=== PATIENT | male | born 1935 | race Caucasian/White ===

== ENCOUNTER → 2016-12-30 | Outpatient (CLI) | payer BC ==
[~2016-12-30] MED LIST: ASPI81TA28 PO; ATOR-26 PO; BRIN1SUS OPB; CALC600T9 PO; FOLIC AC PO; LORA-741 PO; LSN/10125 PO; MCLIN; METO25TA56 PO; MULT-845 PO; OMEP40CA36 PO; PRED10TA PO; TMPOPS15 OPB
--- NOTE | 2016-12-30 10:40 | DIAGNOSTIC IMAGING REPORT ---
CHEST 2 VIEWS ROUTINE CLINICAL HISTORY: Dyspnea. COMPARISON STUDY: Chest radiograph September 24, 2015. FINDINGS: There are median sternotomy wires. Cardiac size is at the upper limits of normal. There is no pneumothorax or pleural effusion. There is no consolidation. Distended colonic loops within the upper abdomen have been shown on prior exams. There is no consolidation to suggest pneumonia. Loss of the retrosternal clear space is noted. IMPRESSION: 1. No acute findings identified. 2. Retrosternal opacity on lateral projection. This is nonspecific and may be postsurgical or projectional. Electronically signed by: Francisco J Holm M.D. 12/30/2016 10:38 AM Dictated Date/Time: 12/30/2016 10:36 AM
== END | disposition home or self-care (01) ==
LOC: C.RADBC 09:57
PROVIDERS: ATTEND Internal Medicine
DX: R06.00 Dyspnea, unspecified (principal)

== ENCOUNTER → 2017-01-01 | Outpatient (CLI) | payer BC ==
[2017-01-01 17:34] LABS: BASO % 0.1 %; BASO ABS # 0.02 K/uL (0-0.2); COMPLETE YES; EOS % 0.2 %; HEMATOCRIT 41.5 % (42-52); IG% 0.4 %; LYMPH % 9.9 %; LYMPH ABS # 1.34 K/uL (1.2-3.4); MEAN CELL VOLUME 97.2 fL (80-100); MEAN CORPUSCULAR HEMOGLOBIN 32.1 pg (25-34); MEAN PLATELET VOLUME 10.6 fL (7.4-10.4); MONO % 7.4 %; PLATELET COUNT 305 K/uL (130-400); RED BLOOD COUNT 4.27 M/uL (4.7-6.1); WHITE BLOOD COUNT 13.58 K/uL (4.8-10.8)
[2017-01-01 17:48] LABS: ALT/SGPT 30 U/L (12-78); BLOOD UREA NITROGEN 26 mg/dl (7-18); BUN/CREATININE RATIO 21.9 (10-20); CALCIUM 9.2 mg/dl (8.5-10.1); CARBON DIOXIDE 26 mmol/L (21-32); CHLORIDE 110 mmol/L (98-107); GLUCOSE 107 mg/dl (70-99); POTASSIUM 4.4 mmol/L (3.5-5.1); SODIUM 144 mmol/L (136-145)
[2017-01-01 17:58] LABS: ALB/GLOB RATIO 1.2 (0.9-2); ALKALINE PHOSPHATASE 83 U/L (45-117); AST/SGOT 28 U/L (15-37); THYROID STIMULATING HORMONE 0.984 uIu/ml (0.300-4.500)
== END | disposition home or self-care (01) ==
LOC: C.LABPBG 15:18
PROVIDERS: ATTEND Internal Medicine
DX: R73.01 Impaired fasting glucose (principal)

== ENCOUNTER → 2017-01-04 | Outpatient (CLI) | payer BC ==
[~2017-01-04] MED LIST changes: +OPTIRAY 320 IV PRN
--- NOTE | 2017-01-04 10:48 | DIAGNOSTIC IMAGING REPORT ---
CT CHEST ANGIO WITH CONTRAST CT DOSE: 238.02 mGy.cm CLINICAL HISTORY: Shortness of breath. Abnormal chest radiograph. TECHNIQUE: Helical axial images of the chest were obtained during arterial phase following intravenous injection of 92 cc Optiray 320 IV. Sagittal and coronal reconstructions were viewed as well as maximal intensity projections on an independent 3-D workstation. COMPARISON STUDY: Chest radiograph December 30, 2016. FINDINGS: There are median sternotomy wires and postsurgical findings consistent with bypass grafting. The heart is moderately enlarged. There is no pericardial effusion. The finding on chest radiograph with loss of the external clear space of December 30, 2016 is due to vascular structures. There is no mediastinal mass. Central airways are patent. There is no consolidation to suggest pneumonia. There is no pneumothorax or pleural effusion. There is no thoracic lymphadenopathy. Visualized portions the upper abdomen demonstrate moderate dilatation of the pancreatic duct which measures 9 mm in caliber. This is a new finding since exam of December 16, 2014. The pancreas duct is dilated to the level of the pancreatic head. A corresponding mass is not identified by CT. There is no biliary ductal dilatation. A 1.1 cm hypodense lesion adjacent to the pancreatic head is unchanged since prior exam of December 16, 2014. IMPRESSION: 1. No acute intrathoracic findings. 2. Moderate cardiomegaly. 3. No mediastinal mass. Retrosternal opacity on prior chest radiograph is due to normal vascular structures. 4. Interval development of pancreatic ductal dilatation. The pancreatic duct is dilated to the level the pancreatic head. No mass identified by CT. This represents a nonspecific finding which could be due to an occult lesion, main duct IPMN or stricture. GI consultation is recommended. 5. Stable 1.1 cm cystic lesion adjacent to the pancreatic head since CT of December 16, 2014 which likely reflects a side branch IPMN. Electronically signed by: Francisco J Holm M.D. 01/04/2017 10:46 AM Dictated Date/Time: 01/04/2017 10:02 AM
== END | disposition home or self-care (01) ==
LOC: C.CTS 09:30
PROVIDERS: ATTEND Internal Medicine
DX: R06.00 Dyspnea, unspecified (principal); R93.8 Abnormal findings on diagnostic imaging of other specified body structures; I51.7 Cardiomegaly; K86.89 Other specified diseases of pancreas; K86.2 Cyst of pancreas

== ENCOUNTER → 2017-07-20 | Outpatient (CLI) | payer BC ==
[~2017-07-20] MED LIST changes: -OPTIRAY 320 IV PRN
[2017-07-20 10:20] LABS: HEMATOCRIT 40.5 % (42-52); MEAN CELL VOLUME 97.6 fL (80-100); MEAN CORPUSCULAR HEMOGLOBIN 33.3 pg (25-34); MEAN CORPUSCULAR HGB CONC 34.1 g/dl (32-36); MEAN PLATELET VOLUME 10.1 fL (7.4-10.4); PLATELET COUNT 257 K/uL (130-400); RED BLOOD COUNT 4.15 M/uL (4.7-6.1); WHITE BLOOD COUNT 11.61 K/uL (4.8-10.8)
== END | disposition home or self-care (01) ==
LOC: C.LAB 09:32
PROVIDERS: ATTEND Internal Medicine Gastroenterology
DX: K50.012 Crohn's disease of small intestine with intestinal obstruction (principal)

== ENCOUNTER → 2017-09-26 | Outpatient (CLI) | payer BC ==
[2017-09-26 17:27] LABS: BASO % 0.1 %; BASO ABS # 0.02 K/uL (0-0.2); COMPLETE YES; EOS % 0.3 %; HEMATOCRIT 43.5 % (42-52); IG% 0.4 %; LYMPH % 10.1 %; LYMPH ABS # 1.67 K/uL (1.2-3.4); MEAN CELL VOLUME 102.8 fL (80-100); MEAN CORPUSCULAR HEMOGLOBIN 33.3 pg (25-34); MEAN CORPUSCULAR HGB CONC 32.4 g/dl (32-36); MEAN PLATELET VOLUME 10.8 fL (7.4-10.4); MONO % 7.1 %; PLATELET COUNT 279 K/uL (130-400); RED BLOOD COUNT 4.23 M/uL (4.7-6.1); WHITE BLOOD COUNT 16.52 K/uL (4.8-10.8)
[2017-09-26 17:53] LABS: ALT/SGPT 32 U/L (12-78); AST/SGOT 32 U/L (15-37); BLOOD UREA NITROGEN 21 mg/dl (7-18); CALCIUM 8.9 mg/dl (8.5-10.1); CARBON DIOXIDE 27 mmol/L (21-32); CHLORIDE 108 mmol/L (98-107); CREATININE 1.25 mg/dl (0.60-1.40); GLUCOSE 101 mg/dl (70-99); MAGNESIUM 2.1 mg/dl (1.8-2.4); POTASSIUM 3.9 mmol/L (3.5-5.1); SODIUM 140 mmol/L (136-145)
[2017-09-26 18:03] LABS: ALB/GLOB RATIO 1.2 (0.9-2); ALKALINE PHOSPHATASE 77 U/L (45-117)
[2017-09-27 04:40] LABS: ESTIMATED AVERAGE GLUCOSE 131 mg/dl; HA1C FLAG Normal (Normal)
== END | disposition home or self-care (01) ==
LOC: C.LABPBG 11:16
PROVIDERS: ATTEND Internal Medicine
DX: M85.80 Other specified disorders of bone density and structure, unspecified site (principal); K50.90 Crohn's disease, unspecified, without complications; I10 Essential (primary) hypertension; Z51.81 Encounter for therapeutic drug level monitoring; Z79.52 Long term (current) use of systemic steroids; R79.9 Abnormal finding of blood chemistry, unspecified; I25.10 Atherosclerotic heart disease of native coronary artery without angina pectoris; R06.00 Dyspnea, unspecified

== ENCOUNTER → 2017-11-13 | Outpatient (CLI) | payer BC | END | disposition home or self-care (01) | LOC: C.PATHSPEC 16:43 | PROVIDERS: ATTEND Physician Assistant | DX: L57.0 Actinic keratosis (principal); Q82.8 Other specified congenital malformations of skin ==

== ENCOUNTER → 2018-01-14 | Outpatient (CLI) | payer BC ==
[2018-01-14 13:12] LABS: HEMOGLOBIN A1C 6.1 % (4.5-5.6)
== END | disposition home or self-care (01) ==
LOC: C.LABPBG 10:20
PROVIDERS: ATTEND Internal Medicine
DX: M79.1 Myalgia (principal); R73.01 Impaired fasting glucose

== ENCOUNTER 2019-06-24 07:45 | Inpatient (IN) ==
[2019-06-24] MEDS ORDERED: FAMOTIDINE 20MG/5ML IV PUSH IV STA (08:42)
[2019-06-24] MEDS ORDERED: SODIUM CHLORIDE 0.9% 1000ML 500 ML IV ONE (08:42)
[2019-06-24] MEDS ORDERED: fentaNYL citrate 100 MCG/2 ML VIAL IV STA (08:42)
[2019-06-24] MEDS ORDERED: SODIUM CHLORIDE 0.9% 1000ML 1,000 ML IV SCH (08:45)
[2019-06-24 08:53] LABS: Appearance Urine Clear (Clear); Bilirubin Urine Negative (Negative); Blood Urine Negative (Negative); Color Urine Yellow; Glucose Urine UA Negative (Negative); Ketones Urine Negative (Negative); Leukocyte Esterase Urine Negative (Negative); Nitrite Urine Negative (Negative); Protein Urine Negative (Negative); Specific Gravity Urine 1.019 (1.000-1.030); Urobilinogen Urine Negative (Negative)
[2019-06-24] MEDS: ONDANSETRON INJ 2 MG/ML 2 ML VIAL IV STA (08:54)
[2019-06-24 09:02] LABS: Basophils # (auto) 0.02 K/uL (0-0.2); Basophils % (auto) 0.1 %; Eosinophils # (auto) 0.08 K/uL (0-0.5); Eosinophils % (auto) 0.6 %; Hematocrit (blood only) 38.4 % (42-52); Immature Granulocytes # (auto) 0.04 K/uL (0.00-0.02); Immature Granulocytes % (auto) 0.3 %; Lymphocytes # (auto) 2.38 K/uL (1.2-3.4); Mean Corpuscular Hemoglobin 34.3 pg (25-34); Mean Corpuscular Hgb Conc 33.9 g/dL (32-36); Mean Corpuscular Volume 101.3 fL (80-100); Monocytes # (auto) 2.11 K/uL (0.11-0.59); Platelet Count 244 K/uL (130-400); RDW Standard Deviation 51.9 fL (36.4-46.3); Red Blood Count 3.79 M/uL (4.7-6.1); White Blood Count 14.03 K/uL (4.8-10.8)
[2019-06-24 09:19] LABS: Alanine Aminotransferase 19 U/L (12-78); Albumin Level 3.5 gm/dl (3.4-5.0); Aspartate Aminotransferase 23 U/L (15-37); Blood Urea Nitrogen 20 mg/dl (7-18); Calcium 9.5 mg/dl (8.5-10.1); Carbon Dioxide 25 mmol/L (21-32); Chloride 108 mmol/L (98-107); Est GFR (African American) 66.2; Est GFR (Non-African American) 57.1; Glucose 90 mg/dl (70-99); Potassium 3.8 mmol/L (3.5-5.1); Sodium 141 mmol/L (136-145)
[2019-06-24 09:22] LABS: Albumin Globulin Ratio 1.2 (0.9-2); Alkaline Phosphatase 70 U/L (45-117); Bilirubin,Total 0.9 mg/dl (0.2-1); Globulin 2.9 gm/dl (2.5-4.0); Lipase 3711 U/L (73-393); Total Protein 6.4 gm/dl (6.4-8.2)
[2019-06-24] MEDS ORDERED: IOVERSOL 100ml IV PRN (10:45)
--- NOTE | 2019-06-24 10:59 | Emergency Department Note ---
ED Visit Note This patient was seen in concert with Dr. Rios and we discussed and agreed upon the history, physical, assessment and plan. See attending's note for details. . Resident Activity Tracking Resident Involvement: Resident Care Provided Care Provided: Adult ED
--- NOTE | 2019-06-24 11:03 | CT Scan Report ---
CT abd pelvis IV con only CLINICAL HISTORY: 84 years-old Male presenting with abd pain, LUQ, h/o bowel resection. TECHNIQUE: Multidetector CT of the abdomen and pelvis was performed after the administration of intra venous contrast. IV contrast: 95 mL of Optiray 320. One or more dose lowering techniques were used co nsistent with the principles of ALARA (as low as reasonably achievable), including automatic exposure control, mA or kV adjustment to individual patient size, and/or use of iterative reconstruction. COMPARISON: 12/16/2014. CT DOSE (mGy.cm): The estimated cumulative dose is 403.29 mGycm. FINDINGS: Production Corrugator topogram: Median sternotomy wires. Dilated bowel as on prior exam. Lung bases: Top normal heart size. Coronary artery and aortic valve calcification. No pericardial or pleural effusion. No focal infiltrate or nodule at the lung bases. 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 Density suggestive of hepatic steatosis. No fo horacio lesion. Patent hepatic vasculature. Biliary: No intrahepatic or extrahepatic biliary ductal dilatation. Normal gallbladder. Pancreas: Focally dilated main pancreatic duct at the level of the pancreatic head and neck measuring 12 mm in diameter. This is new from prior exam. Redemonstration of the multilobular cystic lesion, w hich is immediately adjacent to dilated main duct. No upstream pancreatic ductal dilatation. Diffuse parenchymal atrophy most severe in the pancreatic neck and head. Spleen: Normal. Adrenal glands: Normal. Kidneys and ureters: Punctate nonobstructing lower pole left renal calculus. Mild cortical thinning b ilaterally. Otherwise normal renal parenchyma. No hydronephrosis. Ureters nondistended. Circumaortic left renal vein noted. Bladder: Circumferential bladder wall thickening. Pelvic organs: Prostate enlargement likely secondary to benign prostatic hyperplasia. Bowel: Diverticulosis of the sigmoid and distal descending colon without wall thickening or pericolon ic inflammatory change. The appendix is not visualized. No bowel obstruction. Several surgical clips are noted adjacent to small bowel in the central abdomen as on prior exam. Mild gaseous distention of an abnormal loop of small bowel in the anterior epigastrium. The appearance and degree of dilatation are unchanged from prior. Downstream enteroenteric anastomosis with postsurgical changes of the smal l bowel evident in the left mid abdomen. Intramural fat deposition in the region of postsurgical soares ge could suggest chronic inflammatory changes. Peritoneal cavity: No free fluid or intraperitoneal gas. Lymph nodes: No enlarged lymph nodes in the abdomen or pelvis. Vasculature: Atherosclerosis of the normal caliber abdominal aorta. IVC patent. Abdominal wall: Median sternotomy noted. Fat-containing inguinal hernias, right greater than left. Musculoskeletal: Degenerative changes of the spine. IMPRESSION: 1. Similar appearance of the mildly distended loop of small bowel in the epigastrium upstream to pos tsurgical change in the left mid abdomen, where there is an enteroenteric anastomosis. No bowel obstr uction. 2. Diverticulosis coli. No diverticulitis. 3. Chronic bladder outlet obstruction secondary to prostatomegaly. 4. Punctate nonobstructing left nephrolithiasis. 5. Interval development of a focally dilated main pancreatic duct at the level of the head and neck. 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 This qualifies as a worrisome feature. Follow-up per Fuk[place] criteria below. Summary of [place] (George) Criteria for IPMN Surveillance "High-risk stigmata": 1) obstructive jaundice in a patient with cystic lesion of the head of the panc reas, 2) enhancing mural nodule > or = 5 mm, 3) main pancreatic duct > or = 10 mm. * Consider surgery "Worrisome features": Clinical: pancreatitis; Imagin) cyst > or = 3 cm, 2) enhancing mural nodule < 5 mm, 3) thickened/enhancing cyst bello, 4) main duct size 5-9 mm, 5) abrupt change in caliber of pancreatic duct with distal pancreatic atrophy, 6) lymphadenopathy, 7) increased serum level of CA 19 -9, 8) cyst growth rate > or = 5 mm in 2 years. * Endoscopic ultrasound (EUS) Surveillance if no "high-risk stigmata" or "worrisome features": * Largest cyst < 1 cm: CT or MRI/MRCP in 6 months, then every 2 years if no change. * Largest cyst 1-2 cm: CT or MRI/MRCP in 6 months x 1 year, yearly x 2 years, then lengthen interval up to 2 years if no change. * Largest cyst 2-3 cm: Endoscopic ultrasound (EUS) in 3-6 months, then lengthen interval up to 1 yea r, alternating MRI with EUS as appropriate. Consider surgery in young, fit patients with need for pro longed surveillance. * Largest cyst > 3 cm: Close surveillance alternating MRI with EUS every 3-6 months. Strongly consid er surgery in young, fit patients. George M, Hanna Mayo C, Vesna T, et al. Revisions of international consensus [place] g uidelines for the management of IPMN of the pancreas. Pancreatology. 2017; 17:738-753. Electronically signed by: Darrin Blair M.D. 06/24/2019 11:01 AM
--- NOTE | 2019-06-24 12:10 | History & Physical Report ---
Date of Service June 24, 2019 Assessment & Plan (1) Pancreatitis: Noted on CT Lipase elevated Hx of same Possibly related to IPMN MRCP pending Leukocytosis in the setting of chronic steroid use (2) IPMN (intraductal papillary mucinous neoplasm): Noted on CTAP as 12mm and in the main pancreatic duct Criteria note that this is worrisome given size and location Was noted on CTAP 11/2014 as 11m and likely in a side duct. This was not worked up further. Criteria given on today's CTAP suggest this is new management since 2017 MRCP pending (3) Impaired fasting glucose: BS 90 in the ED, fasting given no PO intake today Monitor (4) Hypertension: continue home meds (5) Generalized anxiety disorder: continue home meds (6) Gastroesophageal reflux disease: continue home meds (7) Crohn's disease: Prednisone use, 10mg daily Continue (8) Benign neoplasm of colon: Denies hx of colon mass Hx of resxn for Crohn's Possibly entered in error and is related to IPMN?? 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 Pt states he was in his usual state of health until about 3-4 days ago when he developed abd discomfort. He felt very bloated and was belching more than usual. He thought this would help, but his bloating continued. No n/v/d or oracio pain. He has had no appetite for the last 2 days related to this and has taken very little PO. He states that when this continued, he realized that these were the same sx he had several years ago when he was dx with pancreatitis, so he came to the ED. Pt was given IVF, pepcid in the ED and says he feels a bit better. He is still bloated, but not nearly as uncomfortable. Family states that pt was told about this pancreatitic mass several years ago with his pancreatitis, but that they were told if he was not having issues that it could just be watched. Allergies Allergy/AdvReac Type Severity Reaction Status Date / Time Penicillins Allergy Unknown unknown Verified 06/24/19 09:19 Home Medications Home Medications Medication Instructions Recorded Confirmed Type calcitonin (salmon) 200 See Rx Instructions INTRANASAL 04/16/19 06/24/19 History unit/actuation nasal spray (ALT) .COMPLEX ml calcium carbonate 600 mg(1,500 1 tab PO BID 04/16/19 06/24/19 History mg)-vitamin D3 800 unit chewable tablet bzqgvzlc-kzz-ijfwy acid 0.4 1 tab PO DAILY 04/16/19 06/24/19 History mg-lycopene 300 mcg-lutein 250 mcg tablet timolol maleate 0.25 % eye gel 1 drops OP .COMPLEX ml 04/16/19 06/24/19 History forming solution aspirin 81 mg tablet 81 mg PO DAILY #30 tab 05/12/19 06/24/19 History atorvastatin 80 mg tablet 80 mg PO DAILY #90 tab 05/12/19 06/24/19 History brinzolamide 1 % eye 1 drops OP DAILY ml 05/12/19 06/24/19 History drops,suspension folic acid 400 mcg tablet 400 mcg PO DAILY tab 05/12/19 06/24/19 History lisinopril 10 1 tab PO DAILY #90 tab 05/12/19 06/24/19 History mg-hydrochlorothiazide 12.5 mg tablet metoprolol tartrate 25 mg tablet 25 mg PO BID #180 tab 05/12/19 06/24/19 History nitroglycerin 0.4 mg sublingual 0.4 mg SL .COMPLEX tab 05/12/19 06/24/19 History tablet omeprazole 40 mg capsule,delayed 40 mg PO DAILY #90 cap 05/12/19 06/24/19 History release prednisone 10 mg tablet 10 mg PO DAILY #90 tab 05/12/19 06/24/19 History diphenhydramine-acetaminophen 1 tab PO HS 06/24/19 06/24/19 History [Tylenol PM Extra Strength] lorazepam 0.5 mg PO HS 06/24/19 06/24/19 History Past Med/Surg History Medical History Squamous cell carcinoma in situ (Acute) Pre-diabetes (Acute) Osteopenia (Acute) Neutrophilic leukocytosis (Acute) Myalgia (Acute) 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 (Acute) Impaired fasting glucose (Acute) Hypertension (Chronic) Hyperlipidemia (Acute) Glaucoma (Acute) Generalized weakness (Acute) Generalized anxiety disorder (Acute) Gastroesophageal reflux disease (Acute) Gait disorder (Acute) Dyspnea (Acute) Crohn's disease (Acute) Claudication (Acute) CKD (chronic kidney disease), stage III (Acute) Benign neoplasm of colon (Acute) Asthma (Acute) Arteriosclerotic cardiovascular disease (Acute) Abnormal blood chemistry (Acute) Family History Unknown Hypertension Hyperlipidemia Social History Preferred Language: [place] Communication Ability: Effective Beliefs That Will Affect Care: None Current Living Situation: Spouse Other Information That Helps Us Care for You: No Feels Safe at Home: Yes Safety Concerns: Feels Safe At This Time Smoking Status: Never smoker Hx Alcohol Use: No Hx Substance Use: No Review of Systems Review of Systems: Pertinent positives and negatives reviewed in HPI--all others negative Physical Exam Constitutional: WD/WN, vitals as above Eyes: normal visual best by confrontation and + anicteric sclerae Neck: normal visual inspection and trachea midline Respiratory: normal respiratory effort, lungs clear to auscultation Cardiovascular: Rate/Rhythm: regular rate and regular rhythm Gastrointestinal (Abdomen): Inspection/Auscultation: + abdomen distended Percussion/Palpation: abdomen soft; abdomen nontender Musculoskeletal: Head/Neck/Chest: normocephalic and head atraumatic negative for edema, peripheral pulses intact Skin: no rashes, warm and dry Neurologic: awake; not confused Speech / Cognition: normal speech Psychiatric: A+Ox3, euthymic affect Results & Data Vital Signs (Past 12 Hours) Vital Signs Temp Pulse Pulse Resp BP BP Pulse Ox 06/24/19 11:30 74 20 136/83 98 06/24/19 10:54 88 20 156/75 H 99 06/24/19 10:06 78 20 130/78 98 06/24/19 09:04 82 16 164/74 H 99 06/24/19 08:36 88 20 150/96 H 97 06/24/19 07:50 36.7 C 102 H 20 144/82 H 98 Diagnostic Findings CTAP: 1. Similar appearance of the mildly distended loop of small bowel in the epigastrium upstream to postsurgical change in the left mid abdomen, where there is an enteroenteric anastomosis. No bowel obstruction. 2. Diverticulosis coli. No diverticulitis. 3. Chronic bladder outlet obstruction secondary to prostatomegaly. 4. Punctate nonobstructing left nephrolithiasis. 5. Interval development of a focally dilated main pancreatic duct at the level of the head and neck. 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 This qualifies as a worrisome feature. Follow-up per Fuk[place] criteria below. Summary of [place] (George) Criteria for IPMN Surveillance "High-risk stigmata": 1) obstructive jaundice in a patient with cystic lesion of the head of the pancreas, 2) enhancing mural nodule > or = 5 mm, 3) main pancreatic duct > or = 10 mm. * Consider surgery "Worrisome features": Clinical: pancreatitis; Imagin) cyst > or = 3 cm, 2) enhancing mural nodule < 5 mm, 3) thickened/enhancing cyst bello, 4) main duct size 5-9 mm, 5) abrupt change in caliber of pancreatic duct with distal pancreatic atrophy, 6) lymphadenopathy, 7) increased serum level of CA 19-9, 8) cyst growth rate > or = 5 mm in 2 years. * Endoscopic ultrasound (EUS) Surveillance if no "high-risk stigmata" or "worrisome features": * Largest cyst < 1 cm: CT or MRI/MRCP in 6 months, then every 2 years if no c hange. * Largest cyst 1-2 cm: CT or MRI/MRCP in 6 months x 1 year, yearly x 2 years, then lengthen interval up to 2 years if no change. * Largest cyst 2-3 cm: Endoscopic ultrasound (EUS) in 3-6 months, then lengthen interval up to 1 year, alternating MRI with EUS as appropriate. Consider surgery in young, fit patients with need for prolonged surveillance. * Largest cyst > 3 cm: Close surveillance alternating MRI with EUS every 3-6 months. Strongly consider surgery in young, fit patients. George Tovar, Hanna Mayo C, Vesna T, et al. Revisions of international consensus [place] guidelines for the management of IPMN of the pancreas. Pancreatology. 2017; 17:738-753. Code Status & VTE Plan Code Status Full code VTE Prophylaxis Plan VTE Prophylaxis will be ordered: Yes PG Care Time/CCT Total # of Minutes Spent Total Time Spent with Patient: Total time spent is greater than 50% in coordination of care (as documented) at patient's floor/unit and/or counseling patient: (1) Hypertension Hypertension type: essential hypertension Qualified Code(s): I10 - Essential (primary) hypertension
[2019-06-24] MEDS ORDERED: predniSONE 10 MG TABLET PO SCH (12:15)
[2019-06-24] MEDS ORDERED: ONDANSETRON INJ 2 MG/ML 2 ML VIAL IV PRN (13:50)
[2019-06-24] MEDS ORDERED: MAGNESIUM HYDROXIDE SUSP 30 ML UDC PO PRN (13:50)
[2019-06-24] MEDS ORDERED: NITROGLYCERIN SL 0.4 MG/TAB TAB SL PRN (13:50)
[2019-06-24] MEDS ORDERED: ACETAMINOPHEN 325 MG TAB PO PRN (13:50)
[2019-06-24] MEDS ORDERED: predniSONE 10 MG TABLET PO ONE (14:15)
--- NOTE | 2019-06-24 14:32 | Emergency Department Note ---
Entered by Leif Sheppard acting as a scribe for Ester Rios MD History of Present Illness General Chief complaint: Abdominal Pain Stated complaint: STOMACH PROBLEMS Source: patient History of Present Illness Provider complaint: Abdominal pain Onset (ago): day(s) 2 Location: abdomen Pain Consistency: + constant Maximum Pain Intensity: 6 Current Pain Intensity: 6 Relieved By: + none Exacerbated By: + none Associated symptoms: + loss of appetite, + weakness and + other (Diarrhea); no nausea/vomiting The patient is an 84 year old male who presents to the Emergency Room with complaints of constant epigastric and left upper quadrant abdominal pain that started about 2 days ago. The patient rates the pain as an 8/10 and notes that nothing makes it better or worse. The patient reports that due to the pain he has lost his appetite and feels more weak. The patient describes his symptoms as feeling similar to indigestion but notes it is unlike his GERD symptoms. The patient adds that she is passing gas and has had diarrhea over these past two days, having about 2-3 episodes per day. The patient notes that he tried Tums, but his symptoms persisted. He denies any nausea or vomiting. The patient has a history of GERD, Crohn's, bowel resection, and pancreatitis. Home Medications Home Medications Medication Instructions Recorded Confirmed Type calcitonin (salmon) 200 See Rx Instructions INTRANASAL 04/16/19 06/24/19 History unit/actuation nasal spray (ALT) .COMPLEX ml calcium carbonate 600 mg(1,500 1 tab PO BID 04/16/19 06/24/19 History mg)-vitamin D3 800 unit chewable tablet dmsguoqw-alp-xeviw acid 0.4 1 tab PO DAILY 04/16/19 06/24/19 History mg-lycopene 300 mcg-lutein 250 mcg tablet timolol maleate 0.25 % eye gel 1 drops OP .COMPLEX ml 04/16/19 06/24/19 History forming solution aspirin 81 mg tablet 81 mg PO DAILY #30 tab 05/12/19 06/24/19 History atorvastatin 80 mg tablet 80 mg PO DAILY #90 tab 05/12/19 06/24/19 History brinzolamide 1 % eye 1 drops OP DAILY ml 05/12/19 06/24/19 History drops,suspension folic acid 400 mcg tablet 400 mcg PO DAILY tab 05/12/19 06/24/19 History lisinopril 10 1 tab PO DAILY #90 tab 05/12/19 06/24/19 History mg-hydrochlorothiazide 12.5 mg tablet metoprolol tartrate 25 mg tablet 25 mg PO BID #180 tab 05/12/19 06/24/19 History nitroglycerin 0.4 mg sublingual 0.4 mg SL .COMPLEX tab 05/12/19 06/24/19 History tablet omeprazole 40 mg capsule,delayed 40 mg PO DAILY #90 cap 05/12/19 06/24/19 History release prednisone 10 mg tablet 10 mg PO DAILY #90 tab 05/12/19 06/24/19 History diphenhydramine-acetaminophen 1 tab PO HS 06/24/19 06/24/19 History [Tylenol PM Extra Strength] lorazepam 0.5 mg PO HS 06/24/19 06/24/19 History Allergies Allergy/AdvReac Type Severity Reaction Status Date / Time Penicillins Allergy Unknown unknown Verified 06/24/19 09:19 Past Med/Surg History Medical History Squamous cell carcinoma in situ (Acute) Pre-diabetes (Acute) Osteopenia (Acute) Neutrophilic leukocytosis (Acute) Myalgia (Acute) senior living current use of systemic steroids (Acute) Impaired fasting glucose (Acute) Hypertension (Chronic) Hyperlipidemia (Acute) Glaucoma (Acute) Generalized weakness (Acute) Generalized anxiety disorder (Acute) Gastroesophageal reflux disease (Acute) Gait disorder (Acute) Dyspnea (Acute) Crohn's disease (Acute) Claudication (Acute) CKD (chronic kidney disease), stage III (Acute) Benign neoplasm of colon (Acute) Asthma (Acute) Arteriosclerotic cardiovascular disease (Acute) Abnormal blood chemistry (Acute) Family History Unknown Hypertension Hyperlipidemia Social History Preferred Language: Guamanian Communication Ability: Effective Beliefs That Will Affect Care: None Current Living Situation: Spouse Feels Safe at Home: Yes Smoking Status: Never smoker Hx Alcohol Use: No Hx Substance Use: No Review of Systems See HPI for pertinent positives & negatives. and A total of 10 systems reviewed and were otherwise negative Physical Exam Vital Signs Vital Signs - 24 hr 06/24/19 07:50 06/24/19 08:10 06/24/19 08:36 Temperature 36.7 C Temperature Source Oral Sepsis Recent Fever Within 48 Hours No Sepsis Action Taken by Nursing No Action Required Pulse Rate 102 H Pulse Rate [Right Finger] 88 Respiratory Rate 20 20 Respiratory Effort / Characteristics Non-Labored Non-Labored Respiratory Depth Normal Normal Blood Pressure 144/82 H Blood Pressure [Right Arm] 150/96 H Blood Pressure Mean 102 Blood Pressure Mean [Right Arm] 114 Pulse Oximetry 98 97 Oxygen Delivery Method Room Air Room Air Room Air 06/24/19 09:04 06/24/19 10:06 06/24/19 10:54 Temperature Temperature Source Sepsis Recent Fever Within 48 Hours Sepsis Action Taken by Nursing Pulse Rate Pulse Rate [Right Finger] 82 78 88 Respiratory Rate 16 20 20 Respiratory Effort / Characteristics Non-Labored Respiratory Depth Normal Blood Pressure Blood Pressure [Right Arm] 164/74 H 130/78 156/75 H Blood Pressure Mean Blood Pressure Mean [Right Arm] 104 95 102 Pulse Oximetry 99 98 99 Oxygen Delivery Method Room Air Room Air Room Air 06/24/19 11:30 06/24/19 11:35 Temperature Temperature Source Sepsis Recent Fever Within 48 Hours Sepsis Action Taken by Nursing Pulse Rate Pulse Rate [Right Finger] 74 Respiratory Rate 20 Respiratory Effort / Characteristics Respiratory Depth Blood Pressure Blood Pressure [Right Arm] 136/83 Blood Pressure Mean Blood Pressure Mean [Right Arm] 100 Pulse Oximetry 98 Oxygen Delivery Method Room Air Vital signs reviewed. General: Chronically ill-appearing 84 year old male, in no significant distress. HEENT: No scleral icterus, PERRLA, neck supple. Atraumatic. Cardiovascular: Regular rate and rhythm, no extra sounds. Pulmonary: Clear to auscultation bilaterally, normal work of breathing. Abdomen: Soft, mild epigastric abdominal tenderness with no rebounding or guarding,, nondistended, positive bowel sounds. Musculoskeletal: Atraumatic, no peripheral edema. Neurologic: Patient awake alert and oriented x 3. Skin: Warm, dry, no rash Course 0758: Past medical records reviewed. The patient was evaluated in room A10, and a complete history and physical examination were performed. 1117: I spoke to Dr. Gilbert - [facility] Hospitalist about the patient's case. She is going to accept the patient for further evaluation. 1120: I reevaluated the patient and updated him on results. I also discussed the treatment plan and he fully understands and agrees with the plan. Consultations Consultation #1: I spoke to Dr. Gilbert - [facility] Hospitalist about the patient's case. She is going to accept the patient for further evaluation. Time: 11:17 Administered Medications Acetaminophen (Tylenol) 650 mg PO Q4H PRN PRN Reason: pain/fever Stop: 07/24/19 13:49 Last Admin: 06/25/19 07:51 Dose: 650 mg Documented by: [id number] Aspirin (Ecotrin Ectab) 81 mg PO DAILY BREEZY Stop: 07/25/19 08:59 Last Admin: 06/25/19 08:30 Dose: 81 mg Documented by: [id number] Brinzolamide (Azopt) 1 drops OP DAILY BREEZY Stop: 07/25/19 08:59 Last Admin: 06/25/19 08:30 Dose: 1 drops Documented by: [id number] Calcitonin [place] (Fortical) 1 sprays NA DAILY BREEZY Stop: 07/25/19 08:59 Last Admin: 06/25/19 08:31 Dose: 1 sprays Documented by: [id number] Lisinopril/HCTZ (Prinzide 10/12.5mg) 1 tab PO DAILY BREEZY Stop: 07/25/19 08:59 Last Admin: 06/25/19 08:32 Dose: 1 tab Documented by: [id number] Ioversol (Optiray 320 100ml) 95 ml IV ONCE PRN PRN Reason: Interaction Checking Stop: 06/28/19 10:44 Last Admin: 06/24/19 10:46 Dose: 95 ml Documented by: [id number] Lorazepam (Ativan) 0.5 mg PO HS BREEZY Stop: 07/24/19 20:59 Last Admin: 06/25/19 21:04 Dose: 0.5 mg Documented by: [id number] Admin: 06/24/19 20:32 Dose: 0.5 mg Documented by: [id number] Metoprolol Tartrate (Lopressor) 25 mg PO BID BREEZY Stop: 07/24/19 20:59 Last Admin: 06/25/19 21:04 Dose: 25 mg Documented by: [id number] Admin: 06/25/19 08:31 Dose: 25 mg Documented by: [id number] Admin: 06/24/19 20:33 Dose: 25 mg Documented by: [id number] Pantoprazole Sodium (Protonix) 40 mg PO DAILY BREEZY Stop: 07/25/19 08:59 Last Admin: 06/25/19 08:32 Dose: 40 mg Documented by: [id number] Prednisone (Prednisone) 10 mg PO DAILY BREEZY Stop: 07/25/19 08:59 Last Admin: 06/25/19 08:31 Dose: 10 mg Documented by: [id number] Timolol Maleate (Timoptic-Xe 0.25% Oph Soln) 1 drops OPR DAILY BREEZY Stop: 07/25/19 08:59 Last Admin: 06/25/19 08:32 Dose: 1 drops Documented by: [id number] Discontinued Medications Famotidine (Pepcid 20mg Iv Push) 20 mg IV ONE STA Stop: 06/24/19 08:43 Last Admin: 06/24/19 08:55 Dose: 20 mg Documented by: [id number] Fentanyl Citrate (Fentanyl Citrate) 50 mcg IV NOW STA Stop: 06/24/19 08:43 Last Admin: 06/24/19 08:54 Dose: 50 mcg Documented by: [id number] Sodium Chloride (Nss 1000ml) 1,000 mls @ 125 mls/hr IV .Q8H BREEZY Stop: 06/24/19 16:44 Last Infusion: 06/24/19 13:53 Dose: 0 mls/hr Documented by: [id number] Admin: 06/24/19 09:24 Dose: 125 mls/hr Documented by: [id number] Sodium Chloride (Nss 1000ml) 500 mls @ 999 mls/hr IV .Q31M ONE Stop: 06/24/19 09:12 Last Infusion: 06/24/19 09:24 Dose: 0 mls/hr Documented by: [id number] Admin: 06/24/19 08:55 Dose: 999 mls/hr Documented by: [id number] Dextrose/Sodium Chloride (D5w And Nss) 1,000 mls @ 120 mls/hr IV .Q8H20M BREEZY Stop: 07/24/19 13:49 Last Admin: 06/25/19 16:27 Dose: Not Given Documented by: [id number] Infusion: 06/25/19 16:27 Dose: 0 mls/hr Documented by: [id number] Admin: 06/25/19 07:42 Dose: 120 mls/hr Documented by: [id number] Infusion: 06/25/19 07:42 Dose: 120 mls/hr Documented by: [id number] Admin: 06/24/19 23:48 Dose: 120 mls/hr Documented by: [id number] Infusion: 06/24/19 23:34 Dose: 120 mls/hr Documented by: [id number] Admin: 06/24/19 15:14 Dose: 120 mls/hr Documented by: [id number] Ondansetron HCl (Zofran) 4 mg IV NOW STA Stop: 06/24/19 08:43 Last Admin: 06/24/19 08:54 Dose: 4 mg Documented by: [id number] Admin: 06/24/19 08:54 Dose: 4 mg Documented by: [id number] Prednisone (Prednisone) 10 mg PO NOW ONE Stop: 06/24/19 14:16 Last Admin: 06/24/19 15:58 Dose: 10 mg Documented by: [id number] Medical Decision Making Differential Diagnosis Differential Diagnosis includes but is not limited to dehydration, stroke, anemia, hypoglycemia, hyponatremia, hypernatremia, urinary tract infection, pneumonia, bronchitis, sepsis, gastroenteritis, additional abdominal pathology, metabolic abnormalities and infections. Medical Records Attestation: I reviewed the patient's medical records. Home Medications Current Medication List: was personally reviewed by me Laboratory Data Attestation: I reviewed the patient's lab results. Result diagrams: 06/25/19 05:30 06/25/19 05:30 Lab Results 06/24/19 06/24/19 06/24/19 Range/Units 08:04 08:55 08:55 WBC 14.03 H (4.8-10.8) K/uL RBC 3.79 L (4.7-6.1) M/uL Hgb 13.0 L (14.0-18.0) g/dL Hct 38.4 L (42-52) % MCV 101.3 H (80-100) fL MCH 34.3 H (25-34) pg MCHC 33.9 (32-36) g/dL RDW Std Deviation 51.9 H (36.4-46.3) fL RDW Coeff of Mayte 14.0 (11.5-14.5) % Plt Count 244 (130-400) K/uL MPV 10.0 (7.4-10.4) fL Immature Gran % (Auto) 0.3 % Neut % (Auto) 67.0 % Lymph % (Auto) 17.0 % [place] % (Auto) 15.0 % Eos % (Auto) 0.6 % Baso % (Auto) 0.1 % Immature Gran # (Auto) 0.04 H (0.00-0.02) K/uL Neut # (Auto) 9.40 H (1.4-6.5) K/uL Lymph # (Auto) 2.38 (1.2-3.4) K/uL [place] # (Auto) 2.11 H (0.11-0.59) K/uL Eos # (Auto) 0.08 (0-0.5) K/uL Baso # (Auto) 0.02 (0-0.2) K/uL Sodium 141 (136-145) mmol/L Potassium 3.8 (3.5-5.1) mmol/L Chloride 108 H (98-107) mmol/L Carbon Dioxide 25 (21-32) mmol/L Anion Gap 8.0 (3-11) BUN 20 H (7-18) mg/dl Creatinine 1.16 (0.6-1.4) mg/dl Est Cr Clr Drug Dosing Not Reportable Est GFR ( Amer) 66.2 Est GFR (Non-Af Amer) 57.1 BUN/Creatinine Ratio 17.0 (10-20) Glucose 90 (70-99) mg/dl Lactate (0.4-2.0) mmol/L Calcium 9.5 (8.5-10.1) mg/dl Total Bilirubin 0.9 (0.2-1) mg/dl AST 23 (15-37) U/L ALT 19 (12-78) U/L Alkaline Phosphatase 70 (45-117) U/L Total Protein 6.4 (6.4-8.2) gm/dl Albumin 3.5 (3.4-5.0) gm/dl Globulin 2.9 (2.5-4.0) gm/dl Albumin/Globulin Ratio 1.2 (0.9-2) Lipase 3711 H (73-393) U/L Urine Color Yellow Urine Appearance Clear (Clear) Urine pH 5.0 (4.5-7.5) Ur Specific [place] 1.019 (1.000-1.030) Urine Protein Negative (Negative) Urine Glucose (UA) Negative (Negative) Urine Ketones Negative (Negative) Urine Blood Negative (Negative) Urine Nitrite Negative (Negative) Urine Bilirubin Negative (Negative) Urine Urobilinogen Negative (Negative) Ur Leukocyte Esterase Negative (Negative) 06/24/19 Range/Units 08:55 WBC (4.8-10.8) K/uL RBC (4.7-6.1) M/uL Hgb (14.0-18.0) g/dL Hct (42-52) % MCV (80-100) fL MCH (25-34) pg MCHC (32-36) g/dL RDW Std Deviation (36.4-46.3) fL RDW Coeff of Mayte (11.5-14.5) % Plt Count (130-400) K/uL MPV (7.4-10.4) fL Immature Gran % (Auto) % Neut % (Auto) % Lymph % (Auto) % [place] % (Auto) % Eos % (Auto) % Baso % (Auto) % Immature Gran # (Auto) (0.00-0.02) K/uL Neut # (Auto) (1.4-6.5) K/uL Lymph # (Auto) (1.2-3.4) K/uL [place] # (Auto) (0.11-0.59) K/uL Eos # (Auto) (0-0.5) K/uL Baso # (Auto) (0-0.2) K/uL Sodium (136-145) mmol/L Potassium (3.5-5.1) mmol/L Chloride (98-107) mmol/L Carbon Dioxide (21-32) mmol/L Anion Gap (3-11) BUN (7-18) mg/dl Creatinine (0.6-1.4) mg/dl Est Cr Clr Drug Dosing Est GFR ( Amer) Est GFR (Non-Af Amer) BUN/Creatinine Ratio (10-20) Glucose (70-99) mg/dl Lactate 1.8 (0.4-2.0) mmol/L Calcium (8.5-10.1) mg/dl Total Bilirubin (0.2-1) mg/dl AST (15-37) U/L ALT (12-78) U/L Alkaline Phosphatase (45-117) U/L Total Protein (6.4-8.2) gm/dl Albumin (3.4-5.0) gm/dl Globulin (2.5-4.0) gm/dl Albumin/Globulin Ratio (0.9-2) Lipase (73-393) U/L Urine Color Urine Appearance (Clear) Urine pH (4.5-7.5) Ur Specific [place] (1.000-1.030) Urine Protein (Negative) Urine Glucose (UA) (Negative) Urine Ketones (Negative) Urine Blood (Negative) Urine Nitrite (Negative) Urine Bilirubin (Negative) Urine Urobilinogen (Negative) Ur Leukocyte Esterase (Negative) Imaging Data Radiologist's Impression: Radiology results as stated below per my review and the radiologist's interpretation: CT abd pelvis IV con only CLINICAL HISTORY: 84 years-old Male presenting with abd pain, LUQ, h/o bowel resection. TECHNIQUE: Multidetector CT of the abdomen and pelvis was performed after the administration of intravenous contrast. IV contrast: 95 mL of Optiray 320. One or more dose lowering techniques were used consistent with the principles of ALARA (as low as reasonably achievable), including automatic exposure control, mA or kV adjustment to individual patient size, and/or use of iterative reconstruction. COMPARISON: 12/16/2014. CT DOSE (mGy.cm): The estimated cumulative dose is 403.29 mGycm. FINDINGS: Bak[employer] Team [employer] topogram: Median sternotomy wires. Dilated bowel as on prior exam. Lung bases: Top normal heart size. Coronary artery and aortic valve calcification. No pericardial or pleural effusion. No focal infiltrate or nodule at the lung bases. 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 Density suggestive of hepatic steatosis. No focal lesion. Patent hepatic vasculature. Biliary: No intrahepatic or extrahepatic biliary ductal dilatation. Normal gallbladder. Pancreas: Focally dilated main pancreatic duct at the level of the pancreatic head and neck measuring 12 mm in diameter. This is new from prior exam. Redemonstration of the multilobular cystic lesion, which is immediately adjacent to dilated main duct. No upstream pancreatic ductal dilatation. Diffuse parenchymal atrophy most severe in the pancreatic neck and head. Spleen: Normal. Adrenal glands: Normal. Kidneys and ureters: Punctate nonobstructing lower pole left renal calculus. Mild cortical thinning bilaterally. Otherwise normal renal parenchyma. No hydro nephrosis. Ureters nondistended. Circumaortic left renal vein noted. Bladder: Circumferential bladder wall thickening. Pelvic organs: Prostate enlargement likely secondary to benign prostatic hyperp lasia. Bowel: Diverticulosis of the sigmoid and distal descending colon without wall thickening or pericolonic inflammatory change. The appendix is not visualized. No bowel obstruction. Several surgical clips are noted adjacent to small bowel in the central abdomen as on prior exam. Mild gaseous distention of an abnormal loop of small bowel in the anterior epigastrium. The appearance and degree of dilatation are unchanged from prior. Downstream enteroenteric anastomosis with postsurgical changes of the small bowel evident in the left mid abdomen. Intramural fat deposition in the region of postsurgical change could suggest chronic inflammatory changes. Peritoneal cavity: No free fluid or intraperitoneal gas. Lymph nodes: No enlarged lymph nodes in the abdomen or pelvis. Vasculature: Atherosclerosis of the normal caliber abdominal aorta. IVC patent. Abdominal wall: Median sternotomy noted. Fat-containing inguinal hernias, right greater than left. Musculoskeletal: Degenerative changes of the spine. IMPRESSION: 1. Similar appearance of the mildly distended loop of small bowel in the epigastrium upstream to postsurgical change in the left mid abdomen, where there is an enteroenteric anastomosis. No bowel obstruction. 2. Diverticulosis coli. No diverticulitis. 3. Chronic bladder outlet obstruction secondary to prostatomegaly. 4. Punctate nonobstructing left nephrolithiasis. 5. Interval development of a focally dilated main pancreatic duct at the level of the head and neck. 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 This qualifies as a worrisome feature. Follow-up per Fuk[place] criteria below. Summary of [place] (George) Criteria for IPMN Surveillance "High-risk stigmata": 1) obstructive jaundice in a patient with cystic lesion of the head of the pancreas, 2) enhancing mural nodule > or = 5 mm, 3) main pancreatic duct > or = 10 mm. * Consider surgery "Worrisome features": Clinical: pancreatitis; Imagin) cyst > or = 3 cm, 2) enhancing mural nodule < 5 mm, 3) thickened/enhancing cyst bello, 4) main duct size 5-9 mm, 5) abrupt change in caliber of pancreatic duct with distal pancreatic atrophy, 6) lymphadenopathy, 7) increased serum level of CA 19-9, 8) cyst growth rate > or = 5 mm in 2 years. * Endoscopic ultrasound (EUS) Surveillance if no "high-risk stigmata" or "worrisome features": * Largest cyst < 1 cm: CT or MRI/MRCP in 6 months, then every 2 years if no change. * Largest cyst 1-2 cm: CT or MRI/MRCP in 6 months x 1 year, yearly x 2 years, then lengthen interval up to 2 years if no change. * Largest cyst 2-3 cm: Endoscopic ultrasound (EUS) in 3-6 months, then lengthen interval up to 1 year, alternating MRI with EUS as appropriate. Consider surgery in young, fit patients with need for prolonged surveillance. * Largest cyst > 3 cm: Close surveillance alternating MRI with EUS every 3-6 months. Strongly consider surgery in young, fit patients. George M, Simon-fran Mayo C, Vesna T, et al. Revisions of international consensus Fuk[place] guidelines for the management of IPMN of the pancreas. Pancreatology. 2017; 17:738-753. Electronically signed by: Darrin Blair M.D. 06/24/2019 11:01 AM ECG Data Attestation: I personally reviewed and interpreted this ECG as follows: Indication: abdominal pain Rate (beats per minute): 97 Rhythm: normal sinus Findings: + other (Left atrial enlargement, P wave abnormality anteriorly, T wave flattening laterally) and + nonspecific-ST abn (Lateral) Comparison ECG Date: from (09/24/16) Change: the following changes noted (PVCs are now resolved. T wave changes have changed. ) Blood Pressure Blood Pressure Findings: Elevated blood pressure Blood Pressure Disposition: further management by hospitalist MDM Narrative This patient was evaluated and appeared to be in no significant distress. IV access was obtained and laboratory work was drawn. The patient was placed on the quality assurance monitor body and appeared to be in no distress. Physical examination reveals a mild epigastric abdominal tenderness. The patient was hydrated with normal saline solution. Patient was given IV fentanyl and Zofran for his discomfort. CT scan of the abdomen pelvis was performed is concerning for dilated pancreatic duct. Patient was informed of the findings. Lipase is noted to be 3711. Patient's case was discussed with the hospitalist service who will evaluate the patient for admission and further management. Impression & Plan Acute pancreatitis, Pancreatic mass Discharge Plan Visit Data *Final* Discharge Date/Time: 06/24/19 13:16 Chief Complaint: Abdominal Pain Stated Complaint: STOMACH PROBLEMS ED Provider: Ester Rios Discharge Problem: Acute pancreatitis, Pancreatic mass Patient Disposition: Admitted As Inpatient Discharge Instructions Interventions: ED Discharge Assessment Last Done: 06/24/19 13:16 Discharge Problem: Acute pancreatitis Qualifiers: Pancreatitis type: unspecified pancreatitis type Acute pancreatitis complication: unspecified Qualified Code(s): K85.90 - Acute pancreatitis without necrosis or infection, unspecified The scribe's documentation has been prepared under my direction and personally reviewed by me in its entirety. I confirm that the note above accurately reflects all work, treatment, procedures, and medical decision making performed by me.
--- NOTE | 2019-06-24 15:04 | Magnetic Resonance Report ---
MR MRCP CLINICAL HISTORY: 84 years-old Male presenting with IPMN. TECHNIQUE: Multisequence, multiplanar MR imaging of the abdomen was performed without the use of intr avenous contrast. Dedicated MRCP protocol was utilized. 3-D volumetric and/or maximum intensity proje ction (MIP) images were subsequently reconstructed for review. IV contrast: None. COMPARISON: CT performed earlier the same day. FINDINGS: Localizer images: Unremarkable. Lung bases: Normal heart size. No pericardial or pleural effusion. Lung base clear. Liver: Normal morphology. Biliary: Conventional intrahepatic biliary ductal bifurcation. Cystic duct is nondilated. No choledoc holithiasis. Normal gallbladder. No cholelithiasis. Pancreas: Moderate parenchymal atrophy. Redemonstration of the focally dilated main pancreatic duct a t the level of the pancreatic head and neck measuring up to 13 mm in diameter and extending along a l ength of approximately 36 mm. There is abrupt transition both upstream and downstream to nondilated m ain pancreatic duct. There is adjacent multiple small cystic foci, which appear to communicate with t he side ducts. Spleen: Normal noncontrast appearance. Adrenal glands: Normal noncontrast appearance. Kidneys and ureters: Normal noncontrast appearance. No hydronephrosis. Normal ureters. Bowel: Normal noncontrast appearance. No bowel obstruction. Peritoneal cavity: No free fluid. Lymph nodes: No gross lymphadenopathy allowing for noncontrast technique. Vasculature: Normal noncontrast appearance. Abdominal wall: Normal. Musculoskeletal: Normal. IMPRESSION: 1. 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 This qualifies as a worrisome feature. Follow-up per [place] criteria below. 2. Additional adjacent small side branch IPMN's. Summary of [place] (George) Criteria for IPMN Surveillance "High-risk stigmata": 1) obstructive jaundice in a patient with cystic lesion of the head of the panc reas, 2) enhancing mural nodule > or = 5 mm, 3) main pancreatic duct > or = 10 mm. * Consider surgery "Worrisome features": Clinical: pancreatitis; Imagin) cyst > or = 3 cm, 2) enhancing mural nodule < 5 mm, 3) thickened/enhancing cyst bello, 4) main duct size 5-9 mm, 5) abrupt change in caliber of pancreatic duct with distal pancreatic atrophy, 6) lymphadenopathy, 7) increased serum level of CA 19 -9, 8) cyst growth rate > or = 5 mm in 2 years. * Endoscopic ultrasound (EUS) Surveillance if no "high-risk stigmata" or "worrisome features": * Largest cyst < 1 cm: CT or MRI/MRCP in 6 months, then every 2 years if no change. * Largest cyst 1-2 cm: CT or MRI/MRCP in 6 months x 1 year, yearly x 2 years, then lengthen interval up to 2 years if no change. * Largest cyst 2-3 cm: Endoscopic ultrasound (EUS) in 3-6 months, then lengthen interval up to 1 yea r, alternating MRI with EUS as appropriate. Consider surgery in young, fit patients with need for pro longed surveillance. * Largest cyst > 3 cm: Close surveillance alternating MRI with EUS every 3-6 months. Strongly consid er surgery in young, fit patients. George M, Simon-fran Mayo C, Vesna T, et al. Revisions of international consensus [place] g uidelines for the management of IPMN of the pancreas. Pancreatology. 2017; 17:738-753. Electronically signed by: Darrin Blair M.D. 06/24/2019 3:02 PM
[2019-06-24] MEDS: D5W AND NSS 1,000 ML IV SCH ×2 (15:14→23:48)
[2019-06-24] MEDS: LORazepam 0.5 MG TAB PO SCH (20:32)
[2019-06-24] MEDS: METOPROLOL TARTRATE 25 MG TAB PO SCH (20:33)
[2019-06-25 05:51] LABS: Basophils # (auto) 0.01 K/uL (0-0.2); Basophils % (auto) 0.1 %; Eosinophils # (auto) 0.08 K/uL (0-0.5); Eosinophils % (auto) 0.7 %; Hematocrit (blood only) 35.6 % (42-52); Hemoglobin 11.9 g/dL (14.0-18.0); Immature Granulocytes # (auto) 0.03 K/uL (0.00-0.02); Immature Granulocytes % (auto) 0.2 %; Lymphocytes # (auto) 1.46 K/uL (1.2-3.4); Lymphocytes % (auto) 12.1 %; Mean Corpuscular Hemoglobin 34.2 pg (25-34); Mean Corpuscular Hgb Conc 33.4 g/dL (32-36); Mean Corpuscular Volume 102.3 fL (80-100); Monocytes # (auto) 1.41 K/uL (0.11-0.59); Monocytes % (auto) 11.7 %; Neutrophils # (auto) 9.03 K/uL (1.4-6.5); Neutrophils % (auto) 75.2 %; Platelet Count 224 K/uL (130-400); RDW Coefficient of Variation 14.1 % (11.5-14.5); RDW Standard Deviation 52.7 fL (36.4-46.3); Red Blood Count 3.48 M/uL (4.7-6.1); White Blood Count 12.02 K/uL (4.8-10.8)
[2019-06-25 06:19] LABS: BUN Creatinine Ratio 13.6 (10-20); Blood Urea Nitrogen 14 mg/dl (7-18); Calcium 8.4 mg/dl (8.5-10.1); Carbon Dioxide 25 mmol/L (21-32); Chloride 113 mmol/L (98-107); Est GFR (African American) 75.5; Est GFR (Non-African American) 65.2; Glucose 137 mg/dl (70-99); Magnesium 1.8 mg/dl (1.8-2.4); Phosphorus 2.7 mg/dl (2.5-4.9); Potassium 4.2 mmol/L (3.5-5.1); Sodium 144 mmol/L (136-145)
[2019-06-25] MEDS: D5W AND NSS 1,000 ML IV SCH ×2 (07:42→16:27)
[2019-06-25] MEDS: ASPIRIN 81 MG ECTAB PO SCH (08:30)
[2019-06-25] MEDS: BRINZOLAMIDE (AZOPT) OPS 10 ML BTL OP SCH (08:30)
[2019-06-25] MEDS: METOPROLOL TARTRATE 25 MG TAB PO SCH ×2 (08:31→21:04)
[2019-06-25] MEDS: CALCITONIN SALMON NA 200 IU/AC 3.7 ML BTL SCH (08:31)
[2019-06-25] MEDS: predniSONE 10 MG TABLET PO SCH (08:31)
[2019-06-25] MEDS: LISINOPRIL/HCTZ 10/12.5MG TAB PO SCH (08:32)
[2019-06-25] MEDS: TIMOLOL GFS 0.25% OPH SOLN 74 DROPS/5 ML BTL OPR SCH (08:32)
[2019-06-25] MEDS: PANTOprazole 40 MG TAB PO SCH (08:32)
[2019-06-25] MEDS ORDERED: NON-FORMULARY MEDICATION (Aspirin 81 MG) PO SCH (09:00)
--- NOTE | 2019-06-25 15:24 | Hospitalist Progress Note ---
Date of Service June 25, 2019 Assessment & Plan (1) Pancreatitis: Possibly related to IPMN. Fortunately improving quite nicely. Continue fluids, but add clear liquid diet advance as tolerated to low-fat. (2) IPMN (intraductal papillary mucinous neoplasm): Appears to be 13 mm now, noted as [address] scan from 2015. Is probably the culprit for the pancreatitis disrupting the architecture of his pancreas. Will defer further follow-up or management to his PCP, but given that it is only grown 2 mm over 4 years, as well as the patient's advanced age, ongoing watchful waiting is likely appropriate (3) Impaired fasting glucose: Outpatient follow-up (4) Hypertension: Blood pressure reasonable given the circumstances, continue current treatment and follow. (5) Generalized anxiety disorder: continue home meds (6) Gastroesophageal reflux disease: Offered reassurance, calm careful explanations of his situation, and supportive care. 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 He seems quite mobile, certainly if he is not moving as much we will initiate pharmacologic DVT prophylaxis Subjective Feeling better. No abdominal pain. No nausea. Feels hungry. No other complaints. Review of Systems Review of Systems: All systems reviewed & are unremarkable except as noted in HPI & below Physical Exam Physical Exam: General he is awake and alert very pleasant, may be mildly anxious with mild pressured speech no distress. HEENT normocephalic atraumatic mucous membranes moist. Breathing unlabored no accessory muscle use good effort. Abdomen soft mildly distended no guarding no rebound no tenderness. Extremities show no cyanosis clubbing. Neuro shows no focal deficits. Results & Data Vital Signs (Past 12 Hours) Vital Signs Temp Pulse Resp BP Pulse Ox 06/25/19 12:11 97.9 F 72 20 158/72 H 97 06/25/19 07:33 97.9 F 76 18 124/70 95 PG Care Time/CCT Total # of Minutes Spent Total Time Spent with Patient: Total time spent is greater than 50% in coordination of care (as documented) at patient's floor/unit and/or counseling patient: (1) Hypertension Hypertension type: essential hypertension Qualified Code(s): I10 - Essential (primary) hypertension
[2019-06-25] MEDS: LORazepam 0.5 MG TAB PO SCH (21:04)
[2019-06-26 06:24] LABS: Basophils # (auto) 0.01 K/uL (0-0.2); Basophils % (auto) 0.1 %; Eosinophils # (auto) 0.17 K/uL (0-0.5); Eosinophils % (auto) 1.4 %; Hematocrit (blood only) 35.6 % (42-52); Hemoglobin 11.8 g/dL (14.0-18.0); Immature Granulocytes # (auto) 0.03 K/uL (0.00-0.02); Immature Granulocytes % (auto) 0.3 %; Lymphocytes # (auto) 2.13 K/uL (1.2-3.4); Lymphocytes % (auto) 17.8 %; Mean Corpuscular Hemoglobin 33.6 pg (25-34); Mean Corpuscular Hgb Conc 33.1 g/dL (32-36); Mean Corpuscular Volume 101.4 fL (80-100); Mean Platelet Volume 10.3 fL (7.4-10.4); Monocytes # (auto) 1.41 K/uL (0.11-0.59); Monocytes % (auto) 11.8 %; Neutrophils # (auto) 8.21 K/uL (1.4-6.5); Neutrophils % (auto) 68.6 %; Platelet Count 243 K/uL (130-400); RDW Coefficient of Variation 14.1 % (11.5-14.5); RDW Standard Deviation 51.8 fL (36.4-46.3); Red Blood Count 3.51 M/uL (4.7-6.1); White Blood Count 11.96 K/uL (4.8-10.8)
[2019-06-26 06:57] LABS: BUN Creatinine Ratio 11.4 (10-20); Blood Urea Nitrogen 12 mg/dl (7-18); Calcium 8.3 mg/dl (8.5-10.1); Carbon Dioxide 24 mmol/L (21-32); Chloride 112 mmol/L (98-107); Est GFR (African American) 76.4; Est GFR (Non-African American) 65.9; Glucose 71 mg/dl (70-99); Potassium 3.2 mmol/L (3.5-5.1); Sodium 143 mmol/L (136-145)
[2019-06-26] MEDS: LISINOPRIL/HCTZ 10/12.5MG TAB PO SCH (08:08)
[2019-06-26] MEDS: predniSONE 10 MG TABLET PO SCH (08:08)
[2019-06-26] MEDS: ASPIRIN 81 MG ECTAB PO SCH (08:08)
[2019-06-26] MEDS: PANTOprazole 40 MG TAB PO SCH (08:08)
[2019-06-26] MEDS: METOPROLOL TARTRATE 25 MG TAB PO SCH (08:08)
[2019-06-26] MEDS: TIMOLOL GFS 0.25% OPH SOLN 74 DROPS/5 ML BTL OPR SCH (08:09)
[2019-06-26] MEDS: BRINZOLAMIDE (AZOPT) OPS 10 ML BTL OP SCH (08:09)
[2019-06-26] MEDS: CALCITONIN SALMON NA 200 IU/AC 3.7 ML BTL SCH (08:09)
[2019-06-26] MEDS ORDERED: POTASSIUM CHLORIDE 20 MEQ TABCR PO STA (08:28)
--- NOTE | 2019-06-26 18:23 | Discharge Summary ---
Date of Service June 26, 2019 Admission HPI Per Admitting Provider 84 y/o M c/o abd pain. Pt states he was in his usual state of health until about 3-4 days ago when he developed abd discomfort. He felt very bloated and was belching more than usual. He thought this would help, but his bloating continued. No n/v/d or oracio pain. He has had no appetite for the last 2 days related to this and has taken very little PO. He states that when this continued, he realized that these were the same sx he had several years ago when he was dx with pancreatitis, so he came to the ED. Pt was given IVF, pepcid in the ED and says he feels a bit better. He is still bloated, but not nearly as uncomfortable. Family states that pt was told about this pancreatitic mass several years ago with his pancreatitis, but that they were told if he was not having issues that it could just be watched. Principal Diagnosis Pancreatitis, likely related to IPMN Discharge Exam In general he is awake alert pleasant no distress. HEENT normocephalic atraumatic mucous members moist. Breathing unlabored no accessory muscle use good effort. Skin shows no rashes no pallor or icterus. Discharge Data Allergies Allergy/AdvReac Type Severity Reaction Status Date / Time Penicillins Allergy Unknown unknown Verified 06/24/19 09:19 Consultations 06/24/19 11:46 ED Decision to Admit Stat Ordered Studies 06/24/19 08:42 CT abd pelvis IV con only Stat 06/24/19 13:50 MR MRCP Stat Hospital Course (1) Pancreatitis: Possibly related to IPMN. Fortunately improving quite nicely. Tolerating low-fat diet and stable for home. (2) IPMN (intraductal papillary mucinous neoplasm): Appears to be 13 mm now, noted as [address] scan from 2015. Is probably the culprit for the pancreatitis disrupting the architecture of his pancreas. Will defer further follow-up or management to his PCP, but given that it is only grown 2 mm over 4 years, as well as the patient's advanced age, ongoing watchful waiting is likely appropriatein discussions with patient he notes this is what he would prefer as well (3) Impaired fasting glucose: Outpatient follow-up (4) Hypertension: Blood pressure reasonable given the circumstances, discharge home on home regimen (5) Generalized anxiety disorder: continue home meds, offered active reassurance. 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 Total Time Total Time Spent Total Time Spent (In Minutes): Less than 30 Discharge Plan Discharge Items Patient Disposition: Home - Self-Care Reason For Visit: PANCREATITIS Discharge Diagnosis: pancreatitis Activity: Resume your previous activity Non-emergency contact: Primary Care Provider Call non-emergency contact if: you have any medication questions and your symptoms worsen Follow-up/Referrals: Darrin Bee MD [Primary Care Provider] - 07/01/19 3:45 pm (A follow up appt. has been made for you on 07/01 at 3:45pm with Dr. Bee.) Diet: Low Fat Addtl Attending Provider Instructions: pancreatitis -this is when the pancreas gets inflamed - in your case because that mass disrupts the normal architecture of your pancreas some, there's always the potential for some digestive enzymes to not make it out of the pancreas; when this happens the pancreas can get inflamed causing exactly what you were feeling and showing us -fortunately your symptoms got better really fast - truthfully days faster than an average case of pancreatitis, showing that this one was pretty mild -also fortunately, while the mass is still there and is a little bigger, the best i can tell comparing your scans from this admission to the ones from 4 years ago, it has only grown about 2mm in 4 [address]. we'll have [address] Rohit zavala ontinue to "quarterback" the situation, but it really appears that ongoing "watchful waiting" is overall in your best interest -as best you can follow a low fat diet for the next few weeks, although as we discussed it's more "common sense" than "hard science" as far as how much a low fat diet benefits the recovery and how long to follow it. i would say do the best you can for the next few weeks, and then by mid july return to your usual eating habits (although it also sounds like your usual eating habits are pretty good for being low fat) Pending Studies at Discharge: No Stand-Alone Forms: My [facility] Medications and DC Order Prescriptions: Continued nitroglycerin 0.4 mg tablet, sublingual 0.4 mg SL .COMPLEX RF: 0 Centrum Silver 0.4-300-250 mg-mcg-mcg tablet 1 tab PO DAILY RF: 0 Caltrate 600 plus D 600 mg (1,500 mg)-800 unit tablet,chewable 1 tab PO BID RF: 0 calcitonin (salmon) 200 unit/actuation spray,non-aerosol See Patient Comments intranasal (ALT) .COMPLEX RF: 0 timolol maleate 0.25 % gel forming solution 1 drops OP .COMPLEX RF: 0 aspirin 81 mg tablet 81 mg PO DAILY Qty: 30 RF: 0 brinzolamide 1 % drops,suspension 1 drops OP DAILY RF: 0 folic acid 400 mcg tablet 400 mcg PO DAILY RF: 0 lisinopril-hydrochlorothiazide 10-12.5 mg tablet 1 tab PO DAILY Qty: 90 RF: 0 omeprazole 40 mg capsule,delayed release(DR/EC) 40 mg PO DAILY Qty: 90 RF: 0 prednisone 10 mg tablet 10 mg PO DAILY Qty: 90 RF: 0 metoprolol tartrate 25 mg tablet 25 mg PO BID Qty: 180 RF: 0 atorvastatin 80 mg tablet 80 mg PO DAILY Qty: 90 RF: 0 diphenhydramine-acetaminophen [Tylenol PM Extra Strength] 25-500 mg Tablet 1 tab PO HS RF: 0 lorazepam 0.5 mg tablet 0.5 mg PO HS RF: 0 Discharge Orders: Discharge Order (Routine); Ordered 06/26/19 Ordered By: Dakota Catherine Admission Data Admit Date/Time: 06/24/19 12:05 Attending Provider: Dakota Catherine Admit Provider: Emilia Gilbert Primary Care Provider: Darrin Bee Other Providers: Emilia Gilbert Other Interventions: Discharge Summary Assessment (RN) Last Done: 06/26/19 10:14 DC Date/Time DO NOT enter until pt leaves facility: 06/26/19 10:59
== END 2019-06-26 10:59 | disposition home or self-care (01) | DRG 438 ==
LOC: ED 07:45 → SUATTDRO 12:05 → 2N 12:05

== ENCOUNTER 2021-03-27 13:34 | Inpatient (IN) ==
[2021-03-27] MEDS ORDERED: ONDANSETRON INJ 2 MG/ML 2 ML VIAL IV STA (13:47)
[2021-03-27] MEDS ORDERED: SODIUM CHLORIDE 0.9% 1000ML 1,000 ML IV STA (13:47)
[2021-03-27] MEDS ORDERED: fentaNYL citrate 100 MCG/2 ML VIAL IV PRN (13:47)
--- NOTE | 2021-03-27 14:02 | Emergency Department Note ---
Impression & Plan Acute pancreatitis, Abdominal pain, Nausea & vomiting ED Provider Note NAME: AARTI PRAKASH AGE: 86 SEX: M : 1935 ARRIVES VIA: Walk-In INFORMANT: Patient, ED PROVIDER(S): DO Mary TrinhCHIEF COMPLAINT: Abdominal pain HPI: The patient is an 86-year-old male who presented to the emergency department for an evaluation of abdominal pain. The patient notices upper abdominal pain. He is also experienced nausea vomiting. The patient had similar symptoms in the past with pancreatitis. He notices diffuse abdominal p ain. Usually he has episodes of nausea and vomiting which then help his pain and then resolve but he has been having multiple episodes of emesis as well as multiple loose bowel movements today and his pain is continued. He notices no fever. He notices no rectal bleeding or hematemesis. He notices no chest pain or difficulty breathing. The patient has been compliant with all of his medications. He does not see a provider prior to coming to the emergency department. The patient states that the pain is worsened with palpation of the abdomen. ROS: See above HPI for pertinent positives & negatives. A total of 10 systems reviewed and were otherwise negative. PAST MEDICAL HISTORY: See Below PAST SURGICAL HISTORY: See Below FAMILY HISTORY: See Below SOCIAL HISTORY: See Below HOME MEDICATIONS: See Below ALLERGIES: See Below VITALS: See Below PHYSICAL EXAMINATION: GENERAL: Patient is awake alert in no acute distress patient is resting comfortably and showing no signs of anxiety EYES: The conjunctivae are clear. The pupils are round and reactive. EARS, NOSE, MOUTH AND THROAT: The nose is without any evidence of any deformity. NECK: The neck is nontender and supple. RESPIRATORY: Normal respiratory effort is noted there is no evidence of wheezing rhonchi or rales CARDIOVASCULAR: Regular rate and rhythm noted there no murmurs rubs or gallops normal S1 normal S2. GASTROINTESTINAL: The abdomen is mildly distended. There is diffuse tenderness to palpation but no guarding rigidity. There is tenderness specifically in the supraumbilical region in the epigastric region. MUSCULOSKELETAL/EXTREMITIES: There is no evidence of gross deformity full range of motion is noted in the hips and shoulders. SKIN: Skin is warm and dry. No significant pedal edema was noted. NEUROLOGIC: Patient is awake alert and oriented x3. MEDICAL DECISION MAKING: The patient is an 86-year-old male who presented to the emergency department for an evaluation of upper abdominal pain. The patient was found to have a history and physical exam consistent with pancreatitis. He has a history of pancreatitis. This was confirmed on radiographic as well as laboratory studies. He was treated with IV fluids and IV antiemetics. He was also treated with Protonix and Pepcid. On reevaluation he was feeling somewhat improved. I dis cussed the patient's laboratory and radiographic studies with him. [facility] also [facility] have agreed to evaluate the patient in the emergency department for further management and disposition. Triage Nursing notes reviewed. Prior medical records reviewed Vital Signs: reviewed and remarkable for elevated blood pressure. Differential diagnosis: Gastroenteritis, food borne illness, infections, appendicitis, diverticulitis, inflammatory bowel disease, obstruction, GI bleed, biliary pathology, volvulus, as well as other pathologies. ER treatment provided: See below Diagnostics interpreted by me: ECG: EKG was obtained in the emergency department. My interpretation is sinus rhythm at 76 bpm. PACs were noted. Anterior Q waves were noted. LVH was noted by voltage criteria. This was compared to a tracing from June 242018. No significant changes were noted. Cardiac Monitoring: An order was placed for continuous cardiac monitoring. The monitor shows a rate of 70 bpm with sinus with PACs rhythm. Laboratory studies: As stated above and show below. Imaging studies: See below Consultation(s): 1549: I discussed this case with Dr. Healy who [facility] He will evaluate the patient in the emergency department for further management and disposition. Past Med/Surg History Medical History Abnormal blood chemistry Antiplatelet or antithrombotic long-term use Arteriosclerotic cardiovascular disease Asthma Benign neoplasm of colon CKD (chronic kidney disease), stage III Claudication Crohn's disease Dyspnea Gait disorder Gastroesophageal reflux disease Generalized weakness Glaucoma Hyperlipidemia Hypertension Impaired fasting glucose [facility] current use of systemic steroids Myalgia Neutrophilic leukocytosis Osteopenia Pre-diabetes Surgical History H/O resection of small bowel History of colonoscopy 2007, 2008, 2009, 2010, 2012, 2014, 2015, 2016 - for surveillance of multiple adenomatous polyps. 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 Family History Father Diabetes Hyperlipidemia Hypertension Mother Cancer Denies family history of Ovarian cancer Prostate cancer Myocardial infarction Breast cancer Colorectal cancer Social History Smoking Status: Never smoker Second Hand Exposure: No; Hx Alcohol Use: No Hx Substance Use: No Preferred Language: Uzbek Communication Ability: Effective Visual Impairment: Limited Hearing Ability: Hard of Hearing Staple Side Laster Required: No Beliefs That Will Affect Care: None marital status: Current Living Situation: Spouse current occupational status: retired Feels Safe at Home: Yes Childhood Exposure to Second-Hand Smoke: No caffeine: No during the past year weight has: remained stable Dental Care, Regularly: Yes Physical Activity Frequency: Does not Exercise Physical Activity Frequency Comment: limited due to condition Seatbelt Use: always Sunscreen Use: No Assistive Devices: Walker Allergies Allergies Allergy/AdvReac Type Severity Reaction Status Date / Time Penicillins Allergy Unknown unknown Verified 03/27/21 15:46 Home Meds Home Medications Medication Instructions Recorded Confirmed calcium carbonate 600 mg(1,500 1 tab PO QAM 04/16/19 03/27/21 mg)-vitamin D3 800 unit chewable tablet oqyojzyx-ihj-cghej acid 0.4 1 tab PO QAM 04/16/19 03/27/21 mg-lycopene 300 mcg-lutein 250 mcg tablet timolol maleate 0.25 % eye gel 1 drops OPB QAM ml 04/16/19 03/27/21 forming solution folic acid 400 mcg tablet 400 mcg PO QAM tab 05/12/19 03/27/21 nitroglycerin 0.4 mg sublingual 0.4 mg SL .COMPLEX tab 05/12/19 03/27/21 tablet diphenhydramine-acetaminophen 1 tab PO HS 06/24/19 03/27/21 [Tylenol PM Extra Strength] brinzolamide 1 % eye 1 drp OPB BID ml 06/23/20 03/27/21 drops,suspension aspirin [Aspirin Low Dose] 81 mg PO QAM 03/27/21 03/27/21 atorvastatin [Lipitor] 80 mg PO HS 03/27/21 03/27/21 lisinopril-hydrochlorothiazide 1 tab PO QAM 03/27/21 03/27/21 [Zestoretic] lorazepam [Ativan] 0.5 mg PO HS 03/27/21 03/27/21 omeprazole 40 mg PO QAM 03/27/21 03/27/21 prednisone 10 mg PO QAM 03/27/21 03/27/21 Previous Rx's Medication Instructions Recorded metoprolol tartrate 25 mg tablet 25 mg PO BID #180 tab 10/15/20 Results & Data (ED) Vital Signs Vital Signs - 24 hr 03/27/21 13:37 03/27/21 14:13 03/27/21 14:15 Temperature 37.1 C Temperature Source Temporal Artery Scan Pulse Rate 77 74 Respiratory Rate 20 24 Respiratory Effort / Characteristics Non-Labored Spontaneous Respiratory Depth Normal Blood Pressure 147/76 H 207/80 H Blood Pressure Mean 99 122 Blood Pressure Position Sitting Pulse Oximetry 98 Oxygen Delivery Method Room Air Room Air Sepsis Recent Fever Within 48 Hours No Sepsis New/Unexplained Change in Mental Status N/A Sepsis Action Taken by Nursing No Action Required 03/27/21 14:31 Temperature Temperature Source Pulse Rate 69 Respiratory Rate 23 Respiratory Effort / Characteristics Respiratory Depth Blood Pressure 175/105 H Blood Pressure Mean 128 Blood Pressure Position Pulse Oximetry Oxygen Delivery Method Sepsis Recent Fever Within 48 Hours Sepsis New/Unexplained Change in Mental Status Sepsis Action Taken by Prison Medications Current Medication List: was personally reviewed by me Laboratory Data Attestation: I reviewed the patient's lab results. Result diagrams: 03/27/21 14:01 03/27/21 14:01 Lab Results 03/27/21 03/27/21 03/27/21 Range/Units 14:01 14:01 14:25 WBC 15.77 H (4.8-10.8) K/uL RBC 3.97 L (4.7-6.1) M/uL Hgb 13.8 L (14.0-18.0) g/dL POC Hgb 12.6 L (14.0-18.0) g/dl Hct 41.1 L (42-52) % POC Hct 37 L (42-52) % MCV 103.5 H (80-100) fL MCH 34.8 H (25-34) pg MCHC 33.6 (32-36) g/dL RDW Std Deviation 54.2 H (36.4-46.3) fL RDW Coeff of Mayte 14.2 (11.5-14.5) % Plt Count 295 (130-400) K/uL MPV 10.2 (7.4-10.4) fL Immature Gran % (Auto) 0.4 % Neut % (Auto) 82.2 % Lymph % (Auto) 10.1 % Sherman % (Auto) 7.1 % Eos % (Auto) 0.1 % Baso % (Auto) 0.1 % Neut # (Auto) 12.97 H (1.4-6.5) K/uL Lymph # (Auto) 1.60 (1.2-3.4) K/uL Sherman # (Auto) 1.12 H (0.11-0.59) K/uL Eos # (Auto) 0.01 (0-0.5) K/uL Baso # (Auto) 0.01 (0-0.2) K/uL Immature Gran # (Auto) 0.06 H (0.00-0.02) K/uL POC Sodium 144 (135-144) mmol/L Sodium 143 (136-145) mmol/L POC Potassium 4.0 (3.3-5.0) mmol/L Potassium 4.4 (3.5-5.1) mmol/L POC Chloride 109 (101-112) mmol/L Chloride 110 H (98-107) mmol/L Carbon Dioxide 24 (21-32) mmol/L POC Total CO2 20 L (24-31) mmol/L Anion Gap 9.0 (3-11) POC Anion Gap 21.0 (16-25) mmol/L POC BUN 30 H (7-18) mg/dl BUN 32 H (7-18) mg/dl Creatinine 1.38 (0.6-1.4) mg/dl POC Creatinine 1.3 (0.6-1.3) mg/dl Est Cr Clr Drug Dosing 31.5 ml/min Est GFR ( Amer) 52.9 ml/min Est GFR (Non-Af Amer) 45.6 ml/min BUN/Creatinine Ratio 22.9 H (10-20) Glucose 136 H (70-99) mg/dl POC Glucose (other) 134 H (70-99) mg/dl Calcium 9.3 (8.5-10.1) mg/dl POC Ioniz Calcium Leonel 1.26 (1.12-1.32) mmol/l Total Bilirubin 0.7 (0.2-1) mg/dl AST 35 (15-37) U/L ALT 28 (12-78) U/L Alkaline Phosphatase 72 (45-117) U/L Troponin I < 0.015 (0-0.045) ng/ml Total Protein 7.0 (6.4-8.2) gm/dl Albumin 3.7 (3.4-5.0) gm/dl Globulin 3.3 (2.5-4.0) gm/dl Albumin/Globulin Ratio 1.1 (0.9-2) Lipase 50527 H (73-393) U/L COVID-19 Eval Order 03/27/21 Range/Units 15:47 WBC (4.8-10.8) K/uL RBC (4.7-6.1) M/uL Hgb (14.0-18.0) g/dL POC Hgb (14.0-18.0) g/dl Hct (42-52) % POC Hct (42-52) % MCV (80-100) fL MCH (25-34) pg MCHC (32-36) g/dL RDW Std Deviation (36.4-46.3) fL RDW Coeff of Mayte (11.5-14.5) % Plt Count (130-400) K/uL MPV (7.4-10.4) fL Immature Gran % (Auto) % Neut % (Auto) % Lymph % (Auto) % Sherman % (Auto) % Eos % (Auto) % Baso % (Auto) % Neut # (Auto) (1.4-6.5) K/uL Lymph # (Auto) (1.2-3.4) K/uL Sherman # (Auto) (0.11-0.59) K/uL Eos # (Auto) (0-0.5) K/uL Baso # (Auto) (0-0.2) K/uL Immature Gran # (Auto) (0.00-0.02) K/uL POC Sodium (135-144) mmol/L Sodium (136-145) mmol/L POC Potassium (3.3-5.0) mmol/L Potassium (3.5-5.1) mmol/L POC Chloride (101-112) mmol/L Chloride (98-107) mmol/L Carbon Dioxide (21-32) mmol/L POC Total CO2 (24-31) mmol/L Anion Gap (3-11) POC Anion Gap (16-25) mmol/L POC BUN (7-18) mg/dl BUN (7-18) mg/dl Creatinine (0.6-1.4) mg/dl POC Creatinine (0.6-1.3) mg/dl Est Cr Clr Drug Dosing ml/min Est GFR ( Amer) ml/min Est GFR (Non-Af Amer) ml/min BUN/Creatinine Ratio (10-20) Glucose (70-99) mg/dl POC Glucose (other) (70-99) mg/dl Calcium (8.5-10.1) mg/dl POC Ioniz Calcium Leonel (1.12-1.32) mmol/l Total Bilirubin (0.2-1) mg/dl AST (15-37) U/L ALT (12-78) U/L Alkaline Phosphatase (45-117) U/L Troponin I (0-0.045) ng/ml Total Protein (6.4-8.2) gm/dl Albumin (3.4-5.0) gm/dl Globulin (2.5-4.0) gm/dl Albumin/Globulin Ratio (0.9-2) Lipase (73-393) U/L COVID-19 Eval Order Covid19 at [facility] Administered Medications Discontinued Medications Sodium Chloride (Nss 1000ml) 1,000 mls @ 999 mls/hr IV .Q1H1M STA Stop: 03/27/21 14:47 Last Admin: 03/27/21 14:14 Dose: 999 mls/hr Documented by: [id number] Famotidine (Pepcid 20mg Iv Push) 20 mg in 5 mls @ 2.5 mls/min IV NOW STA Stop: 03/27/21 15:18 Last Admin: 03/27/21 15:32 Dose: 2.5 mls/min Documented by: [id number] Ioversol (Optiray 320 100ml) 94 ml IV ONCE ONE Stop: 03/27/21 14:52 Last Admin: 03/27/21 14:52 Dose: 94 ml Documented by: [id number] Ondansetron HCl (Ondansetron Inj 2 Mg/Ml 2 Ml Vial) 4 mg IV NOW STA Stop: 03/27/21 13:48 Last Admin: 03/27/21 14:19 Dose: 4 mg Documented by: [id number] Imaging Data Radiologist's Impression: Abdomen/Pelvis CT 03/27/21 13:47 CT SCAN OF THE ABDOMEN AND PELVIS WITH IV CONTRAST CLINICAL HISTORY: Generalized abdominal pain. COMPARISON STUDY: Abdominal CT dated 06/24/2019. MRCP dated 06/24/2019. TECHNIQUE: Following the IV administration of 94 cc of Optiray 320, CT scan of the abdomen and pelvis is performed from the lung bases to the proximal femora. Images are reviewed in the axial, sagittal, and coronal planes. IV contrast was administered without complication. A dose lowering technique was utilized adhering to the principles of ALARA. CT DOSE: 276.35 mGy.cm FINDINGS: Lung bases: The patient is status post midline sternotomy. The heart is mildly enlarged and without pericardial effusion. The coronary arteries are densely calcified. The lung bases are clear. Liver: The contrast-enhanced liver is normal in size, contour, and attenuation. There is no intrahepatic biliary ductal dilatation. The hepatic veins and portal veins are patent. Gallbladder: Unremarkable. Spleen: Normal in size and attenuation. Pancreas: Pancreas is moderately atrophic. There is significant focal dilatation of the proximal main pancreatic duct which measures up to 1.7 cm in diameter and extends at least 4 cm in length. The distal pancreatic duct is normal in caliber. There are least 3 sidebranch IPMN's. The largest is in the pancreatic neck seen on image #11 measures up to 11 mm. 2 additional IPMN's are noted in the pancreatic tail. There is mild peripancreatic inflammation suggesting acute pancreatitis. No organized peripancreatic fluid collection is identified. The gland enhances homogeneously. Adrenal glands: Unremarkable. Kidneys: The contrast enhanced kidneys are atrophic and without hydronephrosis. The kidneys enhance symmetrically. There is a 2 mm nonobstructing calculus in the right lower pole. Scattered subcentimeter cortical hypodensities likely represent cysts but are too small for definitive characterization. Abdominal vasculature: The abdominal aorta is normal in course and caliber noting moderate to advanced atherosclerotic calcification. Bowel: There is mild colonic diverticulosis without CT evidence of acute diverticulitis. Postoperative change is seen involving a loop of small bowel in the left lower abdomen. There is mild wall thickening and mucosal hyperemia seen involving small bowel above the anastomosis on image #236. There is focal gaseous distention of the medial upstream small bowel which measures up to 4.4 cm in diameter. The remainder of the small bowel is normal in caliber and there is no evidence of high-grade obstruction. The appendix is not visualized. Peritoneum: There is no intraperitoneal free air or abdominal ascites. Lymphadenopathy: None. Pelvic viscera: The prostate gland is mildly enlarged and heterogeneous. The bladder wall appears thickened and trabeculated indicating chronic outlet obstruction. There are bilateral fat-containing inguinal hernias. Skeletal structures: The skeletal structures are osteopenic. Mild lumbosacral spondylosis is observed. No lytic or blastic lesions are seen. IMPRESSION: 1. Findings are consistent with acute pancreatitis. 2. There is no organized peripancreatic fluid collection and the gland enhances homogeneously. 3. There is unchanged appearance of a focally dilated proximal pancreatic duct as detailed above when compared to CT and MRCP from 2019. 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 Nonemergent GI follow-up is recommended. If further assessment is desired endoscopic ultrasound would be appropriate. 4. Postoperative change is again seen involving the small bowel. There is wall thickening and mucosal hyperemia of the immediately upstream bowel, with mild gaseous distention of the small bowel immediately above the inflamed-looking loop. This is also unchanged from 2019, and may represent chronic stricture or a chronic inflammatory process. Correlation the patient's medical history will be required. 5. The remaining small bowel loops are normal in caliber with no evidence of high-grade bowel obstruction. 6. Cardiomegaly. 7. Left-sided nephrolithiasis. 8. Colonic diverticulosis without CT evidence of acute diverticulitis. 9. Additional findings as above. ACT 112: Negative or not required by law. Electronically signed by: Varinder Samayoa M.D. 03/27/2021 3:13 PM Chest X-Ray 03/27/21 13:48 SINGLE VIEW CHEST CLINICAL HISTORY: Vomiting. FINDINGS: An AP, portable, upright chest radiograph is compared to study dated 12/30/2016 and correlated with chest CT dated 01/04/2017. The examination is degraded by portable technique and apical lordotic positioning. The patient is status post midline sternotomy. The heart is enlarged noting atherosclerotic calcification of the thoracic aorta. The pulmonary vasculature is noncongested. There is left basilar atelectasis. No airspace consolidation or large pleural effusion is identified. No pneumothorax is seen. The skeletal structures are osteopenic. The bony thorax is grossly intact. IMPRESSION: Cardiomegaly with no acute cardiopulmonary abnormality. ACT 112: Negative or not required by law. Electronically signed by: Varinder Samayoa M.D. 03/27/2021 2:49 PM Discharge Plan Visit Data Chief Complaint: Abdominal Pain Stated Complaint: ABDOMINAL CABRERA ED Provider: Gualberto Lancaster Discharge Problem: Acute pancreatitis, Abdominal pain, Nausea & vomiting Patient Disposition: Being Evaluated by Hospitalist Condition: Good Forms Stand Alone Forms: My [facility] [place] Prescriptions Prescriptions: No Action metoprolol tartrate 25 mg tablet 25 mg PO BID Qty: 180 RF: 3 nitroglycerin [Nitrostat] 0.4 mg tablet, sublingual 0.4 mg SL .COMPLEX RF: 0 Azopt 1 % drops,suspension 1 drp OPB BID RF: 0 Centrum Silver 0.4-300-250 mg-mcg-mcg tablet 1 tab PO QAM RF: 0 Caltrate 600 plus D 600 mg (1,500 mg)-800 unit tablet,chewable 1 tab PO QAM RF: 0 timolol maleate [Timoptic-XE] 0.25 % gel forming solution 1 drops OPB QAM RF: 0 folic acid 400 mcg tablet 400 mcg PO QAM RF: 0 diphenhydramine-acetaminophen [Tylenol PM Extra Strength] 25-500 mg Tablet 1 tab PO HS RF: 0 aspirin [Aspirin Low Dose] 81 mg Tablet,Delayed Release (Dr/Ec) 81 mg PO QAM RF: 0 atorvastatin [Lipitor] 80 mg tablet 80 mg PO HS RF: 0 prednisone 10 mg tablet 10 mg PO QAM RF: 0 omeprazole 40 mg capsule,delayed release(DR/EC) 40 mg PO QAM RF: 0 lorazepam [Ativan] 0.5 mg tablet 0.5 mg PO HS RF: 0 lisinopril-hydrochlorothiazide [Zestoretic] 10-12.5 mg tablet 1 tab PO QAM RF: 0 Referrals Referrals: Darrin Bee MD [Primary Care Provider] - Discharge Problem: Acute pancreatitis Qualifiers: Pancreatitis type: unspecified pancreatitis type Acute pancreatitis complication: unspecified Qualified Code(s): K85.90 - Acute pancreatitis without necrosis or infection, unspecified Abdominal pain Qualifiers: Abdominal location: upper abdomen, unspecified Qualified Code(s): R10.10 - Upper abdominal pain, unspecified Nausea & vomiting Qualifiers: Vomiting type: unspecified Vomiting Intractability: non-intractable Qualified Code(s): R11.2 - Nausea with vomiting, unspecified
[2021-03-27 14:15] LABS: Basophils # (auto) 0.01 K/uL (0-0.2); Basophils % (auto) 0.1 %; Eosinophils # (auto) 0.01 K/uL (0-0.5); Eosinophils % (auto) 0.1 %; Hematocrit (blood only) 41.1 % (42-52); Hemoglobin 13.8 g/dL (14.0-18.0); Immature Granulocytes # (auto) 0.06 K/uL (0.00-0.02); Immature Granulocytes % (auto) 0.4 %; Lymphocytes % (auto) 10.1 %; Mean Corpuscular Hemoglobin 34.8 pg (25-34); Mean Corpuscular Hgb Conc 33.6 g/dL (32-36); Mean Corpuscular Volume 103.5 fL (80-100); Mean Platelet Volume 10.2 fL (7.4-10.4); Monocytes # (auto) 1.12 K/uL (0.11-0.59); Monocytes % (auto) 7.1 %; Neutrophils # (auto) 12.97 K/uL (1.4-6.5); Neutrophils % (auto) 82.2 %; Platelet Count 295 K/uL (130-400); RDW Coefficient of Variation 14.2 % (11.5-14.5); RDW Standard Deviation 54.2 fL (36.4-46.3); Red Blood Count 3.97 M/uL (4.7-6.1); White Blood Count 15.77 K/uL (4.8-10.8)
[2021-03-27 14:32] LABS: Alanine Aminotransferase 28 U/L (12-78); Albumin Level 3.7 gm/dl (3.4-5.0); Aspartate Aminotransferase 35 U/L (15-37); BUN Creatinine Ratio 22.9 (10-20); Blood Urea Nitrogen 32 mg/dl (7-18); Calcium 9.3 mg/dl (8.5-10.1); Carbon Dioxide 24 mmol/L (21-32); Chloride 110 mmol/L (98-107); Creatinine Clr Calc Pharmacy 31.5 ml/min; Est GFR (African American) 52.9 ml/min; Est GFR (Non-African American) 45.6 ml/min; Glucose 136 mg/dl (70-99); Potassium 4.4 mmol/L (3.5-5.1); Sodium 143 mmol/L (136-145)
[2021-03-27 14:37] LABS: iSTAT Creatinine 1.3 mg/dl (0.6-1.3); iSTAT Hemoglobin 12.6 g/dl (14.0-18.0); iSTAT Ionized Calcium 1.26 mmol/l (1.12-1.32)
[2021-03-27 14:50] LABS: Albumin Globulin Ratio 1.1 (0.9-2); Alkaline Phosphatase 72 U/L (45-117); Bilirubin,Total 0.7 mg/dl (0.2-1); Troponin I < 0.015 ng/ml (0-0.045)
--- NOTE | 2021-03-27 14:50 | XRay Report ---
SINGLE VIEW CHEST CLINICAL HISTORY: Vomiting. FINDINGS: An AP, portable, upright chest radiograph is compared to study dated 12/30/2016 and correlate d with chest CT dated 01/04/2017. The examination is degraded by portable technique and apical lordotic positioning. The patient is status post midline sternotomy. The heart is enlarged noting atheroscler otic calcification of the thoracic aorta. The pulmonary vasculature is noncongested. There is left ba silar atelectasis. No airspace consolidation or large pleural effusion is identified. No pneumothorax is seen. The skeletal structures are osteopenic. The bony thorax is grossly intact. IMPRESSION: Cardiomegaly with no acute cardiopulmonary abnormality. ACT 112: Negative or not required by law. Electronically signed by: Varinder Samayoa M.D. 03/27/2021 2:49 PM
[2021-03-27] MEDS ORDERED: OPTIRAY 320 100ml IV ONE (14:51)
--- NOTE | 2021-03-27 15:14 | CT Scan Report ---
CT SCAN OF THE ABDOMEN AND PELVIS WITH IV CONTRAST CLINICAL HISTORY: Generalized abdominal pain. COMPARISON STUDY: Abdominal CT dated 06/24/2019. MRCP dated 06/24/2019. TECHNIQUE: Following the IV administration of 94 cc of Optiray 320, CT scan of the abdomen and pelvi s is performed from the lung bases to the proximal femora. Images are reviewed in the axial, sagittal , and coronal planes. IV contrast was administered without complication. A dose lowering technique wa s utilized adhering to the principles of ALARA. CT DOSE: 276.35 mGy.cm FINDINGS: Lung bases: The patient is status post midline sternotomy. The heart is mildly enlarged and without p ericardial effusion. The coronary arteries are densely calcified. The lung bases are clear. Liver: The contrast-enhanced liver is normal in size, contour, and attenuation. There is no intrahepa tic biliary ductal dilatation. The hepatic veins and portal veins are patent. Gallbladder: Unremarkable. Spleen: Normal in size and attenuation. Pancreas: Pancreas is moderately atrophic. There is significant focal dilatation of the proximal main pancreatic duct which measures up to 1.7 cm in diameter and extends at least 4 cm in length. The dis ina pancreatic duct is normal in caliber. There are least 3 sidebranch IPMN's. The largest is in the pancreatic neck seen on image #11 measures up to 11 mm. 2 additional IPMN's are noted in the pancreat ic tail. There is mild peripancreatic inflammation suggesting acute pancreatitis. No organized peripa ncreatic fluid collection is identified. The gland enhances homogeneously. Adrenal glands: Unremarkable. Kidneys: The contrast enhanced kidneys are atrophic and without hydronephrosis. The kidneys enhance s ymmetrically. There is a 2 mm nonobstructing calculus in the right lower pole. Scattered subcentimete r cortical hypodensities likely represent cysts but are too small for definitive characterization. Abdominal vasculature: The abdominal aorta is normal in course and caliber noting moderate to advance d atherosclerotic calcification. Bowel: There is mild colonic diverticulosis without CT evidence of acute diverticulitis. Postoperativ e change is seen involving a loop of small bowel in the left lower abdomen. There is mild wall thicke becca and mucosal hyperemia seen involving small bowel above the anastomosis on image #236. There is f ocal gaseous distention of the medial upstream small bowel which measures up to 4.4 cm in diameter. T he remainder of the small bowel is normal in caliber and there is no evidence of high-grade obstructi on. The appendix is not visualized. Peritoneum: There is no intraperitoneal free air or abdominal ascites. Lymphadenopathy: None. Pelvic viscera: The prostate gland is mildly enlarged and heterogeneous. The bladder wall appears thi ckened and trabeculated indicating chronic outlet obstruction. There are bilateral fat-containing ing uinal hernias. Skeletal structures: The skeletal structures are osteopenic. Mild lumbosacral spondylosis is observed . No lytic or blastic lesions are seen. IMPRESSION: 1. Findings are consistent with acute pancreatitis. 2. There is no organized peripancreatic fluid collection and the gland enhances homogeneously. 3. There is unchanged appearance of a focally dilated proximal pancreatic duct as detailed above when compared to CT and MRCP from 2019. This likely represents a main duct IPMN, and there are least 3 ad ditional sidebranch IPMN's. Nonemergent GI follow-up is recommended. If further assessment is desired endoscopic ultrasound would be appropriate. 4. Postoperative change is again seen involving the small bowel. There is wall thickening and mucosal hyperemia of the immediately upstream bowel, with mild gaseous distention of the small bowel immedia tely above the inflamed-looking loop. This is also unchanged from 2019, and may represent chronic str icture or a chronic inflammatory process. Correlation the patient's medical history will be required. 5. The remaining small bowel loops are normal in caliber with no evidence of high-grade bowel obstruc tion. 6. Cardiomegaly. 7. Left-sided nephrolithiasis. 8. Colonic diverticulosis without CT evidence of acute diverticulitis. 9. Additional findings as above. ACT 112: Negative or not required by law. Electronically signed by: Varinder Samayoa M.D. 03/27/2021 3:13 PM
[2021-03-27] MEDS ORDERED: PANTOprazole 40 MG in SYRINGE 0 ML IV ONE (15:17)
[2021-03-27] MEDS ORDERED: FAMOTIDINE 20MG IV PUSH 20 MG/5 ML SYR IV STA (15:17)
[2021-03-27 15:44] LABS: Globulin 3.3 gm/dl (2.5-4.0); Lipase 51404 U/L (73-393)
--- NOTE | 2021-03-27 17:03 | History & Physical Report ---
Date of Service March 27, 2021 Assessment & Plan (1) Acute pancreatitis: Patient presents with acute pancreatitis with a lipase of 51,000 and some peripancreatic inflammation seen without organized fluid collection or concern for gallstone pancreatitis. The patient is known to [facility] gastroenterology and is followed for I PMNs. Patient will be kept n.p.o. have pain medication hydrated with lactated Ringer's and have a gastroenterology consult following daily lipase. He has significant chemistry derangements to be concerning for progressive pancreatitis at this time. (2) IPMN (intraductal papillary mucinous neoplasm): (3) Coronary artery disease: Patient with a known history of coronary artery disease previously being seen at [facility]. The patient will have his aspirin lisinopril hydrochlorothiazide and atorvastatin held. he will have metoprolol given with a small sip of water (4) Hypertension: Patient's lisinopril hydrochlorothiazide will be held orally his metoprolol be continued hydralazine will be offered for blood pressure control although some of his hypertension is likely from pain (5) Hyperlipidemia: His atorvastatin will be held in the n.p.o. status (6) Crohn's disease: Patient is on chronic daily steroid treatment for his Crohn's disease. He says in the past with attempts of tapering his Crohn's disease flared. Given the fact that he will be n.p.o. for a few days and the fact that there is some changes in his small bowel seen on imaging the patient be given hydrocortisone intravenously and reassess for duration versus de-escalation to a once a day steroid treatment (7) CKD (chronic kidney disease), stage III: Currently the patient's kidney disease is about his typical baseline with a BUN of 32 and creatinine 1.38. Patient will be on lactated Ringer's and will follow after holding his MAXX inhibitor and diuretics (8) DVT prophylaxis: Patient given 1 dose of heparin 5000 subcu this evening in case he is interventional procedure tomorrow with regard to gastroenterology however if he does not he will need chemoprophylaxis given the inflammatory state of his pancreatitis. History of Present Illness Primary Care Provider: Darrin Bee MD 86-year-old male history of pancreatitis x2 and also being followed for IPMN's by patient or gastroenterology. Patient presented with nausea vomiting a bdominal pain. The vomitus was mucus. He did have increased bowel movements although he said it was soft brown stool. He says he had pain in his left upper quadrant that reminds him of his previous pancreatitis. Upon presentation emergency department he is a CT scan consistent with pancreatitis but no pseudocyst formation and a lipase of 51,000. There is no evidence of biliary ductal dilatation both inside or outside the liver and there is no suggestion of hepatic or portal vein thromboses. The gallbladder was also commented to be unremarkable. There is some peripancreatic inflammation noted. Patient also has comments that he has some gaseous distention of small bowel and thickening and mucosal hyperemia seen. He has known history of Crohn's disease. He has had previous surgery. He takes chronic daily steroids. He has had no changes in his bowel productivity that he notes. And he does not feel this feels like a normal Crohn's flare to him he has not missed any of his typical medications. Allergies Allergy/AdvReac Type Severity Reaction Status Date / Time Penicillins Allergy Unknown unknown Verified 03/27/21 15:46 Home Medications Medication Instructions Recorded Confirmed Type calcium carbonate 600 mg(1,500 1 tab PO QAM 04/16/19 03/27/21 History mg)-vitamin D3 800 unit chewable tablet xaxnwgzy-xhq-hlgsm acid 0.4 1 tab PO QAM 04/16/19 03/27/21 History mg-lycopene 300 mcg-lutein 250 mcg tablet timolol maleate 0.25 % eye gel 1 drops OPB QAM ml 04/16/19 03/27/21 History forming solution folic acid 400 mcg tablet 400 mcg PO QAM tab 05/12/19 03/27/21 History nitroglycerin 0.4 mg sublingual 0.4 mg SL .COMPLEX tab 05/12/19 03/27/21 History tablet diphenhydramine-acetaminophen 1 tab PO HS 06/24/19 03/27/21 History [Tylenol PM Extra Strength] brinzolamide 1 % eye 1 drp OPB BID ml 06/23/20 03/27/21 History drops,suspension metoprolol tartrate 25 mg tablet 25 mg PO BID #180 tab 10/15/20 03/27/21 Rx aspirin [Aspirin Low Dose] 81 mg PO QAM 03/27/21 03/27/21 History atorvastatin [Lipitor] 80 mg PO HS 03/27/21 03/27/21 History lisinopril-hydrochlorothiazide 1 tab PO QAM 03/27/21 03/27/21 History [Zestoretic] lorazepam [Ativan] 0.5 mg PO HS 03/27/21 03/27/21 History omeprazole 40 mg PO QAM 03/27/21 03/27/21 History prednisone 10 mg PO QAM 03/27/21 03/27/21 History Past Med/Surg History Medical History Abnormal blood chemistry Antiplatelet or antithrombotic long-term use Arteriosclerotic cardiovascular disease Asthma Benign neoplasm of colon CKD (chronic kidney disease), stage III Claudication Crohn's disease Dyspnea Gait disorder Gastroesophageal reflux disease Generalized weakness Glaucoma Hyperlipidemia Hypertension 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 Family History Father Diabetes Hyperlipidemia Hypertension Mother Cancer Denies family history of Ovarian cancer Prostate cancer Myocardial infarction Breast cancer Colorectal cancer Social History Smoking Status: Never smoker Second Hand Exposure: No; Hx Alcohol Use: No Hx Substance Use: No Preferred Language: Chadian Communication Ability: Effective Visual Impairment: Limited Hearing Ability: Hard of Hearing Old Coin Dealer Required: No Beliefs That Will Affect Care: None marital status: Current Living Situation: Spouse Current Living Situation Comment: 2 story house current occupational status: retired Feels Safe at Home: Yes Childhood Exposure to Second-Hand Smoke: No caffeine: No during the past year weight has: remained stable Dental Care, Regularly: Yes Physical Activity Frequency: Does not Exercise Physical Activity Frequency Comment: limited due to condition Seatbelt Use: always Sunscreen Use: No Assistive Devices: Walker Review of Systems Review of Systems: Mild distress and fatigue intermittent left upper quadrant abdominal pain is noted no headache, no visual changes no speech or swallowing issues no chest pain, pressure or palpitations no shortness of breath, cough or wheezes Left upper quadrant abdominal pain previous nausea with vomiting none since being admitted no dysuria, hematuria or frequency no focal joint pain or swelling no back pain, CVA tenderness or radicular pain no bruising, bleeding or rashes Marked actinic and seborrheic keratosis across his body no focal signs of weakness or numbness or altered sensation no complaints of anxiety or depression although has a history of anxiety... Physical Exam Physical Exam: The patient appeared well nourished and normally developed. Easily visible skin changes of sun damaged are across his head scalp arms legs etc. Vital signs as documented. Head exam is normocephalic atraumatic Neck is without JVD, thyromegaly, or carotid bruits. Lungs are clear to auscultation, no focal loss of breath sounds Cardiac exam, Rhythm is regular.. No murmurs, rubs or gallops. Abdominal exam reveals hypoactive bowel sounds, soft left upper quadrant tenderness without organomegaly no guarding no rebound Extremities are nonedematous and both pedal pulses are present Neurologic exam is alert and oriented, no focal loss of strength or sensation Skin is with actinic and seborrheic keratosis Psychologically is without concerns for anxiety or depression Results & Data Results & Data ([facility]) Vital Signs (Past 12 Hours) Vital Signs Temp Pulse Resp BP Pulse Ox 03/27/21 14:31 69 23 175/105 H 03/27/21 14:13 74 24 207/80 H 03/27/21 13:37 98.8 F 77 20 147/76 H 98 Code Status & VTE Plan VTE Prophylaxis Plan VTE Prophylaxis will be ordered: Yes PG Care Time/CCT Total # of Minutes Spent Total Time Spent with Patient: Total time spent is greater than 50% in coordination of care (as documented) at patient's floor/unit and/or counseling patient: Coding Level of Care Code 23838 Initial Inpt Care Lvl 3 Diagnoses Acute pancreatitis K85.90 Acute pancreatitis complication: unspecified Pancreatitis type: unspecified pancreatitis type IPMN (intraductal papillary mucinous neoplasm) D49.0 Coronary artery disease I25.10 Associated angina: without angina Coronary Disease-Associated Artery/Lesion type: three affiliated artery [place] vs. transplanted heart: three affiliated heart Hypertension I10 Hypertension type: essential hypertension Hyperlipidemia E78.5 Crohn's disease K50.90 CKD (chronic kidney disease), stage III N18.3 DVT prophylaxis Z29.9 (1) Coronary artery disease Associated angina: without angina Coronary Disease-Associated Artery/Lesion type: three affiliated artery [place] vs. transplanted heart: three affiliated heart Qualified Code(s): I25.10 - Atherosclerotic heart disease of three affiliated coronary artery without angina pectoris (2) Hypertension Hypertension type: essential hypertension Qualified Code(s): I10 - Essential (primary) hypertension (3) Acute pancreatitis Acute pancreatitis complication: unspecified Pancreatitis type: unspecified pancreatitis type Qualified Code(s): K85.90 - Acute pancreatitis without nec rosis or infection, unspecified
[2021-03-27] MEDS ORDERED: HYDROmorphone INJ 1 MG/ML SYRINGE IV PRN (18:06)
[2021-03-27] MEDS ORDERED: NITROGLYCERIN SL 0.4 MG/TAB TAB SL PRN (18:06)
[2021-03-27] MEDS ORDERED: HYDROCORTISONE SOD SUCCINATE 100 MG/2 ML VIAL IV SCH (18:06)
[2021-03-27] MEDS ORDERED: ONDANSETRON INJ 2 MG/ML 2 ML VIAL IV PRN (18:06)
[2021-03-27] MEDS ORDERED: hydrALAZINE HCL 20 MG/ML VIAL IV PRN (18:06)
[2021-03-27] MEDS: LACTATED RINGER'S 1,000 ML IV SCH (18:35)
[2021-03-27] MEDS ORDERED: HEPARIN SOD 5,000 UNIT/0.5 ML VIAL SQ ONE (19:00)
[2021-03-27] MEDS: HYDROCORTISONE SOD 50 MG in SYRINGE 0 ML IV SCH (20:04)
[2021-03-27] MEDS: FAMOTIDINE 20 MG in SYRINGE 3 ML IV SCH (20:04)
[2021-03-27] MEDS: HYDROmorphone INJ 0.5 MG/0.5 ML SYR IV PRN (20:04)
[2021-03-27] MEDS: BRINZOLAMIDE (AZOPT) OPS 10 ML BTL OPB SCH (20:05)
[2021-03-27] MEDS: METOPROLOL TARTRATE 25 MG TAB PO SCH (20:05)
[2021-03-27 21:24] LABS: Appearance Urine Clear (Clear); Bilirubin Urine Negative (Negative); Blood Urine Negative (Negative); Color Urine Yellow; Glucose Urine UA Negative (Negative); Ketones Urine Negative (Negative); Leukocyte Esterase Urine Negative (Negative); Nitrite Urine Negative (Negative); Protein Urine Negative (Negative); Specific Gravity Urine 1.045 (1.000-1.030); Urobilinogen Urine Negative (Negative)
[2021-03-27] MEDS ORDERED: ACETAMINOPHEN 1,000 MG/100 ML VIAL IV PRN (21:56)
[2021-03-28] MEDS: HYDROCORTISONE SOD 50 MG in SYRINGE 0 ML IV SCH ×3 (04:07→20:33)
[2021-03-28] MEDS: LACTATED RINGER'S 1,000 ML IV SCH ×2 (04:21→15:30)
[2021-03-28 07:45] LABS: Prothrombin Time 10.6 Seconds (9.0-12.0)
[2021-03-28] MEDS: METOPROLOL TARTRATE 25 MG TAB PO SCH ×2 (08:03→20:33)
[2021-03-28] MEDS: BRINZOLAMIDE (AZOPT) OPS 10 ML BTL OPB SCH ×2 (08:04→20:33)
[2021-03-28 08:07] LABS: Albumin Globulin Ratio 1.1 (0.9-2); BUN Creatinine Ratio 23.1 (10-20); Bilirubin,Total 0.7 mg/dl (0.2-1); Calcium 8.6 mg/dl (8.5-10.1); Creatinine Clr Calc Pharmacy 39.9 ml/min; Est GFR (African American) 69.6 ml/min; Globulin 2.8 gm/dl (2.5-4.0); Potassium 3.9 mmol/L (3.5-5.1); Total Protein 5.9 gm/dl (6.4-8.2)
[2021-03-28] MEDS: TIMOLOL GFS 0.25% OPH SOLN 74 DROPS/5 ML BTL OPB SCH (08:21)
[2021-03-28] MEDS: FAMOTIDINE 20 MG in SYRINGE 3 ML IV SCH (08:21)
--- NOTE | 2021-03-28 08:49 | Gastrointestinal Consultation ---
Date of Consultation March 28, 2021 Assessment & Plan (1) Acute pancreatitis: 86 year old male with history of Crohn's and IPMN no longer undergoing surveillance per patient wishes admitted w/ abdominal pain, nausea/vomiting, imaging concerning for acute pancreatitis w/o organized peripancreatic fluid collection w/ note of unchanged appearance of a focally dilated proximal pancreatic duct as detailed above when compared to CT and MRCP from 2019 Can keep NPO until rounds with attending, likely will advance to clear liquids today IV analgesia IV antiemetics Pt to consider OP EGD/EUS although he had elected to defer follow up in 2019 of IPMN Check stool studies if diarrhea returns Will need OP follow up with Dr. Rosas for IBD Appears he was started on chronic low dose prednisone, can continue during this admission Thank you for allowing us to participate in the care of this patient. Please call with any acute changes, questions or concerns. Please see addendum below with additional recommendation from my supervising physician. Supervising Physician Co-Signing Physician Notes I have seen and examined the patient and discussed the management with LARRY Jacome. Admitted through the er for nausea, vomiting, emesis, loose bm's. Labs notable for elevated wbc count, mild cr bump, stable lft's otherwise. CT A/p showing pancreatitis, no organized fluid collection, main duct ipmn, no bowel wall thickening. Reports no further diarrhea, minimal pain. PE - elderly male in nad, heent- perrla, resp- normal respirations, abd - soft nt nd Labs as above. Agree with IV hydration, pepcid, advance diet as tolerated, outpatient eus in 4- 6 weeks for further evaluation of ipmn. He was agreeable to this today. History of Present Illness Reason for Consultation: pancreatitis Requesting Physician: Niraj Attending Physician: Cade Healy MD History of Present Illness 86 year old male with history of Crohn's disease in remission, IPMN w/ ductal dilation who had deferred follow up of this as he did not wish for any surgical intervention admitted w/ abd pain, nausea/vomiting. GI asked to evaluate. Pt was seen and evaluated, chart reviewed. He notes symptoms started on Sunday. LUQ pain, nausea w/ vomiting. Also had some increased stool frequency but notes this was self limiting and did not feel like related to IBD. Now, feeling improved, requestiong diet. CTAP: Findings are consistent with acute pancreatitis. There is no organized peripancreatic fluid collection and the gland enhances homogeneously. There is unchanged appearance of a focally dilated proximal pancreatic duct as detailed above when compared to CT and MRCP from 2019. 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 Nonemergent GI follow- up is recommended. If further assessment is desired endoscopic ultrasound would be appropriate. Postoperative change is again seen involving the small bowel. There is wall thickening and mucosal hyperemia of the immediately upstream bowel, with mild gaseous distention of the small bowel immediately above the inflamed-looking loop. This is also unchanged from 2019, and may represent chronic stricture or a chronic inflammatory process. Correlation the patient's medical history will be required. The remaining small bowel loops are normal in caliber with no evidence of high-grade bowel obstruction. Cardiomegaly. Left- sided nephrolithiasis. EGD 2019: Normal esophagus. - Normal stomach. - Normal examined duodenum. - No specimens collected. EUS 2019: A cystic lesion was seen in the pancreatic neck. Tissue has not been obtained. However, the endosonographic appearance is consistent with a mixed intraductal papillary mucinous neoplasm. - There was no evidence of significant pathology in the left lobe of the liver. - There was no sign of significant pathology in the common bile duct. - The celiac trunk was endosonographically normal. - No specimens collected. 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 Will again re-address with patient, but given age, multiple comorbids, and desire, surgery and continued surveillance likely not indicated. Colonoscopy 2016: no evidence of active crohns disease Allergies Allergy/AdvReac Type Severity Reaction Status Date / Time Penicillins Allergy Unknown unknown Verified 03/27/21 15:46 Home Medications Medication Instructions Recorded Confirmed Type calcium carbonate 600 mg(1,500 1 tab PO QAM 04/16/19 03/27/21 History mg)-vitamin D3 800 unit chewable tablet [id number] acid 0.4 1 tab PO QAM 04/16/19 03/27/21 History mg-lycopene 300 mcg-lutein 250 mcg tablet timolol maleate 0.25 % eye gel 1 drops OPB QAM ml 04/16/19 03/27/21 History forming solution folic acid 400 mcg tablet 400 mcg PO QAM tab 05/12/19 03/27/21 History nitroglycerin 0.4 mg sublingual 0.4 mg SL .COMPLEX tab 05/12/19 03/27/21 History tablet diphenhydramine-acetaminophen 1 tab PO HS 06/24/19 03/27/21 History [Tylenol PM Extra Strength] brinzolamide 1 % eye 1 drp OPB BID ml 06/23/20 03/27/21 History drops,suspension metoprolol tartrate 25 mg tablet 25 mg PO BID #180 tab 10/15/20 03/27/21 Rx aspirin [Aspirin Low Dose] 81 mg PO QAM 03/27/21 03/27/21 History atorvastatin [Lipitor] 80 mg PO HS 03/27/21 03/27/21 History lisinopril-hydrochlorothiazide 1 tab PO QAM 03/27/21 03/27/21 History [Zestoretic] lorazepam [Ativan] 0.5 mg PO HS 03/27/21 03/27/21 History omeprazole 40 mg PO QAM 03/27/21 03/27/21 History prednisone 10 mg PO QAM 03/27/21 03/27/21 History Patient History Medical History Abnormal blood chemistry Antiplatelet or antithrombotic long-term use Arteriosclerotic cardiovascular disease Asthma Benign neoplasm of colon CKD (chronic kidney disease), stage III Claudication Crohn's disease Dyspnea Gait disorder Gastroesophageal reflux disease Generalized weakness Glaucoma Hyperlipidemia Hypertension Impaired fasting glucose FDC current use of systemic steroids Myalgia Neutrophilic leukocytosis Osteopenia Pre-diabetes Surgical History H/O resection of small bowel History of colonoscopy 2007, 2008, 2009, 2010, 2012, 2013, 2014, 2016 - for surveillance of multiple adenomatous polyps. 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 Family History Father Diabetes Hyperlipidemia Hypertension Mother Cancer Denies family history of Ovarian cancer Prostate cancer Myocardial infarction Breast cancer Colorectal cancer Social History Smoking Status: Never smoker Second Hand Exposure: No; Hx Alcohol Use: No Hx Substance Use: No Preferred Language: Romansh Communication Ability: Effective Visual Impairment: Limited Hearing Ability: Hard of Hearing Contact Lens Molder Required: No Beliefs That Will Affect Care: None marital status: Current Living Situation: Spouse Current Living Situation Comment: 2 story house current occupational status: retired Other Information That Helps Us Care for You: No Feels Safe at Home: Yes Safety Concerns: Feels Safe At This Time Childhood Exposure to Second-Hand Smoke: No caffeine: No during the past year weight has: remained stable Dental Care, Regularly: Yes Physical Activity Frequency: Does not Exercise Physical Activity Frequency Comment: limited due to condition Seatbelt Use: always Sunscreen Use: No Assistive Devices: Walker Review of Systems Review of Systems: All systems reviewed & are unremarkable except as noted in HPI & below Physical Exam Constitutional: WD/WN, vitals as above Neck: trachea midline, no thyromegaly Respiratory: normal respiratory effort, lungs clear to auscultation Cardiovascular: RRR, no murmur, no edema Gastrointestinal (Abdomen): Inspection/Auscultation: + abnormal bowel sounds Percussion/Palpation: + abdomen tender (mild discomfort with palpation of LUQ) and abdomen soft; no guarding, abdomen not rigid, no abdominal mass and no ascites Skin: no rashes, warm and dry Results & Data ([facility]) Vital Signs (Past 12 Hours) Vital Signs Temp Pulse Pulse Resp BP BP Pulse Ox 03/28/21 07:40 36.4 C L 82 18 183/81 H 97 03/28/21 04:00 36.6 C 73 20 157/71 H 95 03/28/21 02:39 70 03/27/21 23:00 36.8 C 66 20 172/89 H 98 Laboratory Results 03/28/21 03/28/21 03/27/21 Range/Units 06:58 06:58 20:50 WBC (4.8-10.8) K/uL RBC (4.7-6.1) M/uL Hgb (14.0-18.0) g/dL POC Hgb (14.0-18.0) g/dl Hct (42-52) % POC Hct (42-52) % MCV (80-100) fL MCH (25-34) pg MCHC (32-36) g/dL RDW Std Deviation (36.4-46.3) fL RDW Coeff of [place] (11.5-14.5) % Plt Count (130-400) K/uL MPV (7.4-10.4) fL Immature Gran % (Auto) % Neut % (Auto) % Lymph % (Auto) % [place] % (Auto) % Eos % (Auto) % Baso % (Auto) % Neut # (Auto) (1.4-6.5) K/uL Lymph # (Auto) (1.2-3.4) K/uL [place] # (Auto) (0.11-0.59) K/uL Eos # (Auto) (0-0.5) K/uL Baso # (Auto) (0-0.2) K/uL Immature Gran # (Auto) (0.00-0.02) K/uL PT 10.6 (9.0-12.0) Seconds INR 1.0 (0.9-1.1) POC Sodium (135-144) mmol/L Sodium 143 (136-145) mmol/L POC Potassium (3.3-5.0) mmol/L Potassium 3.9 (3.5-5.1) mmol/L POC Chloride (101-112) mmol/L Chloride 112 H (98-107) mmol/L Carbon Dioxide 23 (21-32) mmol/L POC Total CO2 (24-31) mmol/L Anion Gap 8.0 (3-11) POC Anion Gap (16-25) mmol/L POC BUN (7-18) mg/dl BUN 25 H (7-18) mg/dl Creatinine 1.10 (0.6-1.4) mg/dl POC Creatinine (0.6-1.3) mg/dl Est Cr Clr Drug Dosing 39.9 ml/min Est GFR ( Amer) 69.6 ml/min Est GFR (Non-Af Amer) 60.0 ml/min BUN/Creatinine Ratio 23.1 H (10-20) Glucose 91 (70-99) mg/dl POC Glucose (other) (70-99) mg/dl Calcium 8.6 (8.5-10.1) mg/dl POC Ioniz Calcium Leonel (1.12-1.32) mmol/l Total Bilirubin 0.7 (0.2-1) mg/dl AST 33 (15-37) U/L ALT 23 (12-78) U/L Alkaline Phosphatase 63 (45-117) U/L Troponin I (0-0.045) ng/ml Total Protein 5.9 L (6.4-8.2) gm/dl Albumin 3.0 L (3.4-5.0) gm/dl Globulin 2.8 (2.5-4.0) gm/dl Albumin/Globulin Ratio 1.1 (0.9-2) Lipase 2170 H (73-393) U/L Urine Color Yellow Urine Appearance Clear (Clear) Urine pH 5.0 (4.5-7.5) Ur Specific [place] 1.045 H (1.000-1.030) Urine Protein Negative (Negative) Urine Glucose (UA) Negative (Negative) Urine Ketones Negative (Negative) Urine Blood Negative (Negative) Urine Nitrite Negative (Negative) Urine Bilirubin Negative (Negative) Urine Urobilinogen Negative (Negative) Ur Leukocyte Esterase Negative (Negative) COVID-19 Eval Order SARS-CoV-2 (PCR) (Negative) 03/27/21 03/27/21 03/27/21 Range/Units 15:47 15:47 14:25 WBC (4.8-10.8) K/uL RBC (4.7-6.1) M/uL Hgb (14.0-18.0) g/dL POC Hgb 12.6 L (14.0-18.0) g/dl Hct (42-52) % POC Hct 37 L (42-52) % MCV (80-100) fL MCH (25-34) pg MCHC (32-36) g/dL RDW Std Deviation (36.4-46.3) fL RDW Coeff of [place] (11.5-14.5) % Plt Count (130-400) K/uL MPV (7.4-10.4) fL Immature Gran % (Auto) % Neut % (Auto) % Lymph % (Auto) % [place] % (Auto) % Eos % (Auto) % Baso % (Auto) % Neut # (Auto) (1.4-6.5) K/uL Lymph # (Auto) (1.2-3.4) K/uL [place] # (Auto) (0.11-0.59) K/uL Eos # (Auto) (0-0.5) K/uL Baso # (Auto) (0-0.2) K/uL Immature Gran # (Auto) (0.00-0.02) K/uL PT (9.0-12.0) Seconds INR (0.9-1.1) POC Sodium 144 (135-144) mmol/L Sodium (136-145) mmol/L POC Potassium 4.0 (3.3-5.0) mmol/L Potassium (3.5-5.1) mmol/L POC Chloride 109 (101-112) mmol/L Chloride (98-107) mmol/L Carbon Dioxide (21-32) mmol/L POC Total CO2 20 L (24-31) mmol/L Anion Gap (3-11) POC Anion Gap 21.0 (16-25) mmol/L POC BUN 30 H (7-18) mg/dl BUN (7-18) mg/dl Creatinine (0.6-1.4) mg/dl POC Creatinine 1.3 (0.6-1.3) mg/dl Est Cr Clr Drug Dosing ml/min Est GFR ( Amer) ml/min Est GFR (Non-Af Amer) ml/min BUN/Creatinine Ratio (10-20) Glucose (70-99) mg/dl POC Glucose (other) 134 H (70-99) mg/dl Calcium (8.5-10.1) mg/dl POC Ioniz Calcium [place]onel 1.26 (1.12-1.32) mmol/l Total Bilirubin (0.2-1) mg/dl AST (15-37) U/L ALT (12-78) U/L Alkaline Phosphatase (45-117) U/L Troponin I (0-0.045) ng/ml Total Protein (6.4-8.2) gm/dl Albumin (3.4-5.0) gm/dl Globulin (2.5-4.0) gm/dl Albumin/Globulin Ratio (0.9-2) Lipase (73-393) U/L Urine Color Urine Appearance (Clear) Urine pH (4.5-7.5) Ur Specific [place] (1.000-1.030) Urine Protein (Negative) Urine Glucose (UA) (Negative) Urine Ketones (Negative) Urine Blood (Negative) Urine Nitrite (Negative) Urine Bilirubin (Negative) Urine Urobilinogen (Negative) Ur Leukocyte Esterase (Negative) COVID-19 Eval Order Covid19 at [facility] SARS-CoV-2 (PCR) NEGATIVE (Negative) 03/27/21 03/27/21 Range/Units 14:01 14:01 WBC 15.77 H (4.8-10.8) K/uL RBC 3.97 L (4.7-6.1) M/uL Hgb 13.8 L (14.0-18.0) g/dL POC Hgb (14.0-18.0) g/dl Hct 41.1 L (42-52) % POC Hct (42-52) % MCV 103.5 H (80-100) fL MCH 34.8 H (25-34) pg MCHC 33.6 (32-36) g/dL RDW Std Deviation 54.2 H (36.4-46.3) fL RDW Coeff of [place] 14.2 (11.5-14.5) % Plt Count 295 (130-400) K/uL MPV 10.2 (7.4-10.4) fL Immature Gran % (Auto) 0.4 % Neut % (Auto) 82.2 % Lymph % (Auto) 10.1 % [place] % (Auto) 7.1 % Eos % (Auto) 0.1 % Baso % (Auto) 0.1 % Neut # (Auto) 12.97 H (1.4-6.5) K/uL Lymph # (Auto) 1.60 (1.2-3.4) K/uL [place] # (Auto) 1.12 H (0.11-0.59) K/uL Eos # (Auto) 0.01 (0-0.5) K/uL Baso # (Auto) 0.01 (0-0.2) K/uL Immature Gran # (Auto) 0.06 H (0.00-0.02) K/uL PT (9.0-12.0) Seconds INR (0.9-1.1) POC Sodium (135-144) mmol/L Sodium 143 (136-145) mmol/L POC Potassium (3.3-5.0) mmol/L Potassium 4.4 (3.5-5.1) mmol/L POC Chloride (101-112) mmol/L Chloride 110 H (98-107) mmol/L Carbon Dioxide 24 (21-32) mmol/L POC Total CO2 (24-31) mmol/L Anion Gap 9.0 (3-11) POC Anion Gap (16-25) mmol/L POC BUN (7-18) mg/dl BUN 32 H (7-18) mg/dl Creatinine 1.38 (0.6-1.4) mg/dl POC Creatinine (0.6-1.3) mg/dl Est Cr Clr Drug Dosing 31.5 ml/min Est GFR ( Amer) 52.9 ml/min Est GFR (Non-Af Amer) 45.6 ml/min BUN/Creatinine Ratio 22.9 H (10-20) Glucose 136 H (70-99) mg/dl POC Glucose (other) (70-99) mg/dl Calcium 9.3 (8.5-10.1) mg/dl POC Ioniz Calcium Leonel (1.12-1.32) mmol/l Total Bilirubin 0.7 (0.2-1) mg/dl AST 35 (15-37) U/L ALT 28 (12-78) U/L Alkaline Phosphatase 72 (45-117) U/L Troponin I < 0.015 (0-0.045) ng/ml Total Protein 7.0 (6.4-8.2) gm/dl Albumin 3.7 (3.4-5.0) gm/dl Globulin 3.3 (2.5-4.0) gm/dl Albumin/Globulin Ratio 1.1 (0.9-2) Lipase 38798 H (73-393) U/L Urine Color Urine Appearance (Clear) Urine pH (4.5-7.5) Ur Specific [place] (1.000-1.030) Urine Protein (Negative) Urine Glucose (UA) (Negative) Urine Ketones (Negative) Urine Blood (Negative) Urine Nitrite (Negative) Urine Bilirubin (Negative) Urine Urobilinogen (Negative) Ur Leukocyte Esterase (Negative) COVID-19 Eval Order SARS-CoV-2 (PCR) (Negative) (1) Acute pancreatitis Acute pancreatitis complication: unspecified Pancreatitis type: unspecified pancreatitis type Qualified Code(s): K85.90 - Acute pancreatitis without necrosis or infection, unspecified
--- NOTE | 2021-03-28 19:34 | Hospitalist Progress Note ---
Date of Service March 28, 2021 Assessment & Plan (1) Acute pancreatitis: Patient presents with acute pancreatitis with a lipase of 51,000 and some peripancreatic inflammation seen without organized fluid collection or concern for gallstone pancreatitis. The patient is known to [facility] gastro[facility]ology and is followed for IPMNs. kemp reduction in lipase, gi medicine has advanced diet and no plans of intervention , if remain s improved likely dc 03/29 (2) IPMN (intraductal papillary mucinous neoplasm): (3) Coronary artery disease: Patient with a known history of coronary artery disease previously being seen at [facility]. restart his aspirin lisinopril and atorvastatin held. he will have metoprolol given with a small sip of water (4) Hypertension: lisinopril plus his metoprolol be continued hydralazine will be offered for blood pressure control although some of his hypertension is likely from pain (5) Hyperlipidemia: His atorvastatin will be held (6) Crohn's disease: Patient is on chronic daily steroid treatment for his Crohn's disease. He says in the past with attempts of tapering his Crohn's disease flared. hydrocortisone now transitioned back to prednisone (7) CKD (chronic kidney disease), stage III: Currently the patient's kidney disease is about his typical baseline with a BUN of 32 and creatinine 1.38. (8) DVT prophylaxis: early ambulation as pancreatitis is resolving Admission and Anticipated Discharge Date Admission Date: March 27, 2021 Subjective pt doing well seen twice, in afternoon did tolerate a full liquid diet and will have advanced diet this evening, no intervention planned by GI medicine family at bedside and updated Review of Systems Review of Systems: Mild distress and fatigue no headache, no visual changes no speech or swallowing issues no chest pain, pressure or palpitations no shortness of breath, cough or wheezes Left upper quadrant abdominal pain previous nausea remain resolved no dysuria, hematuria or frequency no focal joint pain or swelling no back pain, CVA tenderness or radicular pain no bruising, bleeding or rashes Marked actinic and seborrheic keratosis across his body no focal signs of weakness or numbness or altered sensation no complaints of anxiety or depression although has a history of anxiety... Physical Exam Physical Exam: The patient appeared well nourished and normally developed. Easily visible skin changes of sun damaged are across his head scalp arms legs etc. Vital signs as documented. Head exam is normocephalic atraumatic Neck is without JVD, thyromegaly, or carotid bruits. Lungs are clear to auscultation, no focal loss of breath sounds Cardiac exam, Rhythm is regular.. No murmurs, rubs or gallops. Abdominal exam reveals normoactive bowel sounds, soft left upper quadrant, no tenderness without organomegaly no guarding no rebound Extremities are nonedematous and both pedal pulses are present Neurologic exam is alert and oriented, no focal loss of strength or sensation Skin is with actinic and seborrheic keratosis Psychologically is without concerns for anxiety or depression Results & Data Results & Data ([facility]) Vital Signs (Past 12 Hours) Vital Signs Temp Pulse Resp BP BP Pulse Ox 03/28/21 15:05 98.2 F 62 18 131/65 97 03/28/21 11:09 97.5 F L 65 18 178/73 H 96 03/28/21 07:40 97.5 F L 82 18 183/81 H 97 PG Care Time/CCT Total # of Minutes Spent Total Time Spent with Patient: Total time spent is greater than 50% in coordination of care (as documented) at patient's floor/unit and/or counseling patient: Coding Level of Care Code 66993 Subseq Hosp Care Lvl 3 Diagnoses Acute pancreatitis K85.90 Acute pancreatitis complication: unspecified Pancreatitis type: unspecified pancreatitis type IPMN (intraductal papillary mucinous neoplasm) D49.0 Coronary artery disease I25.10 Coronary Disease-Associated Artery/Lesion type: [place] artery [place] vs. transplanted heart: [place] heart Associated angina: without angina Hypertension I10 Hypertension type: essential hypertension Hyperlipidemia E78.5 Crohn's disease K50.90 CKD (chronic kidney disease), stage III N18.3 DVT prophylaxis Z29.9 (1) Acute pancreatitis Acute pancreatitis complication: unspecified Pancreatitis type: unspecified pancreatitis type Qualified Code(s): K85.90 - Acute pancreatitis without necrosis or infection, unspecified (2) Coronary artery disease Coronary Disease-Associated Artery/Lesion type: [place] artery [place] vs. transplanted heart: [place] heart Associated angina: without angina Qualified Code(s): I25.10 - Atherosclerotic heart disease of [place] coronary artery without angina pectoris (3) Hypertension Hypertension type: essential hypertension Qualified Code(s): I10 - Essential (primary) hypertension
[2021-03-28] MEDS: ACETAMINOPHEN 500 MG TAB PO PRN (20:32)
[2021-03-28] MEDS ORDERED: LORazepam 0.5 MG TAB PO SCH (21:00)
[2021-03-28] MEDS ORDERED: HALOPERIDOL LACTATE 5 MG/ML 1 ML VIAL IM STA (22:37)
[2021-03-28] MEDS ORDERED: LORazepam 2 MG/ML VIAL (IM USE) IM STA (22:37)
[2021-03-28] MEDS ORDERED: HALOPERIDOL LACTATE 5 MG/ML 1 ML VIAL ONE (22:41)
[2021-03-28] MEDS ORDERED: LORazepam 2 MG/4 ML VIAL ONE (22:46)
[2021-03-28] MEDS ORDERED: OLANZapine 10 MG/2.1 ML SDV IM STA (23:46)
[2021-03-29] MEDS ORDERED: LORazepam 1 MG/2 ML VIAL IV STA ×2 (00:45→08:07)
[2021-03-29] MEDS ORDERED: LORazepam 2 MG/ML VIAL (IM USE) IM STA (01:06)
[2021-03-29] MEDS ORDERED: HALOPERIDOL LACTATE 5 MG/ML 1 ML VIAL IM PRN (01:07)
[2021-03-29] MEDS ORDERED: LORazepam 2 MG/ML VIAL (IM USE) IM PRN (01:07)
--- NOTE | 2021-03-29 03:48 | Communication Note ---
Date of Service: March 29, 2021 Night team was made aware that patient was highly agitated (shouting, attempting to remove medical equipment, kicking staff, etc). I placed STAT order for Haldol 5mg IM and 1mg Ativan IM. Nursing administered both of the above, which achieved only temporarily, mild improvement. I then placed order for Zyprexa 5mg IM STAT. Immediately after this was administered, patient scraped left forearm against bedrail, which resulted in a laceration. I took an image of the laceration and forwarded to day team (Dr. Healy) on [employer]. Nursing wrapped wound. I placed orders for wound care consult as well as plastic surgery consult for this morning for consideration of suture repair. I placed one time dose orders of Haldol 5mg IM and Ativan 1mg IM (nursing preferred to use IM rather than patient's IV due to fear of him pulling IV out of arm).
--- NOTE | 2021-03-29 08:34 | Gastroenterology Progress Note ---
Date of Service March 29, 2021 Assessment & Plan (1) Acute pancreatitis: 86 year old male with history of Crohn's and IPMN no longer undergoing surveillance per patient wishes admitted w/ abdominal pain, nausea/vomiting, imaging concerning for acute pancreatitis w/o organized peripancreatic fluid collection w/ note of unchanged appearance of a focally dilated proximal pancreatic duct as detailed above when compared to CT and MRCP from 2019. Overnight he became combative, agitated and this AM I am unable to safely complete history/physical examination He does not appear to have any abdominal pain, can continue diet as tolerated Work up mental status changes, confusion per primary team IV analgesia IV antiemetics Pt to consider OP EGD/EUS although he had elected to defer follow up in 2019 of IPMN Check stool studies if diarrhea returns Will need OP follow up with Dr. Rosas for IBD Appears he was started on chronic low dose prednisone, can continue during this admission Please recall GI as needed. Thank you for allowing us to participate in the care of this patient. Please call with any acute changes, questions or concerns. Please see addendum below with additional recommendation from my supervising physician. Admission and Anticipated Discharge Date Admission Date: March 27, 2021 Supervising Physician Co-Signing Physician Notes Attending attestation I have seen, examined this patient, and agree with the findings and above by our mid-level provider LARRY Hannah, with the following additions: - Overnight developed acute delirium with aggitation and aggressive behavior - Restless in bed - Primary service to evaluate for cause of delirium - Pancreatitis concerning for degengeration of known and chronic mixed variant IPMN - Supporitive care Subjective Pt was seen and evaluated, chart reviewed. Staff at bedside as pt was combative, aggressive overnight. This has persisted this AM. Upon entering room pt appeared restful but then became quite agitated, trying to get out of bed, grabbing at headboard. I was unable to safely assess him as when i tried to listen to his heart/lungs he started to kick his legs. Review of Systems Review of Systems: Unobtainable due to cognitive status Physical Exam Physical Exam: Unable to safely complete physical examination due to agitation this AM Results & Data ([facility]) Vital Signs (Past 12 Hours) Vital Signs Pulse BP Pulse Ox 03/28/21 23:27 78 136/69 96 Laboratory Results No recent labs checked (1) Acute pancreatitis Acute pancreatitis complication: unspecified Pancreatitis type: unspecified pancreatitis type Qualified Code(s): K85.90 - Acute pancreatitis without necrosis or infection, unspecified
[2021-03-29] MEDS: BRINZOLAMIDE (AZOPT) OPS 10 ML BTL OPB SCH ×2 (09:19→20:07)
[2021-03-29] MEDS: lisinopril 5 MG TAB PO SCH (09:19)
[2021-03-29] MEDS: ASPIRIN 81 MG ECTAB PO SCH (09:19)
[2021-03-29] MEDS: TIMOLOL GFS 0.25% OPH SOLN 74 DROPS/5 ML BTL OPB SCH (09:20)
[2021-03-29] MEDS: METOPROLOL TARTRATE 25 MG TAB PO SCH (09:20)
[2021-03-29] MEDS: predniSONE 10 MG TABLET PO SCH (09:20)
[2021-03-29] MEDS ORDERED: HALOPERIDOL LACTATE 5 MG/ML 1 ML VIAL ONE (11:05)
--- NOTE | 2021-03-29 11:09 | Electrocardiogram Report ---
Test Reason : Blood Pressure : / mmHG Vent. Rate : 076 BPM Atrial Rate : 076 BPM P-R Int : 142 ms QRS Dur : 110 ms QT Int : 394 ms P-R-T Axes : 016 -11 159 degrees QTc Int : 443 ms Sinus rhythm with Premature supraventricular complexes Left ventricular hypertrophy with repolarization abnormality Cannot rule out Septal infarct , age undetermined Abnormal ECG When compared with ECG of 24-JUN-2019 08:04, Premature supraventricular complexes are now Present Minimal criteria for Septal infarct are now Present Confirmed by Jose Carlos Orantes ([id number]) on 03/29/2021 11:09:12 AM Referred By: REFERRED SELF Confirmed By:Jose Carlos Orantes
[2021-03-29] MEDS: HALOPERIDOL LACTATE 5 MG/ML 1 ML VIAL IV STA ×2 (11:25→11:27)
--- NOTE | 2021-03-29 11:34 | Surgery Consultation ---
Date of Consultation March 29, 2021 Supervising Physician Co-Signing Physician Notes Patient examined at bedside. Confused, agitated, in 4 point restraints with sitter. Avulsion noted to left forearm, flap ecchymotic, exposed fascia but no exposed muscle or tendon. Right anterior lower leg with fresh laceration/avulsion, flap appearing viable but with tibial bone exposed medially (covered in periosteum). Patient is on chronic steroids for Crohn's. Skin very thin/fragile appearing. Sutured repair will likely lead to flap necrosis resulting in a larger wound due to flaps being skin only, location, and chronic steroids. Would recommend tacking down flaps with a few steri strips, applying Provena wound vacs to the wounds, cover with Champ wraps. Provena can stay in place for up to 7 days. Case discussed with Jennifer RUSSELL, who applied Provena vacs. Would recommend 10 day course of Vitamin A 82720 IU per day due to chronic steroid use. Follow up at the wound center post discharge. History of Present Illness Attending Physician: Charles is being seen in consultation for laceration injury to his left arm and right lower leg. The patient presented to the ED on 03/27/21 and was admitted for acute pancreatitis. The patient has been combative during his stay, and he injured his arm last night against the bedrail and leg earlier this morning. We were consulted for repair on injuries. The patient has PMH of IPMN, CAD, HTN, dyslipidemia, crohns, CKD. Pancreatitis appears to be resolving. Combativeness is being treated with Haldol, Ativan and restraints. Allergies Allergy/AdvReac Type Severity Reaction Status Date / Time Penicillins Allergy Unknown unknown Verified 03/27/21 15:46 Home Medications Medication Instructions Recorded Confirmed Type calcium carbonate 600 mg(1,500 1 tab PO QAM 04/16/19 03/27/21 History mg)-vitamin D3 800 unit chewable tablet uktiayok-ryt-zccas acid 0.4 1 tab PO QAM 04/16/19 03/27/21 History mg-lycopene 300 mcg-lutein 250 mcg tablet timolol maleate 0.25 % eye gel 1 drops OPB QAM ml 04/16/19 03/27/21 History forming solution folic acid 400 mcg tablet 400 mcg PO QAM tab 05/12/19 03/27/21 History nitroglycerin 0.4 mg sublingual 0.4 mg SL .COMPLEX tab 05/12/19 03/27/21 History tablet diphenhydramine-acetaminophen 1 tab PO HS 06/24/19 03/27/21 History [Tylenol PM Extra Strength] brinzolamide 1 % eye 1 drp OPB BID ml 06/23/20 03/27/21 History drops,suspension metoprolol tartrate 25 mg tablet 25 mg PO BID #180 tab 10/15/20 03/27/21 Rx aspirin [Aspirin Low Dose] 81 mg PO QAM 03/27/21 03/27/21 History atorvastatin [Lipitor] 80 mg PO HS 03/27/21 03/27/21 History lisinopril-hydrochlorothiazide 1 tab PO QAM 03/27/21 03/27/21 History [Zestoretic] lorazepam [Ativan] 0.5 mg PO HS 03/27/21 03/27/21 History omeprazole 40 mg PO QAM 03/27/21 03/27/21 History prednisone 10 mg PO QAM 03/27/21 03/27/21 History Patient History Medical History Abnormal blood chemistry Antiplatelet or antithrombotic long-term use Arteriosclerotic cardiovascular disease Asthma Benign neoplasm of colon CKD (chronic kidney disease), stage III Claudication Crohn's disease Dyspnea Gait disorder Gastroesophageal reflux disease Generalized weakness Glaucoma Hyperlipidemia Hypertension 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 Family History Father Diabetes Hyperlipidemia Hypertension Mother Cancer Denies family history of Ovarian cancer Prostate cancer Myocardial infarction Breast cancer Colorectal cancer Social History Smoking Status: Never smoker Second Hand Exposure: No; Hx Alcohol Use: No Hx Substance Use: No Preferred Language: Comoran Communication Ability: Effective Visual Impairment: Limited Hearing Ability: Hard of Hearing Cargo Worker Required: No Beliefs That Will Affect Care: None marital status: Current Living Situation: Spouse Current Living Situation Comment: 2 story house current occupational status: retired Feels Safe at Home: Yes Childhood Exposure to Second-Hand Smoke: No caffeine: No during the past year weight has: remained stable Dental Care, Regularly: Yes Physical Activity Frequency: Does not Exercise Physical Activity Frequency Comment: limited due to condition Seatbelt Use: always Sunscreen Use: No Assistive Devices: Walker Review of Systems Review of Systems: unable to obtain due to patient agitation Physical Exam Constitutional: WD/WN, vitals as above + acute distress patient agitated, yelling and fighting in restraints Skin: laceration injury to left forearm with significant skin flap avulsion, exposed fatty tissue and fascia, flap ecchymotic laceration injury to right anterior lower leg with significant skin flap avulsion, exposed fatty subcutaneous tissue and fascia, tibial bone, flap appears viable Results & Data ([facility]) Vital Signs (Past 12 Hours) Vital Signs Pulse Resp BP Pulse Ox 03/29/21 10:44 105 H 16 155/63 H 92 03/28/21 23:27 78 136/69 96 PG Care Time/CCT Total # of Minutes Spent Total Time Spent with Patient: Total time spent is greater than 50% in c oordination of care (as documented) at patient's floor/unit and/or counseling patient: Coding Level of Care Code 67161 Office/OBS Consult Lvl 3
[2021-03-29] MEDS ORDERED: HALOPERIDOL LACTATE 5 MG/ML 1 ML VIAL IV PRN (13:13)
[2021-03-29 14:21] LABS: Hematocrit (blood only) 37.6 % (42-52); Hemoglobin 12.7 g/dL (14.0-18.0); Mean Corpuscular Hgb Conc 33.8 g/dL (32-36); Mean Corpuscular Volume 100.8 fL (80-100); Mean Platelet Volume 10.2 fL (7.4-10.4); Platelet Count 279 K/uL (130-400); RDW Coefficient of Variation 14.1 % (11.5-14.5); RDW Standard Deviation 51.6 fL (36.4-46.3); Red Blood Count 3.73 M/uL (4.7-6.1); White Blood Count 18.72 K/uL (4.8-10.8)
[2021-03-29 14:29] LABS: Prothrombin Time 10.6 Seconds (9.0-12.0)
[2021-03-29 14:47] LABS: Albumin Globulin Ratio 1.2 (0.9-2); Albumin Level 3.2 gm/dl (3.4-5.0); BUN Creatinine Ratio 17.1 (10-20); Bilirubin,Total 0.9 mg/dl (0.2-1); Calcium 8.8 mg/dl (8.5-10.1); Creatinine Clr Calc Pharmacy 39.9 ml/min; Est GFR (African American) 69.6 ml/min; Globulin 2.7 gm/dl (2.5-4.0); Potassium 3.3 mmol/L (3.5-5.1); Total Protein 5.9 gm/dl (6.4-8.2)
[2021-03-29] MEDS ORDERED: diphenhydrAMINE 50 MG/ML VIAL IV STA (15:27)
[2021-03-29] MEDS: HYDROCORTISONE SOD 50 MG in SYRINGE 0 ML IV SCH ×2 (16:43→23:27)
[2021-03-29] MEDS: METOPROLOL TARTRATE 1 MG/ML VIAL IV SCH (16:46)
[2021-03-29] MEDS: LORazepam 1 MG/2 ML VIAL IV PRN (16:50)
--- NOTE | 2021-03-29 17:47 | Hospitalist Progress Note ---
Date of Service March 29, 2021 Assessment & Plan (1) Metabolic encephalopathy: Patient has a fever today this likely explains his encephalopathy. Speaking to psychiatry doubt this is neuroleptic malignant syndrome and more likely look for infection. At this point in time certain infections have been ruled out the patient had a chest x-ray on presentation without pneumonia, Covid was negative, abdomen pelvis CT scan was without changes except for pancreatitis. His liver function tests with exception of AST are normal. Initial urinalysis was unremarkable. Additionally the imaging of his renal system only shows a senescent renal stone but no evidence of obstruction or perinephric fluid etc. His multiple skin areas do not look to be cellulitic or with abscesses and his physical examination although agitated shows no signs of nuchal rigidity To this issue will continue to have chemical restraints as best we can treating pain if need be initiating antibiotics to cover for meningitis encephalitis these will include Rocephin vancomycin and acyclovir as the patient is not taking oral medications to give him valacyclovir. Blood cultures were obtained urine culture will be obtained VBG will be obtained. lyme titre is also sent (2) Acute pancreatitis: Patient presents with acute pancreatitis with a lipase of 51,000 and some peripancreatic inflammation seen without organized fluid collection or concern for gallstone pancreatitis. The patient is known to [facility] gastro[facility]ology and is followed for IPMNs. kemp reduction in lipase, gi medicine has advanced diet and no plans of intervention (3) IPMN (intraductal papillary mucinous neoplasm): Gi medicine is not planning on intervention and lipase has resolved (4) Coronary artery disease: Patient with a known history of coronary artery disease previously being seen at [facility]. restart his aspirin lisinopril and atorvastatin held. metoprolol iv (5) Hypertension: meds are held, metoprolol tartrate scheduled iv and prn hydralazine (6) Hyperlipidemia: His atorvastatin will be held (7) Crohn's disease: Patient is on chronic daily steroid treatment for his Crohn's disease. He says in the past with attempts of tapering his Crohn's disease flared. hydrocortisone will be restarted (8) CKD (chronic kidney disease), stage III: Currently the patient's kidney disease is about his typical baseline with a BUN of 32 and creatinine 1.38. he is not on ivf and will be started on some when he is reliable to not remove ivf is used (9) Skin tear: two large skin tears, seem by plastic surgery not amenable to suture repair, using steri strips and wound vac (10) DVT prophylaxis: early ambulation as pancreatitis is resolving Admission and Anticipated Discharge Date Admission Date: March 27, 2021 Subjective Pt was seen and evaluated, chart reviewed. 1:1 Staff at bedside as pt was combative, aggressive overnight. attempts at controlling behavior are unsuccessful, did receive skin tears to left forearm distally and right mueller, despite attempts to use medications to control aggressive and self endangering behavior the pt was sedated and restrained, the pt did have ativan and haldol, additionally did have iv benadryl. I spoke to psychiatry and they do not think his recent fever is neuroleptic malignant syndrome and he is currently being worked up for a fever/infection. Review of Systems Review of Systems: Unobtainable due to cognitive status (severe agitation and delerium) Physical Exam Physical Exam: The patient appeared delirious Easily visible skin changes of sun damaged are across his head scalp arms legs etc. Vital signs as documented. Head exam is normocephalic atraumatic Neck is without JVD, thyromegaly, or carotid bruits. Lungs are clear to auscultation, no focal loss of breath sounds Cardiac exam, Rhythm is regular.. No murmurs, rubs or gallops. Abdominal exam reveals normoactive bowel sounds, soft left upper quadrant, +/- tenderness without organomegaly no guarding no rebound Extremities are nonedematous and both pedal pulses are present Neurologic exam agitated, speaks clearly but aggressively pinches and punches, no focal loss or nuchal rigidity Skin is with actinic and seborrheic keratosis large full thickness skin tears on left arm and right mueller Psychologically is with concerns for acute delerium Results & Data Results & Data ([facility]) Vital Signs (Past 12 Hours) Vital Signs Temp Pulse Pulse Resp BP BP BP 03/29/21 16:46 129 H 115/94 03/29/21 15:53 102.4 F H 129 H 20 115/94 03/29/21 10:44 105 H 16 155/63 H 03/29/21 08:40 105 H Pulse Ox 03/29/21 16:46 03/29/21 15:53 94 03/29/21 10:44 92 06/29/21 08:40 PG Care Time/CCT Total # of Minutes Spent Total Time Spent with Patient: Total time spent is greater than 50% in coordination of care (as documented) at patient's floor/unit and/or counseling patient: Coding Level of Care Code 04914 Subseq Hosp Care Lvl 3 Diagnoses Metabolic encephalopathy G93.41 Acute pancreatitis K85.90 Acute pancreatitis complication: unspecified Pancreatitis type: unspecified pancreatitis type IPMN (intraductal papillary mucinous neoplasm) D49.0 Coronary artery disease I25.10 Associated angina: without angina Coronary Disease-Associated Artery/Lesion type: squaxin artery [place] vs. transplanted heart: squaxin heart Hypertension I10 Hypertension type: essential hypertension Hyperlipidemia E78.5 Crohn's disease K50.90 CKD (chronic kidney disease), stage III N18.3 Skin tear DVT prophylaxis Z29.9 (1) Coronary artery disease Associated angina: without angina Coronary Disease-Associated Artery/Lesion type: squaxin artery [place] vs. transplanted heart: squaxin heart Qualified Code(s): I25.10 - Atherosclerotic heart disease of squaxin coronary artery without angina pectoris (2) Hypertension Hypertension type: essential hypertension Qualified Code(s): I10 - Essential (primary) hypertension (3) Acute pancreatitis Acute pancreatitis complication: unspecified Pancreatitis type: unspecified pancreatitis type Qualified Code(s): K85.90 - Acute pancreatitis without necrosis or infection, unspecified
[2021-03-29] MEDS ORDERED: VANCOMYCIN CONSULT ACTIVE PRN (17:52)
[2021-03-29] MEDS ORDERED: ACETAMINOPHEN 1,000 MG/100 ML VIAL IV PRN (17:52)
[2021-03-29 18:26] LABS: Base Excess VBG -3.1 mEq/L; HCO3 VBG 19 mmol/L; PCO2 VBG 27 mmHg (38-50); PO2 VBG 31 mmHg; pH VBG 7.47 (7.36-7.41)
[2021-03-29 18:27] LABS: Oxygen Saturation VBG < 60.0 %
[2021-03-29] MEDS: NSS + 20MEQ KCL 20 MEQ/1,000 ML BAG IV SCH (18:31)
[2021-03-29] MEDS: HYDROmorphone INJ 0.5 MG/0.5 ML SYR IV PRN (18:32)
[2021-03-29] MEDS: cefTRIAXone SODIUM 2,000 MG in DEXTROSE 5% 50 ML IV SCH (18:47)
[2021-03-29 19:15] LABS: Lyme Ab IgG w/WB Rflx Negative (Negative); Lyme Ab IgM w/WB Rflx Negative (Negative)
[2021-03-29] MEDS ORDERED: VANCOMYCIN HCL 1,500 MG in SODIUM CHLORIDE 0.9% 500 ML IV ONE (20:00)
[2021-03-29] MEDS: ACYCLOVIR SOD 600 MG in DEXTROSE 5% 100 ML IV SCH (20:04)
[2021-03-29] MEDS ORDERED: LORazepam 1 MG TAB PO SCH (21:00)
[2021-03-29 22:23] LABS: Appearance Urine Clear (Clear); Bacteria Urine Automated Negative (Negative); Bilirubin Urine Negative (Negative); Blood Urine 1+ (Negative); Color Urine Yellow; Epithelial Cell Urine Auto 0-5 /lpf (0-5); Glucose Urine UA Negative (Negative); Ketones Urine 1+ (Negative); Leukocyte Esterase Urine Negative (Negative); Nitrite Urine Negative (Negative); Protein Urine Negative (Negative); RBC Urine Automated 0-4 /hpf (0-4); Specific Gravity Urine 1.017 (1.000-1.030); Urobilinogen Urine Negative (Negative)
[2021-03-29] MEDS: HALOPERIDOL LACTATE 5 MG/ML 1 ML VIAL IV PRN (23:21)
[2021-03-30] MEDS: METOPROLOL TARTRATE 1 MG/ML VIAL IV SCH ×5 (00:26→23:52)
[2021-03-30] MEDS: HYDROmorphone INJ 0.5 MG/0.5 ML SYR IV PRN ×4 (01:04→14:17)
[2021-03-30] MEDS: ACYCLOVIR SOD 600 MG in DEXTROSE 5% 100 ML IV SCH ×2 (02:56→11:46)
[2021-03-30] MEDS: diphenhydrAMINE 50 MG/ML VIAL IV PRN (03:33)
[2021-03-30] MEDS: HALOPERIDOL LACTATE 5 MG/ML 1 ML VIAL IV PRN ×2 (03:42→22:00)
[2021-03-30 07:07] LABS: INR 1.1 (0.9-1.1); Prothrombin Time 11.3 Seconds (9.0-12.0)
[2021-03-30 07:28] LABS: Albumin Level 2.5 gm/dl (3.4-5.0); BUN Creatinine Ratio 19.3 (10-20); Calcium 7.8 mg/dl (8.5-10.1); Creatinine Clr Calc Pharmacy 44.6 ml/min; Est GFR (African American) 76.2 ml/min; Est GFR (Non-African American) 65.8 ml/min; Potassium 3.8 mmol/L (3.5-5.1)
[2021-03-30 07:43] LABS: Albumin Globulin Ratio 0.9 (0.9-2); Bilirubin,Total 0.7 mg/dl (0.2-1); Globulin 2.7 gm/dl (2.5-4.0); Total Protein 5.2 gm/dl (6.4-8.2)
[2021-03-30] MEDS: cefTRIAXone SODIUM 2,000 MG in DEXTROSE 5% 50 ML IV SCH ×2 (07:56→19:19)
[2021-03-30] MEDS: NSS + 20MEQ KCL 20 MEQ/1,000 ML BAG IV SCH (07:58)
[2021-03-30] MEDS: lisinopril 5 MG TAB PO SCH (08:01)
[2021-03-30] MEDS: TIMOLOL GFS 0.25% OPH SOLN 74 DROPS/5 ML BTL OPB SCH (08:01)
[2021-03-30] MEDS: predniSONE 10 MG TABLET PO SCH (08:01)
[2021-03-30] MEDS: BRINZOLAMIDE (AZOPT) OPS 10 ML BTL OPB SCH ×2 (08:01→19:32)
[2021-03-30] MEDS: ASPIRIN 81 MG ECTAB PO SCH (08:01)
[2021-03-30] MEDS: HYDROCORTISONE SOD 50 MG in SYRINGE 0 ML IV SCH ×3 (08:42→23:52)
--- NOTE | 2021-03-30 09:11 | Gastroenterology Progress Note ---
Date of Service March 30, 2021 Assessment & Plan (1) Acute pancreatitis: 86 year old male with history of Crohn's and IPMN no longer undergoing surveillance per patient wishes admitted w/ abdominal pain, nausea/vomiting, imaging concerning for acute pancreatitis w/o organized peripancreatic fluid collection w/ note of unchanged appearance of a focally dilated proximal pancreatic duct as detailed above when compared to CT and MRCP from 2019. Yesterday he became combative, agitated and this AM I am unable to safely complete history/physical examination. This AM he remains on 10-01 although more calm - notes he just wants to go home and be with his family He does not appear to have any abdominal pain, can continue diet as tolerated Work up mental status changes, confusion per primary team IV analgesia IV antiemetics Pt to consider OP EGD/EUS although he had elected to defer follow up in 2019 of IPMN Check stool studies if diarrhea returns Will need OP follow up with Dr. Rosas for IBD Appears he was started on chronic low dose prednisone by PCP, can continue during this admission Please recall GI as needed. Thank you for allowing us to participate in the care of this patient. Please call with any acute changes, questions or concerns. Please see addendum below with additional recommendation from my supervising physician. Admission and Anticipated Discharge Date Admission Date: March 27, 2021 Supervising Physician Co-Signing Physician Notes Attending attestation I have seen, examined this patient, and agree with the findings and above by our mid-level provider LARRY Ardon, with the following additions: Patient with improved mental status, but not entirely oriented. Abdomen is soft and nontender. Would advance diet as mental status will allow. Patient had fever with elevated white count, LFTs reveal a mildly elevated AST, however bilirubin and alkaline phosphatase are normal. CT scan without evidence of intrahepatic biliary ductal dilatation. Therefore unlikely to be of a GI source of infection. Previously patient stated that he did not want undergo surveillance or evaluation of a likely main duct IPMN. If that is to change, then can be evaluated as an outpatient. Call with questions Subjective Pt was seen and evaluated, chart reviewed 10-01 at bedside Pt is awake, oriented to self Notes he wants to go home right now, feeling better, been through a lot, just wants to see his family. Denies abd pain Review of Systems Review of Systems: All systems reviewed & are unremarkable except as noted in HPI & below Physical Exam Physical Exam: Physical examination limited. Abd is soft, nontender to palpation without rebound, guarding. No appreciate mass, ascites. Positive bowel sounds. Results & Data ([facility]) Vital Signs (Past 12 Hours) Vital Signs Temp Pulse Pulse Resp BP BP BP 03/30/21 07:26 36.6 C 83 20 153/83 H 03/30/21 06:02 96 H 150/76 H 03/30/21 04:35 03/30/21 03:21 36.7 C 96 H 20 150/76 H 03/30/21 00:34 37.2 C 03/30/21 00:26 116 H 146/84 H 03/30/21 00:25 116 H 20 146/84 H 03/29/21 23:38 96 H Pulse Ox 03/30/21 07:26 96 03/30/21 06:02 03/30/21 04:35 90 03/30/21 03:21 85 L 03/30/21 00:34 03/30/21 00:26 03/30/21 00:25 91 03/29/21 23:38 Laboratory Results 03/30/21 03/30/21 03/29/21 Range/Units 06:23 06:23 21:15 WBC (4.8-10.8) K/uL RBC (4.7-6.1) M/uL Hgb (14.0-18.0) g/dL Hct (42-52) % MCV (80-100) fL MCH (25-34) pg MCHC (32-36) g/dL RDW Std Deviation (36.4-46.3) fL RDW Coeff of Mayte (11.5-14.5) % Plt Count (130-400) K/uL MPV (7.4-10.4) fL PT 11.3 (9.0-12.0) Seconds INR 1.1 (0.9-1.1) VBG pH (7.36-7.41) VBG pCO2 (38-50) mmHg VBG pO2 mmHg VBG HCO3 mmol/L VBG O2 Saturation % VBG Base Excess mEq/L Barometric Pressure mm/Hg Sodium 146 H (136-145) mmol/L Potassium 3.8 D (3.5-5.1) mmol/L Chloride 116 H (98-107) mmol/L Carbon Dioxide 24 (21-32) mmol/L Anion Gap 6.0 (3-11) BUN 20 H (7-18) mg/dl Creatinine 1.02 (0.6-1.4) mg/dl Est Cr Clr Drug Dosing 44.6 ml/min Est GFR ( Amer) 76.2 ml/min Est GFR (Non-Af Amer) 65.8 ml/min BUN/Creatinine Ratio 19.3 (10-20) Glucose 102 H (70-99) mg/dl Calcium 7.8 L (8.5-10.1) mg/dl Total Bilirubin 0.7 (0.2-1) mg/dl AST 197 H (15-37) U/L ALT 47 (12-78) U/L Alkaline Phosphatase 52 (45-117) U/L Total Protein 5.2 L (6.4-8.2) gm/dl Albumin 2.5 L (3.4-5.0) gm/dl Globulin 2.7 (2.5-4.0) gm/dl Albumin/Globulin Ratio 0.9 (0.9-2) Lipase 73 (73-393) U/L Urine Color Yellow Urine Appearance Clear (Clear) Urine pH 5.0 (4.5-7.5) Ur Specific [place] 1.017 (1.000-1.030) Urine Protein Negative (Negative) Urine Glucose (UA) Negative (Negative) Urine Ketones 1+ H (Negative) Urine Blood 1+ H (Negative) Urine Nitrite Negative (Negative) Urine Bilirubin Negative (Negative) Urine Urobilinogen Negative (Negative) Ur Leukocyte Esterase Negative (Negative) Urine WBC (Auto) 1-5 (0-5) /hpf Urine RBC (Auto) 0-4 (0-4) /hpf U Hyaline Cast (Auto) 1-5 (0-5) /lpf U Epithel Cells (Auto) 0-5 (0-5) /lpf Urine Bacteria (Auto) Negative (Negative) Lyme Disease IgG Ab (Negative) Lyme Disease IgM Ab (Negative) 03/29/21 03/29/21 03/29/21 Range/Units 18:13 18:13 14:05 WBC (4.8-10.8) K/uL RBC (4.7-6.1) M/uL Hgb (14.0-18.0) g/dL Hct (42-52) % MCV (80-100) fL MCH (25-34) pg MCHC (32-36) g/dL RDW Std Deviation (36.4-46.3) fL RDW Coeff of Mayte (11.5-14.5) % Plt Count (130-400) K/uL MPV (7.4-10.4) fL PT (9.0-12.0) Seconds INR (0.9-1.1) VBG pH 7.47 H (7.36-7.41) VBG pCO2 27 L (38-50) mmHg VBG pO2 31 mmHg VBG HCO3 19 mmol/L VBG O2 Saturation < 60.0 % VBG Base Excess -3.1 mEq/L Barometric Pressure 735.0 mm/Hg Sodium 146 H (136-145) mmol/L Potassium 3.3 L D (3.5-5.1) mmol/L Chloride 114 H (98-107) mmol/L Carbon Dioxide 25 (21-32) mmol/L Anion Gap 7.0 (3-11) BUN 19 H (7-18) mg/dl Creatinine 1.10 (0.6-1.4) mg/dl Est Cr Clr Drug Dosing 39.9 ml/min Est GFR ( Amer) 69.6 ml/min Est GFR (Non-Af Amer) 60.0 ml/min BUN/Creatinine Ratio 17.1 (10-20) Glucose 70 (70-99) mg/dl Calcium 8.8 (8.5-10.1) mg/dl Total Bilirubin 0.9 (0.2-1) mg/dl AST 227 H (15-37) U/L ALT 47 (12-78) U/L Alkaline Phosphatase 61 (45-117) U/L Total Protein 5.9 L (6.4-8.2) gm/dl Albumin 3.2 L (3.4-5.0) gm/dl Globulin 2.7 (2.5-4.0) gm/dl Albumin/Globulin Ratio 1.2 (0.9-2) Lipase 154 (73-393) U/L Urine Color Urine Appearance (Clear) Urine pH (4.5-7.5) Ur Specific [place] (1.000-1.030) Urine Protein (Negative) Urine Glucose (UA) (Negative) Urine Ketones (Negative) Urine Blood (Negative) Urine Nitrite (Negative) Urine Bilirubin (Negative) Urine Urobilinogen (Negative) Ur Leukocyte Esterase (Negative) Urine WBC (Auto) (0-5) /hpf Urine RBC (Auto) (0-4) /hpf U Hyaline Cast (Auto) (0-5) /lpf U Epithel Cells (Auto) (0-5) /lpf Urine Bacteria (Auto) (Negative) Lyme Disease IgG Ab Negative (Negative) Lyme Disease IgM Ab Negative (Negative) 03/29/21 03/29/21 Range/Units 14:05 14:05 WBC 18.72 H (4.8-10.8) K/uL RBC 3.73 L (4.7-6.1) M/uL Hgb 12.7 L (14.0-18.0) g/dL Hct 37.6 L (42-52) % MCV 100.8 H (80-100) fL MCH 34.0 (25-34) pg MCHC 33.8 (32-36) g/dL RDW Std Deviation 51.6 H (36.4-46.3) fL RDW Coeff of Mayte 14.1 (11.5-14.5) % Plt Count 279 (130-400) K/uL MPV 10.2 (7.4-10.4) fL PT 10.6 (9.0-12.0) Seconds INR 1.0 (0.9-1.1) VBG pH (7.36-7.41) VBG pCO2 (38-50) mmHg VBG pO2 mmHg VBG HCO3 mmol/L VBG O2 Saturation % VBG Base Excess mEq/L Barometric Pressure mm/Hg Sodium (136-145) mmol/L Potassium (3.5-5.1) mmol/L Chloride (98-107) mmol/L Carbon Dioxide (21-32) mmol/L Anion Gap (3-11) BUN (7-18) mg/dl Creatinine (0.6-1.4) mg/dl Est Cr Clr Drug Dosing ml/min Est GFR ( Amer) ml/min Est GFR (Non-Af Amer) ml/min BUN/Creatinine Ratio (10-20) Glucose (70-99) mg/dl Calcium (8.5-10.1) mg/dl Total Bilirubin (0.2-1) mg/dl AST (15-37) U/L ALT (12-78) U/L Alkaline Phosphatase (45-117) U/L Total Protein (6.4-8.2) gm/dl Albumin (3.4-5.0) gm/dl Globulin (2.5-4.0) gm/dl Albumin/Globulin Ratio (0.9-2) Lipase (73-393) U/L Urine Color Urine Appearance (Clear) Urine pH (4.5-7.5) Ur Specific [place] (1.000-1.030) Urine Protein (Negative) Urine Glucose (UA) (Negative) Urine Ketones (Negative) Urine Blood (Negative) Urine Nitrite (Negative) Urine Bilirubin (Negative) Urine Urobilinogen (Negative) Ur Leukocyte Esterase (Negative) Urine WBC (Auto) (0-5) /hpf Urine RBC (Auto) (0-4) /hpf U Hyaline Cast (Auto) (0-5) /lpf U Epithel Cells (Auto) (0-5) /lpf Urine Bacteria (Auto) (Negative) Lyme Disease IgG Ab (Negative) Lyme Disease IgM Ab (Negative) (1) Acute pancreatitis Acute pancreatitis complication: unspecified Pancreatitis type: unspecified pancreatitis type Qualified Code(s): K85.90 - Acute pancreatitis without necrosis or infection, unspecified
--- NOTE | 2021-03-30 09:31 | Pharmacy Report ---
Pharmacy Abx Initial Consult - Date of Service March 30, 2021 - Pharmacy Dosing Scope Date of Consult: 03/29/21 Consultation requested by: Dr. Healy Pharmacy is consulted to initiate Vancomycin IV dosing therapy, order appropriate labs and adjust drug dose/frequency. Pt also ordered Ceftriaxone 2gm IV Q24hrs + Acyclovir 600mg IV Q8hrs - Subjective The patient is a 86 year old M admitted on 03/27/21 16:33. - Objective Height: 5 ft 6 in Weight: 61.8 kg Vital Signs (Past 12hrs): Vital Signs Temp Pulse Pulse Resp BP BP BP 03/30/21 07:26 36.6 C 83 20 153/83 H 03/30/21 06:02 96 H 150/76 H 03/30/21 04:35 03/30/21 03:21 36.7 C 96 H 20 150/76 H 03/30/21 00:34 37.2 C 03/30/21 00:26 116 H 146/84 H 03/30/21 00:25 116 H 20 146/84 H 03/29/21 23:38 96 H Pulse Ox 03/30/21 07:26 96 03/30/21 06:02 03/30/21 04:35 90 03/30/21 03:21 85 L 03/30/21 00:34 03/30/21 00:26 03/30/21 00:25 91 03/29/21 23:38 Lab Results (24hrs): Laboratory Tests (24 Hours) 03/30/21 03/29/21 03/29/21 06:23 14:05 14:05 WBC 18.72 H Creatinine 1.02 1.10 Est Cr Clr Drug Dosing 44.6 39.9 Micro Results: 03/29/21 21:15 Urine Culture - Pending Urine,Straight Cath 03/29/21 18:08 Aerobic Blood Culture - Pending Blood Anaerobic Blood Culture - Pending 03/29/21 18:13 Aerobic Blood Culture - Pending Blood Anaerobic Blood Culture - Pending - Risk Factors for Resistance * Immunocompromised (chronic steroid therapy) - Assessment & Plan Assessment 86 year old M initiated on Vancomycin + Ceftriaxone + Acyclovir for possible me ningitis. Patient meets criteria for vancomycin AUC dosing nomogram AUC/MENA is the preferred PK/PD target for vancomycin Target AUC/MENA = 400-600 AUC guided dosing is effective and associated with decreased risk of nephrotoxicity Plan Vancomycin IV * Loading dose: 1500 mg (25 mg/kg) * Maintenance dose: 750 mg IV (12 mg/kg) every 12 hours * Goal trough level for meningitis : 15 to 20 mcg/mL * Trough level ordered for 03/31/21 @ 2130 (prior to 4th maintenance dose) Pharmacy will continue to follow and will adjust dose/frequency as necessary. Thank you.
[2021-03-30] MEDS: VANCOMYCIN HCL 750 MG in SODIUM CHLORIDE 0.9% 250 ML IV SCH ×2 (10:18→21:48)
[2021-03-30] MEDS ORDERED: VANCOMYCIN HCL 1,000 MG in SODIUM CHLORIDE 0.9% 250 ML IV SCH (14:00)
[2021-03-30] MEDS: ACETAMINOPHEN 500 MG TAB PO PRN ×2 (17:42→20:49)
[2021-03-30] MEDS ORDERED: LORazepam 0.5 MG/1 ML VIAL IV ONE (17:48)
[2021-03-30] MEDS ORDERED: LORazepam 1 MG/2 ML VIAL IV ONE (17:48)
--- NOTE | 2021-03-30 17:57 | Hospitalist Progress Note ---
Date of Service March 30, 2021 Assessment & Plan (1) Metabolic encephalopathy: Patient has a fever today this likely explains his encephalopathy. Speaking to psychiatry doubt this is neuroleptic malignant syndrome and more likely look for infection. will continue the antibiotics to cover for meningitis encephalitis these will include Rocephin vancomycin and acyclovir as the patient is not taking oral medications to give him valacyclovir. Blood cultures, urine culture pending . lyme titre negative will have mri of brain to eval for meningeal enhancement (2) Acute pancreatitis: Patient presents with acute pancreatitis with a lipase of 51,000 and some peripancreatic inflammation seen without organized fluid collection or concern for gallstone pancreatitis. The patient is known to [facility] gastroenterology and is followed for IPMNs. kemp reduction in lipase, gi medicine has advanced diet and no plans of intervention (3) IPMN (intraductal papillary mucinous neoplasm): Gi medicine is not planning on intervention and lipase has resolved (4) Coronary artery disease: Patient with a known history of coronary artery disease previously being seen at [facility]. restart his aspirin lisinopril and atorvastatin held. metoprolol iv if stable will have transition to po in am (5) Hypertension: meds are held, metoprolol tartrate scheduled iv and prn hydralazine (6) Hyperlipidemia: His atorvastatin will be held (7) Crohn's disease: Patient is on chronic daily steroid treatment for his Crohn's disease. He says in the past with attempts of tapering his Crohn's disease flared. hydrocortisone continues (8) CKD (chronic kidney disease), stage III: Currently the patient's kidney disease is about his typical baseline with a BUN of 32 and creatinine 1.38. ivf continues and will advance diet (9) Skin tear: two large skin tears, seem by plastic surgery not amenable to suture repair, using steri strips and wound vac (10) DVT prophylaxis: start lovenox Admission and Anticipated Discharge Date Admission Date: March 27, 2021 Subjective Patient's approximately 50% or greater back to his baseline he is calm and collected he is still in restraints last they be removed he does not recall the days events of 1 day prior he does know he injured himself. He is now afebrile vital signs are stable Lyme screen is negative and initial evaluation for i nfection seems to be pointing against that, pending MRI scan of his brain with contrast to look for meningeal enhancement Review of Systems Review of Systems: Mild distress and fatigue no headache, no visual changes no nuchal rigidity or neck pain no speech or swallowing issues no chest pain, pressure or palpitations no shortness of breath, cough or wheezes Left upper quadrant abdominal pain previous nausea remain resolved no dysuria, hematuria or frequency no focal joint pain or swelling no back pain, CVA tenderness or radicular pain no bruising, bleeding or rashes Marked actinic and seborrheic keratosis across his body no focal signs of weakness or numbness or altered sensation no complaints of anxiety or depression although has a history of anxiety... Physical Exam Physical Exam: The patient appeared delirious Easily visible skin changes of sun damaged are across his head scalp arms legs etc. Vital signs as documented. Head exam is normocephalic atraumatic Neck is without JVD, thyromegaly, or carotid bruits. Lungs are clear to auscultation, no focal loss of breath sounds Cardiac exam, Rhythm is regular.. No murmurs, rubs or gallops. Abdominal exam reveals normoactive bowel sounds, soft left upper quadrant, +/- tenderness without organomegaly no guarding no rebound Extremities are nonedematous and both pedal pulses are present Neurologic exam agitated, speaks clearly but aggressively pinches and punches, no focal loss or nuchal rigidity Skin is with actinic and seborrheic keratosis large full thickness skin tears on left arm and right mueller Psychologically is with concerns for acute delerium Results & Data Results & Data ([facility]) Vital Signs (Past 12 Hours) Vital Signs Temp Pulse Pulse Resp BP BP Pulse Ox 03/30/21 17:03 87 157/82 H 03/30/21 15:05 97.7 F 90 18 157/82 H 95 03/30/21 11:15 98.1 F 92 H 19 172/78 H 93 03/30/21 07:26 97.9 F 83 20 153/83 H 96 03/30/21 06:02 96 H 150/76 H PG Care Time/CCT Total # of Minutes Spent Total Time Spent with Patient: Total time spent is greater than 50% in coordination of care (as documented) at patient's floor/unit and/or counseling patient: Coding Level of Care Code 58947 Subseq Hosp Care Lvl 3 Diagnoses Metabolic encephalopathy G93.41 Acute pancreatitis K85.90 Acute pancreatitis complication: unspecified Pancreatitis type: unspecified pancreatitis type IPMN (intraductal papillary mucinous neoplasm) D49.0 Coronary artery disease I25.10 Coronary Disease-Associated Artery/Lesion type: [place] artery [place] vs. transplanted heart: [place] heart Associated angina: without angina Hypertension I10 Hypertension type: essential hypertension Hyperlipidemia E78.5 Crohn's disease K50.90 CKD (chronic kidney disease), stage III N18.3 Skin tear DVT prophylaxis Z29.9 (1) Acute pancreatitis Acute pancreatitis complication: unspecified Pancreatitis type: unspecified pancreatitis type Qualified Code(s): K85.90 - Acute pancreatitis without necrosis or infection, unspecified (2) Coronary artery disease Coronary Disease-Associated Artery/Lesion type: [place] artery [place] vs. transplanted heart: [place] heart Associated angina: without angina Qualified Code(s): I25.10 - Atherosclerotic heart disease of [place] coronary artery without angina pectoris (3) Hypertension Hypertension type: essential hypertension Qualified Code(s): I10 - Essential (primary) hypertension
[2021-03-30] MEDS: LORazepam 1 MG/2 ML VIAL IV PRN (20:50)
[2021-03-30] MEDS ORDERED: DEXTROSE 5% IV SCH (23:00)
[2021-03-30] MEDS ORDERED: ACYCLOVIR SOD 600 MG in DEXTROSE 5% 100 ML IV SCH (23:00)
[2021-03-30] MEDS ORDERED: ACYCLOVIR SOD IV SCH (23:00)
[2021-03-31] MEDS: NSS + 20MEQ KCL 20 MEQ/1,000 ML BAG IV SCH ×2 (04:48→08:16)
[2021-03-31] MEDS: METOPROLOL TARTRATE 1 MG/ML VIAL IV SCH ×4 (05:39→23:21)
[2021-03-31] MEDS: cefTRIAXone SODIUM 2,000 MG in DEXTROSE 5% 50 ML IV SCH ×2 (06:39→19:06)
[2021-03-31 07:15] LABS: Hematocrit (blood only) 31.4 % (42-52); Hemoglobin 10.8 g/dL (14.0-18.0); Mean Corpuscular Hemoglobin 34.1 pg (25-34); Mean Corpuscular Hgb Conc 34.4 g/dL (32-36); Mean Corpuscular Volume 99.1 fL (80-100); Platelet Count 229 K/uL (130-400); RDW Coefficient of Variation 13.9 % (11.5-14.5); RDW Standard Deviation 50.6 fL (36.4-46.3); Red Blood Count 3.17 M/uL (4.7-6.1); White Blood Count 17.44 K/uL (4.8-10.8)
[2021-03-31 07:58] LABS: Albumin Globulin Ratio 0.9 (0.9-2); Albumin Level 2.3 gm/dl (3.4-5.0); BUN Creatinine Ratio 21.9 (10-20); Bilirubin,Total 0.5 mg/dl (0.2-1); Calcium 7.5 mg/dl (8.5-10.1); Creatinine Clr Calc Pharmacy 48.6 ml/min; Est GFR (Non-African American) 70.8 ml/min; Globulin 2.6 gm/dl (2.5-4.0); Potassium 3.2 mmol/L (3.5-5.1); Total Protein 4.9 gm/dl (6.4-8.2)
[2021-03-31] MEDS: LORazepam 1 MG/2 ML VIAL IV PRN ×2 (08:12→12:26)
[2021-03-31] MEDS: HYDROCORTISONE SOD 50 MG in SYRINGE 0 ML IV SCH ×3 (08:13→23:20)
[2021-03-31] MEDS: ASPIRIN 81 MG ECTAB PO SCH (08:16)
[2021-03-31] MEDS: lisinopril 5 MG TAB PO SCH (08:17)
[2021-03-31] MEDS: BRINZOLAMIDE (AZOPT) OPS 10 ML BTL OPB SCH ×2 (08:17→21:08)
[2021-03-31] MEDS: predniSONE 10 MG TABLET PO SCH (08:17)
[2021-03-31] MEDS: TIMOLOL GFS 0.25% OPH SOLN 74 DROPS/5 ML BTL OPB SCH (08:18)
[2021-03-31] MEDS ORDERED: POTASSIUM CHLORIDE CRTAB 20 MEQ TABCR PO SCH (09:00)
[2021-03-31] MEDS ORDERED: POTASSIUM CHLORIDE 10 MEQ / 100ML WTR IV STA ×2 (10:09→13:14)
[2021-03-31] MEDS ORDERED: MAGNESIUM SULFATE / D5W 1 GM/100 ML BAG IV ONE (10:30)
[2021-03-31] MEDS: POTASSIUM CHLORIDE / WTR 10 MEQ/100 ML PLCT IV SCH ×5 (11:22→15:14)
[2021-03-31] MEDS: HALOPERIDOL LACTATE 5 MG/ML 1 ML VIAL IV PRN ×2 (11:23→12:26)
[2021-03-31 12:13] LABS: Creatine Kinase 1487 U/L (39-308)
[2021-03-31] MEDS ORDERED: HALOPERIDOL LACTATE 5 MG/ML 1 ML VIAL IV STA (12:18)
--- NOTE | 2021-03-31 12:58 | Surgery Progress Note ---
Date of Service March 31, 2021 Assessment & Plan (1) Skin tear: Admission and Anticipated Discharge Date Admission Date: Prevena wound vacs are functioning appropriately. They should remain in place until Sunday. If patient is still inpatient, we will remove the wound vacs and asses wound. if the patient is discharged, he may follow-u in our office or wound care office for vac removal and dressing recommendations. Subjective Patient is resting calmly in bed. He does not recall who I am, but he is very pleasant and cooperative. H does admit to some discomfort at site of left arm laceration. Physical Exam Physical Exam: tj-wraps removed from left arm and right leg to reveal functioning Prevena wound vacs. there is no erythema of the surrounding soft tissue. Results & Data ([facility]) Vital Signs (Past 12 Hours) Vital Signs Temp Pulse Pulse Resp BP BP BP 03/31/21 11:00 36.4 C L 81 19 161/76 H 03/31/21 08:00 68 03/31/21 07:00 36.7 C 74 18 161/67 H 03/31/21 05:39 77 119/60 03/31/21 02:45 36.4 C L 77 18 119/60 Pulse Ox 03/31/21 11:00 97 03/31/21 08:00 03/31/21 07:00 96 03/31/21 05:39 03/31/21 02:45 95 PG Care Time/CCT Total # of Minutes Spent Total Time Spent with Patient: Total time spent is greater than 50% in coordination of care (as documented) at patient's floor/unit and/or counseling patient: Coding Level of Care Code 63041 Subseq Hosp Care Lvl 1 Diagnoses Skin tear
[2021-03-31] MEDS ORDERED: diphenhydrAMINE 50 MG/ML VIAL IV STA ×2 (13:12→15:31)
[2021-03-31] MEDS ORDERED: THIAMINE HCL 200 MG in SODIUM CHLORIDE 0.9% 50 ML IV ONE (14:00)
[2021-03-31] MEDS ORDERED: OPTIRAY 320 100ml IV ONE (15:13)
--- NOTE | 2021-03-31 15:25 | Hospitalist Progress Note ---
Date of Service March 31, 2021 Assessment & Plan (1) Metabolic encephalopathy: Patient has a fever 04/28 but none further continues with encephalopathy. Speaking to psychiatry doubt this is neuroleptic malignant syndrome and more likely look for infection. Initially used antibiotics to cover for meningitis encephalitis these will include Rocephin vancomycin and acyclovir. Blood cultures, urine culture pending . lyme titre negative CT head is negative. 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 maybe viral stopping ativan, continues haldol, may try po seroquel, benadryl seems to be most helpful to control behavior frequent vital signs, was given thiamine 03/31/21, continues on hydrocortisone Today multiple phone calls to family and specialist including radiology neuro neurology to coordinate this patient's care including bedside reevaluation spent approximately 75 minutes (2) Acute pancreatitis: resolved (3) IPMN (intraductal papillary mucinous neoplasm): Gi medicine is not planning on intervention and lipase has resolved (4) Coronary artery disease: Patient with a known history of coronary artery disease previously being seen at [facility]. aspirin lisinopril and atorvastatin held. metoprolol iv (5) Hypertension: meds are held, metoprolol tartrate scheduled iv and prn hydralazine (6) Hyperlipidemia: His atorvastatin will be held (7) Crohn's disease: Patient is on chronic daily steroid treatment for his Crohn's disease. He says in the past with attempts of tapering his Crohn's disease flared. hydrocortisone continues (8) CKD (chronic kidney disease), stage III: Currently the patient's kidney disease is about his typical baseline with a BUN of 32 and creatinine 1.38. ivf continues and will advance diet hypokalemia and hypomagnesemia, will replete (9) Skin tear: two large skin tears, seem by plastic surgery not amenable to suture repair, using steri strips and wound vac (10) DVT prophylaxis: start lovenox 04/01 Admission and Anticipated Discharge Date Admission Date: March 27, 2021 Subjective pt with agitated delirium that has caused self harm one isolated temp of 102 F the evening after the first overnight of delirium. at that time with a leukocytosis he was given Ceftriaxone, vancomycin and acyclovir with concern for encephalitis/meningitis, although he did not have meningeal signs, his delirium and agitation were such that he did not seem like just a typical encephalopathy and his level of agitation I feel would not allow him to be safely in the Ct or MRI scanner nor permit a LP. The following day he was somewhat better, able to remove restraints, thoughts of delirium from sleep deprivation, antibiotics continued as cultures to check for 48 hours. 03/31, cultures are negative, stopped vancomycin and acyclovir, initial issues with pancreatitis now with negative lipase, did have isolated ast, imaging of abd/pelvis initialy without concern for intra abdominal issues, was placed on hydrocortisone as npo and typically takes 10 mg prednisone for Crohns disease. CXR ua and cultures continue to be negative and has not have recurrent fever but was on abtx, lyme screen is negative. Remains confused and with leukocytosis no further fever. CT head is negative trying to do spinal tap but agitation prohibits Review of Systems Review of Systems: moderate distress and fatigue no headache, no visual changes no nuchal rigidity or neck pain no speech or swallowing issues no chest pain, pressure or palpitations no shortness of breath, cough or wheezes Left upper quadrant abdominal pain previous nausea remain resolved no dysuria, hematuria or frequency no focal joint pain or swelling no back pain, CVA tenderness or radicular pain no bruising, bleeding or rashes Marked actinic and seborrheic keratosis across his body no focal signs of weakness or numbness or altered sensation no complaints of anxiety or depression although has a history of anxiety... Physical Exam Physical Exam: The patient appeared delirious Easily visible skin changes of sun damaged are across his head scalp arms legs etc. Vital signs as documented. Head exam is normocephalic atraumatic Neck is without JVD, thyromegaly, or carotid bruits. Lungs are clear to auscultation, no focal loss of breath sounds Cardiac exam, Rhythm is regular.. No murmurs, rubs or gallops. Abdominal exam reveals normoactive bowel sounds, soft left upper quadrant, +/- tenderness without organomegaly no guarding no rebound Extremities are nonedematous and both pedal pulses are present Neurologic exam agitated, speaks clearly but aggressively pinches and punches, no focal loss or nuchal rigidity Skin is with actinic and seborrheic keratosis large full thickness skin tears on left arm and right mueller Psychologically is with concerns for acute delerium Results & Data Results & Data ([facility]) Vital Signs (Past 12 Hours) Vital Signs Temp Pulse Pulse Resp BP BP Pulse Ox 03/31/21 13:27 86 03/31/21 11:00 97.5 F L 81 19 161/76 H 97 03/31/21 08:00 68 03/31/21 07:00 98.1 F 74 18 161/67 H 96 03/31/21 05:39 77 119/60 PG Care Time/CCT Total # of Minutes Spent Total Time Spent with Patient: Total time spent is greater than 50% in coordination of care (as documented) at patient's floor/unit and/or counseling patient: Coding Level of Care Code 86691 Subseq Hosp Care Lvl 3 (25 - SIGNIFICANT, SEPARATELY IDENTIFIABLE ) Diagnoses Metabolic encephalopathy G93.41 Acute pancreatitis K85.90 Acute pancreatitis complication: unspecified Pancreatitis type: unspecified pancreatitis type IPMN (intraductal papillary mucinous neoplasm) D49.0 Coronary artery disease I25.10 Associated angina: without angina Coronary Disease-Associated Artery/Lesion type: [place] artery [place] vs. transplanted heart: [place] heart Hypertension I10 Hypertension type: essential hypertension Hyperlipidemia E78.5 Crohn's disease K50.90 CKD (chronic kidney disease), stage III N18.3 Skin tear DVT prophylaxis Z29.9 Time Spent (min) 75 (1) Coronary artery disease Associated angina: without angina Coronary Disease-Associated Artery/Lesion type: [place] artery [place] vs. transplanted heart: [place] heart Qualified Code(s): I25.10 - Atherosclerotic heart disease of [place] coronary artery without angina pectoris (2) Hypertension Hypertension type: essential hypertension Qualified Code(s): I10 - Essential (primary) hypertension (3) Acute pancreatitis Acute pancreatitis complication: unspecified Pancreatitis type: unspecified pancreatitis type Qualified Code(s): K85.90 - Acute pancreatitis without necrosis or infection, unspecified
--- NOTE | 2021-03-31 15:29 | CT Scan Report ---
CT head/brain wo/w con CLINICAL HISTORY: acute delirium and fever COMPARISON STUDY: Head CT January 30, 2012. MRI of the brain June 27, 2013. TECHNIQUE: Axial images of the head were obtained before and after intravenous administration of 93 c c of Optiray 320 IV. Automated exposure control was utilized for the study. A dose lowering techniqu e was utilized adhering to the principles of ALARA. Oral contrast was administered. FINDINGS: No acute intracranial hemorrhage, midline shift or mass effect is present. Ventricular syst em is stable. Basal cisterns are patent. There are no extra axial collections. There are no findings to suggest acute dural sinus thrombosis or acute territorial infarct. A few white matter hypodensitie s are unchanged. There is no intracranial mass or pathologic enhancement. Visualized portions of the left maxillary sinus are nearly entirely opacified. There is a 2 cm hyperdense nodule of the left fro ntal scalp. IMPRESSION: 1. No acute intracranial findings. 2. No intracranial mass or pathologic enhancement. 3. Left maxillary sinus opacification, partially imaged on this exam. 4. 2 cm hyperdense nodule of the left frontal scalp. This could be correlated with physical exam. ACT 112: Negative or not required by law. Electronically signed by: Francisco J Holm M.D. 03/31/2021 3:28 PM
--- NOTE | 2021-03-31 16:22 | Fluoroscopy Report ---
FLUOROSCOPICALLY GUIDED LUMBAR PUNCTURE CLINICAL HISTORY: confusion, fever FLUOROSCOPY TIME: 0.2 minutes NUMBER OF FLUOROSCOPIC IMAGES: 1 PROCEDURE: The procedure, risks and benefits were discussed with the patient' daughter given patient 's altered mental status. Discussed risks included the risk of spinal headache, bleeding and infectio n. The patient's daughter agreed to the procedure and informed written consent was obtained. The proc edure was performed by Dr. Holm following a timeout. The right L4-L5 interlaminar space was targ eted. Skin overlying the space was prepped and draped in sterile fashion and local anesthesia was ach ieved with 1% lidocaine. Under intermittent fluoroscopic guidance, a 3 1/2 inch 20-gauge spinal needl e was directed thecal sac with immediate return of clear cerebrospinal fluid. 8 cc of CSF was collect ed in 4 vials and sent to the laboratory as ordered. IMPRESSION: Successful fluoroscopically lumbar puncture with collection of 8 cc of clear cerebrospina l fluid which was sent to the laboratory for analysis as ordered. ACT 112: Negative or not required by law. Electronically signed by: Francisco J Holm M.D. 03/31/2021 4:21 PM
[2021-03-31 16:23] LABS: CSF Chemistry Tube # 1
[2021-03-31 16:30] LABS: CSF Glucose 71 mg/dl (40-70)
[2021-03-31 17:53] LABS: Appearance CSF CLEAR; Color CSF STRAW; Red Blood Cell CSF (A) < 3000 /uL (0-); White Blood Cell CSF (A) 13 /uL (0-5)
[2021-03-31] MEDS ORDERED: VANCOMYCIN CONSULT ACTIVE PRN (17:53)
[2021-03-31 17:57] LABS: CSF Count Tube # 3; CSF Xanthrochromic Xanthochromic
[2021-03-31] MEDS ORDERED: VANCOMYCIN HCL 1,250 MG in SODIUM CHLORIDE 0.9% 250 ML IV ONE (19:00)
[2021-03-31] MEDS: ACYCLOVIR SOD 600 MG in DEXTROSE 5% 100 ML IV SCH (19:05)
[2021-03-31] MEDS ORDERED: QUEtiapine FUMARATE 25 MG TABLET PO ONE (21:00)
[2021-03-31] MEDS: ACETAMINOPHEN 500 MG TAB PO PRN (21:07)
[2021-03-31] MEDS ORDERED: VANCOMYCIN TROUGH ONE (21:30)
[2021-03-31] MEDS: diphenhydrAMINE 50 MG/ML VIAL IV PRN (23:20)
[2021-04-01] MEDS: HYDROmorphone INJ 0.5 MG/0.5 ML SYR IV PRN (00:36)
[2021-04-01] MEDS: HALOPERIDOL LACTATE 5 MG/ML 1 ML VIAL IV PRN (01:24)
[2021-04-01] MEDS: NSS + 20MEQ KCL 20 MEQ/1,000 ML BAG IV SCH ×2 (04:51→09:03)
[2021-04-01] MEDS: METOPROLOL TARTRATE 1 MG/ML VIAL IV SCH ×4 (06:06→23:42)
[2021-04-01] MEDS: ACYCLOVIR SOD 600 MG in DEXTROSE 5% 100 ML IV SCH ×2 (06:07→19:58)
[2021-04-01] MEDS: cefTRIAXone SODIUM 2,000 MG in DEXTROSE 5% 50 ML IV SCH (06:07)
[2021-04-01 07:17] LABS: Hematocrit (blood only) 30.4 % (42-52); Hemoglobin 10.4 g/dL (14.0-18.0); Immature Granulocytes # (auto) 0.09 K/uL (0.00-0.02); Immature Granulocytes % (auto) 0.5 %; Lymphocytes # (auto) 0.54 K/uL (1.2-3.4); Mean Corpuscular Hemoglobin 34.2 pg (25-34); Mean Corpuscular Hgb Conc 34.2 g/dL (32-36); Mean Platelet Volume 10.2 fL (7.4-10.4); Monocytes # (auto) 1.64 K/uL (0.11-0.59); Monocytes % (auto) 9.2 %; Neutrophils # (auto) 15.65 K/uL (1.4-6.5); Neutrophils % (auto) 87.3 %; Nucleated RBC # (auto) 0.04 K/uL (0-0); Nucleated RBC % (auto) 0.2 %; Platelet Count 259 K/uL (130-400); RDW Coefficient of Variation 14.2 % (11.5-14.5); RDW Standard Deviation 50.9 fL (36.4-46.3); Red Blood Count 3.04 M/uL (4.7-6.1); White Blood Count 17.92 K/uL (4.8-10.8)
[2021-04-01 07:48] LABS: BUN Creatinine Ratio 16.9 (10-20); Calcium 7.4 mg/dl (8.5-10.1); Creatinine Clr Calc Pharmacy 47.9 ml/min; Potassium 3.3 mmol/L (3.5-5.1)
--- NOTE | 2021-04-01 08:37 | Neurology Consultation ---
Date of Consultation April 01, 2021 Assessment & Plan (1) Metabolic encephalopathy: (2) Acute pancreatitis: (3) Crohn's disease: (4) Chronic steroid use: this patient is somewhat interesting /complicated from a neurologic standpoint. Patient presented with an obvious acute pancreatitis. His lipase and abdominal symptoms quickly improved. He had no dementia or delirium on admission and was deemed to be very pleasant and cooperative. 48 hours after admission he had an acute mental status change consistent with agitated delirium. He did not have any obvious metabolic / electrolyte abnormality noted , although more recently calcium was low. CT scan of the head showed no acute changes although an opacified left maxillary sinus was noted I am not certain if this is acute versus chronic. He had no sinusitis symptoms on admission. He only had 1 day of fever and did not have any other meningeal signs. CSF revealed 13 white cells ( 100% monos) with protein of 109. Glucose was slightly elevated at 71 but this was consistent with his serum glucose of 117. it was answer chromic and there were red cells present ( probably a "bloody tap"). This CSF is consistent with an inflammation or infection such as viral. A bacterial infection cannot entirely be excluded since he received 24 hours of antibiotics prior to this lumbar puncture, which may have changed his CSF parameters some. Final cultures are pending. This morning he actually had a reasonable mental status and showed no signs of dementia. He had a little bit of delirium /agitation but this was minimal compared to prior in his hospitalization. He had no focal neurologic signs or meningeal signs, but he does have upper extremity posture and action tremor possibly some ataxia. He does not have any nystagmus or ocular findings otherwise. If the etiology of his acute agitated delirium is reminiscent of an alcohol withdrawal but he does not use alcohol apparently. Pancreatitis can be associated with acute encephalopathy. However, that does not seem to be a pancreatic encephalopathy as he was not confused or agitated on admission but only after 48 hours when is abdominal and pancreatic symptoms and functions were improved. There are a few reported cases of Wernicke's encephalopathy occurring with pancreatitis as the pancreatitis is improving. It seems to be a secondary encephalopathy from vitamin deficiency related to lack of p.o. intake and the pancreatitis. this CSF findings are little hard to explain but there are a few cases of elevated CSF protein with pancreatic and Wernicke's encephalopathy. the mild CSF elevation in monocytes is consistent with either viral or inflammatory. There is nothing about this case that is reminiscent of neuroleptic malignant syndrome, plus the agitated delirium came before the medication. Recommendations: 1. initiate thiamin per protocol soon as possible. 2. Check B1 and B12 levels 3. await CSF cultures and adjust acyclovir and antibiotics as needed over time. 4. I agree with avoiding Ativan and narcotics. 5. consider MRI of the brain with and without contrast, if able. I would look for acute white matter changes given his history of pancreatitis and possible Wernicke's Overall, I spent a total of 110 minutes with this case including review of records, review of CT films, direct evaluation the patient at bedside, and discussion of the case with the patient and RN at bedside and Dr. Healy including differential diagnosis and treatment options. History of Present Illness Reason for Consultation: Patient is an 86-year-old, who I was asked to see at the request of Dr. Healy, for neurologic consultation regarding acute delirium / encephalopathy. Requesting Physician: Dr. Healy Attending Physician: Cade Healy MD History of Present Illness This patient has a history of asthma, chronic kidney disease, Crohn's disease requiring steroid usage, hypertension, and dyslipidemia. There was a history of pancreatitis in the past. The patient was admitted March 27 with acute abdominal pain, nausea, vomiting, and diarrhea. Was no fever and his was tender to examination. Lipase was over 51,000, and a CT scan of the abdomen and pelvis showed acute pancreatitis. In the dimmer board operator hours of March 29 he began to agitated. I note that his lipase was 154 that day and has been normal ever since. The agitation was severe and violent , so much so that he lacerated his skin on his arms and legs on the bed. He would not listen to reason and was very confused. He received Ativan and Haldol. at 3:53 p.m., on March 29, he had a temperature of 39.1. He has not been febrile since. He was given acyclovir, vancomycin, and ceftriaxone for 24 hours then this was discontinued because he was much better the next day. On March 31, a CT scan of the head was largely unremarkable although there was an opacification of the left maxillary sinus. Lumbar puncture showed 13 white cells ( elevated neutrophils ) and a protein of 100. It was xanthochromic but there were less than 3000 red cells. G stain was unremarkable and cryptococcal antigen was negative. Blood cultures and urine cultures from admission were unremarkable. CSF cultures are pending. He remained agitated March 31 over night into today. Overall, he had received 12.5 mg of Haldol and the last 48 hours as well as a dose of hydromorphone last night. He received 1 dose of Seroquel 25 mg also. Ativan had been discontinued. He was put back on vancomycin, acyclovir and ceftriaxone yesterday. He was ordered thiamine and but has not received thiamine yet. This morning,He was thrashing his limbs in bed when I came in and complaining of being short of breath. He had slid down in the bed. The registered nursing professor and I pulled him up in the bed and set him up more and he come down considerably. Marcy dawn was able to answer questions. He had no complaint of pain except where he had injured his skin. He had no headache or dizziness. He did not feel weak or numb. Allergies Allergy/AdvReac Type Severity Reaction Status Date / Time Penicillins Allergy Unknown unknown Verified 03/27/21 15:46 Home Medications Medication Instructions Recorded Confirmed Type calcium carbonate 600 mg(1,500 1 tab PO QAM 04/16/19 03/27/21 History mg)-vitamin D3 800 unit chewable tablet uqzjtdir-yhz-witxs acid 0.4 1 tab PO QAM 04/16/19 03/27/21 History mg-lycopene 300 mcg-lutein 250 mcg tablet timolol maleate 0.25 % eye gel 1 drops OPB QAM ml 04/16/19 03/27/21 History forming solution folic acid 400 mcg tablet 400 mcg PO QAM tab 05/12/19 03/27/21 History nitroglycerin 0.4 mg sublingual 0.4 mg SL .COMPLEX tab 05/12/19 03/27/21 History tablet diphenhydramine-acetaminophen 1 tab PO HS 06/24/19 03/27/21 History [Tylenol PM Extra Strength] brinzolamide 1 % eye 1 drp OPB BID ml 06/23/20 03/27/21 History drops,suspension metoprolol tartrate 25 mg tablet 25 mg PO BID #180 tab 10/15/20 03/27/21 Rx aspirin [Aspirin Low Dose] 81 mg PO QAM 03/27/21 03/27/21 History atorvastatin [Lipitor] 80 mg PO HS 03/27/21 03/27/21 History lisinopril-hydrochlorothiazide 1 tab PO QAM 03/27/21 03/27/21 History [Zestoretic] omeprazole 40 mg PO QAM 03/27/21 03/27/21 History prednisone 10 mg PO QAM 03/27/21 03/27/21 History lorazepam 0.5 mg tablet 0.5 mg PO HS #30 tab 03/30/21 Rx Patient History Medical History Abnormal blood chemistry Antiplatelet or antithrombotic long-term use Arteriosclerotic cardiovascular disease Asthma Benign neoplasm of colon CKD (chronic kidney disease), stage III Claudication Crohn's disease Dyspnea Gait disorder Gastroesophageal reflux disease Generalized weakness Glaucoma Hyperlipidemia Hypertension Impaired fasting glucose MCFP current use of systemic steroids Myalgia Neutrophilic leukocytosis Osteopenia Pre-diabetes Surgical History H/O resection of small bowel History of colonoscopy 2007, 2008, 2009, 2010, 2012, 2013, 2014, 2016 - for surveillance of multiple adenomatous polyps. 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 Family History Father , age 81 of an MS Diabetes Hyperlipidemia Hypertension Myocardial infarction Mother , age 83 of stomach cancer Cancer Denies family history of Ovarian cancer Prostate cancer Breast cancer Colorectal cancer Social History Smoking Status: Never smoker Second Hand Exposure: No; Hx Alcohol Use: No Hx Substance Use: No Preferred Language: Surinamese Communication Ability: Effective Visual Impairment: Limited Hearing Ability: Hard of Hearing Wrap Checker Required: No Beliefs That Will Affect Care: None marital status: Current Living Situation: Spouse Current Living Situation Comment: 2 story house current occupational status: retired 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 Ear, Nose, Mouth, Throat: no ear pain, no tinnitus, no hearing loss, no dizziness, no hoarseness and no dysphagia Respiratory: no cough and no dyspnea Cardiovascular: no chest pain, no palpitations and no lightheadedness Gastrointestinal: no abdominal pain, no nausea and no vomiting Genitourinary: no dysuria and no urinary incontinence Musculoskeletal: no back pain, no neck pain, no radicular pain, no joint pain and no myalgia Integumentary: + lesions; no rash skin lacerations painful Neurologic: + tremor(s); no gait abnormality, no localized weakness, no generalized weakness, no tingling, no numbness, no abnormal movements, no headache(s), no abnormal speech, no confusion and no memory loss Psychiatric: + irritability; no depression, no anxiety, no difficulty concentrating, no confusion and no hallucinations Endocrine: no fatigue and no flushing Hematologic / Lymphatic: no easy bleeding and no easy bruising Allergy / Immunological: no urticaria and no problem reported Exam (Neuro) Physical Exam: The patient is right-handed. The patient is a little sleepy but easily aroused with voice. He becomes awake and alert to answer questions. Speech is normal without any aphasia or dysarthria. he was oriented to his name the month the date the president and the year. He did not know where he was (thought he was at home in [place]). He followed one-step commands very well. There was nothing by our conversation that suggested dementia. He could get distracted at times when he was uncomfortable and had a little bit of agitation and restlessness but this was easily calmed with voice. Pupils are 3 mm bilaterally and reactive to light. Extraocular eye muscles are intact without nystagmus. Visual acuity and visual best seem normal grossly to confrontation. There are no deficits to sensation in the face in all 3 distributions of the fifth cranial nerve bilaterally. Corneal reflexes are positive bilaterally. Facial strength and symmetry was normal bilaterally. Hearing seems normal to whisper and finger rub bilaterally. Palate moves well without asymmetry. There is normal sternocleidomastoid and trapezius (shoulder shrug) strength bilaterally. Tongue is midline with good strength bilaterally. Neck has a full range of motion without discomfort. There are no cervical bruits bilaterally. There are no cranial or ocular bruits. Heart is without murmur. There is a regular rhythm and rate. Overnight monitoring revealed some sinus rhythm with PACs anywhere from 50s to 90s. once last night he had what looked like an AV block 1st degree Cervical, thoracic, and lumbar spine are nontender to palpation. Gait is not tested and stance sitting up in bed is poor. With outstretched arms there is no drift. Although I did not note any resting tremor he did have postural and action tremor bilaterally. He may have had some very mild ataxia as well in the arms. His legs had no tremor and he did not seem to have any obvious ataxia in the legs. Motor strength is 5/5 diffusely in the arms bilaterally including deltoids, biceps, triceps, brachioradialis, wrist flexors and extensors, minister helper, and intrinsic hand muscles. Motor strength is 5/5 diffusely in the legs bilaterally including hip flexors, quadriceps, hamstrings, gastrocnemius, tibialis anterior, tibialis posterior, and Peroneii muscles. Toe extensors are normal and there is good bulk in the extensor digitorum brevis muscles bilaterally. I noted no focal weakness. The limbs have good tone without rigidity or spasticity. Sensory examination is intact to touch and pin throughout all 4 limbs diffusely , but the sensory examination was difficult given his mental status. Reflexes are 2/4 in the biceps, triceps, brachioradialis, and quadriceps tendons bilaterally. Achilles tendon reflexes were trace bilaterally. There is no clonus bilaterally. Toes are downgoing with plantar stimulation bilaterally. Peripheral pulses are present and of normal quality distally in all 4 limbs. There is no peripheral edema noted in the limbs. Results & Data ([facility]) Vital Signs (Past 12 Hours) Vital Signs Temp Pulse Pulse Resp BP BP BP 04/01/21 07:32 36.9 C 70 20 138/66 04/01/21 06:06 98 H 167/85 H 04/01/21 03:33 36.8 C 98 H 24 167/85 H 03/31/21 23:45 80 07/01/21 23:21 91 H 168/71 H 03/31/21 22:28 36.8 C 91 H 20 168/71 H Pulse Ox 04/01/21 07:32 95 04/01/21 06:06 04/01/21 03:33 94 03/31/21 23:45 03/31/21 23:21 03/31/21 22:28 98 PG Care Time/CCT Total # of Minutes Spent Total Time Spent with Patient: Total time spent is greater than 50% in coordination of care (as documented) at patient's floor/unit and/or counseling patient: Coding Level of Care Code 09635 Initial Inpt Care Lvl 3 Diagnoses Metabolic encephalopathy G93.41 Acute pancreatitis K85.90 Acute pancreatitis complication: unspecified Pancreatitis type: unspecified pancreatitis type Crohn's disease K50.90 Chronic steroid use Time Spent (min) 110 Comment Add modifiers as able (1) Acute pancreatitis Acute pancreatitis complication: unspecified Pancreatitis type: unspecified pancreatitis type Qualified Code(s): K85.90 - Acute pancreatitis without necrosis or infection, unspecified
[2021-04-01] MEDS ORDERED: THIAMINE HCL 200 MG in SODIUM CHLORIDE 0.9% 50 ML IV SCH (09:00)
[2021-04-01] MEDS: VANCOMYCIN HCL 750 MG in SODIUM CHLORIDE 0.9% 250 ML IV SCH ×2 (09:02→21:15)
[2021-04-01] MEDS: ENOXAPARIN INJ 40 MG/0.4 ML SYR SQ SCH (09:04)
[2021-04-01] MEDS: TIMOLOL GFS 0.25% OPH SOLN 74 DROPS/5 ML BTL OPB SCH (09:04)
[2021-04-01] MEDS: diphenhydrAMINE 50 MG/ML VIAL IV PRN (09:04)
[2021-04-01] MEDS: BRINZOLAMIDE (AZOPT) OPS 10 ML BTL OPB SCH ×2 (09:05→20:03)
[2021-04-01] MEDS: HYDROCORTISONE SOD 50 MG in SYRINGE 0 ML IV SCH ×3 (09:05→23:44)
[2021-04-01] MEDS: ASPIRIN 81 MG ECTAB PO SCH (09:05)
--- NOTE | 2021-04-01 11:06 | Pharmacy Report ---
Pharmacy Abx Dose Short Note - Date of Service April 01, 2021 - Assessment & Plan Assessment 86 year old M receiving vancomycin/meropenem for treatment of possible meningitis Therapy initially discontinued and then restarted on 03/31 with LP results, results may be more suggestive a viral encephalopathy although patient was previously on antibiotics, may interfere. CSF cultures are pending. Plan Vancomycin * Vancomycin restarted with 1250 mg x 1 * Maintenance 750 mg q12H * Trough ordered prior to 04/02 @0730 Pharmacy will continue to follow and will adjust dose/frequency as necessary. Thank you.
[2021-04-01] MEDS: MEROPENEM 2,000 MG in 0.9 % SODIUM CHLORIDE 58 ML IV SCH ×2 (11:07→21:15)
[2021-04-01] MEDS: ALBUTEROL 0.083% NEBU SOLN 3 ML VIAL NEB PRN (11:08)
[2021-04-01] MEDS ORDERED: FUROSEMIDE 10 MG in SYRINGE 0 ML IV ONE (12:00)
[2021-04-01] MEDS ORDERED: FUROSEMIDE 40 MG/4 ML VIAL IV ONE (15:26)
--- NOTE | 2021-04-01 18:05 | Hospitalist Progress Note ---
Date of Service April 01, 2021 Assessment & Plan (1) Metabolic encephalopathy: one isolated temp of 102 F the evening after the first overnight of delirium. at that time with a leukocytosis he was given Ceftriaxone, vancomycin and acyclovir with concern for encephalitis/meningitis, although he did not have meningeal signs, his delirium and agitation were such that he did not seem like just a typical encephalopathy and his level of agitation I feel would not allow him to be safely in the Ct or MRI scanner nor permit a LP. The following day he was somewhat better, able to remove restraints, thoughts of delirium from sleep deprivation, antibiotics continued as cultures to check for 48 hours. 03/31, cultures are negative, stopped vancomycin and acyclovir, initial issues with pancreatitis now with negative lipase, did have isolated ast elevation, imaging of abd/pelvis initially without concern for intra abdominal issues, was placed on hydrocortisone on presentatoin as npo and typically takes 10 mg prednisone for Crohns disease. CXR ua and cultures continue to be negative and has not have recurrent fever but was on abtx, lyme screen is negative. Remained confused and with leukocytosis no further fever. CT head is negative. 03/31 now s/p spinal tap shows 13 wbc and protein elevated to 109 antibiotics/antivirals restarted in pm of 03/31. Speaking to psychiatry doubt this is neuroleptic malignant syndrome and more likely look for infection. stopping ativan, continues haldol, may try po seroquel, benadryl seems to be most helpful to control behavior overall maybe fitting more a a Wernicke type syndrome as improving with thiamine (2) Acute pancreatitis: resolved (3) IPMN (intraductal papillary mucinous neoplasm): Gi medicine is not planning on intervention and lipase has resolved (4) Coronary artery disease: Patient with a known history of coronary artery disease previously being seen at [facility]. aspirin lisinopril and atorvastatin held. metoprolol iv (5) Hypertension: meds are held, metoprolol tartrate scheduled iv and prn hydralazine (6) Hyperlipidemia: His atorvastatin will be held (7) Crohn's disease: Patient is on chronic daily steroid treatment for his Crohn's disease. He says in the past with attempts of tapering his Crohn's disease flared. hydrocortisone continues (8) CKD (chronic kidney disease), stage III: Currently the patient's kidney disease is about his typical baseline with a BUN of 32 and creatinine 1.38. ivf continues and will advance diet hypokalemia and hypomagnesemia, will continue to replete (9) Skin tear: two large skin tears, seem by plastic surgery not amenable to suture repair, using steri strips and wound vac (10) DVT prophylaxis: start lovenox 04/01 Admission and Anticipated Discharge Date Admission Date: March 27, 2021 Subjective pt with agitated delirium that has caused self harm he has improved either from antibiotics or from thiamine, LP was abnormal but no showing any issues with gram stain, esr low and procal low also, maybe from thiamine or inflamation such as a viral infection Review of Systems Review of Systems: mild distress and fatigue no headache, no visual changes no nuchal rigidity or neck pain no speech or swallowing issues no chest pain, pressure or palpitations intermittent c/o sob, no hypoxia Left upper quadrant abdominal pain previous nausea remain resolved no dysuria, hematuria or frequency no focal joint pain or swelling no back pain, CVA tenderness or radicular pain no bruising, bleeding or rashes Marked actinic and seborrheic keratosis across his body no focal signs of weakness or numbness or altered sensation no complaints of anxiety or depression . Physical Exam Physical Exam: The patient appeared more calm and oriented Easily visible skin changes of sun damaged are across his head scalp arms legs etc. Vital signs as documented. Head exam is normocephalic atraumatic Neck is without JVD, thyromegaly, or carotid bruits. Lungs are clear to auscultation, no focal loss of breath sounds Cardiac exam, Rhythm is regular.. No murmurs, rubs or gallops. Abdominal exam reveals normoactive bowel sounds, soft left upper quadrant, +/- tenderness without organomegaly no guarding no rebound Extremities are nonedematous and both pedal pulses are present Neurologic exam speaks clearly but at times is confused with names and time course Skin is with actinic and seborrheic keratosis large full thickness skin tears on left arm and right mueller Psychologically is with concerns for resolving delirium Results & Data Results & Data ([facility]) Vital Signs (Past 12 Hours) Vital Signs Temp Pulse Pulse Resp BP BP BP 04/01/21 07:32 98.4 F 70 20 138/66 04/01/21 06:06 98 H 167/85 H 04/01/21 03:33 98.2 F 98 H 24 167/85 H 03/31/21 23:45 80 03/31/21 23:21 91 H 168/71 H 03/31/21 22:28 98.2 F 91 H 20 168/71 H Pulse Ox 04/01/21 07:32 95 04/01/21 06:06 04/01/21 03:33 94 03/31/21 23:45 03/31/21 23:21 03/31/21 22:28 98 PG Care Time/CCT Total # of Minutes Spent Total Time Spent with Patient: Total time spent is greater than 50% in co ordination of care (as documented) at patient's floor/unit and/or counseling patient: Coding Level of Care Code 11817 Subseq Hosp Care Lvl 3 Diagnoses Metabolic encephalopathy G93.41 Acute pancreatitis K85.90 Acute pancreatitis complication: unspecified Pancreatitis type: unspecified pancreatitis type IPMN (intraductal papillary mucinous neoplasm) D49.0 Coronary artery disease I25.10 Coronary Disease-Associated Artery/Lesion type: [place] artery [place] vs. transplanted heart: [place] heart Associated angina: without angina Hypertension I10 Hypertension type: essential hypertension Hyperlipidemia E78.5 Crohn's disease K50.90 CKD (chronic kidney disease), stage III N18.3 Skin tear DVT prophylaxis Z29.9 (1) Acute pancreatitis Acute pancreatitis complication: unspecified Pancreatitis type: unspecified pancreatitis type Qualified Code(s): K85.90 - Acute pancreatitis without necrosis or infection, unspecified (2) Coronary artery disease Coronary Disease-Associated Artery/Lesion type: [place] artery [place] vs. transplanted heart: [place] heart Associated angina: without angina Qualified Code(s): I25.10 - Atherosclerotic heart disease of [place] coronary artery without angina pectoris (3) Hypertension Hypertension type: essential hypertension Qualified Code(s): I10 - Essential (primary) hypertension
[2021-04-01] MEDS: THIAMINE HCL 200 MG in SODIUM CHLORIDE 0.9% 50 ML IV SCH (20:04)
[2021-04-01] MEDS: POTASSIUM CHLORIDE CRTAB 20 MEQ TABCR PO SCH (22:17)
[2021-04-02] MEDS: ALBUTEROL 0.083% NEBU SOLN 3 ML VIAL NEB PRN ×2 (01:59→07:10)
[2021-04-02 06:17] LABS: Basophils # (auto) 0.01 K/uL (0-0.2); Basophils % (auto) 0.1 %; Eosinophils # (auto) 0.01 K/uL (0-0.5); Eosinophils % (auto) 0.1 %; Hematocrit (blood only) 33.1 % (42-52); Immature Granulocytes # (auto) 0.11 K/uL (0.00-0.02); Immature Granulocytes % (auto) 0.7 %; Lymphocytes # (auto) 0.79 K/uL (1.2-3.4); Lymphocytes % (auto) 5.3 %; Mean Corpuscular Hemoglobin 34.1 pg (25-34); Mean Corpuscular Hgb Conc 33.2 g/dL (32-36); Mean Corpuscular Volume 102.5 fL (80-100); Monocytes # (auto) 1.21 K/uL (0.11-0.59); Neutrophils # (auto) 12.91 K/uL (1.4-6.5); Neutrophils % (auto) 85.8 %; Nucleated RBC # (auto) 0.04 K/uL (0-0); Nucleated RBC % (auto) 0.3 %; Platelet Count 282 K/uL (130-400); RDW Coefficient of Variation 14.4 % (11.5-14.5); RDW Standard Deviation 54.3 fL (36.4-46.3); Red Blood Count 3.23 M/uL (4.7-6.1); White Blood Count 15.04 K/uL (4.8-10.8)
[2021-04-02] MEDS: METOPROLOL TARTRATE 1 MG/ML VIAL IV SCH (06:35)
[2021-04-02 06:52] LABS: BUN Creatinine Ratio 15.5 (10-20); Calcium 7.7 mg/dl (8.5-10.1); Est GFR (African American) 76.2 ml/min; Est GFR (Non-African American) 65.8 ml/min; Magnesium 2.1 mg/dl (1.8-2.4); Potassium 3.4 mmol/L (3.5-5.1)
[2021-04-02] MEDS ORDERED: VANCOMYCIN TROUGH ONE ×2 (07:30→08:30)
[2021-04-02] MEDS: POTASSIUM CHLORIDE CRTAB 20 MEQ TABCR PO SCH ×2 (08:10→20:10)
[2021-04-02] MEDS: BRINZOLAMIDE (AZOPT) OPS 10 ML BTL OPB SCH ×2 (08:10→20:11)
[2021-04-02] MEDS: ASPIRIN 81 MG ECTAB PO SCH (08:11)
[2021-04-02] MEDS: TIMOLOL GFS 0.25% OPH SOLN 74 DROPS/5 ML BTL OPB SCH (08:12)
[2021-04-02] MEDS: THIAMINE HCL 200 MG in SODIUM CHLORIDE 0.9% 50 ML IV SCH ×3 (08:12→20:10)
[2021-04-02] MEDS: MEROPENEM 2,000 MG in 0.9 % SODIUM CHLORIDE 58 ML IV SCH (08:12)
[2021-04-02] MEDS: ENOXAPARIN INJ 40 MG/0.4 ML SYR SQ SCH (08:13)
[2021-04-02] MEDS: ACYCLOVIR SOD 600 MG in DEXTROSE 5% 100 ML IV SCH ×2 (08:33→20:09)
[2021-04-02] MEDS: HYDROCORTISONE SOD 50 MG in SYRINGE 0 ML IV SCH (08:33)
[2021-04-02] MEDS: ACETAMINOPHEN 500 MG TAB PO PRN (09:09)
[2021-04-02] MEDS ORDERED: predniSONE 20 MG TAB PO STA (09:34)
[2021-04-02] MEDS ORDERED: METOPROLOL TARTRATE 1 MG/ML VIAL IV PRN (09:35)
--- NOTE | 2021-04-02 09:52 | Pharmacy Report ---
Pharmacy Abx Dose Short Note - Date of Service April 02, 2021 - Assessment & Plan Assessment 86 year old M receiving Vancomycin + Meropenem for treatment of possible meningitis Day # 5 of antimicrobial therapy. Plan Vancomycin * Trough level of 19.6 mcg/mL is therapeutic; however, vancomycin is NOT at steady state. Likely accumulation leading to supratheraputic levels would occur with repeated dosing. Will empirically lengthen interval to allow for additional vanco clearance * Continue dose of 750 mg IV but change interval from Q12hrs to Q18hrs * Goal trough level for meningitis : 15 to 20 mcg/mL * Trough level ordered for: 04/04/21 @ 1600 Meropenem * No changes needed; continue 2gm IV Q12hrs for crcl 26-50 ml/min Pharmacy will continue to follow and will adjust dose/frequency as necessary. Thank you.
[2021-04-02] MEDS ORDERED: VANCOMYCIN HCL 750 MG in SODIUM CHLORIDE 0.9% 250 ML IV SCH (10:00)
--- NOTE | 2021-04-02 11:13 | Neurology Progress Note ---
Date of Service April 02, 2021 Assessment & Plan (1) Metabolic encephalopathy: (2) Acute pancreatitis: (3) Crohn's disease: (4) Chronic steroid use: This patient is complicated from a neurologic standpoint. Patient presented with an obvious acute pancreatitis. His lipase and abdominal symptoms quickly improved. He had no dementia or delirium on admission and was deemed to be very pleasant and cooperative. 48 hours after admission he had an acute mental status change consistent with agitated delirium. He did not have any obvious metabolic / electrolyte abnormality noted , although more recently calcium was low. CT scan of the head showed no acute changes although an opacified left maxillary sinus was noted I am not certain if this is acute versus chronic. He had no sinusitis symptoms on admission. He only had 1 day of fever and did not have any other meningeal signs. CSF revealed 13 white cells ( 100% monos) with protein of 109. Glucose was slightly elevated at 71 but this was consistent with his serum glucose of 117. it was answer chromic and there were red cells present ( probably a "bloody tap"). This CSF is consistent with an inflammation or infection such as viral. A bacterial infection cannot entirely be excluded since he received 24 hours of antibiotics prior to this lumbar puncture, which may have changed his CSF parameters some. Final cultures are pending. The morning of April 01, he actually had a reasonable mental status and showed no signs of dementia. He had a little bit of delirium /agitation but this was minimal compared to prior in his hospitalization. He had no focal neurologic signs or meningeal signs, but he does have upper extremity posture and action tremor possibly some ataxia. He does not have any nystagmus or ocular findings otherwise. This morning he is doing excellent with no sign of encephalopathy, dementia, or delirium. If the etiology of his acute agitated delirium is reminiscent of an alcohol withdrawal but he does not use alcohol apparently. Pancreatitis can be associated with acute encephalopathy. However, this does not seem to be a pancreatic encephalopathy as he was not confused or agitated on admission but only after 48 hours when his abdominal and pancreatic symptoms/functions were improved. There are a few reported cases of Wernicke's encephalopathy occurring with pancreatitis as the pancreatitis is improving. It seems to be a secondary encephalopathy from vitamin deficiency related to lack of p.o. intake and the pancreatitis. the fact that he has chronic Crohn's disease might also put him at risk for vitamin deficiency as well. The CSF findings are little harder to explain, but there are a few cases of elevated CSF protein (up to 100) with pancreatic and Wernicke's encephalopathy. The mild CSF elevation in monocytes (13) is consistent with either viral or inflammatory causes. There is nothing about this case that is reminiscent of neuroleptic malignant syndrome, plus the agitated delirium came before the medication. Recommendations: 1. continue thiamine as ordered. 2. awaiting final CSF cultures. He probably does not need the systemic antibiotics nor the acyclovir. 3. I agree with avoiding Ativan and narcotics. 4. consider MRI of the brain with and without contrast, if able. I would look for acute white matter changes given his history of pancreatitis and possible Wernicke's Overall, I spent a total of 35 minutes with this case including review of r ecords, direct evaluation the patient at bedside, and discussion of the case with the patient and RN at bedside and Dr. Healy including differential diagnosis and treatment options. Admission and Anticipated Discharge Date Admission Date: March 27, 2021 Subjective the patient is sitting in a chair very calm and cooperative. He has no complaint of pain, headache, or dizziness. He knew use been confused in the hospital but does not remember much of that at all. He does not have any new weakness or numbness of the limbs and he was not unsteady when he walked to the bathroom this morning with the nurse. CK was down to 820 this morning and B vitamin levels are pending. Blood pressure is 174/84. Cultures of the CSF, urine, and blood have been negative so far Results & Data ([facility]) Vital Signs (Past 12 Hours) Vital Signs Temp Pulse Pulse Resp BP BP Pulse Ox 04/02/21 08:00 86 04/02/21 07:10 79 18 96 04/02/21 07:02 36.7 C 70 19 174/84 H 94 04/02/21 06:35 95 H 04/02/21 04:17 36.7 C 85 24 187/74 H 96 04/02/21 02:00 81 18 98 04/01/21 23:42 96 H 180/88 H Exam (Neuro) Physical Exam: he is awake and alert. Speech is without aphasia or dysarthria. Mood and affect seem normal appropriate. He is calm, pleasant, and cooperative. He follows one-step commands very well and has good memory for long and short-term issues (although not his recent hospital stay ). Extraocular eye muscles are intact without nystagmus. Pupils are 3 mm and reactive to light. There is no facial droop. Tongue is midline. Stance sitting up in the chair is normal. Coordination is normal in the arms without tremor or ataxia. Strength is symmetrical in the limbs. PG Care Time/CCT Total # of Minutes Spent Total Time Spent with Patient: Total time spent is greater than 50% in coordination of care (as documented) at patient's floor/unit and/or counseling patient: Coding Level of Care Code 23395 Subseq Hosp Care Lvl 3 Diagnoses Metabolic encephalopathy G93.41 Acute pancreatitis K85.90 Acute pancreatitis complication: unspecified Pancreatitis type: unspecified pancreatitis type Crohn's disease K50.90 Chronic steroid use Time Spent (min) 35 (1) Acute pancreatitis Acute pancreatitis complication: unspecified Pancreatitis type: unspecified pancreatitis type Qualified Code(s): K85.90 - Acute pancreatitis without necrosis or infection, unspecified
[2021-04-02] MEDS: METOPROLOL TARTRATE 25 MG TAB PO SCH ×2 (11:40→20:10)
[2021-04-02] MEDS ORDERED: LORazepam 0.5 MG TAB PO STA (15:03)
[2021-04-02] MEDS ORDERED: LORazepam 0.5 MG TAB PO PRN (15:03)
--- NOTE | 2021-04-02 16:19 | Hospitalist Progress Note ---
Date of Service April 02, 2021 Assessment & Plan (1) Metabolic encephalopathy: one isolated temp of 102 F the evening after the first overnight of delirium. at that time with a leukocytosis he was given Ceftriaxone, vancomycin and acyclovir with concern for encephalitis/meningitis, although he did not have meningeal signs, his delirium and agitation were such that he did not seem like just a typical encephalopathy and his level of agitation I feel would not allow him to be safely in the Ct or MRI scanner nor permit a LP. The following day he was somewhat better, able to remove restraints, thoughts of delirium from sleep deprivation, antibiotics continued as cultures to check for 48 hours. 03/31, cultures are negative, stopped vancomycin and acyclovir, initial issues with pancreatitis now with negative lipase, did have isolated ast elevation, imaging of abd/pelvis initially without concern for intra abdominal issues, was placed on hydrocortisone on presentatoin as npo and typically takes 10 mg prednisone for Crohns disease. CXR ua and cultures continue to be negative and has not have recurrent fever but was on abtx, lyme screen is negative. Remained confused and with leukocytosis no further fever. CT head is negative. 03/31 now s/p spinal tap shows 13 wbc and protein elevated to 109 antibiotics/antivirals restarted in pm of 03/31. Speaking to psychiatry doubt this is neuroleptic malignant syndrome and more likely look for infection. stopping ativan, continues haldol, benadryl seems to be most helpful to control behavior overall maybe fitting more a a Wernicke type syndrome as timing of improvement consistent with thiamine dosing (2) Acute pancreatitis: resolved (3) IPMN (intraductal papillary mucinous neoplasm): Gi medicine is not planning on intervention and lipase has resolved (4) Coronary artery disease: Patient with a known history of coronary artery disease previously being seen at [facility]. aspirin lisinopril and atorvastatin held. Transition to p.o. metoprolol (5) Hypertension: meds are held, metoprolol tartrate scheduled iv and prn hydralazine (6) Hyperlipidemia: His atorvastatin will be held (7) Crohn's disease: Patient is on chronic daily steroid treatment for his Crohn's disease. He says in the past with attempts of tapering his Crohn's disease flared. hydrocortisone will transition back to oral prednisone therapy (8) CKD (chronic kidney disease), stage III: Currently the patient's kidney disease is about his typical baseline with a BUN of 32 and creatinine 1.38. ivf continues and will advance diet hypokalemia and hypomagnesemia, will continue to replete (9) Skin tear: two large skin tears, seem by plastic surgery not amenable to suture repair, using steri strips and wound vac (10) DVT prophylaxis: start lovenox 04/01 Admission and Anticipated Discharge Date Admission Date: March 27, 2021 Subjective Patient is much improved remembers some of his hospital stay is more like his an initial admitted self that I admitted prior to his delirium. Currently no direct concern for bacterial [employer] infection we will continue antivirals until MRI evaluates temporal lobes changes and of course continue to gauge his clinical outcome. It seems temporally related that the most of his improvement was related to thiamine administration CK was down to 820 this morning and B vitamin levels are pending. Blood pressure is 174/84. Cultures of the CSF, urine, and blood have been negative so far Review of Systems Review of Systems: mild distress and fatigue no headache, no visual changes no nuchal rigidity or neck pain no speech or swallowing issues no chest pain, pressure or palpitations intermittent c/o sob, no hypoxia Left upper quadrant abdominal pain previous nausea remain resolved no dysuria, hematuria or frequency no focal joint pain or swelling no back pain, CVA tenderness or radicular pain He has open areas on his right dorsal hand left forearm and right mueller no focal signs of weakness or numbness or altered sensation no complaints of anxiety or depression . Physical Exam Physical Exam: The patient appeared more calm and oriented Easily visible skin changes of sun damaged are across his head scalp arms legs etc. Vital signs as documented. Head exam is normocephalic atraumatic Neck is without JVD, thyromegaly, or carotid bruits. Lungs are clear to auscultation, no focal loss of breath sounds Cardiac exam, Rhythm is regular.. No murmurs, rubs or gallops. Abdominal exam reveals normoactive bowel sounds, soft l nontender abdomen Extremities are nonedematous and both pedal pulses are present Neurologic exam speaks clearly but at times is mildly confused Skin is with skin. Documented to be the right dorsal hand right mueller and left forearm large full thickness skin tears on left arm and right mueller Psychologically is with concerns for resolving delirium Results & Data Results & Data ([facility]) Vital Signs (Past 12 Hours) Vital Signs Temp Pulse Pulse Resp BP Pulse Ox 04/02/21 11:30 97.7 F 74 18 172/79 H 96 04/02/21 08:00 86 04/02/21 07:10 79 18 96 04/02/21 07:02 98.1 F 70 19 174/84 H 94 04/02/21 06:35 95 H 04/02/21 04:17 98.1 F 85 24 187/74 H 96 PG Care Time/CCT Total # of Minutes Spent Total Time Spent with Patient: Total time spent is greater than 50% in coordination of care (as documented) at patient's floor/unit and/or counseling patient: Coding Level of Care Code 83944 Subseq Hosp Care Lvl 3 Diagnoses Metabolic encephalopathy G93.41 Acute pancreatitis K85.90 Acute pancreatitis complication: unspecified Pancreatitis type: unspecified pancreatitis type IPMN (intraductal papillary mucinous neoplasm) D49.0 Coronary artery disease I25.10 Coronary Disease-Associated Artery/Lesion type: [place] artery [place] vs. transplanted heart: [place] heart Associated angina: without angina Hypertension I10 Hypertension type: essential hypertension Hyperlipidemia E78.5 Crohn's disease K50.90 CKD (chronic kidney disease), stage III N18.3 Skin tear DVT prophylaxis Z29.9 (1) Acute pancreatitis Acute pancreatitis complication: unspecified Pancreatitis type: unspecified pancreatitis type Qualified Code(s): K85.90 - Acute pancreatitis without necrosis or infection, unspecified (2) Coronary artery disease Coronary Disease-Associated Artery/Lesion type: [place] artery [place] vs. transplanted heart: [place] heart Associated angina: without angina Qualified Code(s): I25.10 - Atherosclerotic heart disease of [place] coronary artery without angina pectoris (3) Hypertension Hypertension type: essential hypertension Qualified Code(s): I10 - Essential (primary) hypertension
--- NOTE | 2021-04-02 17:14 | Magnetic Resonance Report ---
MRI OF THE BRAIN WITHOUT IV CONTRAST CLINICAL HISTORY: Change in mental status. Fever. COMPARISON STUDY: CT of the brain dated 03/31/2021. TECHNIQUE: MRI of the brain was performed utilizing various T1 and T2-weighted sequences in the axial , sagittal, and coronal planes. IV contrast was not administered for this examination. The examinatio n is modestly degraded by motion artifact. FINDINGS: Brain parenchyma: There is age-related involutional change noting mild subcortical and periventricula r microangiopathic disease. There is no hemorrhage or mass effect. There is no restricted diffusion t o suggest acute ischemia. [place]ued[place]-white matter differentiation is preserved. No extra-axial fluid collec tion is seen. The cerebellar tonsils are normal in configuration. Ventricles, sulci, and cisterns: Prominent secondary to involutional change. Pituitary and sella: Unremarkable. Intracranial vasculature: Normal flow voids are maintained at the skull base. Orbits: The bony orbits are grossly intact. Orbital contents are normal in appearance noting bilatera l ocular lens implants. Sinuses and mastoids: Moderate mucosal thickening is noted in the left maxillary antrum. The remainin g paranasal sinuses are clear. The mastoid air cells are well pneumatized. Calvarium: Unremarkable. Cervical cord: Partially visualized cervical spinal cord is normal in morphology and signal intensity . IMPRESSION: Senescent changes as above with no acute intracranial abnormality. ACT 112: Negative or not required by law. Electronically signed by: Varinder Samayoa M.D. 04/02/2021 5:13 PM
[2021-04-03] MEDS: ALBUTEROL 0.083% NEBU SOLN 3 ML VIAL NEB PRN (01:42)
[2021-04-03] MEDS: ACETAMINOPHEN 500 MG TAB PO PRN (04:09)
[2021-04-03] MEDS: ACYCLOVIR SOD 600 MG in DEXTROSE 5% 100 ML IV SCH (07:00)
[2021-04-03 07:50] LABS: Basophils # (auto) 0.01 K/uL (0-0.2); Basophils % (auto) 0.1 %; Eosinophils # (auto) 0.07 K/uL (0-0.5); Eosinophils % (auto) 0.4 %; Hematocrit (blood only) 35.1 % (42-52); Hemoglobin 11.7 g/dL (14.0-18.0); Immature Granulocytes # (auto) 0.08 K/uL (0.00-0.02); Immature Granulocytes % (auto) 0.5 %; Lymphocytes # (auto) 2.27 K/uL (1.2-3.4); Lymphocytes % (auto) 13.6 %; Mean Corpuscular Hemoglobin 33.7 pg (25-34); Mean Corpuscular Hgb Conc 33.3 g/dL (32-36); Mean Corpuscular Volume 101.2 fL (80-100); Mean Platelet Volume 10.4 fL (7.4-10.4); Monocytes # (auto) 1.99 K/uL (0.11-0.59); Neutrophils # (auto) 12.22 K/uL (1.4-6.5); Neutrophils % (auto) 73.4 %; Nucleated RBC # (auto) 0.07 K/uL (0-0); Nucleated RBC % (auto) 0.4 %; Platelet Count 171 K/uL (130-400); RDW Coefficient of Variation 14.7 % (11.5-14.5); RDW Standard Deviation 53.3 fL (36.4-46.3); Red Blood Count 3.47 M/uL (4.7-6.1); White Blood Count 16.64 K/uL (4.8-10.8)
[2021-04-03 08:14] LABS: BUN Creatinine Ratio 22.8 (10-20); Est GFR (African American) 76.2 ml/min; Est GFR (Non-African American) 65.8 ml/min; Potassium 3.4 mmol/L (3.5-5.1)
[2021-04-03] MEDS: ASPIRIN 81 MG ECTAB PO SCH (08:17)
[2021-04-03] MEDS: predniSONE 10 MG TABLET PO SCH (08:18)
[2021-04-03] MEDS: BRINZOLAMIDE (AZOPT) OPS 10 ML BTL OPB SCH ×2 (08:19→21:18)
[2021-04-03] MEDS: METOPROLOL TARTRATE 25 MG TAB PO SCH ×2 (08:20→21:18)
[2021-04-03] MEDS: ENOXAPARIN INJ 40 MG/0.4 ML SYR SQ SCH (08:21)
[2021-04-03] MEDS: TIMOLOL GFS 0.25% OPH SOLN 74 DROPS/5 ML BTL OPB SCH (08:21)
[2021-04-04 06:44] LABS: Creatinine Clr Calc Pharmacy 47.4 ml/min; Est GFR (Non-African American) 68.2 ml/min
[2021-04-04] MEDS: METOPROLOL TARTRATE 25 MG TAB PO SCH ×2 (09:00→19:57)
[2021-04-04] MEDS: ASPIRIN 81 MG ECTAB PO SCH (09:00)
[2021-04-04] MEDS: predniSONE 10 MG TABLET PO SCH (09:00)
[2021-04-04] MEDS: ENOXAPARIN INJ 40 MG/0.4 ML SYR SQ SCH (09:00)
[2021-04-04] MEDS: TIMOLOL GFS 0.25% OPH SOLN 74 DROPS/5 ML BTL OPB SCH (09:01)
[2021-04-04] MEDS: BRINZOLAMIDE (AZOPT) OPS 10 ML BTL OPB SCH ×2 (09:01→19:57)
--- NOTE | 2021-04-04 09:45 | Neurology Progress Note ---
Date of Service April 04, 2021 Assessment & Plan (1) Metabolic encephalopathy: (2) Acute pancreatitis: (3) Crohn's disease: (4) Chronic steroid use: This patient hsa been complicated from a neurologic standpoint. Patient presented with an obvious acute pancreatitis. His lipase and abdominal symptoms quickly improved. He had no dementia or delirium on admission and was deemed to be very pleasant and cooperative. 48 hours after admission he had an acute mental status change consistent with agitated delirium. He did not have any obvious metabolic / electrolyte abnormality noted , although more recently calcium was low. CT scan of the head showed no acute changes although an opacified left maxillary sinus was noted I am not certain if this is acute versus chronic. He had no sinusitis symptoms on admission. He only had 1 day of fever and did not have any other meningeal signs. CSF revealed 13 white cells ( 100% monos) with protein of 109. Glucose was slightly elevated at 71 but this was consistent with his serum glucose of 117. it was answer chromic and there were red cells present ( probably a "bloody tap"). This CSF is consistent with an inflammation or infection such as viral. A bacterial infection cannot entirely be excluded since he received 24 hours of antibiotics prior to this lumbar puncture, which may have changed his CSF parameters some. Final cultures are pending. The morning of April 01, he actually had a reasonable mental status and showed no signs of dementia. He had a little bit of delirium /agitation but this was minimal compared to prior in his hospitalization. He had no focal neurologic signs or meningeal signs, but he does have upper extremity posture and action tremor possibly some ataxia. He does not have any nystagmus or ocular findings otherwise. since the morning of April 02 as well as the present, he is doing excellent with no sign of encephalopathy, dementia, or delirium. The etiology of his acute agitated delirium was reminiscent of an alcohol withdrawal but he does not use alcohol. Pancreatitis can be associated with acute encephalopathy. However, this does not seem to be a pancreatic encephalopathy as he was not confused or agitated on admission, but only after 48 hours when his abdominal and pancreatic symptoms/functions were improved. There are a few reported cases of Wernicke's encephalopathy occurring with pancreatitis as the pancreatitis is improving. It seems to be a secondary encephalopathy from vitamin deficiency related to lack of p.o. intake and the pancreatitis. the fact that he has chronic Crohn's disease might also put him at risk for vitamin deficiency as well. The CSF findings are little harder to explain, but there are a few cases of elevated CSF protein (up to 100) with pancreatic and Wernicke's encephalopathy. The mild CSF elevation in monocytes (13) is consistent with either viral or inflammatory causes. He is off all antibiotics and antiviral agents and has no encephalopathy or meningeal signs. Final CSF cultures were negative for bacteria. There is nothing about this case that is reminiscent of neuroleptic malignant syndrome, plus the agitated delirium came before the medication. Recommendations: 1. continue thiamine as ordered. 2. Avoid Ativan/benzodiazepines and narcotics. 3. increase activity as able. 4. Otherwise, I have no further neurologic testing or treatment recommendations to make at this time. Please contact me if I can be of further assistance on this case. Overall, I spent a total of 35 minutes with this case including review of records, direct evaluation the patient at bedside, and discussion of the case with the patient and RN at bedside and Dr. Gallagher including differential diagnosis and treatment options. Admission and Anticipated Discharge Date Admission Date: March 27, 2021 Subjective Patient feels well with no pain or headaches. He is not dizzy and does not have any new weakness or numbness of limbs. His right hand skin laceration wound is healing nicely. I reviewed this. The wound nurse is checking his wounds. He has left leg and left upper extremity skin wounds as well. Blood pressure is 162/78. nursing reports no new events overnight. MRI of brain revealed some mild generalized atrophy and old small vessel ischemic changes consistent with aging. There were no acute lesions Results & Data ([facility]) Vital Signs (Past 12 Hours) Vital Signs Temp Pulse Pulse Resp BP Pulse Ox 04/04/21 07:47 36.6 C 76 20 162/78 H 98 04/04/21 04:26 36.7 C 87 22 173/88 H 97 04/04/21 00:39 71 04/03/21 22:55 36.7 C 72 18 167/73 H 98 Exam (Neuro) Physical Exam: He is sitting up in bed, awake and alert with normal speech. He has no aphasia or dysarthria. Extraocular eye muscles are intact without nystagmus. He has no facial droop. Coordination is normal in the arms without tremor or ataxia and strength is symmetrical in the limbs. PG Care Time/CCT Total # of Minutes Spent Total Time Spent with Patient: Total time spent is greater than 50% in coordi [place] of care (as documented) at patient's floor/unit and/or counseling patient: Coding Level of Care Code 55464 Subseq Hosp Care Lvl 3 Diagnoses Metabolic encephalopathy G93.41 Acute pancreatitis K85.90 Acute pancreatitis complication: unspecified Pancreatitis type: unspecified pancreatitis type Crohn's disease K50.90 Chronic steroid use Time Spent (min) 35 (1) Acute pancreatitis Acute pancreatitis complication: unspecified Pancreatitis type: unspecified pancreatitis type Qualified Code(s): K85.90 - Acute pancreatitis without necrosis or infection, unspecified
--- NOTE | 2021-04-04 12:52 | Hospitalist Progress Note ---
Date of Service April 04, 2021 Assessment & Plan (1) Wernicke encephalopathy: Had altered mental status starting approx. 48 hours after admission. Seen by Dr. Mello (neurology) who was concerned about meningitis/encephalitis vs. delirium. LP showed inflammation, but no indication of infection. - Responded well to high-dose thiamine -> Some patients with poor absorption/nutrition (as with his Crohn's) can get a secondary Wernicke's when they stop eating (in this case due to pancreatitis). - Had returned to baseline by 04/03. Per report, had started to see improvement already by 03/31. -> Continue oral thiamine (2) Skin tear: Two large skin tears that occured in the setting of his agitation. - Seen by plastic surgery -> not amenable to suture repair - Wound vacs will be done tomorrow. Will see in conjunction with boiler room operator & Plastic surgery to plan for further treatment. (3) Acute pancreatitis: Resolved. Unclear cause. - Will need to follow up with GI - [facility] (4) IPMN (intraductal papillary mucinous neoplasm): Had previously declined further follow-up. - Follow up with GI as desired (5) Crohn's disease: Patient is on chronic daily steroid treatment for his Crohn's disease. He says in the past with attempts of tapering his Crohn's disease flared. - Continue prednisone - GI follow-up (6) Coronary artery disease: Patient with a known history of coronary artery disease previously being seen at [facility]. - Continue home ASA, beta-mac, lisinopril, & atorvastatin (7) Hypertension: BP today is 170/80. - Continue beta-mac & ACEi (8) CKD (chronic kidney disease), stage III: Baseline Cr. ~1.0, CrCl ~45 mL/min. - Presently at baseline. (9) DVT prophylaxis: Lovenox 40 mg SQ daily Admission and Anticipated Discharge Date Admission Date: March 27, 2021 Subjective Doing well today. No abdominal pain. Mental status is much clearer. He is very tearful about being away from his . Reports no fevers/chills, chest pain, shortness of breath, abdominal pain, nausea, or vomiting. Physical Exam Constitutional: WD/WN, vitals as above Eyes: EOM intact bilaterally; no conjunctival abnormality ENMT: external ear and nose normal, oropharynx normal Neck: trachea midline, no thyromegaly normal visual inspection Respiratory: normal respiratory effort, lungs clear to auscultation no respiratory distress Cardiovascular: RRR, no murmur, no edema Gastrointestinal (Abdomen): Inspection/Auscultation: abdomen normal to inspection; abdomen not distended Musculoskeletal: no cyanosis or clubbing, extremities motor strength 5/5 Skin: + wound (Bandaged with wound vacs on) Neurologic: moves all extremities and awake Psychiatric: Orientation: alert, oriented to person and cooperative Results & Data Results & Data ([facility]) Vital Signs (Past 12 Hours) Vital Signs Temp Pulse Resp BP Pulse Ox 04/04/21 11:11 36.6 C 73 19 169/80 H 97 04/04/21 07:47 36.6 C 76 20 162/78 H 98 04/04/21 04:26 36.7 C 87 22 173/88 H 97 PG Care Time/CCT Total # of Minutes Spent Total Time Spent with Patient: Total time spent is greater than 50% in coordination of care (as documented) at patient's floor/unit and/or counseling patient: Coding Level of Care Code 33503 Subseq Hosp Care Lvl 3 Diagnoses Wernicke encephalopathy E51.2 Skin tear Acute pancreatitis K85.90 Acute pancreatitis complication: unspecified Pancreatitis type: unspecified pancreatitis type IPMN (intraductal papillary mucinous neoplasm) D49.0 Crohn's disease K50.90 Coronary artery disease I25.10 Coronary Disease-Associated Artery/Lesion type: [place] artery [place] vs. transplanted heart: [place] heart Associated angina: without angina Hypertension I10 Hypertension type: essential hypertension CKD (chronic kidney disease), stage III N18.3 DVT prophylaxis Z29.9 (1) Acute pancreatitis Acute pancreatitis complication: unspecified Pancreatitis type: unspecified pancreatitis type Qualified Code(s): K85.90 - Acute pancreatitis without necrosis or infection, unspecified (2) Coronary artery disease Coronary Disease-Associated Artery/Lesion type: [place] artery [place] vs. transplanted heart: [place] heart Associated angina: without angina Qualified Code(s): I25.10 - Atherosclerotic heart disease of [place] coronary artery without angina pectoris (3) Hypertension Hypertension type: essential hypertension Qualified Code(s): I10 - Essential (primary) hypertension
[2021-04-04] MEDS: THIAMINE HCL 100 MG TAB PO SCH (14:55)
[2021-04-04] MEDS ORDERED: VANCOMYCIN TROUGH ONE (15:30)
[2021-04-04] MEDS: ACETAMINOPHEN 500 MG TAB PO PRN (18:39)
[2021-04-04] MEDS ORDERED: ATORVASTATIN 40 MG TAB PO SCH (21:00)
[2021-04-05 06:13] LABS: Mean Corpuscular Hemoglobin 33.5 pg (25-34); Mean Corpuscular Hgb Conc 33.3 g/dL (32-36); Mean Corpuscular Volume 100.6 fL (80-100); Platelet Count 260 K/uL (130-400); RDW Standard Deviation 52.7 fL (36.4-46.3); Red Blood Count 3.58 M/uL (4.7-6.1)
[2021-04-05 06:31] LABS: Albumin Level 2.5 gm/dl (3.4-5.0); BUN Creatinine Ratio 25.5 (10-20); Calcium 7.9 mg/dl (8.5-10.1); Est GFR (African American) 92.6 ml/min; Est GFR (Non-African American) 79.9 ml/min; Globulin 2.4 gm/dl (2.5-4.0); Magnesium 2.3 mg/dl (1.8-2.4); Potassium 3.7 mmol/L (3.5-5.1); Total Protein 4.9 gm/dl (6.4-8.2)
[2021-04-05] MEDS: ACETAMINOPHEN 500 MG TAB PO PRN (09:06)
[2021-04-05] MEDS: BRINZOLAMIDE (AZOPT) OPS 10 ML BTL OPB SCH (09:09)
[2021-04-05] MEDS: TIMOLOL GFS 0.25% OPH SOLN 74 DROPS/5 ML BTL OPB SCH (09:10)
[2021-04-05] MEDS: ENOXAPARIN INJ 40 MG/0.4 ML SYR SQ SCH (09:10)
[2021-04-05] MEDS: THIAMINE HCL 100 MG TAB PO SCH (09:10)
[2021-04-05] MEDS: predniSONE 10 MG TABLET PO SCH (09:10)
[2021-04-05] MEDS: METOPROLOL TARTRATE 25 MG TAB PO SCH (09:10)
[2021-04-05] MEDS: ASPIRIN 81 MG ECTAB PO SCH (09:17)
[2021-04-05 10:56] LABS: Anti Nuclear Antibody Screen NEGATIVE (NEGATIVE)
--- NOTE | 2021-04-05 13:44 | Surgery Progress Note ---
Date of Service April 05, 2021 Assessment & Plan Admission and Anticipated Discharge Date Admission Date: March 27, 2021 Wound will be dressed with thin layer of bacitracin and single-layer of Xeroform. This will be changed once daily and the patient will follow-up a the wound care center after discharge. Supervising Physician Co-Signing Physician Notes I personally saw and examined this patient and agree with the assessment and plan. Therese Soto is being seen today with Dr. Dee Rde, and Dr. Gallagher. He is awake, coherent and reports no pain at wound vac sites. Physical Exam Physical Exam: wound vacs removed from left arm and right leg to reveal healthy wound beds. right lower leg flap appears viable, does not approximate to wound edge. healthy fat and granular tissue exposed. periwound is without erythema or edema. left arm flap with small area of necrosis, wound edge does not approximate, there is healthy fat and granular tissue exposed. per-wound is without erythema or edema Results & Data ([facility]) Vital Signs (Past 12 Hours) Vital Signs Temp Pulse Pulse Resp BP BP Pulse Ox 04/05/21 11:24 36.7 C 73 16 156/78 H 97 04/05/21 07:55 78 04/05/21 07:19 36.8 C 57 L 18 169/71 H 99 04/05/21 03:48 36.6 C 77 20 173/63 H 98 PG Care Time/CCT Total # of Minutes Spent Total Time Spent with Patient: Total time spent is greater than 50% in coordination of care (as documented) at patient's floor/unit and/or counseling patient: Coding Level of Care Code 07884 Subseq Obs Care Lvl 2
[2021-04-05 14:52] LABS: CMV DNA Qnt Real Time PCR <200 IU/mL (<200); CMV DNA Quant PCR <2.30 log IU/mL (<2.30); HSV Type 1 DNA Not Detected (Not Detected); HSV Type 1&2 DNA Source CSF; HSV Type 2 DNA Not Detected (Not Detected)
--- NOTE | 2021-04-05 17:17 | Discharge Summary ---
Date of Service April 05, 2021 Principal Diagnosis Pancreatitis Wernicke's from secondary thiamine deficiency from poor PO intake Discharge Exam Constitutional WD/WN, vitals as above Eyes EOM intact bilaterally; no conjunctival abnormality ENMT external ear and nose normal, oropharynx normal Neck trachea midline, no thyromegaly normal visual inspection Respiratory normal respiratory effort, lungs clear to auscultation no respiratory distress Cardiovascular RRR, no murmur, no edema Gastrointestinal (Abdomen) Inspection/Auscultation: abdomen normal to inspection; abdomen not distended Musculoskeletal no cyanosis or clubbing, extremities motor strength 5/5 Skin + wound (Bandaged with wound vacs on) Neurologic moves all extremities and awake Psychiatric Orientation: alert, oriented to person and cooperative Discharge Data Allergies Allergy/AdvReac Type Severity Reaction Status Date / Time Penicillins Allergy Unknown unknown Verified 03/27/21 15:46 Consultations 03/27/21 15:40 ED Decision to Admit Stat 03/27/21 18:06 Consult Gastroenterology Routine 03/29/21 01:08 Consult Plastic Surgery Routine 04/01/21 07:09 Consult Neurology Routine 04/01/21 09:01 Consult Infectious Diseases Routine Ordered Studies 03/27/21 13:47 CT abd pelvis IV con only Stat 03/31/21 13:13 CT head/brain wo/w con Stat 03/31/21 14:52 FL lumbar puncture diagnostic Routine 04/02/21 12:29 MR brain wo con Routine Hospital Course (1) Wernicke encephalopathy: Had altered mental status starting approx. 48 hours after admission. Seen by Dr. Mello (neurology) who was concerned about meningitis/encephalitis vs. delirium. LP showed inflammation, but no indication of infection. - Responded well to high-dose thiamine -> Some patients with poor absorption/nutrition (as with his Crohn's) can get a secondary Wernicke's when they stop eating (in this case due to pancreatitis). - Had returned to baseline by 04/03. Per report, had started to see improvement already by 03/31. -> Continue oral thiamine on discharge. (2) Skin tear: Two large skin tears that occured in the setting of his agitation. - Seen by plastic surgery -> not amenable to suture repair - Wound vacs removed on 04/05. No infection noted, but not a lot of healing either. Re-dressed by sole leather cutting machine operator with plan to follow up on Sunday with both Plastics and Wound Care. (3) Acute pancreatitis: Resolved. Unclear cause. - Will need to follow up with GI - [facility] (4) IPMN (intraductal papillary mucinous neoplasm): Had previously declined further follow-up. - Follow up with GI as desired (5) Crohn's disease: Patient is on chronic daily steroid treatment for his Crohn's disease. He says in the past with attempts of tapering his Crohn's disease flared. - Continue prednisone - GI follow-up (6) Coronary artery disease: Patient with a known history of coronary artery disease previously being seen at [facility]. - Continue home ASA, beta-mac, lisinopril, & atorvastatin (7) Hypertension: BP today is 170/80. - Continue beta-mac & ACEi (8) CKD (chronic kidney disease), stage III: Baseline Cr. ~1.0, CrCl ~45 mL/min. - Presently at baseline. (9) DVT prophylaxis: Lovenox 40 mg SQ daily I certify that this patient is under my care and that I, or a physicians technology assistant working with me, had a face to-face encounter that meets the home health [id number] encounter requirements with this patient. The encounter with the patient was in whole, or in part, for the following medical condition, which is the primary reason for home health care (list medical condition): wound care. I certify that, based on my findings, the following services are medically necessary home health services: My clinical findings support the need for the above services because: Skilled Nsg Assessment Skilled Nsg Assessment Surgical Incision / Wound Further, I certify that my clinical findings support that this patient is homebound (i.e. absences from home require considerable and taxing effort and are for medical reasons or mu-ism services or infrequently or of short duration when for other reasons) because: Transportation Assistance/Unable to Leave Home Unassisted Certification for Home Health Services: Based on the above findings, I certify that this patient is confined to the home and needs intermittent long term care, physical therapy and/or speech therapy or continues to need occupational therapy. The patient is under my care, and I have initiated the establishment of the plan of care. This patient will be followed by a physician who will periodically review the plan of care. Total Time Total Time Spent Total Time Spent (In Minutes): 35 Discharge Plan Discharge Items Patient Disposition: Home - Home Health Services Reason For Visit: PANCREATITIS Discharge Diagnosis: Pancreatitis Confusion caused by low thiamine intake Condition on Discharge: Good Activity: Resume your previous activity Non-emergency contact: Primary Care Provider Call non-emergency contact if: your symptoms worsen Follow-up/Referrals: Darrin Bee MD [Primary Care Provider] - 04/12/21 9:00 am Diet: Heart Healthy Addtl Attending Provider Instructions: Mr. Corona, You were admitted to the hospital with inflammation of your pancreas called pancreatitis. This can be caused by a variety of issues. The pancreas calmed down with conservative treatment including fluids, holding off on eating, and some time. Because of your Crohn's, you likely do not absorb thiamine very well. We believe the pancreas issue then caused you to have lower thiamine levels and become confused. Fortunately, with some IV thiamine and time, your confusion has resolved as well. We will send you home on a thiamine supplement to try to "stock up" your body with thiamine. Unfortunately, when you were confused, you sustained some injuries to your arm and leg. The wound looks like they are healing as well as can be hoped, and the Plastic Surgery team and Wound Care took off the wound vacs today. They would like to see you on Sunday to check on your wounds and make sure they are getting the proper care to heal. Pending Studies at Discharge: No Stand-Alone Forms: My [facility], Smoking Cessation Medications and DC Order Prescriptions: New thiamine HCl (vitamin B1) [Vitamin B-1] 100 mg Tablet 100 mg PO QAM Qty: 30 RF: 0 Continued metoprolol tartrate 25 mg tablet 25 mg PO BID Qty: 180 RF: 3 lorazepam [Ativan] 0.5 mg tablet 0.5 mg PO HS Qty: 30 RF: 0 nitroglycerin [Nitrostat] 0.4 mg tablet, sublingual 0.4 mg SL .COMPLEX RF: 0 Azopt 1 % drops,suspension 1 drp OPB BID RF: 0 Centrum Silver 0.4-300-250 mg-mcg-mcg tablet 1 tab PO QAM RF: 0 Caltrate 600 plus D 600 mg (1,500 mg)-800 unit tablet,chewable 1 tab PO QAM RF: 0 timolol maleate [Timoptic-XE] 0.25 % gel forming solution 1 drops OPB QAM RF: 0 folic acid 400 mcg tablet 400 mcg PO QAM RF: 0 diphenhydramine-acetaminophen [Tylenol PM Extra Strength] 25-500 mg Tablet 1 tab PO HS RF: 0 aspirin [Aspirin Low Dose] 81 mg Tablet,Delayed Release (Dr/Ec) 81 mg PO QAM RF: 0 atorvastatin [Lipitor] 80 mg tablet 80 mg PO HS RF: 0 prednisone 10 mg tablet 10 mg PO QAM RF: 0 omeprazole 40 mg capsule,delayed release(DR/EC) 40 mg PO QAM RF: 0 lisinopril-hydrochlorothiazide [Zestoretic] 10-12.5 mg tablet 1 tab PO QAM RF: 0 Discharge Orders: Discharge Order (Routine); Ordered 04/05/21 Ordered By: Alexsander Herrera/Other Patient Handouts: Wound Care, Understanding Pancreatitis Admission Data Admit Date/Time: 03/27/21 16:33 Attending Provider: Alexsander Gallagher Admit Provider: Cade Healy Primary Care Provider: Darrin Bee Other Providers: Cade Healy ; Enid Rosas ; Maggy Bailon Emile ; Jeff Stone ; Maty Hidalgo ; Shai Chadwick I. ; Anastacio Alan II ; Lizzy Mason ; Ky Avilez ; [facility] Other Interventions: Discharge Summary Assessment (RN) Last Done: 04/05/21 14:34 Coding Level of Care Code D/C Day Management >30 mins Diagnoses Wernicke encephalopathy E51.2 Skin tear Acute pancreatitis K85.90 Acute pancreatitis complication: unspecified Pancreatitis type: unspecified pancreatitis type IPMN (intraductal papillary mucinous neoplasm) D49.0 Crohn's disease K50.90 Coronary artery disease I25.10 Coronary Disease-Associated Artery/Lesion type: [place] artery [place] vs. transplanted heart: [place] heart Associated angina: without angina Hypertension I10 Hypertension type: essential hypertension CKD (chronic kidney disease), stage III N18.3 DVT prophylaxis Z29.9
[2021-04-05 19:42] LABS: Lyme DNA PCR CSF or Synovial Not detected (Not Detected); Lyme DNA Source CSF; VDRL Qualitative CSF Nonreactive (Nonreactive)
[2021-04-06 11:46] LABS: Herpes Virus 6 (DNA) Not Detected (Not Detected); Herpes Virus 6 (DNA) Source CSF; VZ DNA Source CSF; Varicella Zoster Virus DNA PCR Not Detected (Not Detected)
--- NOTE | 2021-04-15 08:08 | Coding Query ---
To promote full compliance with coding requirements relating to patient care, provider participation is requested in all cases of school bus driver uncertainty. Please assist us with the question(s) below: Coding Question(s): The diagnosis(es) below was documented in the (school bus driver fill out source document ie H&P, progress notes, etc.) then subsequently fell off all further documentation. Please indicate if it is still a possible diagnosis or ruled out. Physician's Response(s): METABOLIC ENCEPHALOPATHY (documented beginning on the 03/29 Progress Note through the 04/02 Progress Notes and Neurology Consultation) ( ) Diagnosed and POA ( x ) Diagnosed and not POA ( ) Ruled out ( ) Other (please specify) MTDD
== END 2021-04-05 15:49 | disposition home health service (06) | DRG 438 ==
LOC: ED 13:34 → SUATTDRO 16:33 → 2W 16:33 → 2S 03-29 15:41

== ENCOUNTER 2022-02-22 11:35 | Inpatient (IN) ==
[2022-02-22] MEDS ORDERED: SODIUM CHLORIDE 0.9% 1000ML 1,000 ML IV SCH (11:45)
[2022-02-22] MEDS ORDERED: HYDROmorphone INJ 0.5 MG/0.5 ML SYR IV STA (11:47)
--- NOTE | 2022-02-22 11:47 | Emergency Department Note ---
Impression & Plan Cellulitis ADMIT ED Provider Note HPI: The patient is an 86-year-old gentleman who presents emergency department with chief complaint of left lower extremity pain. Patient is a longstanding history of peripheral vascular disease, he has had multiple procedures done including angioplasty of both the right lower extremity and more recently the left lower extremity. He presents for the second time this morning after being discharged home with some increasing pain, states he does not feel that he can manage the pain at home. On arrival here to the ED the patient is tachycardic in the 130s, blood pressure stable, he has borderline temperature 37.8. He does have some obvious erythematous changes to the left lower extremity below the knee which is painful to the touch. ROS: -MSK: Left lower extremity pain *10 point review systems was conducted and is otherwise negative unless stated above *Outpatient medications and allergy history reviewed PE: General: Alert, frail-appearing HEENT: Normocephalic, atraumatic Eyes: Extraocular eye movement is intact, no scleral erythema Pulmonary: Clear to auscultation bilaterally, no wheezing Cardio: Regular rate and rhythm GI: Abdomen is soft, nontender : No suprapubic tenderness MSK: Mild swelling and erythema of the left lower extremity, painful to palpation without crepitus, necrotic appearing first digit to both the right and left feet with ulceration, moderate discoloration/cyanosis of the digits of the left foot, remainder of the left lower extremity is warm to palpation Skin: No evidence of rash, multiple lesions to the face and scalp consistent with likely actinic keratosis Neuro: Alert, no focal deficits Psychiatric: Cooperative welt rougher: - An order was placed for continuous cardiac monitoring - Patient was noted to be in sinus rhythm with rate of 133 EKG: Rate: 122 Rhythm: Sinus tachycardia Intervals: Within normal limits ST changes: No ST elevation noted Time: 1141 Medical Decision Making: Patient presented to the emergency department with tachycardia, increased pain in the left lower extremity where he is noted to have some erythematous changes and swelling, he has a longstanding history of peripheral vascular disease, per recent documentation he is no longer considered to be a candidate for endovascular intervention of a left lower extremity secondary to poor vasculature tapering off of the ankle of left lower extremity. On arrival patient has borderline fever, he is tachycardic, shortly after arrival IV was established, lab work obtained, patient was placed on radio adjuster. Lab work shows evidence of a worsening leukocytosis since this morning, now greater than 18,000, lactic acid elevated at 2.5, blood cultures were drawn in the ED, patient was initiated on broad-spectrum antibiotics with vancomycin, cefepime, and clindamycin. CT angiography of the left lower extremity shows evidence of peripheral vascular disease, no subcutaneous gas formation, there is subcutaneous edema consistent with cellulitic infection. Patient was given D ilaudid here in the ED for pain, tachycardia down trended with IV fluid and Dilaudid, he is more comfortable appearing on my reassessment. Discussed the above findings with the patient and his son-in-law, Bhanu, at the bedside. They are aware that the patient is no longer considered to be a good candidate for endovascular therapy for his peripheral vascular disease which I do believe is likely playing a role in his cellulitis, he is noted to have multiple digits in the left lower extremity that appear to be poorly perfused at this time including a necrotic ulceration of the first digit of the left lower extremity as well as pre-existing necrotic lesion to the first digit of the right lower extremity. they have had these discussions with podiatry and vascular surgery previously. If surgical intervention is required patient will likely require an amputation. Patient follows with Dr. Bay for his peripheral vascular disease as well as [facility] podiatry, Dr. Weiner. Patient was given 2 L of IV fluid, none further secondary to hemodynamic stability and concern for potential fluid overload. Case was discussed with the on-call hospitalist, Dr. Babin, who accepted the patient to an inpatient bed for further management and subspecialty consultation. Patient is in agreement to the above plan he was admitted in stable condition. Full 30 cc/kg of IV fluid not initiated secondary to hemodynamic stability, clinical improvement, and concern for potential fluid overload * CRITICAL CARE TIME: 40 min -Stabilization of sepsis from left lower extremity cellulitis requiring IV fluid resuscitation, broad-spectrum antibiotics to be initiated, interpretation of diagnostic studies, arrangement of admission Diagnosis: 1. Sepsis secondary to left lower extremity cellulitis 2. Leukocytosis 3. Lactic acidosis 4. Peripheral vascular disease 5. Necrotic ulceration of the left first digit of the foot 6. Necrotic digit of the right first digit of the foot 7. Tachycardia Disposition: ADMIT Ky Pedraza DO Emergency Medicine Past Med/Surg History Medical History Antiplatelet or antithrombotic long-term use Anxiety Arteriosclerotic cardiovascular disease Asthma NO INHALERS > WELL CONTROLLED PER PT Benign neoplasm of colon CAD (coronary artery disease) FOLLOWS WITH DR. 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 GISELE > OVER 5 YRS AGO > UNSURE HOW MANY VESSELS Family History Father , age 81 of an [place] Diabetes Hyperlipidemia Hypertension Myocardial infarction Mother , age 83 of stomach cancer Cancer Denies family history of Ovarian cancer Prostate cancer Breast cancer Colorectal cancer Social History Smoking Status: Never smoker Second Hand Exposure: No; Hx Alcohol Use: No Hx Substance Use: No Preferred Language: Greek Communication Ability: Effective Visual Impairment: Limited Hearing Ability: Hard of Hearing Filter Helper Required: No Beliefs That Will Affect Care: None marital status: Current Living Situation: Spouse Current Living Situation Comment: 2 story house current occupational status: retired 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61 Feels Safe at Home: Yes Childhood Exposure to Second-Hand Smoke: No Diet Comment: follows "his own diet" due to GI issues caffeine: No during the past year weight has: remained stable Dental Care, Regularly: Yes Physical Activity Frequency: Does not Exercise Physical Activity Frequency Comment: limited due to condition Seatbelt Use: always Sunscreen Use: No Assistive Devices: Glasses Allergies Allergies Allergy/AdvReac Type Severity Reaction Status Date / Time Penicillins Allergy Unknown unknown Verified 02/22/22 14:32 Home Meds Home Medications Medication Instructions Recorded Confirmed calcium carbonate 600 mg-vitamin 1 tab PO QAM 04/16/19 02/22/22 D3 20 mcg (800 unit) chewable tablet (Caltrate 600 plus D) [id number]-hxl-dywwv acid 0.4 1 tab PO QAM 04/16/19 02/22/22 mg-lycopene 300 mcg-lutein 250 mcg tablet (Centrum Silver) timolol maleate 0.25 % eye gel 1 drops OPB QAM ml 04/16/19 02/22/22 forming solution (Timoptic-XE) folic acid 400 mcg tablet 400 mcg PO QAM tab 05/12/19 02/22/22 nitroglycerin 0.4 mg sublingual 0.4 mg SL .COMPLEX tab 05/12/19 02/22/22 tablet (Nitrostat) diphenhydramine 25 1 tab PO HS 06/24/19 02/22/22 mg-acetaminophen 500 mg tablet (Tylenol PM Extra Strength) brinzolamide 1 % eye 1 drp OPB BID ml 06/23/20 02/22/22 drops,suspension (Azopt) aspirin 81 mg tablet,delayed 81 mg PO QAM 03/27/21 02/22/22 release (Aspirin Low Dose) prednisone 10 mg tablet 10 mg PO QAM 11/24/21 02/22/22 vit C 250 mg-vit E 90 mg-zinc 40 1 tab PO QAM 11/24/21 02/22/22 mg-copper 1 ap-tyqxtj-qtozci capsule (PreserVision AREDS-2) acetaminophen 500 mg tablet 500 mg PO Q6H PRN 02/22/22 02/22/22 (Acetaminophen Extra Strength) clopidogrel 75 mg tablet 75 mg PO QAM 02/22/22 02/22/22 omeprazole 40 mg capsule,delayed 40 mg PO QAM 02/22/22 02/22/22 release Previous Rx's Medication Instructions Recorded thiamine HCl (vitamin B1) 100 mg 100 mg PO QAM #30 tab 07/06/21 tablet (Vitamin B-1) atorvastatin 80 mg tablet (Lipitor) 80 mg PO HS #90 tab 10/03/21 metoprolol tartrate 25 mg tablet 25 mg PO BID #180 tab 10/17/21 lorazepam 0.5 mg tablet (Ativan) 0.5 mg PO HS #30 tab 02/02/22 tramadol 50 mg tablet 50 mg PO Q8H PRN #30 tab 02/20/22 hydrocodone 5 mg-acetaminophen 325 1 tab PO Q6H PRN #20 tab 02/22/22 mg tablet Results & Data (ED) Vital Signs Vital Signs - 24 hr 02/22/22 11:45 02/22/22 12:00 02/22/22 12:15 Temperature 37.8 C H Temperature Source Oral Pulse Rate 128 H 113 H 120 H Pulse Rate from SpO2 Sensor 127 H 110 H 121 H Respiratory Rate 23 20 23 Respiratory Effort / Characteristics Non-Labored Spontaneous Respiratory Depth Normal Respiratory Pattern Regular Blood Pressure 170/73 H Blood Pressure Mean 105 Blood Pressure Position Lying Pulse Oximetry 98 94 94 Oxygen Delivery Method Room Air Sepsis Recent Fever Within 48 Hours Yes Sepsis New/Unexplained Change in Mental Status N/A Sepsis Action Taken by Nursing No Action Required 02/22/22 12:16 02/22/22 12:30 02/22/22 12:40 Temperature Temperature Source Pulse Rate 113 H Pulse Rate from SpO2 Sensor 113 H Respiratory Rate 20 Respiratory Effort / Characteristics Respiratory Depth Respiratory Pattern Blood Pressure 149/69 H Blood Pressure Mean 95 Blood Pressure Position Pulse Oximetry 96 96 Oxygen Delivery Method Room Air Sepsis Recent Fever Within 48 Hours Sepsis New/Unexplained Change in Mental Status Sepsis Action Taken by Nursing 02/22/22 12:45 02/22/22 13:00 02/22/22 15:00 Temperature Temperature Source Pulse Rate 112 H 114 H 120 H Pulse Rate from SpO2 Sensor 112 H 115 H Respiratory Rate 19 22 21 Respiratory Effort / Characteristics Respiratory Depth Respiratory Pattern Blood Pressure 117/54 L 143/66 H 148/68 H Blood Pressure Mean 75 91 94 Blood Pressure Position Pulse Oximetry 92 92 94 Oxygen Delivery Method Sepsis Recent Fever Within 48 Hours Sepsis New/Unexplained Change in Mental Status Sepsis Action Taken by Nursing 02/22/22 15:20 Temperature Temperature Source Pulse Rate Pulse Rate from SpO2 Sensor Respiratory Rate 21 Respiratory Effort / Characteristics Non-Labored Spontaneous Respiratory Depth Respiratory Pattern Blood Pressure Blood Pressure Mean Blood Pressure Position Pulse Oximetry 94 Oxygen Delivery Method Sepsis Recent Fever Within 48 Hours Sepsis New/Unexplained Change in Mental Status Sepsis Action Taken by Nursing Laboratory Data Result diagrams: 02/22/22 12:28 02/22/22 12: Lab Results 02/22/22 02/22/22 02/22/22 Range/Units 12:28 12:28 12:28 WBC 18.59 H (4.8-10.8) K/uL RBC 2.90 L (4.7-6.1) M/uL Hgb 9.6 L (14.0-18.0) g/dL Hct 29.9 L (42-52) % MCV 103.1 H (80-100) fL MCH 33.1 (25-34) pg MCHC 32.1 (32-36) g/dL RDW Std Deviation 56.7 H (36.4-46.3) fL RDW Coeff of [place]te 15.0 H (11.5-14.5) % Plt Count 446 H (130-400) K/uL MPV 9.2 (7.4-10.4) fL Immature Gran % (Auto) 0.3 % Neut % (Auto) 70.5 % Lymph % (Auto) 16.2 % [place] % (Auto) 12.8 % Eos % (Auto) 0.1 % Baso % (Auto) 0.1 % Neut # (Auto) 13.11 H (1.4-6.5) K/uL Lymph # (Auto) 3.01 (1.2-3.4) K/uL [place] # (Auto) 2.38 H (0.11-0.59) K/uL Eos # (Auto) 0.01 (0-0.5) K/uL Baso # (Auto) 0.02 (0-0.2) K/uL Immature Gran # (Auto) 0.06 H (0.00-0.02) K/uL PT 12.0 (9.0-12.0) Seconds INR 1.1 (0.9-1.1) APTT 26.9 (21.0-31.0) Seconds PTT Ratio 1.0 Sodium 140 (136-145) mmol/L Potassium 3.8 (3.5-5.1) mmol/L Chloride 106 (98-107) mmol/L Carbon Dioxide 22 (21-32) mmol/L Anion Gap 12 H (3-11) BUN 17 (6-23) mg/dl Creatinine 1.03 (0.6-1.4) mg/dl Est Cr Clr Drug Dosing 45.6 ml/min Est GFR ( Amer) 75.3 ml/min Est GFR (Non-Af Amer) 65.0 ml/min BUN/Creatinine Ratio 16.5 (10-20) Glucose 94 (70-99(Fasting)) mg/dl Lactate (0.4-2.0) mmol/L Calcium 8.6 (8.5-10.1) mg/dl Magnesium 1.6 L (1.7-2.4) mg/dl Total Bilirubin 0.9 (0.2-1.0) mg/dl AST 36 (13-39) U/L ALT 20 (7-52) U/L Alkaline Phosphatase 103 (34-104) U/L Total Protein 6.5 (6.0-8.3) gm/dl Albumin 3.4 (3.4-5.0) gm/dl Globulin 3.1 (2.5-4.0) gm/dl Albumin/Globulin Ratio 1.1 (0.9-2) Procalcitonin (0-0.5) ng/ml Urine Color Urine Appearance (Clear) Urine pH (4.5-7.5) Ur Specific [place] (1.000-1.030) Urine Protein (Negative) Urine Glucose (UA) (Negative) Urine Ketones (Negative) Urine Blood (Negative) Urine Nitrite (Negative) Urine Bilirubin (Negative) Urine Urobilinogen (Negative) Ur Leukocyte Esterase (Negative) SARS-CoV-2, RNA, NAAT (NEGATIVE) 02/22/22 02/22/22 02/22/22 Range/Units 12:28 12:28 13:52 WBC (4.8-10.8) K/uL RBC (4.7-6.1) M/uL Hgb (14.0-18.0) g/dL Hct (42-52) % MCV (80-100) fL MCH (25-34) pg MCHC (32-36) g/dL RDW Std Deviation (36.4-46.3) fL RDW Coeff of [place] (11.5-14.5) % Plt Count (130-400) K/uL MPV (7.4-10.4) fL Immature Gran % (Auto) % Neut % (Auto) % Lymph % (Auto) % [place] % (Auto) % Eos % (Auto) % Baso % (Auto) % Neut # (Auto) (1.4-6.5) K/uL Lymph # (Auto) (1.2-3.4) K/uL [place] # (Auto) (0.11-0.59) K/uL Eos # (Auto) (0-0.5) K/uL Baso # (Auto) (0-0.2) K/uL Immature Gran # (Auto) (0.00-0.02) K/uL PT (9.0-12.0) Seconds INR (0.9-1.1) APTT (21.0-31.0) Seconds PTT Ratio Sodium (136-145) mmol/L Potassium (3.5-5.1) mmol/L Chloride (98-107) mmol/L Carbon Dioxide (21-32) mmol/L Anion Gap (3-11) BUN (6-23) mg/dl Creatinine (0.6-1.4) mg/dl Est Cr Clr Drug Dosing ml/min Est GFR ( Amer) ml/min Est GFR (Non-Af Amer) ml/min BUN/Creatinine Ratio (10-20) Glucose (70-99(Fasting)) mg/dl Lactate 2.5 H* (0.4-2.0) mmol/L Calcium (8.5-10.1) mg/dl Magnesium (1.7-2.4) mg/dl Total Bilirubin (0.2-1.0) mg/dl AST (13-39) U/L ALT (7-52) U/L Alkaline Phosphatase (34-104) U/L Total Protein (6.0-8.3) gm/dl Albumin (3.4-5.0) gm/dl Globulin (2.5-4.0) gm/dl Albumin/Globulin Ratio (0.9-2) Procalcitonin 0.10 (0-0.5) ng/ml Urine Color Yellow Urine Appearance Clear (Clear) Urine pH 5.0 (4.5-7.5) Ur Specific [place] 1.030 (1.000-1.030) Urine Protein Negative (Negative) Urine Glucose (UA) Negative (Negative) Urine Ketones Trace H (Negative) Urine Blood Negative (Negative) Urine Nitrite Negative (Negative) Urine Bilirubin Negative (Negative) Urine Urobilinogen Negative (Negative) Ur Leukocyte Esterase Negative (Negative) SARS-CoV-2, RNA, NAAT (NEGATIVE) 02/22/22 02/22/22 Range/Units 14:28 14:44 WBC (4.8-10.8) K/uL RBC (4.7-6.1) M/uL Hgb (14.0-18.0) g/dL Hct (42-52) % MCV (80-100) fL MCH (25-34) pg MCHC (32-36) g/dL RDW Std Deviation (36.4-46.3) fL RDW Coeff of [place] (11.5-14.5) % Plt Count (130-400) K/uL MPV (7.4-10.4) fL Immature Gran % (Auto) % Neut % (Auto) % Lymph % (Auto) % [place] % (Auto) % Eos % (Auto) % Baso % (Auto) % Neut # (Auto) (1.4-6.5) K/uL Lymph # (Auto) (1.2-3.4) K/uL [place] # (Auto) (0.11-0.59) K/uL Eos # (Auto) (0-0.5) K/uL Baso # (Auto) (0-0.2) K/uL Immature Gran # (Auto) (0.00-0.02) K/uL PT (9.0-12.0) Seconds INR (0.9-1.1) APTT (21.0-31.0) Seconds PTT Ratio Sodium (136-145) mmol/L Potassium (3.5-5.1) mmol/L Chloride (98-107) mmol/L Carbon Dioxide (21-32) mmol/L Anion Gap (3-11) BUN (6-23) mg/dl Creatinine (0.6-1.4) mg/dl Est Cr Clr Drug Dosing ml/min Est GFR ( Amer) ml/min Est GFR (Non-Af Amer) ml/min BUN/Creatinine Ratio (10-20) Glucose (70-99(Fasting)) mg/dl Lactate 0.9 (0.4-2.0) mmol/L Calcium (8.5-10.1) mg/dl Magnesium (1.7-2.4) mg/dl Total Bilirubin (0.2-1.0) mg/dl AST (13-39) U/L ALT (7-52) U/L Alkaline Phosphatase (34-104) U/L Total Protein (6.0-8.3) gm/dl Albumin (3.4-5.0) gm/dl Globulin (2.5-4.0) gm/dl Albumin/Globulin Ratio (0.9-2) Procalcitonin (0-0.5) ng/ml Urine Color Urine Appearance (Clear) Urine pH (4.5-7.5) Ur Specific [place] (1.000-1.030) Urine Protein (Negative) Urine Glucose (UA) (Negative) Urine Ketones (Negative) Urine Blood (Negative) Urine Nitrite (Negative) Urine Bilirubin (Negative) Urine Urobilinogen (Negative) Ur Leukocyte Esterase (Negative) SARS-CoV-2, RNA, NAAT NEGATIVE (NEGATIVE) Administered Medications Discontinued Medications Hydromorphone HCl (Hydromorphone Inj 0.5 Mg/0.5 Ml Syr) 0.5 mg IV NOW STA Stop: 02/22/22 11:48 Last Admin: 02/22/22 12:40 Dose: 0.5 mg Documented by: [id number] Sodium Chloride (Nss 1000ml) 1,000 mls @ 999 mls/hr IV .Q1H1M BREEZY Stop: 02/22/22 12:45 Last Infusion: 02/22/22 14:48 Dose: 0 mls/hr Documented by: [id number] Admin: 02/22/22 12:40 Dose: 999 mls/hr Documented by: [id number] Vancomycin HCl 1,250 mg/ (Sodium Chloride) 525 mls @ 200 mls/hr IV NOW ONE Stop: 02/22/22 14:38 Last Admin: 02/22/22 13:44 Dose: 200 mls/hr Documented by: [id number] Cefepime HCl (Maxipime) 2,000 mg in 20 mls @ 5 mls/min IV NOW STA; Protocol Stop: 02/22/22 12:04 Last Admin: 02/22/22 12:40 Dose: 5 mls/min Documented by: [id number] Clindamycin Phosphate 600 mg/ (Dextrose) 54 mls @ 100 mls/hr IV ONE ONE Stop: 02/22/22 12:33 Last Infusion: 02/22/22 14:48 Dose: 0 mls/hr Documented by: [id number] Admin: 02/22/22 13:44 Dose: 100 mls/hr Documented by: [id number] Sodium Chloride (Nss 1000ml) 1,000 mls @ 999 mls/hr IV .Q1H1M ONE Stop: 02/22/22 13:55 Last Admin: 02/22/22 14:48 Dose: 999 mls/hr Documented by: [id number] Ioversol (Optiray 320 125ml) 120 ml IV ONCE ONE Stop: 02/22/22 13:40 Last Admin: 02/22/22 13:39 Dose: 120 ml Documented by: [id number] Imaging Data Radiologist's Impression: Chest X-Ray 02/22/22 11:42 XR chest 1V portable CLINICAL HISTORY: SEPSIS TECHNIQUE: Single frontal radiograph of the chest was obtained. Comparison: Comparison is made to chest radiograph 02/22/2022 FINDINGS: Median sternotomy wires are unchanged. The cardiomediastinal silhouette is stable. Lungs are underinflated, however no airspace opacity is seen. No evidence of pleural effusion or pneumothorax. IMPRESSION: No acute chest disease. ACT 112: Negative or not required by law. Electronically signed by: Demarcus Parnell M.D. 02/22/2022 1:09 PM Lower Extremity CTA 02/22/22 11:58 CT angio LE LT w inc wo if don CLINICAL HISTORY: L LE pain/erythema, PVD hx, eval for gas formation COMPARISON STUDY: No previous studies for comparison. CT DOSE: 634.37 mGy.cm TECHNIQUE: Standard CT angoigram of the left lower extremity was performed with IV contrast followed by image post processing with coronal, and sagittal MIP reformats.. This CT exam was performed using one or more of the following dose reduction techniques: Automated exposure control, adjustment of the mA and/or kV according to patient size, or use of iterative reconstruction technique. CONTRAST: Optiray 320, 120 mL nonionic intravenous contrast. FINDINGS: VASCULAR FINDINGS: Left common iliac artery: patent without stenosis. Left internal iliac artery: patent without stenosis. Left external iliac artery: patent without stenosis. Left femoral artery: patent without stenosis. Left profunda femoris artery: patent without stenosis. Left superficial femoral artery: patent without stenosis. There is atherosclerotic calcification present along its course with at least 50% narrowing present. Left popliteal artery: patent without stenosis. There is atherosclerotic calcification present with approximately 50% narrowing. Left distal runoff: patent three vessel distal runoff noted. Atherosclerotic calcification is present with diffuse vessel narrowing seen. NONVASCULAR FINDINGS: Within the mid to lower thigh, there is subcutaneous fluid present posterolaterally. Diffuse subcutaneous edema and fluid are seen circumferentially throughout the calf. Diffuse edema extends into the foot as well. No focal fluid collections or enhancing abscess is are seen. No air is present within the soft tissues. IMPRESSION: 1. Atherosclerotic calcification involving the superficial femoral artery, pop liteal artery and arteries of the calf with at least 50% stenosis present along their courses. 2. There is no evidence for focal occlusion or stenosis. 3. Diffuse subcutaneous edema and subcutaneous fluid involving the distal thigh and throughout the calf most characteristic of cellulitis. Diffuse edema extends into the foot as well. 4. There is no focal enhancing abscess or air seen within the soft tissues. ACT 112: Negative or not required by law. Electronically signed by: Tushar Farrell M.D. 02/22/2022 2:24 PM Discharge Plan Visit Data Chief Complaint: Illness Stated Complaint: illness ED Provider: Ky Pedraza Discharge Problem: Cellulitis Forms Stand Alone Forms: My [facility] Prescriptions Prescriptions: No Action atorvastatin [Lipitor] 80 mg tablet 80 mg PO HS Qty: 90 RF: 3 metoprolol tartrate 25 mg tablet 25 mg PO BID Qty: 180 RF: 3 lorazepam [Ativan] 0.5 mg tablet 0.5 mg PO HS Qty: 30 RF: 0 tramadol 50 mg tablet 50 mg PO Q8H PRN (Reason: pain) Qty: 30 RF: 1 nitroglycerin [Nitrostat] 0.4 mg tablet, sublingual 0.4 mg SL .COMPLEX RF: 0 Azopt 1 % drops,suspension 1 drp OPB BID RF: 0 Centrum Silver 0.4-300-250 mg-mcg-mcg tablet 1 tab PO QAM RF: 0 Caltrate 600 plus D 600 mg (1,500 mg)-800 unit tablet,chewable 1 tab PO QAM RF: 0 timolol maleate [Timoptic-XE] 0.25 % gel forming solution 1 drops OPB QAM RF: 0 folic acid 400 mcg tablet 400 mcg PO QAM RF: 0 diphenhydramine-acetaminophen [Tylenol PM Extra Strength] 25-500 mg Tablet 1 tab PO HS RF: 0 aspirin [Aspirin Low Dose] 81 mg Tablet,Delayed Release (Dr/Ec) 81 mg PO QAM RF: 0 thiamine HCl (vitamin B1) [Vitamin B-1] 100 mg Tablet 100 mg PO QAM Qty: 30 RF: 0 PreserVision AREDS-2 250-90-40-1 mg Capsule 1 tab PO QAM RF: 0 prednisone 10 mg tablet 10 mg PO QAM RF: 0 acetaminophen [Acetaminophen Extra Strength] 500 mg Tablet 500 mg PO Q6H PRN (Reason: Pain) RF: 0 clopidogrel 75 mg tablet 75 mg PO QAM RF: 0 omeprazole 40 mg capsule,delayed release(DR/EC) 40 mg PO QAM RF: 0 hydrocodone-acetaminophen 5-325 mg tablet 1 tab PO Q6H PRN (Reason: pain) Qty: 20 RF: 0 Referrals Referrals: Darrin Bee MD [Primary Care Provider] - Discharge Problem: Cellulitis Qualifiers: Site of cellulitis: extremity Site of cellulitis of extremity: lower extremity Laterality: left Qualified Code(s): L03.116 - Cellulitis of left lower limb
[2022-02-22] MEDS ORDERED: CLINDAMYCIN 600 MG in DEXTROSE 5% 50 ML IV ONE (12:01)
[2022-02-22] MEDS ORDERED: VANCOMYCIN HCL 1,250 MG in SODIUM CHLORIDE 0.9% 500 ML IV ONE (12:01)
[2022-02-22] MEDS ORDERED: CEFEPIME 2,000 MG/20 ML VIAL IV STA (12:01)
[2022-02-22] MEDS ORDERED: VANCOMYCIN CONSULT ACTIVE PRN ×2 (12:01→18:40)
[2022-02-22 12:38] LABS: Basophils # (auto) 0.02 K/uL (0-0.2); Basophils % (auto) 0.1 %; Eosinophils # (auto) 0.01 K/uL (0-0.5); Eosinophils % (auto) 0.1 %; Hematocrit (blood only) 29.9 % (42-52); Hemoglobin 9.6 g/dL (14.0-18.0); Immature Granulocytes # (auto) 0.06 K/uL (0.00-0.02); Immature Granulocytes % (auto) 0.3 %; Lymphocytes # (auto) 3.01 K/uL (1.2-3.4); Lymphocytes % (auto) 16.2 %; Mean Corpuscular Hemoglobin 33.1 pg (25-34); Mean Corpuscular Hgb Conc 32.1 g/dL (32-36); Mean Corpuscular Volume 103.1 fL (80-100); Mean Platelet Volume 9.2 fL (7.4-10.4); Monocytes # (auto) 2.38 K/uL (0.11-0.59); Monocytes % (auto) 12.8 %; Neutrophils # (auto) 13.11 K/uL (1.4-6.5); Neutrophils % (auto) 70.5 %; Platelet Count 446 K/uL (130-400); RDW Standard Deviation 56.7 fL (36.4-46.3); White Blood Count 18.59 K/uL (4.8-10.8)
[2022-02-22 12:54] LABS: INR 1.1 (0.9-1.1); Partial Thromboplastin Time 26.9 Seconds (21.0-31.0)
[2022-02-22] MEDS ORDERED: SODIUM CHLORIDE 0.9% 1000ML 1,000 ML IV ONE (12:55)
--- NOTE | 2022-02-22 13:10 | XRay Report ---
XR chest 1V portable CLINICAL HISTORY: SEPSIS TECHNIQUE: Single frontal radiograph of the chest was obtained. Comparison: Comparison is made to chest radiograph 02/22/2022 FINDINGS: Median sternotomy wires are unchanged. The cardiomediastinal silhouette is stable. Lungs are underinf lated, however no airspace opacity is seen. No evidence of pleural effusion or pneumothorax. IMPRESSION: No acute chest disease. ACT 112: Negative or not required by law. Electronically signed by: Demarcus Parnell M.D. 02/22/2022 1:09 PM
[2022-02-22 13:12] LABS: Albumin Globulin Ratio 1.1 (0.9-2); Albumin Level 3.4 gm/dl (3.4-5.0); BUN Creatinine Ratio 16.5 (10-20); Bilirubin,Total 0.9 mg/dl (0.2-1.0); Calcium 8.6 mg/dl (8.5-10.1); Creatinine Clr Calc Pharmacy 45.6 ml/min; Est GFR (African American) 75.3 ml/min; Globulin 3.1 gm/dl (2.5-4.0); Magnesium 1.6 mg/dl (1.7-2.4); Potassium 3.8 mmol/L (3.5-5.1); Total Protein 6.5 gm/dl (6.0-8.3)
[2022-02-22] MEDS ORDERED: OPTIRAY 320 125ml IV ONE (13:39)
--- NOTE | 2022-02-22 14:14 | Electrocardiogram Report ---
Test Reason : Blood Pressure : / mmHG Vent. Rate : 122 BPM Atrial Rate : 122 BPM P-R Int : 114 ms QRS Dur : 086 ms QT Int : 316 ms P-R-T Axes : 010 -13 130 degrees QTc Int : 450 ms Poor data quality, interpretation may be adversely affected Sinus tachycardia Abnormal ECG When compared with ECG of 22-FEB-2022 05:44, (unconfirmed) No significant change was found Confirmed by Gualberto Layne ([id number]) on 02/22/2022 2:14:41 PM Referred By: Confirmed By:Gualberto Layne
--- NOTE | 2022-02-22 14:25 | CT Scan Report ---
CT angio LE LT w inc wo if don CLINICAL HISTORY: L LE pain/erythema, PVD hx, eval for gas formation COMPARISON STUDY: No previous studies for comparison. CT DOSE: 634.37 mGy.cm TECHNIQUE: Standard CT angoigram of the left lower extremity was performed with IV contrast followed by image post processing with coronal, and sagittal MIP reformats.. This CT exam was performed using one or more of the following dose reduction techniques: Automated ex posure control, adjustment of the mA and/or kV according to patient size, or use of iterative reconst ruction technique. CONTRAST: Optiray 320, 120 mL nonionic intravenous contrast. FINDINGS: VASCULAR FINDINGS: Left common iliac artery: patent without stenosis. Left internal iliac artery: patent without stenosis. Left external iliac artery: patent without stenosis. Left femoral artery: patent without stenosis. Left profunda femoris artery: patent without stenosis. Left superficial femoral artery: patent without stenosis. There is atherosclerotic calcification pres ent along its course with at least 50% narrowing present. Left popliteal artery: patent without stenosis. There is atherosclerotic calcification present with a pproximately 50% narrowing. Left distal runoff: patent three vessel distal runoff noted. Atherosclerotic calcification is present with diffuse vessel narrowing seen. NONVASCULAR FINDINGS: Within the mid to lower thigh, there is subcutaneous fluid present posterolaterally. Diffuse subcutan eous edema and fluid are seen circumferentially throughout the calf. Diffuse edema extends into the f oot as well. No focal fluid collections or enhancing abscess is are seen. No air is present within th e soft tissues. IMPRESSION: 1. Atherosclerotic calcification involving the superficial femoral artery, popliteal artery and arter ies of the calf with at least 50% stenosis present along their courses. 2. There is no evidence for focal occlusion or stenosis. 3. Diffuse subcutaneous edema and subcutaneous fluid involving the distal thigh and throughout the ca lf most characteristic of cellulitis. Diffuse edema extends into the foot as well. 4. There is no focal enhancing abscess or air seen within the soft tissues. ACT 112: Negative or not required by law. Electronically signed by: Tushar Farrell M.D. 02/22/2022 2:24 PM
[2022-02-22 14:47] LABS: Appearance Urine Clear (Clear); Bilirubin Urine Negative (Negative); Blood Urine Negative (Negative); Color Urine Yellow; Glucose Urine UA Negative (Negative); Ketones Urine Trace (Negative); Leukocyte Esterase Urine Negative (Negative); Nitrite Urine Negative (Negative); Protein Urine Negative (Negative); Urobilinogen Urine Negative (Negative)
--- NOTE | 2022-02-22 15:02 | History & Physical Report ---
Date of Service February 22, 2022 Assessment & Plan (1) Sepsis: Plan: - Meets criteria with HR > 90, WBC > 12,000, febrile. Lactate 0.9. Procalcitonin 0.10. - Source suspected to be left toe, is ischemic, with progressive changes over the past month, acutely worsened over the past 2 days. Erythema, edema characteristic of cellulitis up to the level of left knee. - Initial antibiotic therapy with vancomycin, cefepime, Flagyl, covering for anaerobes as well as possible hospital-acquired pathogens given recent procedures. - 1L NSS bolus x2 in ED, will continue IVF. - Patient chronically on 10 mg prednisone daily for many, many years due to Crohn's disease. Will convert to hydrocortisone, 50 mg IV every 8 hours for stress dose. - Blood cultures pending. - Pain control with Tylenol, [place], tramadol at home. We will add on low-dose Dilaudid 0.25 mg every 6 hours as needed for additional pain control. - Consult placed to [facility] orthopedic group to evaluate ischemic toe, ? amputation. Per vascular note on 02/16, he is a poor candidate for further endovascular intervention. (2) Left leg cellulitis: Plan: - As above. (3) Crohn's disease: Plan: - Chronically on prednisone 10 mg daily. Will switch to stress dose steroids--> hydrocortisone 50 mg IV every 8 hours. - Follows with Fanny GALLEGOS. (4) Coronary artery disease: Plan: - s/p CABG in 2015. - Continue statin, metoprolol, with nitroglycerin as needed. - Currently on DAPT with aspirin and Plavix due to recent lower extremity angioplasty. (5) Peripheral arterial disease: Plan: - Continue DAPT with aspirin, Plavix. - Follows with Dr. Bay. Do not believe they need to be consulted for now, as indicated in recent note from 02/16, it seems there is limited intervention from their perspective. Have consulted Ortho as above. (6) CKD (chronic kidney disease), stage III: Plan: - Renal function stable, avoid nephrotoxic agents, renally dose medications as able. - Follow on routine labs. (7) Hypertension: Plan: - Continue metoprolol as prescribed for CAD. PCP recently d/c'd lisinopril due to hypotension. (8) Hyperlipidemia: Plan: - Continue statin. (9) Gastroesophageal reflux disease: Plan: - Continue PPI. (10) Glaucoma: Plan: - Continue timolol drops, brinzolamide drops, PreserVision. (11) Generalized anxiety disorder: Plan: - Continue Tylenol PM at night, lorazepam 0.5 mg at night. - During admission in March 2021, patient developed delirium, at the time apparently discovered his thiamine and folic acid levels were low, therefore was started on these and has continued to take them daily. Likely to be in setting of poor p.o. intake secondary to pancreatitis at the time, also has Crohn's. There is no history of alcohol abuse. (12) Gangrene of toe of left foot: Plan: Left great toe (13) Acute metabolic encephalopathy: Plan: 2nd to #1, #2 Plan: - Admit to med/telemetry. - SCDs, Lovenox for DVT ppx. - Full code. History of Present Illness Chief Complaint: left leg pain, swelling Primary Care Provider: Darrin Bee MD Mr. Corona is an 86-year-old male with past medical history significant for CAD s/p CABG in 2016, PAD, CKD3, hypertension, dyslipidemia, anxiety, GERD, and Crohn's disease who presents today with left leg pain. Patient recently underwent a left angioplasty of left SFA to popliteal artery earlier this month with Dr. Bay due to left foot pain. He halso has an ischemic left great toe that has been poorly perfused. Since the procedure, he has continued to have significant left foot/leg pain and his left great toe has become more ischemic and painful. He was seen by vascular medicine on 02/16, where angiogram was reviewed and was determined there are limited options for endovascular intervention. Over the past week, his leg pain has greatly increased, as did the redness and swelling that had previously been limited to the level of the foot, but now extends to the knee. He is unable to tolerate the pain any longer at home and comes to the ED for further evaluation. He has not moved bowels in several days, but no other acute issues. No fever/chills, SOB, chest pain, cough, abdominal pain, nausea, or vomiting at home. He is tachycardic and febrile in the emergency room, has a white count of 18.59 with left shift. Left leg CTA shows diffuse subcutaneous edema and fluid in the distal thigh and throughout calf characteristic of cellulitis, as well as diffuse edema into the foot. No focal enhancing abscess or air seen. Atherosclerotic calcification in SFA, popliteal artery and arteries of calf with at least 50% stenosis also noted. Allergies Allergy/AdvReac Type Severity Reaction Status Date / Time Penicillins Allergy Unknown unknown Verified 02/22/22 14:32 Home Medications Medication Instructions Recorded Confirmed Type calcium carbonate 600 mg-vitamin 1 tab PO QAM 04/16/19 02/22/22 History D3 20 mcg (800 unit) chewable tablet (Caltrate 600 plus D) egaurxfk-oye-hxetg acid 0.4 1 tab PO QAM 04/16/19 02/22/22 History mg-lycopene 300 mcg-lutein 250 mcg tablet (Centrum Silver) timolol maleate 0.25 % eye gel 1 drops OPB QAM ml 04/16/19 02/22/22 History forming solution (Timoptic-XE) folic acid 400 mcg tablet 400 mcg PO QAM tab 05/12/19 02/22/22 History nitroglycerin 0.4 mg sublingual 0.4 mg SL .COMPLEX tab 05/12/19 02/22/22 History tablet (Nitrostat) diphenhydramine 25 1 tab PO HS 06/24/19 02/22/22 History mg-acetaminophen 500 mg tablet (Tylenol PM Extra Strength) brinzolamide 1 % eye 1 drp OPB BID ml 06/23/20 02/22/22 History drops,suspension (Azopt) aspirin 81 mg tablet,delayed 81 mg PO QAM 03/27/21 02/22/22 History release (Aspirin Low Dose) thiamine HCl (vitamin B1) 100 mg 100 mg PO QAM #30 tab 04/05/21 02/22/22 Rx tablet (Vitamin B-1) atorvastatin 80 mg tablet (Lipitor) 80 mg PO HS #90 tab 10/03/21 02/22/22 Rx metoprolol tartrate 25 mg tablet 25 mg PO BID #180 tab 10/17/21 02/22/22 Rx prednisone 10 mg tablet 10 mg PO QAM 11/24/21 02/22/22 History vit C 250 mg-vit E 90 mg-zinc 40 1 tab PO QAM 11/24/21 02/22/22 History mg-copper 1 as-qixrxx-tqzjvo capsule (PreserVision AREDS-2) lorazepam 0.5 mg tablet (Ativan) 0.5 mg PO HS #30 tab 02/02/22 02/22/22 Rx tramadol 50 mg tablet 50 mg PO Q8H PRN #30 tab 02/20/22 02/22/22 Rx acetaminophen 500 mg tablet 500 mg PO Q6H PRN 02/22/22 02/22/22 History (Acetaminophen Extra Strength) clopidogrel 75 mg tablet 75 mg PO QAM 02/22/22 02/22/22 History hydrocodone 5 mg-acetaminophen 325 1 tab PO Q6H PRN #20 tab 02/22/22 02/22/22 Rx mg tablet omeprazole 40 mg capsule,delayed 40 mg PO QAM 02/22/22 02/22/22 History release Past Med/Surg History Medical History Antiplatelet or antithrombotic long-term use Anxiety Arteriosclerotic cardiovascular disease Asthma NO INHALERS > WELL CONTROLLED PER PT Benign neoplasm of colon CAD (coronary artery disease) FOLLOWS WITH DR. LLANES CKD (chronic kidney disease), stage III NO SPECIALIST Claudication Crohn's disease Dyspnea Encounter for pre-operative examination Gait disorder NO WALKER Gastroesophageal reflux disease Generalized weakness Glaucoma Hyperlipidemia Hypertension Impaired fasting glucose IPMN (intraductal papillary mucinous neoplasm) assisted current use of systemic steroids DUE TO CROHNS Macular degeneration Myalgia Nausea and vomiting after administration of anesthetic agent Neutrophilic leukocytosis Osteomyelitis RIGHT BIG TOE> REASON FOR PROCEDURE ON 12/02/21 Osteopenia Pancreatitis MARCH 2021 > RESOLVED PER PT Pre-diabetes DIET CONTROL Surgical History H/O resection of small bowel History of cataract surgery BILAT History of colonoscopy 2007, 2008, 2009, 2010, 2012, 2013, 2014, 2016 - for surveillance of multiple adenomatous polyps. 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 GISELE > OVER 5 YRS AGO > UNSURE HOW MANY VESSELS Family History Father , age 81 of an [place] Diabetes Hyperlipidemia Hypertension Myocardial infarction Mother , age 83 of stomach cancer Cancer Denies family history of Ovarian cancer Prostate cancer Breast cancer Colorectal cancer Social History Smoking Status: Never smoker Second Hand Exposure: No; Hx Alcohol Use: No Hx Substance Use: No Preferred Language: Filipino Communication Ability: Effective Visual Impairment: Limited Hearing Ability: Hard of Hearing Rat Exterminator Required: No Beliefs That Will Affect Care: None marital status: Current Living Situation: Spouse Current Living Situation Comment: 2 story house current occupational status: retired 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61 Other Information That Helps Us Care for You: No Feels Safe at Home: Yes Safety Concerns: Feels Safe At This Time Childhood Exposure to Second-Hand Smoke: No Diet Comment: follows "his own diet" due to GI issues caffeine: No during the past year weight has: remained stable Dental Care, Regularly: Yes Physical Activity Frequency: Does not Exercise Physical Activity Frequency Comment: limited due to condition Seatbelt Use: always Sunscreen Use: No Assistive Devices: Cane and Walker Review of Systems Review of Systems: Constitutional: No fever/chills, weakness, fatigue, myalgias, anorexia, night sweats Eyes: No diplopia, no worsening or blurred vision ENT: normal hearing, no trouble swallowing Respiratory: No cough, sputum, dyspnea at rest or on exertion Cardiovascular: No chest pain, tightness or palpitations Abdomen: No pain, nausea, vomiting, diarrhea or constipation : Denies dysuria, hematuria, increased urgency/frequency, urinary retention Musculoskeletal: leg pain, swelling, redness; no joint pain Neurologic: No weakness, numbness/tingling, or balance problems Psychiatric: No anxiety or depression Skin: No rash or itch Physical Exam Physical Exam: General: awake, alert, no apparent distress, is tremulous Head: Normocephalic, atraumatic ENT: PERRL, EOMI, no pharyngeal exudate, mucous membranes moist Chest: Clear to auscultation, on room air, no adventitious breath sounds Cardiac: Regular rate and rhythm, no murmur, no JVD, normal peripheral pulses, good capillary refill Abdominal: NABS x 4 quadrants, soft, nontender to palpation, no rebound, guarding or tenderness Extremities: Left lower leg TTP, erythematous, edematous consistent with cellulitis to the level of knee; left great toe appears ischemic, black, appears gangrenous; right foot with subacute right great toe amputation; popliteal pulses 1+ bilaterally Psych: feelx anxious, otherwise normal mood and affect Neuro: AAO x 3, strength intact bilaterally and rated 5/5, no motor deficits, speech is clear, no peripheral sensory deficits Skin: Multiple skin lesions on chest, scalp, arms consistent with actinic keratoses; no rash or erythema Results & Data Results & Data ([facility]) Vital Signs (Past 12 Hours) Vital Signs Temp Pulse Resp BP Pulse Ox 02/22/22 13:00 114 H 22 143/66 H 92 02/22/22 12:45 112 H 19 117/54 L 92 02/22/22 12:40 149/69 H 02/22/22 12:30 113 H 20 96 02/22/22 12:16 96 02/22/22 12:15 120 H 23 94 02/22/22 12:00 113 H 20 94 02/22/22 11:45 37.8 C H 128 H 23 170/73 H 98 Laboratory Results Abnormal lab results 02/22/22 02/22/22 02/22/22 Range/Units 12:28 12:28 12:28 WBC 18.59 H (4.8-10.8) K/uL RBC 2.90 L (4.7-6.1) M/uL Hgb 9.6 L (14.0-18.0) g/dL Hct 29.9 L (42-52) % MCV 103.1 H (80-100) fL RDW Std Deviation 56.7 H (36.4-46.3) fL RDW Coeff of [place] 15.0 H (11.5-14.5) % Plt Count 446 H (130-400) K/uL Neut # (Auto) 13.11 H (1.4-6.5) K/uL [place] # (Auto) 2.38 H (0.11-0.59) K/uL Immature Gran # (Auto) 0.06 H (0.00-0.02) K/uL Anion Gap 12 H (3-11) Lactate 2.5 H* (0.4-2.0) mmol/L Magnesium 1.6 L (1.7-2.4) mg/dl Urine Ketones (Negative) 02/22/22 Range/Units 13:52 WBC (4.8-10.8) K/uL RBC (4.7-6.1) M/uL Hgb (14.0-18.0) g/dL Hct (42-52) % MCV (80-100) fL RDW Std Deviation (36.4-46.3) fL RDW Coeff of [place] (11.5-14.5) % Plt Count (130-400) K/uL Neut # (Auto) (1.4-6.5) K/uL [place] # (Auto) (0.11-0.59) K/uL Immature Gran # (Auto) (0.00-0.02) K/uL Anion Gap (3-11) Lactate (0.4-2.0) mmol/L Magnesium (1.7-2.4) mg/dl Urine Ketones Trace H (Negative) Diagnostic Findings Chest X-Ray 02/22/22 11:42 XR chest 1V portable CLINICAL HISTORY: SEPSIS TECHNIQUE: Single frontal radiograph of the chest was obtained. Comparison: Comparison is made to chest radiograph 02/22/2022 FINDINGS: Median sternotomy wires are unchanged. The cardiomediastinal silhouette is stable. Lungs are underinflated, however no airspace opacity is seen. No evidence of pleural effusion or pneumothorax. IMPRESSION: No acute chest disease. ACT 112: Negative or not required by law. Electronically signed by: Demarcus Parnell M.D. 02/22/2022 1:09 PM Lower Extremity CTA 02/22/22 11:58 CT angio LE LT w inc wo if don CLINICAL HISTORY: L LE pain/erythema, PVD hx, eval for gas formation COMPARISON STUDY: No previous studies for comparison. CT DOSE: 634.37 mGy.cm TECHNIQUE: Standard CT angoigram of the left lower extremity was performed with IV contrast followed by image post processing with coronal, and sagittal MIP reformats.. This CT exam was performed using one or more of the following dose reduction techniques: Automated exposure control, adjustment of the mA and/or kV according to patient size, or use of iterative reconstruction technique. CONTRAST: Optiray 320, 120 mL nonionic intravenous contrast. FINDINGS: VASCULAR FINDINGS: Left common iliac artery: patent without stenosis. Left internal iliac artery: patent without stenosis. Left external iliac artery: patent without stenosis. Left femoral artery: patent without stenosis. Left profunda femoris artery: patent without stenosis. Left superficial femoral artery: patent without stenosis. There is at herosclerotic calcification present along its course with at least 50% narrowing present. Left popliteal artery: patent without stenosis. There is atherosclerotic calcification present with approximately 50% narrowing. Left distal runoff: patent three vessel distal runoff noted. Atherosclerotic calcification is present with diffuse vessel narrowing seen. NONVASCULAR FINDINGS: Within the mid to lower thigh, there is subcutaneous fluid present posterolaterally. Diffuse subcutaneous edema and fluid are seen circumferentially throughout the calf. Diffuse edema extends into the foot as well. No focal fluid collections or enhancing abscess is are seen. No air is present within the soft tissues. IMPRESSION: 1. Atherosclerotic calcification involving the superficial femoral artery, pop liteal artery and arteries of the calf with at least 50% stenosis present along their courses. 2. There is no evidence for focal occlusion or stenosis. 3. Diffuse subcutaneous edema and subcutaneous fluid involving the distal thigh and throughout the calf most characteristic of cellulitis. Diffuse edema extends into the foot as well. 4. There is no focal enhancing abscess or air seen within the soft tissues. ACT 112: Negative or not required by law. Electronically signed by: Tushar Farrell M.D. 02/22/2022 2:24 PM Code Status & VTE Plan Code Status Sinus tachycardia Abnormal ECG When compared with ECG of 22-FEB-2022 05:44, (unconfirmed) No significant change was found. VTE Prophylaxis Plan VTE Prophylaxis will be ordered: Yes Supervising Physician Co-Signing Physician Notes Attending Attestation and Admission Note: Pt seen/examined, chart reviewed, care plan d/w TIKI To. I agree with the streeter components of her documentation. 86yo male with CAD s/p CABG, PAD, CKD, steroid-dependent Crohn's disease, and recent problems with non-healing ulcer of L great toe & ischemia. Presents with severe LLE pain extending from the thigh down to the foot. Worst pain is left great toe. Evidence of LLE cellulitis & left great toe worsening gangrene. Pt was confused during the visit - unable to provide meaningful history. Son-in-law at bedside. PMH/PSH/allergies/meds/sochx/famhx - reviewed VSS o2 sats wnl gen - appears unwell, fatigued/tired, confused mouth - MM dry neck - no JVD heart - RRR, s1 s2 lungs - CTA b/l abd - distended, BS+, mildly tender ext - 1-2+ edema of left leg from knee down to foot; pulses left foot 1+, right foot 1-2+ skin - cellulitis from left knee down to entire foot; gangrene of L great toe; no cap refill of L great toe; cap refill dorsum of L foot 1-2 seconds; necrotic R great toe psych - confused labs reviewed imaging reviewed A/P: 1. sepsis 2nd to LLE cellulitis wht left great toe gangrene 2. acute met encephalopathy 2nd to #1 3. known PAD of b/l LEs 4. steroid-dependent Crohn's broad-spectrum IV abx; IV fluids; pain meds for LLE pain ortho (or podiatry) consult for L great toe gangrene stress dose steroids - hydrocortisone 50mg TID IV son-in-law updated Jovanni Babin MD PG Care Time/CCT Total # of Minutes Spent Total Time Spent with Patient: Total time spent is greater than 50% in coordination of care (as documented) at patient's floor/unit and/or counseling patient: Coding Level of Care Code 90374 Initial Inpt Care Lvl 3 Diagnoses Sepsis A41.9 Left leg cellulitis L03.116 Coronary artery disease I25.10 Associated angina: without angina Coronary Disease-Associated Artery/Lesion type: [place] artery [place] vs. transplanted heart: [place] heart Peripheral arterial disease I73.9 Hypertension I10 Hypertension type: essential hypertension Hyperlipidemia E78.5 Glaucoma H40.9 Gastroesophageal reflux disease K21.9 Crohn's disease K50.90 CKD (chronic kidney disease), stage III N18.3 Generalized anxiety disorder F41.1 Gangrene of toe of left foot I96 Acute metabolic encephalopathy G93.41 (1) Coronary artery disease Associated angina: without angina Coronary Disease-Associated Artery/Lesion type: [place] artery [place] vs. transplanted heart: [place] heart Qualified Code(s): I25.10 - Atherosclerotic heart disease of [place] coronary artery without angina pectoris (2) Hypertension Hypertension type: essential hypertension Qualified Code(s): I10 - Essential (primary) hypertension
[2022-02-22] MEDS ORDERED: MAGNESIUM SULFATE / D5W 1 GM/100 ML BAG IV STA (16:23)
[2022-02-22] MEDS ORDERED: HYDROCORTISONE SOD SUCCINATE 100 MG/2 ML VIAL IV STA (16:25)
[2022-02-22] MEDS ORDERED: metroNIDAZOLE 500 MG TAB PO STA (16:25)
--- NOTE | 2022-02-22 18:09 | XRay Report ---
XR foot LT min 3V routine CLINICAL HISTORY: infection TECHNIQUE: 3 views of the left foot were obtained. Comparison: None available at the time of this dictation. FINDINGS: There is a questionable lucency in the medial aspect of the first digit proximal phalanx. The joint s paces are well preserved. Vascular calcifications are noted. Soft tissue swelling is seen most promin ent about the first digit. IMPRESSION: Vascular calcifications and soft tissue swelling with questionable lucency in the medial first digit proximal phalanx which may represent a focus of osteomyelitis. If clinical concern remains, MRI be pe rformed. ACT 112: Negative or not required by law. Electronically signed by: Demarcus Parnell M.D. 02/22/2022 6:07 PM
--- NOTE | 2022-02-22 18:20 | XRay Report ---
XR KUB/Abdomen 1 view CLINICAL HISTORY: constipation, distention TECHNIQUE: 1 view of the abdomen was obtained. Comparison: Comparison is made to abdomen radiograph 09/25/2015 FINDINGS: Lung bases are unremarkable. The osseous structures are grossly unremarkable. Dilated loop of bowel i n the left upper quadrant is again seen, favored to represent a dilated loops of small bowel similar to prior exams. Otherwise no gas is seen. A moderate amount of stool is noted within the large bowel. IMPRESSION: Redemonstration of a gas dilated loop of bowel, likely small bowel, in the left upper quadrant. Other [place] no evidence of obstruction. ACT 112: Negative or not required by law. Electronically signed by: Demarcus Parnell M.D. 02/22/2022 6:19 PM
--- NOTE | 2022-02-22 18:22 | Progress Notes ---
DATE OF NOTE: 02/22/2022. I was asked to see the patient about his left leg. The patient of Dr. Weiner. She had done prev ious surgery on his right big toe. It sounds like she had done a toenail operation, which had a comp lication and he ended up having an infection and partial amputation. He has had vascular procedure o n the right, which apparently restored adequate blood flow. He has recently had an examination on th e left, which showed that there was not good runoff and significant stenosis distally. The patient i s admitted to the hospital with left leg pain, redness and swelling consistent with infection and the re is discoloration of the big toe, which has been going on for about the past week. He has pain fro m about the mid thigh down to the foot. There has been a remote history of a fall. The patient is an 86 years old. He has a history of vascular disease. He is on chronic steroids for Crohn's disease. MEDICATIONS ON ADMISSION: Include Tylenol, aspirin, atorvastatin, eyedrops, multivitamin, Plavix, Tyl enol PM, folic acid, hydrocodone, lorazepam, metoprolol, nitroglycerin, omeprazole, prednisone 10 mg, Ultram. White count is 18,000, hemoglobin is 10, hematocrit 30, platelets are 446. PT/INR within normal limi ts. PRP shows things are largely within normal limits except for low magnesium. UA shows trace keto radha. COVID negative. There is no current imaging other than a left leg. CTA showing atheroscleroti c calcification involving the entire arterial vascular structure with at least 50% stenosis, but noth ing focal. There is extensive swelling in the thigh and calf. No air or abscess. Vascular studies done 02/16/[address] Bay show ABIs and TBIs on the left to either be noncompressible or not abl e to be obtained. He is afebrile, but his pulse is elevated. On exam, there is tenderness from the lower third of the left leg through the calf down into the foot . Pedal pulses are not palpable. He has intact sensation. He can wiggle the toes, flex and extend the ankle, bend his knee at least 90 degrees and flex the hip to 90. There is no tenderness to palpa tion about the hip or greater trochanter. No subcutaneous emphysema is appreciated. There is no flu id collection. Tenderness is diffuse. The right big toe is necrotic. Dry gangrene. The left big to e shows pallor and coolness, slight garcia or blue discoloration with some crusting rust colored scabbi ng on the dorsum. He has diminished sensation of the big toe, but can feel the rest. There is exten sive erythema particularly in the foot and leg. There are no open or draining wounds. IMPRESSION: Peripheral artery disease and left leg cellulitis. PLAN: Recommend admission with elevation and IV antibiotics, pain control. I do not see a role for surgery at present; however, we will wait and see what happens with any further necrosis of the big t oe. If this does occur, we would need to see where the demarcation is in order to recommend appropria te level for surgery if that is necessary. In the meantime, we will get x-rays of the foot, ankle, t ib-fib, knee, femur and hip to ensure that nothing else is going on. Job ID: [id number]
[2022-02-22] MEDS ORDERED: ONDANSETRON INJ 2 MG/ML 2 ML VIAL IV PRN (18:40)
[2022-02-22] MEDS ORDERED: NITROGLYCERIN SL 0.4 MG/TAB TAB SL SCH (18:40)
[2022-02-22] MEDS ORDERED: traMADol HCL 50 MG TABLET PO PRN (18:40)
[2022-02-22] MEDS ORDERED: VANCOMYCIN HCL 1,000 MG in SODIUM CHLORIDE 0.9% 500 ML IV SCH (18:40)
[2022-02-22] MEDS ORDERED: ACETAMINOPHEN 500 MG TAB PO PRN (18:40)
[2022-02-22] MEDS ORDERED: POLYETHYLENE (MIRALAX) 17 GM PACK PO PRN (18:40)
--- NOTE | 2022-02-22 18:47 | XRay Report ---
XR femur LT 2V routine, XR tibia fibula LT 2V, XR knee LT 1 or 2V routine, XR ankle LT min 3V routine CLINICAL HISTORY: pain TECHNIQUE: 2 radiographic views of the left femur, 2 views of the left knee, 2 views of the left tibi a and fibula, and 3 views of the left ankle were obtained. Comparison: None available at the time of this dictation. FINDINGS: No acute fracture is seen. No focal erosions are seen to suggest osteomyelitis. Degenerative changes are seen in the hip and knee joints. There is normal bone mineralization. Vascular calcifications are seen. IMPRESSION: No radiographic evidence of osteomyelitis is seen. ACT 112: Negative or not required by law. Electronically signed by: Demarcus Parnell M.D. 02/22/2022 6:45 PM
--- NOTE | 2022-02-22 19:56 | Pharmacy Report ---
Pharmacy Vanc AUC Short Note - Date of Service February 22, 2022 - Assessment & Plan Assessment 86 year old M receiving VANCOMYCIN/CEFEPIME/FLAGYL for treatment of toe infection. Previous cultures with corynebacterium and coag negative staph. Initial WBC 18, procal 0.1 . Plan Vancomycin * AUC/MENA is the preferred PK/PD target for vancomycin * AUC guided dosing is effective and associated with decreased risk of nephrotoxicity compared to traditional trough targets * Trough level of 15.5 mcg/mL is predicted to achieve target AUC/MENA of 400-600 mg/L.hr and may be associated with a 11 % risk of nephrotoxicity * Loading dose of 1250 mg (20 mg/kg) x 1 and then start 750 mg q18hrs * Trough not ordered; will order if continued > 48 hours Pharmacy will continue to follow and will adjust dose/frequency as necessary. Thank you.
[2022-02-22] MEDS: ENOXAPARIN INJ 40 MG/0.4 ML SYR SQ SCH (20:22)
[2022-02-22] MEDS: LACTATED RINGER'S 1,000 ML IV SCH (20:28)
[2022-02-22] MEDS: HYDROmorphone INJ 0.5 MG/0.5 ML SYR IV PRN (20:29)
[2022-02-22] MEDS: ACETAMINOPHEN 500 MG TAB PO SCH (20:35)
[2022-02-22] MEDS: ATORVASTATIN 40 MG TAB PO SCH (20:35)
[2022-02-22] MEDS: LORazepam 0.5 MG TAB PO PRN (20:35)
[2022-02-22] MEDS: diphenhydrAMINE Capsule 25 MG CAP PO SCH (20:37)
[2022-02-22] MEDS: BRINZOLAMIDE (AZOPT) OPS 10 ML BTL OPB SCH (20:37)
[2022-02-22] MEDS: METOPROLOL TARTRATE 25 MG TAB PO SCH (20:37)
[2022-02-22] MEDS: HYDROCODONE/ACETAMOPHEN 5/325MG TAB PO PRN (22:08)
[2022-02-22] MEDS: HYDROCORTISONE SOD 50 MG in SYRINGE 0 ML IV SCH (23:50)
[2022-02-22] MEDS: metroNIDAZOLE 500 MG TAB PO SCH (23:50)
[2022-02-23] MEDS ORDERED: HYDROCORTISONE SOD SUCCINATE 100 MG/2 ML VIAL IV SCH
[2022-02-23] MEDS: CEFEPIME 2,000 MG in SYRINGE 0 ML IV SCH ×2 (01:00→13:45)
[2022-02-23] MEDS: VANCOMYCIN HCL 750 MG in SODIUM CHLORIDE 0.9% 250 ML IV SCH ×2 (01:47→20:43)
[2022-02-23] MEDS: LACTATED RINGER'S 1,000 ML IV SCH ×3 (04:33→11:34)
[2022-02-23] MEDS: HYDROCODONE/ACETAMOPHEN 5/325MG TAB PO PRN ×3 (06:31→20:43)
[2022-02-23 08:01] LABS: Basophils # (auto) 0.01 K/uL (0-0.2); Basophils % (auto) 0.1 %; Hematocrit (blood only) 24.6 % (42-52); Immature Granulocytes # (auto) 0.05 K/uL (0.00-0.02); Immature Granulocytes % (auto) 0.3 %; Lymphocytes # (auto) 0.96 K/uL (1.2-3.4); Lymphocytes % (auto) 6.5 %; Mean Corpuscular Hemoglobin 32.9 pg (25-34); Mean Corpuscular Hgb Conc 32.5 g/dL (32-36); Mean Corpuscular Volume 101.2 fL (80-100); Mean Platelet Volume 9.3 fL (7.4-10.4); Monocytes # (auto) 0.94 K/uL (0.11-0.59); Monocytes % (auto) 6.3 %; Neutrophils # (auto) 12.92 K/uL (1.4-6.5); Neutrophils % (auto) 86.8 %; Platelet Count 358 K/uL (130-400); RDW Coefficient of Variation 14.6 % (11.5-14.5); RDW Standard Deviation 54.4 fL (36.4-46.3); Red Blood Count 2.43 M/uL (4.7-6.1); White Blood Count 14.88 K/uL (4.8-10.8)
[2022-02-23 08:22] LABS: Albumin Globulin Ratio 1.1 (0.9-2); Albumin Level 2.5 gm/dl (3.4-5.0); BUN Creatinine Ratio 22.4 (10-20); Bilirubin,Total 0.7 mg/dl (0.2-1.0); Calcium 7.4 mg/dl (8.5-10.1); Creatinine Clr Calc Pharmacy 52.5 ml/min; Est GFR (African American) 90.8 ml/min; Est GFR (Non-African American) 78.3 ml/min; Globulin 2.2 gm/dl (2.5-4.0); Magnesium 1.8 mg/dl (1.7-2.4); Potassium 3.5 mmol/L (3.5-5.1); Total Protein 4.7 gm/dl (6.0-8.3)
[2022-02-23] MEDS: CALCIUM 600MG + VIT D 400 IU TAB PO SCH (08:35)
[2022-02-23] MEDS: METOPROLOL TARTRATE 25 MG TAB PO SCH ×2 (08:35→20:46)
[2022-02-23] MEDS: FOLIC ACID 400 MCG TAB PO SCH (08:35)
[2022-02-23] MEDS: metroNIDAZOLE 500 MG TAB PO SCH ×2 (08:35→16:36)
[2022-02-23] MEDS: HYDROCORTISONE SOD 50 MG in SYRINGE 0 ML IV SCH ×2 (08:35→20:45)
[2022-02-23] MEDS: ASPIRIN 81 MG ECTAB PO SCH (08:36)
[2022-02-23] MEDS: PANTOprazole 40 MG TAB PO SCH (08:36)
[2022-02-23] MEDS: CEROVITE ADV FORMULA TAB PO SCH (08:36)
[2022-02-23] MEDS: CLOPIDOGREL BISULFATE 75 MG TAB PO SCH (08:36)
[2022-02-23] MEDS: THIAMINE HCL 100 MG TAB PO SCH (08:36)
[2022-02-23] MEDS: TIMOLOL GFS 0.25% OPH SOLN 74 DROPS/5 ML BTL OPB SCH (08:37)
[2022-02-23] MEDS: BRINZOLAMIDE (AZOPT) OPS 10 ML BTL OPB SCH ×2 (08:37→16:36)
[2022-02-23] MEDS: HYDROmorphone INJ 0.5 MG/0.5 ML SYR IV PRN (11:01)
[2022-02-23] MEDS ORDERED: bisacodyL 10 MG SUPP PR STA (12:33)
--- NOTE | 2022-02-23 15:41 | Hospitalist Progress Note ---
Date of Service February 23, 2022 Assessment & Plan (1) Sepsis: Plan: 2nd to LLE cellulitis with L great toe gangrene. Sepsis improved, blood cx's negative, no fever overnight, more awake/alert. Cont broad-spectrum IV abx. (2) Left leg cellulitis: Plan: Cont cefepime, flagyl and IV vancomycin given severity of the infection but especially the left great toe gangrene. He is complaining of left thigh/popliteal pain - will check doppler, r/o DVT. (3) Gangrene of toe of left foot: Plan: Left great toe. Worsening ischemia based on exam appearance today. Ortho consult by Dr Woodward appreciated. Await his recommendations (surgery vs nonoperative Rx). Cont pain control + broad-spectrum IV abx therapy. (4) Crohn's disease: Plan: Chronically on prednisone 10 mg daily. Remains on stress dose steroids with hydrocortisone 50 mg IV q8h. Change to 50mg IV BID. Then wean again tomorrow. Follows with Fanny GALLEGOS. No issues at this time. (5) Coronary artery disease: Plan: s/p CABG in 2016. Continue statin, metoprolol, with nitroglycerin as needed. Currently on DAPT with aspirin and Plavix due to recent lower extremity angioplasty. (6) Peripheral arterial disease: Plan: Continue DAPT with aspirin, Plavix, statin. Pain control for ischemic L great toe - see above. Follows with Dr. Errol Bay. Unfortunately, based on last office encounter, very little if anything can be done to salvage the L great toe or improve his arterial circulation. CTA LLE findings noted from admission. (7) CKD (chronic kidney disease), stage III: Plan: BMP stable. repeat BMP am. (8) Hypertension: Plan: Cont beta mac (9) Hyperlipidemia: Plan: Continue statin. (10) Gastroesophageal reflux disease: Plan: Continue PPI. (11) Glaucoma: Plan: Continue timolol drops, brinzolamide drops, PreserVision. (12) Generalized anxiety disorder: Plan: Ativan prn at HS - this is a chronic med for him, but would avoid escalation of such due to #13. (13) Acute metabolic encephalopathy: Plan: 2nd to #1, #2. If worsening delirium or agitation consider low-dose seroquel or zyprexa. Plan: DVT proph - lovenox left message for pt's daughter on her voicemail this evening Admission and Anticipated Discharge Date Admission Date: February 22, 2022 Subjective tele overnight wnl pt confused during the visit didn't remember me from yesterday or any events of yesterday quite anxious - talking fast, asking question after question c/o ongoing pain in the entire left leg from posterior thigh/popliteal area down to L foot no right LE pain eating fair mild dyspnea but no worse than baseline Review of Systems Review of Systems: gen - fatigue cv - no cp, no orthopnea GI - no abd pain; staff report moderate bowel movement today pulm - no cough Physical Exam Physical Exam: gen - more awake, alert today; still confused mouth - MMM neck - no JVD heart - RRR, s1 s2, no murmur lungs - CTA b/l abd - distended but less so than yesterday, BS+, no tenderness today ext - 1-2+ edema of left leg from knee down to foot; pulses left foot 1+, right foot 1-2+ skin - cellulitis from left knee down to entire foot is improved today - less erythema today; gangrene of L great toe worse - distal 1/3 of toe completely white/ischemia; no cap refill of L great toe; cap refill dorsum of L foot <2 seconds; necrotic R great toe psych - awake, alert, less confusion today Results & Data Results & Data ([facility]) Vital Signs (Past 12 Hours) Vital Signs Temp Pulse Pulse Resp BP BP Pulse Ox 02/23/22 11:37 36.8 C 76 16 114/71 95 02/23/22 07:25 36.5 C 82 81 20 110/58 L 98 Laboratory Results Laboratory Results - last 24 hr 02/23/22 02/23/22 07:41 07:41 WBC 14.88 H RBC 2.43 L Hgb 8.0 L Hct 24.6 L MCV 101.2 H MCH 32.9 MCHC 32.5 RDW Std Deviation 54.4 H RDW Coeff of [place] 14.6 H Plt Count 358 MPV 9.3 Immature Gran % (Auto) 0.3 Neut % (Auto) 86.8 Lymph % (Auto) 6.5 [place] % (Auto) 6.3 Eos % (Auto) 0.0 Baso % (Auto) 0.1 Neut # (Auto) 12.92 H Lymph # (Auto) 0.96 L [place] # (Auto) 0.94 H Eos # (Auto) 0.00 Baso # (Auto) 0.01 Immature Gran # (Auto) 0.05 H Sodium 138 Potassium 3.5 Chloride 111 H Carbon Dioxide 18 L Anion Gap 9 BUN 19 Creatinine 0.85 Est Cr Clr Drug Dosing 52.5 Est GFR ( Amer) 90.8 Est GFR (Non-Af Amer) 78.3 BUN/Creatinine Ratio 22.4 H Glucose 100 H Calcium 7.4 L Magnesium 1.8 Total Bilirubin 0.7 AST 33 ALT 14 Alkaline Phosphatase 71 Total Protein 4.7 L D Albumin 2.5 L Globulin 2.2 L Albumin/Globulin Ratio 1.1 PG Care Time/CCT Total # of Minutes Spent Total Time Spent with Patient: Total time spent is greater than 50% in coordination of care (as documented) at patient's floor/unit and/or counseling patient: Coding Level of Care Code 96949 Subseq Hosp Care Lvl 3 Diagnoses Sepsis A41.9 Left leg cellulitis L03.116 Crohn's disease K50.90 Coronary artery disease I25.10 Associated angina: without angina Coronary Disease-Associated Artery/Lesion type: [place] artery [place] vs. transplanted heart: [place] heart Peripheral arterial disease I73.9 CKD (chronic kidney disease), stage III N18.3 Hypertension I10 Hypertension type: essential hypertension Hyperlipidemia E78.5 Gastroesophageal reflux disease K21.9 Glaucoma H40.9 Generalized anxiety disorder F41.1 Gangrene of toe of left foot I96 Acute metabolic encephalopathy G93.41 (1) Coronary artery disease Associated angina: without angina Coronary Disease-Associated Artery/Lesion type: [place] artery [place] vs. transplanted heart: [place] heart Qualified Code(s): I25.10 - Atherosclerotic heart disease of [place] coronary artery without angina pectoris (2) Hypertension Hypertension type: essential hypertension Qualified Code(s): I10 - Essential (primary) hypertension
--- NOTE | 2022-02-23 18:26 | Progress Notes ---
DATE OF NOTE: 02/23/2022 The patient is resting comfortably in bed. He reports improvement. His white count is diminished to 15. He is able to bend his hip and knee much better. Radiographs of the entire left lower extremit y have been reviewed and show no evidence of fracture or osteomyelitis. He has not had any fevers to day. Vital signs are stable. The right foot shows that the big toe is necrotic. There is 0.5 cm wo und on the second toe and gauze was placed in between them. There is no evidence of infection. On t he left foot, there is less swelling and redness. The redness is foot, ankle and lower leg. Less te nderness. The left big toe shows increasing duskiness especially dorsally. At this time, I recommend continued elevation and antibiotics. We will need to monitor to see where the demarcation is for the left big toe to determine level for any amputation type surgery should it be necessary. Right now, I do not see need to do anything surgically. Job ID: [id number]
--- NOTE | 2022-02-23 19:35 | Ultrasound Report ---
LEFT LOWER EXTREMITY VENOUS DOPPLER HISTORY: posterior L thigh pain; eval DVT COMPARISON STUDY: None. FINDINGS: There is normal compressibility, flow, and augmentation within the left lower extremity michael p venous system. There is a 2.3 cm popliteal cyst. There is a 19 x 3 x 2 cm subcutaneous fluid collec tion within the left medial calf. This could represent focal subcutaneous edema or an old hematoma. IMPRESSION: 1. No DVT within the left lower extremity. 2. An elongated 19 x 3 x 2 cm subcutaneous fluid collection within the left medial calf. This could r epresent ACT 112: Negative or not required by law. Electronically signed by: Jorge España M.D. 02/23/2022 7:34 PM
[2022-02-23] MEDS: ENOXAPARIN INJ 40 MG/0.4 ML SYR SQ SCH (20:39)
[2022-02-23] MEDS: LORazepam 0.5 MG TAB PO PRN (20:43)
[2022-02-23] MEDS: ATORVASTATIN 40 MG TAB PO SCH (20:45)
[2022-02-23] MEDS: ACETAMINOPHEN 500 MG TAB PO SCH (20:45)
[2022-02-23] MEDS: diphenhydrAMINE Capsule 25 MG CAP PO SCH (20:45)
[2022-02-24] MEDS: CEFEPIME 2,000 MG in SYRINGE 0 ML IV SCH ×2 (00:59→13:28)
[2022-02-24] MEDS: metroNIDAZOLE 500 MG TAB PO SCH ×4 (00:59→23:26)
[2022-02-24] MEDS: LACTATED RINGER'S 1,000 ML IV SCH (01:00)
[2022-02-24] MEDS: TIMOLOL GFS 0.25% OPH SOLN 74 DROPS/5 ML BTL OPB SCH (08:25)
[2022-02-24] MEDS: HYDROCORTISONE SOD 50 MG in SYRINGE 0 ML IV SCH (08:26)
[2022-02-24] MEDS: ASPIRIN 81 MG ECTAB PO SCH (08:26)
[2022-02-24] MEDS: FOLIC ACID 400 MCG TAB PO SCH (08:26)
[2022-02-24] MEDS: PANTOprazole 40 MG TAB PO SCH (08:26)
[2022-02-24] MEDS: CEROVITE ADV FORMULA TAB PO SCH (08:26)
[2022-02-24] MEDS: CLOPIDOGREL BISULFATE 75 MG TAB PO SCH (08:26)
[2022-02-24] MEDS: BRINZOLAMIDE (AZOPT) OPS 10 ML BTL OPB SCH ×2 (08:26→17:47)
[2022-02-24] MEDS: METOPROLOL TARTRATE 25 MG TAB PO SCH ×2 (08:27→20:04)
[2022-02-24] MEDS: CALCIUM 600MG + VIT D 400 IU TAB PO SCH (08:27)
[2022-02-24] MEDS: POLYETHYLENE (MIRALAX) 17 GM PACK PO SCH (08:27)
[2022-02-24] MEDS: THIAMINE HCL 100 MG TAB PO SCH (08:27)
[2022-02-24] MEDS: SENNA 8.6 MG TAB PO SCH (08:31)
[2022-02-24] MEDS: HYDROCODONE/ACETAMOPHEN 5/325MG TAB PO PRN (08:52)
[2022-02-24 10:05] LABS: Hemoglobin 8.4 g/dL (14.0-18.0); Mean Corpuscular Hemoglobin 33.1 pg (25-34); Mean Corpuscular Hgb Conc 32.3 g/dL (32-36); Mean Corpuscular Volume 102.4 fL (80-100); Mean Platelet Volume 9.5 fL (7.4-10.4); Platelet Count 402 K/uL (130-400); RDW Coefficient of Variation 14.7 % (11.5-14.5); RDW Standard Deviation 55.3 fL (36.4-46.3); Red Blood Count 2.54 M/uL (4.7-6.1); White Blood Count 18.66 K/uL (4.8-10.8)
[2022-02-24 10:22] LABS: BUN Creatinine Ratio 24.7 (10-20); Calcium 7.9 mg/dl (8.5-10.1); Creatinine Clr Calc Pharmacy 47.9 ml/min; Est GFR (Non-African American) 69.9 ml/min; Potassium 3.2 mmol/L (3.5-5.1)
[2022-02-24] MEDS ORDERED: POTASSIUM CHLORIDE CRTAB 20 MEQ TABCR PO STA (10:54)
--- NOTE | 2022-02-24 12:21 | CT Scan Report ---
LEFT TIBIA/FIBULA CT CT DOSE: HISTORY: Abnormal ultrasound. Evaluate left calf fluid collection. ?hematoma vs abscess L lower leg TECHNIQUE: Multiaxial CT images of the left lower leg were performed and reformatted in the sagittal and coronal plane without the use of contrast. A dose lowering technique was utilized adhering to e principles of ALARA. COMPARISON: Left leg venous Doppler 02/23/2022. Left leg CTA 02/22/2022. FINDINGS: No fracture or dislocation within the left tibia or fibula. Extensive calcified plaque seen throughout the left calf arteries. There is extensive subcutaneous edema again noted within the left lower leg most pronounced medially. This corresponds to the prior ultrasound abnormality. This is un changed compared to the prior CT examination and favors chronic edema or possibly a cellulitis. No lo culated fluid collections to suggest an abscess or hematoma. IMPRESSION: There is extensive subcutaneous edema again noted within the left lower leg most pronounced medially. This corresponds to the prior ultrasound abnormality. This is unchanged compared to the prior CT exa mination and favors chronic edema or possibly a cellulitis. ACT 112: Negative or not required by law. Electronically signed by: Jorge España M.D. 02/24/2022 12:19 PM
[2022-02-24] MEDS: HYDROmorphone INJ 0.5 MG/0.5 ML SYR IV PRN (13:39)
[2022-02-24] MEDS: VANCOMYCIN HCL 1,000 MG in SODIUM CHLORIDE 0.9% 250 ML IV SCH (13:52)
--- NOTE | 2022-02-24 14:32 | Pharmacy Report ---
Pharmacy Vanc AUC Short Note - Date of Service February 24, 2022 - Assessment & Plan Assessment 86 year old M receiving VANCOMYCIN/CEFEPIME/FLAGYL for treatment of leg cellullitis/gangrene toe infection. Blood cultures negative thus far. Plan Vancomycin * AUC/MENA is the preferred PK/PD target for vancomycin * AUC guided dosing is effective and associated with decreased risk of nephrotoxicity compared to traditional trough targets * Random vancomycin level came back at ~12 mcg/ml later this morning, plan to increase to vancomycin 1000 mg ivq 18 hrs to target AUC/MENA 400-600. * This dosing is estimated to achieve a trough of ~13 mcg/ml * Plan to recheck another level in next 48 hrs if plan is to continue. Per ortho notes, no plan for intervention at this time Pharmacy will continue to follow and will adjust dose/frequency as necessary. Thank you.
--- NOTE | 2022-02-24 19:17 | Hospitalist Progress Note ---
Date of Service February 24, 2022 Assessment & Plan (1) Sepsis: Plan: Resolved. 2nd to LLE cellulitis with L great toe gangrene. Blood cx's remain negative. Cont broad-spectrum IV abx. (2) Left leg cellulitis: Plan: cont to improve. Cont cefepime, flagyl and IV vancomycin given severity of the infection but especially the left great toe gangrene. Doppler LLE neg for DVT. CT of the LLE today without abscess, nec fasc, deeper infection or hematoma. (3) Gangrene of toe of left foot: Plan: Left great toe. Ortho consult by Dr Woodward appreciated. Waiting for toe to completely demarcate which will then determine timing of surgery, how much amputation he will need, etc. I did discuss this with Dr Woodawrd by phone today. (4) Crohn's disease: Plan: Chronically on prednisone 10 mg daily. Remains on stress dose steroids with hydrocortisone. Change to 25mg IV BID. Then wean to PO prednisone tomorrow. Follows with Fanny GALLEGOS. No issues at this time. (5) Coronary artery disease: Plan: s/p CABG in 2016. Continue statin, metoprolol, with nitroglycerin as needed. Currently on DAPT with aspirin and Plavix due to recent lower extremity angioplasty. (6) Peripheral arterial disease: Plan: Continue DAPT with aspirin, Plavix, statin. Pain control for ischemic L great toe - see above. Follows with Dr. Errol Bay. Unfortunately, based on last office encounter, very little if anything can be done to salvage the L great toe or improve his arterial circulation. CTA LLE findings noted from admission. (7) CKD (chronic kidney disease), stage III: Plan: BMP stable. repeat BMP am. (8) Hypertension: Plan: Cont beta mac (9) Hyperlipidemia: Plan: Continue statin. (10) Gastroesophageal reflux disease: Plan: Continue PPI. (11) Glaucoma: Plan: Continue timolol drops, brinzolamide drops, PreserVision. (12) Generalized anxiety disorder: Plan: Ativan prn at HS - this is a chronic med for him, but would avoid escalation of such due to #13. (13) Acute metabolic encephalopathy: Plan: 2nd to #1, #2. improved/resolved. Plan: DVT proph - lovenox PT, OT evals requested updated pt's daughter by phone this evening Admission and Anticipated Discharge Date Admission Date: February 22, 2022 Subjective no events overnight pt eating his meal when I visited with him a long-time friend was paying him a visit as well patient was very emotional today - crying in fact -due to the health issues he is experiencing he does report that his LLE pain is improved including the L Great toe no new complaints Review of Systems Review of Systems: gen - no fevers or chills cv - no orthopnea or cp pulm - no dyspnea at rest GI - had another BM today Physical Exam Physical Exam: gen - a/o x 3, emotional today mouth - MMM neck - no JVD heart - RRR, s1 s2, no murmur lungs - CTA b/l abd - distension unchanged; BS+; NT ext - 1+ edema of left leg; pulses left foot 1+, right foot 1-2+ skin - cellulitis from left knee down to entire foot again improved with less erythema; gangrene of L great toe worse - distal 1/2 of toe completely white/ischemic and proximal toe very black; no cap refill of L great toe; cap refill dorsum of L foot <2 seconds; necrotic R great toe psych - awake, alert Results & Data Results & Data ([facility]) Vital Signs (Past 12 Hours) Vital Signs Temp Pulse Pulse Resp BP BP Pulse Ox 02/24/22 16:10 77 02/24/22 15:57 36.6 C 80 18 133/71 93 02/24/22 12:00 36.7 C 77 18 152/89 H 95 02/24/22 08:05 36.5 C 87 22 147/70 H 96 02/24/22 07:38 84 Laboratory Results Laboratory Results - last 24 hr 02/24/22 02/24/22 02/24/22 09:43 09:43 09:43 WBC 18.66 H RBC 2.54 L Hgb 8.4 L Hct 26.0 L MCV 102.4 H MCH 33.1 MCHC 32.3 RDW Std Deviation 55.3 H RDW Coeff of [place] 14.7 H Plt Count 402 H MPV 9.5 Sodium 140 Potassium 3.2 L Chloride 112 H Carbon Dioxide 19 L Anion Gap 9 BUN 24 H Creatinine 0.97 Est Cr Clr Drug Dosing 47.9 Est GFR ( Amer) 81.0 Est GFR (Non-Af Amer) 69.9 BUN/Creatinine Ratio 24.7 H Glucose 109 H Calcium 7.9 L Random Vancomycin 12.1 PG Care Time/CCT Total # of Minutes Spent Total Time Spent with Patient: Total time spent is greater than 50% in coordination of care (as documented) at patient's floor/unit and/or counseling patient: Coding Level of Care Code 23505 Subseq Hosp Care Lvl 3 Diagnoses Sepsis A41.9 Left leg cellulitis L03.116 Gangrene of toe of left foot I96 Crohn's disease K50.90 Coronary artery disease I25.10 Associated angina: without angina Coronary Disease-Associated Artery/Lesion type: [place] artery [place] vs. transplanted heart: [place] heart Peripheral arterial disease I73.9 CKD (chronic kidney disease), stage III N18.3 Hypertension I10 Hypertension type: essential hypertension Hyperlipidemia E78.5 Gastroesophageal reflux disease K21.9 Glaucoma H40.9 Generalized anxiety disorder F41.1 Acute metabolic encephalopathy G93.41 (1) Coronary artery disease Associated angina: without angina Coronary Disease-Associated Artery/Lesion type: [place] artery [place] vs. transplanted heart: [place] heart Qualified Code(s): I25.10 - Atherosclerotic heart disease of [place] coronary artery without angina pectoris (2) Hypertension Hypertension type: essential hypertension Qualified Code(s): I10 - Essential (primary) hypertension
[2022-02-24] MEDS: diphenhydrAMINE Capsule 25 MG CAP PO SCH (20:05)
[2022-02-24] MEDS: ACETAMINOPHEN 500 MG TAB PO SCH (20:05)
[2022-02-24] MEDS: ATORVASTATIN 40 MG TAB PO SCH (20:05)
[2022-02-24] MEDS: ENOXAPARIN INJ 40 MG/0.4 ML SYR SQ SCH (20:05)
[2022-02-24] MEDS: HYDROCORTISONE SOD 25 MG in SYRINGE 0 ML IV SCH (21:24)
[2022-02-25] MEDS: CEFEPIME 2,000 MG in SYRINGE 0 ML IV SCH ×2 (01:49→13:10)
[2022-02-25] MEDS: VANCOMYCIN HCL 1,000 MG in SODIUM CHLORIDE 0.9% 250 ML IV SCH (06:16)
[2022-02-25] MEDS: HYDROCODONE/ACETAMOPHEN 5/325MG TAB PO PRN ×3 (06:31→20:33)
[2022-02-25] MEDS: CALCIUM 600MG + VIT D 400 IU TAB PO SCH (08:26)
[2022-02-25] MEDS: CLOPIDOGREL BISULFATE 75 MG TAB PO SCH (08:26)
[2022-02-25] MEDS: metroNIDAZOLE 500 MG TAB PO SCH ×3 (08:26→23:06)
[2022-02-25] MEDS: BRINZOLAMIDE (AZOPT) OPS 10 ML BTL OPB SCH ×2 (08:26→14:57)
[2022-02-25] MEDS: ASPIRIN 81 MG ECTAB PO SCH (08:26)
[2022-02-25] MEDS: FOLIC ACID 400 MCG TAB PO SCH (08:27)
[2022-02-25] MEDS: CEROVITE ADV FORMULA TAB PO SCH (08:27)
[2022-02-25] MEDS: METOPROLOL TARTRATE 25 MG TAB PO SCH ×2 (08:27→20:36)
[2022-02-25] MEDS: TIMOLOL GFS 0.25% OPH SOLN 74 DROPS/5 ML BTL OPB SCH (08:27)
[2022-02-25] MEDS: PANTOprazole 40 MG TAB PO SCH (08:27)
[2022-02-25] MEDS: HYDROCORTISONE SOD 25 MG in SYRINGE 0 ML IV SCH ×2 (08:27→20:36)
[2022-02-25] MEDS: THIAMINE HCL 100 MG TAB PO SCH (08:27)
[2022-02-25] MEDS: SENNA 8.6 MG TAB PO SCH (08:27)
[2022-02-25] MEDS: POLYETHYLENE (MIRALAX) 17 GM PACK PO SCH (08:27)
[2022-02-25 09:44] LABS: Hematocrit (blood only) 26.7 % (42-52); Hemoglobin 8.6 g/dL (14.0-18.0); Mean Corpuscular Hemoglobin 32.5 pg (25-34); Mean Corpuscular Hgb Conc 32.2 g/dL (32-36); Mean Corpuscular Volume 100.8 fL (80-100); Mean Platelet Volume 9.6 fL (7.4-10.4); Platelet Count 443 K/uL (130-400); RDW Coefficient of Variation 14.8 % (11.5-14.5); RDW Standard Deviation 54.6 fL (36.4-46.3); Red Blood Count 2.65 M/uL (4.7-6.1); White Blood Count 16.26 K/uL (4.8-10.8)
[2022-02-25 10:06] LABS: Iron 28 mcg/dl (35-175); Total Iron Binding Cap Calc 189 mcg/dl (250-450); Transferrin (FE) Percent Satur 15 % (20-50); Unsaturated Iron Binding Cap 161 mcg/dl (155-355)
[2022-02-25 10:25] LABS: Ferritin 179.4 ng/ml (8-388)
[2022-02-25 10:31] LABS: Folate (Folic Acid) > 22.30 ng/ml (>5.38); Vitamin B12 438 pg/ml (180-914)
[2022-02-25 10:37] LABS: BUN Creatinine Ratio 20.2 (10-20); Calcium 7.7 mg/dl (8.5-10.1); Creatinine Clr Calc Pharmacy 45.2 ml/min; Est GFR (African American) 74.5 ml/min; Est GFR (Non-African American) 64.3 ml/min
[2022-02-25] MEDS ORDERED: POTASSIUM CHLORIDE CRTAB 20 MEQ TABCR PO STA (14:00)
[2022-02-25] MEDS: LORazepam 0.5 MG TAB PO PRN (20:34)
[2022-02-25] MEDS: ENOXAPARIN INJ 40 MG/0.4 ML SYR SQ SCH (20:34)
[2022-02-25] MEDS: ATORVASTATIN 40 MG TAB PO SCH (20:36)
[2022-02-25] MEDS: POTASSIUM CHLORIDE CRTAB 20 MEQ TABCR PO SCH (20:37)
--- NOTE | 2022-02-25 20:53 | Hospitalist Progress Note ---
Date of Service February 25, 2022 Assessment & Plan (1) Sepsis: Plan: Resolved. 2nd to LLE cellulitis with L great toe gangrene. Blood cx's remain negative. Cont broad-spectrum IV abx. (2) Left leg cellulitis: Plan: cont to improve. minimal residual infection over mueller, and mild over L foot. Cont cefepime, flagyl and IV vancomycin given severity of the infection but especially the left great toe gangrene. Doppler LLE neg for DVT. CT of the LLE without abscess, nec fasc, deeper infection or hematoma. (3) Gangrene of toe of left foot: Plan: Left great toe. Ortho consult by Dr Woodward appreciated. Waiting for toe to completely demarcate which will then determine timing of surgery, how much amputation he will need, etc. I did discuss this with Dr Woodward by phone 02/24/22. (4) Crohn's disease: Plan: Chronically on prednisone 10 mg daily. Remains on stress dose steroids with hydrocortisone. Wean to PO prednisone tomorrow 20mg daily, then continue weaning. Follows with Fanny GALLEGOS. No issues at this time. (5) Coronary artery disease: Plan: s/p CABG in 2016. Continue statin, metoprolol, with nitroglycerin as needed. Currently on DAPT with aspirin and Plavix due to recent lower extremity angioplasty. (6) Peripheral arterial disease: Plan: Continue DAPT with aspirin, Plavix, statin. Pain control for ischemic L great toe - see above. Follows with Dr. Errol Bay. Unfortunately, based on last office encounter, very little if anything can be done to salvage the L great toe or improve his arterial circulation. CTA LLE findings noted from admission. (7) CKD (chronic kidney disease), stage III: Plan: BMP remains stable. repeat BMP am. (8) Hypertension: Plan: Cont beta mac (9) Hyperlipidemia: Plan: Continue statin. (10) Gastroesophageal reflux disease: Plan: Continue PPI. (11) Glaucoma: Plan: Continue timolol drops, brinzolamide drops, PreserVision. (12) Generalized anxiety disorder: Plan: Ativan prn at HS. (13) Acute metabolic encephalopathy: Plan: 2nd to #1, #2. resolved. Plan: DVT proph - lovenox PT, OT evals requested - likely to need rehab updated pt's daughter by phone yesterday evening and son-in-law at bedside today can likely d/c tele tomorrow and send to med/surg then Admission and Anticipated Discharge Date Admission Date: February 22, 2022 Subjective tele overnight wnl no new complaints resting comfortably LLE pain largely controlled w/ meds son-in-law at bedside Review of Systems Review of Systems: gen - no fevers or chills cv - no cp or orthopnea pulm - no dyspnea GI - no abd pain, no nausea or emesis Physical Exam Physical Exam: gen - a/o x 3, looks good today mouth - MMM neck - no JVD heart - RRR, s1 s2, no murmur lungs - CTA b/l abd - distension unchanged; BS+; NT ext - < 1+ edema of left leg; pulses left foot 1+, right foot 1-2+ skin - cellulitis from left knee down to entire foot again improved with less erythema (fairly minimal over mueller, and mild over L dorsum foot); gangrene of L great toe worse - distal 1/2 of toe completely white/ischemic and proximal toe very black; no cap refill of L great toe; cap refill dorsum of L foot <2 seconds; necrotic R great toe psych - awake, alert Results & Data Results & Data ([facility]) Vital Signs (Past 12 Hours) Vital Signs Temp Pulse Resp BP Pulse Ox 02/25/22 18:16 36.8 C 79 18 155/75 H 95 02/25/22 15:34 36.7 C 79 18 157/83 H 95 02/25/22 11:32 36.8 C 78 18 142/66 H 96 Laboratory Results Laboratory Results - last 24 hr 02/25/22 02/25/22 02/25/22 08:25 08:25 08:25 WBC 16.26 H RBC 2.65 L Hgb 8.6 L Hct 26.7 L MCV 100.8 H MCH 32.5 MCHC 32.2 RDW Std Deviation 54.6 H RDW Coeff of Mayte 14.8 H Plt Count 443 H MPV 9.6 Sodium 142 Potassium 3.0 L Chloride 114 H Carbon Dioxide 19 L Anion Gap 9 BUN 21 Creatinine 1.04 Est Cr Clr Drug Dosing 45.2 Est GFR ( Amer) 74.5 Est GFR (Non-Af Amer) 64.3 BUN/Creatinine Ratio 20.2 H Glucose 128 H Calcium 7.7 L Iron 28 L TIBC 189 L Unsaturated IBC 161 Transferrin % Sat 15 L Ferritin 179.4 Vitamin B12 Folate TSH 02/25/22 02/25/22 08:25 08:25 WBC RBC Hgb Hct MCV MCH MCHC RDW Std Deviation RDW Coeff of Mayte Plt Count MPV Sodium Potassium Chloride Carbon Dioxide Anion Gap BUN Creatinine Est Cr Clr Drug Dosing Est GFR ( Amer) Est GFR (Non-Af Amer) BUN/Creatinine Ratio Glucose Calcium Iron TIBC Unsaturated IBC Transferrin % Sat Ferritin Vitamin B12 438 Folate > 22.30 TSH 2.089 PG Care Time/CCT Total # of Minutes Spent Total Time Spent with Patient: Total time spent is greater than 50% in coordination of care (as documented) at patient's floor/unit and/or counseling patient: Coding Level of Care Code 12030 Subseq Hosp Care Lvl 2 Diagnoses Sepsis A41.9 Left leg cellulitis L03.116 Gangrene of toe of left foot I96 Crohn's disease K50.90 Coronary artery disease I25.10 Associated angina: without angina Coronary Disease-Associated Artery/Lesion type: [place] artery [place] vs. transplanted heart: [place] heart Peripheral arterial disease I73.9 CKD (chronic kidney disease), stage III N18.3 Hypertension I10 Hypertension type: essential hypertension Hyperlipidemia E78.5 Gastroesophageal reflux disease K21.9 Glaucoma H40.9 Generalized anxiety disorder F41.1 Acute metabolic encephalopathy G93.41 (1) Coronary artery disease Associated angina: without angina Coronary Disease-Associated Artery/Lesion type: [place] artery [place] vs. transplanted heart: [place] heart Qualified Code(s): I25.10 - Atherosclerotic heart disease of [place] coronary artery without angina pectoris (2) Hypertension Hypertension type: essential hypertension Qualified Code(s): I10 - Essential (primary) hypertension
[2022-02-25] MEDS: ACETAMINOPHEN 500 MG TAB PO SCH (21:44)
[2022-02-25] MEDS: diphenhydrAMINE Capsule 25 MG CAP PO SCH (21:44)
[2022-02-26] MEDS: CEFEPIME 2,000 MG in SYRINGE 0 ML IV SCH ×2 (00:56→12:48)
[2022-02-26] MEDS: VANCOMYCIN HCL 1,000 MG in SODIUM CHLORIDE 0.9% 250 ML IV SCH ×2 (00:57→18:32)
[2022-02-26] MEDS: HYDROCODONE/ACETAMOPHEN 5/325MG TAB PO PRN (05:17)
[2022-02-26] MEDS: CLOPIDOGREL BISULFATE 75 MG TAB PO SCH (08:53)
[2022-02-26] MEDS: metroNIDAZOLE 500 MG TAB PO SCH ×2 (08:53→15:50)
[2022-02-26] MEDS: FOLIC ACID 400 MCG TAB PO SCH (08:53)
[2022-02-26] MEDS: CALCIUM 600MG + VIT D 400 IU TAB PO SCH (08:53)
[2022-02-26] MEDS: POLYETHYLENE (MIRALAX) 17 GM PACK PO SCH (08:53)
[2022-02-26] MEDS: ASPIRIN 81 MG ECTAB PO SCH (08:53)
[2022-02-26] MEDS: CEROVITE ADV FORMULA TAB PO SCH (08:53)
[2022-02-26] MEDS: SENNA 8.6 MG TAB PO SCH (08:53)
[2022-02-26] MEDS: PANTOprazole 40 MG TAB PO SCH (08:53)
[2022-02-26] MEDS: METOPROLOL TARTRATE 25 MG TAB PO SCH ×2 (08:53→20:18)
[2022-02-26] MEDS: predniSONE 20 MG TAB PO SCH (08:53)
[2022-02-26] MEDS: BRINZOLAMIDE (AZOPT) OPS 10 ML BTL OPB SCH ×2 (08:54→15:49)
[2022-02-26] MEDS: THIAMINE HCL 100 MG TAB PO SCH (08:54)
[2022-02-26] MEDS: TIMOLOL GFS 0.25% OPH SOLN 74 DROPS/5 ML BTL OPB SCH (08:54)
[2022-02-26] MEDS: POTASSIUM CHLORIDE CRTAB 20 MEQ TABCR PO SCH ×3 (08:58→20:14)
[2022-02-26 11:12] LABS: Eosinophils # (auto) 0.04 K/uL (0-0.5); Eosinophils % (auto) 0.3 %; Hematocrit (blood only) 25.4 % (42-52); Hemoglobin 8.2 g/dL (14.0-18.0); Immature Granulocytes # (auto) 0.06 K/uL (0.00-0.02); Immature Granulocytes % (auto) 0.5 %; Lymphocytes % (auto) 4.7 %; Mean Corpuscular Hemoglobin 32.7 pg (25-34); Mean Corpuscular Hgb Conc 32.3 g/dL (32-36); Mean Corpuscular Volume 101.2 fL (80-100); Mean Platelet Volume 9.2 fL (7.4-10.4); Monocytes # (auto) 1.16 K/uL (0.11-0.59); Monocytes % (auto) 9.1 %; Neutrophils # (auto) 10.87 K/uL (1.4-6.5); Neutrophils % (auto) 85.4 %; Platelet Count 443 K/uL (130-400); RDW Coefficient of Variation 14.8 % (11.5-14.5); RDW Standard Deviation 54.6 fL (36.4-46.3); Red Blood Count 2.51 M/uL (4.7-6.1); White Blood Count 12.73 K/uL (4.8-10.8)
[2022-02-26 11:28] LABS: BUN Creatinine Ratio 17.2 (10-20); Calcium 7.6 mg/dl (8.5-10.1); Creatinine Clr Calc Pharmacy 47.4 ml/min; Est GFR (Non-African American) 68.2 ml/min; Potassium 3.4 mmol/L (3.5-5.1)
--- NOTE | 2022-02-26 14:33 | Progress Notes ---
DATE OF NOTE: 02/26/2022 The patient is resting comfortably in bed. He is feeling a lot better. His birthday is coming up on 03/01/2023. He is anxious to get home to see his . His white count has diminished to 13. His hemoglobin is 8, hematocrit is 25, platelets are 443. His PRP is noted. He had a venous Doppler noel dy which showed no evidence of DVT, but he did have the fluid collection in his calf. He then had a CT scan which showed essentially extensive subcutaneous edema. In regards to his exam, the left big toe shows progressive necrosis. Dry gangrene. There is some erythema emanating from this up the med ial border of the foot into the ankle area. He has good movement of the knee. Erythema and tenderne ss of the mueller area and calf has essentially resolved. He can move the ankle, but does note some sor eness much better than he was. At this time, I would recommend that we try to resolve the cellulitis as best as possible. Demarcati on is progressing. I anticipate the possibility of some surgery in the future if he so chooses to re move the necrotic left big toe, and we may consider something on the right as well. We will have to explore the options of whether this would be a partial first ray resection or something like a transm etatarsal amputation. Job ID: [id number]
[2022-02-26] MEDS ORDERED: VANCOMYCIN TROUGH ONE (16:00)
--- NOTE | 2022-02-26 17:56 | Hospitalist Progress Note ---
Date of Service February 26, 2022 Assessment & Plan (1) Sepsis: Plan: Resolved. 2nd to LLE cellulitis with L great toe gangrene. Blood cx's remain negative. Cont broad-spectrum IV abx mainly to cover the L great toe (cefepime/vanco/flagyl). (2) Left leg cellulitis: Plan: mostly resolved. minimal residual infection over dorsum of L foot. mueller cellulitis resolved. Cont cefepime, flagyl and IV vancomycin given the left great toe gangrene. Doppler LLE neg for DVT. CT of the LLE without abscess, nec fasc, deeper infection or hematoma. (3) Gangrene of toe of left foot: Plan: Left great toe. "dry" gangrene. Ortho consult by Dr Woodward appreciated. Demarcation continues. Likely amputation surgery soon - next week? Defer that decision/timing to Dr Woodward. (4) Crohn's disease: Plan: Chronically on prednisone 10 mg daily. s/p IV stress dose steroids. Now on prednisone 20mg daily. Cont this for 2 days, then back to 10m/day. Follows with Fanny GALLEGOS. No issues at this time. (5) Coronary artery disease: Plan: s/p CABG in 2016. Continue statin, metoprolol, with nitroglycerin as needed. Currently on DAPT with aspirin and Plavix due to recent lower extremity angioplasty. (6) Peripheral arterial disease: Plan: Continue DAPT with aspirin, Plavix, statin. Pain control for ischemic L great toe - see above. Follows with Dr. Errol Bay. Unfortunately, based on last office encounter, very little if anything can be done to salvage the L great toe or improve his arterial circulation. CTA LLE findings noted from admission. (7) CKD (chronic kidney disease), stage III: Plan: BMP remains stable. repeat BMP am. (8) Hypertension: Plan: Cont beta mac (9) Hyperlipidemia: Plan: Continue statin. (10) Gastroesophageal reflux disease: Plan: Continue PPI. (11) Glaucoma: Plan: Continue timolol drops, brinzolamide drops, PreserVision. (12) Generalized anxiety disorder: Plan: Ativan prn at HS. (13) Acute metabolic encephalopathy: Plan: resolved. Plan: DVT proph - lovenox PT, OT evals requested - likely to need rehab updated pt's daughter and son-in-law several times this week d/c tele move to med/surg today replace low K Admission and Anticipated Discharge Date Admission Date: February 22, 2022 Subjective tele overnight wnl no new complaints pain in LLE/foot controlled today feels good eating well Review of Systems Review of Systems: cv - no chest pain, no orthopnea pulm - no cough GI - no pain or emesis Physical Exam Physical Exam: gen - a/o x 3, pleasant mouth - MMM neck - no JVD heart - RRR, s1 s2, no murmur lungs - CTA b/l abd - distension unchanged; BS+; NT; no HSM ext - trace edema of left leg; no edema right leg; pulses left foot 1+, right foot 1-2+ skin - residual cellulitis only on dorsum of left foot; cap refill of dorsum of left foot wnl; gangrene of L great toe unchanged from yesterday's exam; necrotic R great toe psych - awake, alert Results & Data Results & Data ([facility]) Vital Signs (Past 12 Hours) Vital Signs Temp Pulse Resp BP BP Pulse Ox Pulse Ox 02/26/22 15:39 36.5 C 80 18 168/80 H 97 02/26/22 10:56 96 02/26/22 10:39 36.9 C 76 18 145/80 H 98 02/26/22 08:10 36.9 C 66 20 161/80 H 97 Laboratory Results Laboratory Results - last 24 hr 02/26/22 02/26/22 10:51 10:52 WBC 12.73 H RBC 2.51 L Hgb 8.2 L Hct 25.4 L MCV 101.2 H MCH 32.7 MCHC 32.3 RDW Std Deviation 54.6 H RDW Coeff of Mayte 14.8 H Plt Count 443 H MPV 9.2 Immature Gran % (Auto) 0.5 Neut % (Auto) 85.4 Lymph % (Auto) 4.7 Bonner % (Auto) 9.1 Eos % (Auto) 0.3 Baso % (Auto) 0.0 Neut # (Auto) 10.87 H Lymph # (Auto) 0.60 L [place] # (Auto) 1.16 H Eos # (Auto) 0.04 Baso # (Auto) 0.00 Immature Gran # (Auto) 0.06 H Sodium 140 Potassium 3.4 L Chloride 113 H Carbon Dioxide 20 L Anion Gap 7 BUN 17 Creatinine 0.99 Est Cr Clr Drug Dosing 47.4 Est GFR ( Amer) 79.0 Est GFR (Non-Af Amer) 68.2 BUN/Creatinine Ratio 17.2 Glucose 118 H Calcium 7.6 L Magnesium 2.0 PG Care Time/CCT Total # of Minutes Spent Total Time Spent with Patient: Total time spent is greater than 50% in coordination of care (as documented) at patient's floor/unit and/or counseling patient: Coding Level of Care Code 11395 Subseq Hosp Care Lvl 2 Diagnoses Sepsis A41.9 Left leg cellulitis L03.116 Gangrene of toe of left foot I96 Crohn's disease K50.90 Coronary artery disease I25.10 Associated angina: without angina Coronary Disease-Associated Artery/Lesion type: [place] artery [place] vs. transplanted heart: [place] heart Peripheral arterial disease I73.9 CKD (chronic kidney disease), stage III N18.3 Hypertension I10 Hypertension type: essential hypertension Hyperlipidemia E78.5 Gastroesophageal reflux disease K21.9 Glaucoma H40.9 Generalized anxiety disorder F41.1 Acute metabolic encephalopathy G93.41 (1) Coronary artery disease Associated angina: without angina Coronary Disease-Associated Artery/Lesion type: [place] artery [place] vs. transplanted heart: [place] heart Qualified Code(s): I25.10 - Atherosclerotic heart disease of [place] coronary artery without angina pectoris (2) Hypertension Hypertension type: essential hypertension Qualified Code(s): I10 - Essential (primary) hypertension
[2022-02-26] MEDS: ATORVASTATIN 40 MG TAB PO SCH (20:18)
[2022-02-26] MEDS: ACETAMINOPHEN 500 MG TAB PO SCH (20:18)
[2022-02-26] MEDS: LORazepam 0.5 MG TAB PO PRN (20:18)
[2022-02-26] MEDS: diphenhydrAMINE Capsule 25 MG CAP PO SCH (20:18)
[2022-02-26] MEDS: ENOXAPARIN INJ 40 MG/0.4 ML SYR SQ SCH (20:21)
[2022-02-27] MEDS: CEFEPIME 2,000 MG in SYRINGE 0 ML IV SCH ×2 (00:39→13:32)
[2022-02-27] MEDS: metroNIDAZOLE 500 MG TAB PO SCH ×3 (00:39→16:02)
[2022-02-27 06:43] LABS: BUN Creatinine Ratio 16.2 (10-20); Calcium 7.9 mg/dl (8.5-10.1); Creatinine Clr Calc Pharmacy 46.9 ml/min; Est GFR (Non-African American) 68.2 ml/min; Potassium 3.6 mmol/L (3.5-5.1)
[2022-02-27] MEDS: TIMOLOL GFS 0.25% OPH SOLN 74 DROPS/5 ML BTL OPB SCH (07:34)
[2022-02-27] MEDS: ASPIRIN 81 MG ECTAB PO SCH (07:34)
[2022-02-27] MEDS: CALCIUM 600MG + VIT D 400 IU TAB PO SCH (07:35)
[2022-02-27] MEDS: POTASSIUM CHLORIDE CRTAB 20 MEQ TABCR PO SCH ×2 (07:35→08:38)
[2022-02-27] MEDS: METOPROLOL TARTRATE 25 MG TAB PO SCH ×2 (07:35→20:16)
[2022-02-27] MEDS: CLOPIDOGREL BISULFATE 75 MG TAB PO SCH (07:35)
[2022-02-27] MEDS: PANTOprazole 40 MG TAB PO SCH (07:35)
[2022-02-27] MEDS: predniSONE 20 MG TAB PO SCH (07:35)
[2022-02-27] MEDS: CEROVITE ADV FORMULA TAB PO SCH (07:35)
[2022-02-27] MEDS: FOLIC ACID 400 MCG TAB PO SCH (07:36)
[2022-02-27] MEDS: THIAMINE HCL 100 MG TAB PO SCH (07:36)
[2022-02-27] MEDS: BRINZOLAMIDE (AZOPT) OPS 10 ML BTL OPB SCH ×2 (07:36→16:02)
[2022-02-27] MEDS: SENNA 8.6 MG TAB PO SCH (07:36)
[2022-02-27] MEDS: POLYETHYLENE (MIRALAX) 17 GM PACK PO SCH (07:36)
--- NOTE | 2022-02-27 08:32 | Pharmacy Report ---
Pharmacy Vanc AUC Short Note - Date of Service February 27, 2022 - Assessment & Plan Assessment 86 year old M receiving VANCOMYCIN/CEFEPIME/FLAGYL for treatment of leg cellulitis/gangrene toe infection. Blood cultures negative thus far. Plan Vancomycin * AUC/MENA is the preferred PK/PD target for vancomycin * AUC guided dosing is effective and associated with decreased risk of nephrotoxicity compared to traditional trough targets * Random vancomycin level drawn at 0530 came back at ~19.3 mcg/ml. Next dose of vancomycin is due for 1300 today. * Renal function is stable. Will continue vancomycin 1000mg IV q18h. This regimen is estimated to achieve an AUC of 547 mg/L.hr (trough of ~17 mcg/ml). * Plan to recheck another level in a couple of days if vancomycin is continued. Pharmacy will continue to follow and will adjust dose/frequency as necessary. Thank you.
[2022-02-27] MEDS: HYDROCODONE/ACETAMOPHEN 5/325MG TAB PO PRN (11:42)
[2022-02-27] MEDS: VANCOMYCIN HCL 1,000 MG in SODIUM CHLORIDE 0.9% 250 ML IV SCH (13:37)
[2022-02-27] MEDS ORDERED: POTASSIUM CHLORIDE CRTAB 20 MEQ TABCR PO STA (14:50)
[2022-02-27] MEDS ORDERED: FUROSEMIDE INJ 20 MG/2 ML VIAL IV ONE (14:50)
[2022-02-27] MEDS: ADVANCED PROBIOTIC 1250 MG CAPSULE PO SCH (16:01)
[2022-02-27] MEDS: MELATONIN 3 MG TAB PO SCH (20:16)
[2022-02-27] MEDS: ENOXAPARIN INJ 40 MG/0.4 ML SYR SQ SCH (20:16)
[2022-02-27] MEDS: ATORVASTATIN 40 MG TAB PO SCH (20:17)
[2022-02-27] MEDS: diphenhydrAMINE Capsule 25 MG CAP PO SCH (20:19)
[2022-02-27] MEDS: ACETAMINOPHEN 500 MG TAB PO SCH (20:19)
--- NOTE | 2022-02-27 22:56 | Hospitalist Progress Note ---
Date of Service February 27, 2022 Assessment & Plan (1) Sepsis: Plan: Resolved. 2nd to LLE cellulitis with L great toe gangrene. Blood cx's remain negative. Cont broad-spectrum IV abx mainly to cover the L great toe (cefepime/vanco/flagyl) until surgical intervention is performed. (2) Left leg cellulitis: Plan: mostly resolved. minimal residual infection over dorsum of L foot. mueller cellulitis resolved. Cont cefepime, flagyl and IV vancomycin given the left great toe gangrene. Doppler LLE neg for DVT. CT of the LLE without abscess, nec fasc, deeper infection or hematoma. (3) Gangrene of toe of left foot: Plan: Left great toe. "dry" gangrene. Ortho consult by Dr Woodward appreciated. Demarcation continues. Likely amputation surgery soon - this week? Defer that decision/timing to Dr Woodward. Cont pain meds prn. (4) Crohn's disease: Plan: Chronically on prednisone 10 mg daily. s/p IV stress dose steroids. Now on prednisone 20mg daily. Wean to 10mg/day starting 02/28/22. Follows with Fanny GALLEGOS. No issues at this time. (5) Coronary artery disease: Plan: s/p CABG in 2016. Continue statin, metoprolol, with nitroglycerin as needed. Currently on DAPT with aspirin and Plavix due to recent lower extremity angioplasty. (6) Peripheral arterial disease: Plan: Continue DAPT with aspirin, Plavix, statin. Pain control for ischemic L great toe - see above. Follows with Dr. Errol Bay. Unfortunately, based on last office encounter, very little if anything can be done to salvage the L great toe or improve his arterial circulation. CTA LLE findings noted from admission. (7) CKD (chronic kidney disease), stage III: Plan: BMP remains stable. repeat BMP am. Give lasix 20mg IV x 1 today to diurese - some of his dyspnea may be pulmonary edema. (8) Hypertension: Plan: Cont beta mac If BPs remain high then increase to 50mg BID (9) Hyperlipidemia: Plan: Continue statin. (10) Gastroesophageal reflux disease: Plan: Continue PPI. (11) Glaucoma: Plan: Continue timolol drops, brinzolamide drops, PreserVision. (12) Generalized anxiety disorder: Plan: Ativan prn at HS. Stop the benadryl - could be making #13 worse. (13) Acute metabolic encephalopathy: Plan: had resolved but now present once again. hospital psychosis in setting of numerous active health issues. reinforce sleep/wake cycle. stop benadryl. he is on chronic ativan at home - will leave for now. start melatonin. (14) Skin tear: Plan: right arm adaptic or xeroform 4x4's then kerlix formal wound care consult for recs Plan: DVT proph - lovenox PT, OT evals requested - likely to need rehab updated pt's daughter and son-in-law several times this week including latter today Admission and Anticipated Discharge Date Admission Date: February 22, 2022 Subjective pt's son-in-law was at bedside today we both agreed that Mr Corona was more confused today Mr Corona reports he is sleeping very poorly continues to be quite anxious eating is very poor c/o pain in left foot he has draining lesion on right arm - started today he can't give details about what happened Review of Systems Review of Systems: gen - fatigue, poor appetite cv - no orthopnea, no cp pulm - episodes of dyspnea; no cough GI - no abd pain; no N/V; moving his bowels Physical Exam Physical Exam: gen - confused, anxious, loses his train of thought at times mouth - MMM neck - mild JVD present heart - RRR, s1 s2, no murmur lungs - CTA b/l abd - distension unchanged; BS+; NT; no HSM ext - trace edema of left leg; no edema right leg; pulses left foot 1+, right foot 1-2+ skin - residual cellulitis only on dorsum of left foot; cap refill of dorsum of left foot wnl; gangrene of L great toe unchanged from yesterday's exam; fish- mouthed skin tear right arm with underlying fascial exposure psych - awake, alert but confused Results & Data Results & Data ([facility]) Vital Signs (Past 12 Hours) Vital Signs Temp Pulse Resp BP Pulse Ox 02/27/22 20:24 37.0 C 79 23 154/79 H 94 02/27/22 15:06 36.7 C 81 20 155/85 H 98 Laboratory Results Laboratory Results - last 24 hr 02/27/22 02/27/22 02/27/22 05:24 05:24 09:00 Sodium 142 Potassium 3.6 Chloride 113 H Carbon Dioxide 20 L Anion Gap 9 BUN 16 Creatinine 0.99 Est Cr Clr Drug Dosing 46.9 Est GFR ( Amer) 79.0 Est GFR (Non-Af Amer) 68.2 BUN/Creatinine Ratio 16.2 Glucose 76 Calcium 7.9 L Nasal Screen MRSA (PCR) Negative Random Vancomycin 19.3 PG Care Time/CCT Total # of Minutes Spent Total Time Spent with Patient: Total time spent is greater than 50% in coordination of care (as documented) at patient's floor/unit and/or counseling patient: Coding Level of Care Code 42990 Subseq Hosp Care Lvl 2 Diagnoses Sepsis A41.9 Left leg cellulitis L03.116 Gangrene of toe of left foot I96 Crohn's disease K50.90 Coronary artery disease I25.10 Associated angina: without angina Coronary Disease-Associated Artery/Lesion type: [place] artery [place] vs. transplanted heart: [place] heart Peripheral arterial disease I73.9 CKD (chronic kidney disease), stage III N18.3 Hypertension I10 Hypertension type: essential hypertension Hyperlipidemia E78.5 Gastroesophageal reflux disease K21.9 Glaucoma H40.9 Generalized anxiety disorder F41.1 Acute metabolic encephalopathy G93.41 Skin tear (1) Coronary artery disease Associated angina: without angina Coronary Disease-Associated Artery/Lesion type: [place] artery [place] vs. transplanted heart: [place] heart Qualified Code(s): I25.10 - Atherosclerotic heart disease of [place] coronary artery without angina pectoris (2) Hypertension Hypertension type: essential hypertension Qualified Code(s): I10 - Essential (primary) hypertension
[2022-02-28] MEDS: HYDROCODONE/ACETAMOPHEN 5/325MG TAB PO PRN ×3 (00:01→15:55)
[2022-02-28] MEDS: VANCOMYCIN HCL 1,000 MG in SODIUM CHLORIDE 0.9% 250 ML IV SCH (06:12)
[2022-02-28] MEDS: THIAMINE HCL 100 MG TAB PO SCH (07:41)
[2022-02-28] MEDS: ASPIRIN 81 MG ECTAB PO SCH (07:41)
[2022-02-28] MEDS: CALCIUM 600MG + VIT D 400 IU TAB PO SCH (07:41)
[2022-02-28] MEDS: POTASSIUM CHLORIDE CRTAB 20 MEQ TABCR PO SCH (07:42)
[2022-02-28] MEDS: metroNIDAZOLE 500 MG TAB PO SCH ×4 (07:42→23:03)
[2022-02-28] MEDS: ADVANCED PROBIOTIC 1250 MG CAPSULE PO SCH (07:43)
[2022-02-28] MEDS: CLOPIDOGREL BISULFATE 75 MG TAB PO SCH (07:43)
[2022-02-28] MEDS: FOLIC ACID 400 MCG TAB PO SCH (07:43)
[2022-02-28] MEDS: CEROVITE ADV FORMULA TAB PO SCH (07:43)
[2022-02-28] MEDS: TIMOLOL GFS 0.25% OPH SOLN 74 DROPS/5 ML BTL OPB SCH (07:44)
[2022-02-28] MEDS: predniSONE 10 MG TABLET PO SCH (07:44)
[2022-02-28] MEDS: SENNA 8.6 MG TAB PO SCH (07:44)
[2022-02-28] MEDS: POLYETHYLENE (MIRALAX) 17 GM PACK PO SCH (07:44)
[2022-02-28] MEDS: METOPROLOL TARTRATE 25 MG TAB PO SCH (07:44)
[2022-02-28] MEDS: PANTOprazole 40 MG TAB PO SCH (07:44)
[2022-02-28] MEDS: BRINZOLAMIDE (AZOPT) OPS 10 ML BTL OPB SCH ×2 (07:45→15:48)
[2022-02-28 09:42] LABS: BUN Creatinine Ratio 14.3 (10-20); Calcium 8.2 mg/dl (8.5-10.1); Creatinine Clr Calc Pharmacy 44.2 ml/min; Est GFR (African American) 73.6 ml/min; Est GFR (Non-African American) 63.5 ml/min; Potassium 3.5 mmol/L (3.5-5.1)
[2022-02-28] MEDS ORDERED: FUROSEMIDE INJ 20 MG/2 ML VIAL IV ONE ×2 (09:44→10:14)
[2022-02-28] MEDS ORDERED: POTASSIUM CHLORIDE 10 MEQ TABCR PO STA (09:44)
[2022-02-28] MEDS ORDERED: METOPROLOL TARTRATE 25 MG TAB PO ONE (10:15)
--- NOTE | 2022-02-28 12:01 | Progress Notes ---
DATE OF NOTE: 02/28/2022. The patient reports improvement. No significant issues are noted. Afebrile. Vital signs are stable. PRP noted mostly within normal limits. The right big toe is necrotic. There is a 5 mm superficial wound from pressure due to the hard escha r from the first ray. The left big toe is necrotic mostly dorsally. This extends back to the proxim al phalanx area. Pedal pulses not palpable. Erythema is faint over the dorsum of the foot up the med ial leg. No minor tenderness. He has good range of motion. We will check an x-ray of the right foot. At this point, I think he is suitable for surgery. I woul d recommend bilateral partial first ray resections of the feet. There is a chance that this may not heal due to his dysvascularity in which case further surgery may be necessary including transmetatars al amputation. We will return this afternoon to discuss in the presence of his family and answer any questions or concerns that they may have. For the meantime, keep him on IV antibiotics. Keep prese nt treatment. We will need to hold any blood thinners suitable time before surgery, which is planned for this . Job ID: [id number]
[2022-02-28] MEDS: CEFEPIME 2,000 MG in SYRINGE 0 ML IV SCH ×2 (12:47)
[2022-02-28] MEDS: NYSTATIN SUSP 500,000 U/5 ML UDC PO SCH ×2 (15:59→20:14)
--- NOTE | 2022-02-28 16:16 | XRay Report ---
XR foot RT 2V CLINICAL HISTORY: right great toe necrosis TECHNIQUE: 3 views of the right foot were obtained. Comparison: Comparison is made to right foot radiograph 12/09/2021 FINDINGS: No evidence of bony erosion is seen. 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 The joint spaces are well preserved. Vascular calcifications are noted. IMPRESSION: No radiographic evidence of osteomyelitis. Status post first digit distal phalanx amputation. ACT 112: Negative or not required by law. Electronically signed by: Demarcus Parnell M.D. 02/28/2022 4:15 PM
--- NOTE | 2022-02-28 17:25 | Progress Notes ---
DATE OF NOTE: 02/28/2022. I met with the patient and his daughter. We talked about what is going on with his toes. I have rec ommended ablative surgery and they have agreed to proceed. We talked about the risks, benefits, reha b and recovery. We discussed about possibility for wound healing issues and the need for surgery at a higher level. Plan for surgery. Informed consent was obtained, we will hold [place] after tonight 's dose. Job ID: [id number]
[2022-02-28] MEDS: MELATONIN 3 MG TAB PO SCH (20:13)
[2022-02-28] MEDS: METOPROLOL TARTRATE 50 MG TAB PO SCH (20:13)
[2022-02-28] MEDS: LORazepam 0.5 MG TAB PO PRN (20:13)
[2022-02-28] MEDS: ATORVASTATIN 40 MG TAB PO SCH (20:13)
[2022-02-28] MEDS: ACETAMINOPHEN 500 MG TAB PO SCH (20:13)
[2022-02-28] MEDS: ENOXAPARIN INJ 40 MG/0.4 ML SYR SQ SCH (20:14)
--- NOTE | 2022-02-28 23:42 | Hospitalist Progress Note ---
Date of Service February 28, 2022 Assessment & Plan (1) Sepsis: Plan: Resolved. 2nd to LLE cellulitis with L great toe gangrene. Admission Blood cx's negative. Cont broad-spectrum IV abx mainly to cover the L great toe (cefepime/vanco/flagyl) until amputation is performed this . (2) Left leg cellulitis: Plan: resolved. had extended from just above the L knee down the entire mueller to the L foot. minimal residual infection over dorsum of L foot. Cont cefepime, flagyl and IV vancomycin to cover the left great toe gangrene. Doppler LLE neg for DVT. CT of the LLE without abscess, nec fasc, deeper infection or hematoma. Once toe is amputated can likely change IV to PO antibiotics; length of PO abx will depend on surgical margins, etc. (3) Gangrene of toe of left foot: Plan: Left great toe. "dry" gangrene. Ortho consult by Dr Woodward appreciated. His team debrided the toe at bedside today. Amputation of b/l great toes planned for 03/02/22. Cont pain meds prn in meantime along with IV abx. (4) Crohn's disease: Plan: Chronically on prednisone 10 mg daily. s/p IV stress dose steroids early in stay. Completed stress dose steroid taper and is back to usual dose of 10mg/day. Follows with Fanny GALLEGOS for Crohn's. No issues at this time. (5) Coronary artery disease: Plan: s/p CABG in 2016. Continue statin, metoprolol, with nitroglycerin as needed. Currently on DAPT with aspirin and Plavix due to recent lower extremity angioplasty. (6) Peripheral arterial disease: Plan: Continue DAPT with aspirin, Plavix, statin. Pain control for ischemic L great toe - see above. Follows with Dr. Errol [place]. Unfortunately, based on last office encounter, very little if anything can be done to salvage the L great toe or improve his arterial circulation. CTA LLE findings noted from admission. (7) CKD (chronic kidney disease), stage III: Plan: BMP remains stable today even following diuresis. Give lasix 20mg IV x 1 again today. BMP am. (8) Hypertension: Plan: Uncontrolled Increase his metoprolol to 50mg BID (9) Hyperlipidemia: Plan: Continue statin. (10) Gastroesophageal reflux disease: Plan: Continue PPI. (11) Glaucoma: Plan: Continue timolol drops, brinzolamide drops, PreserVision. (12) Generalized anxiety disorder: Plan: Ativan prn at HS. Stopped the benadryl - could be making #13 worse. (13) Acute metabolic encephalopathy: Plan: waxing/waning altered MS along with poor sleep and anxiety reinforce sleep/wake cycle. stopped benadryl. he is on chronic ativan at home - will leave for now. cont melatonin. (14) Skin tear: Plan: right arm xeroform guaze 4x4's then kerlix formal wound care consult requested for their opinion may benefit from dedicated vit C/zinc supplementation cont MVI (15) Candidiasis of mouth and esophagus: Plan: nystatin 5cc qid swish/spit Plan: DVT proph - lovenox PT, OT evals requested - likely to need rehab updated pt's daughter at bedside today she is aware of amputation planned this Admission and Anticipated Discharge Date Admission Date: February 22, 2022 Subjective patient slept better last night during the visit he wasn't as short of breath as usual he still continues with episodes of anxiety mild left foot pain only eating fair today (had been poor) pt's daughter arrived during my rounds - made her aware that b/l toe amputation will likely occur this Review of Systems Review of Systems: gen - no fevers; fatigue/weakness cv - no orthopnea pulm - no cough GI - no diarrhea; no nausea Physical Exam Physical Exam: gen - less confusion today; less anxiety today; NAD mouth - MMM; thrush plaques buccal mucosa neck - JVD resolved heart - RRR, s1 s2, no murmur lungs - CTA b/l; modestly decreased BS bases abd - distension unchanged; BS+; NT; no HSM ext - trace edema of left leg; no edema right leg; pulses left foot 1+, right foot 1-2+ skin - scant cellulitis dorsum of left foot; cap refill of dorsum of left foot wnl; gangrene of L great toe unchanged from yesterday's exam; fish-mouthed skin tear right arm with underlying fascial exposure unchanged; right great toe - black, necrotic - no change; no cellulitis of the right foot psych - awake, alert, a bit anxious at times but not as severe as previous Results & Data Results & Data ([facility]) Vital Signs (Past 12 Hours) Vital Signs Temp Pulse Resp BP Pulse Ox 02/28/22 22:53 37.0 C 84 19 189/79 H 96 02/28/22 15:57 36.6 C 85 16 142/79 H 96 Laboratory Results Laboratory Results - last 24 hr 02/28/22 08:14 Sodium 139 Potassium 3.5 Chloride 107 Carbon Dioxide 24 Anion Gap 8 BUN 15 Creatinine 1.05 Est Cr Clr Drug Dosing 44.2 Est GFR ( Amer) 73.6 Est GFR (Non-Af Amer) 63.5 BUN/Creatinine Ratio 14.3 Glucose 80 Calcium 8.2 L PG Care Time/CCT Total # of Minutes Spent Total Time Spent with Patient: Total time spent is greater than 50% in coordination of care (as documented) at patient's floor/unit and/or counseling patient: Coding Level of Care Code 36427 Subseq Hosp Care Lvl 3 Diagnoses Sepsis A41.9 Left leg cellulitis L03.116 Gangrene of toe of left foot I96 Crohn's disease K50.90 Coronary artery disease I25.10 Associated angina: without angina Coronary Disease-Associated Artery/Lesion type: [place] artery [place] vs. transplanted heart: [place] heart Peripheral arterial disease I73.9 CKD (chronic kidney disease), stage III N18.3 Hypertension I10 Hypertension type: essential hypertension Hyperlipidemia E78.5 Gastroesophageal reflux disease K21.9 Glaucoma H40.9 Generalized anxiety disorder F41.1 Acute metabolic encephalopathy G93.41 Skin tear Candidiasis of mouth and esophagus B37.81; B37.0 (1) Coronary artery disease Associated angina: without angina Coronary Disease-Associated Artery/Lesion type: [place] artery [place] vs. transplanted heart: [place] heart Qualified Code(s): I25.10 - Atherosclerotic heart disease of [place] coronary artery without angina pectoris (2) Hypertension Hypertension type: essential hypertension Qualified Code(s): I10 - Essential (primary) hypertension
[2022-03-01] MEDS: VANCOMYCIN HCL 1,000 MG in SODIUM CHLORIDE 0.9% 250 ML IV SCH ×2 (00:59→19:17)
[2022-03-01] MEDS: CEFEPIME 2,000 MG in SYRINGE 0 ML IV SCH ×2 (01:00→13:57)
[2022-03-01] MEDS: HYDROCODONE/ACETAMOPHEN 5/325MG TAB PO PRN (09:11)
[2022-03-01] MEDS: SENNA 8.6 MG TAB PO SCH (09:13)
[2022-03-01] MEDS: CALCIUM 600MG + VIT D 400 IU TAB PO SCH (09:13)
[2022-03-01] MEDS: ASPIRIN 81 MG ECTAB PO SCH (09:13)
[2022-03-01] MEDS: CLOPIDOGREL BISULFATE 75 MG TAB PO SCH (09:14)
[2022-03-01] MEDS: FOLIC ACID 400 MCG TAB PO SCH (09:14)
[2022-03-01] MEDS: CEROVITE ADV FORMULA TAB PO SCH (09:15)
[2022-03-01] MEDS: METOPROLOL TARTRATE 50 MG TAB PO SCH ×2 (09:15→20:56)
[2022-03-01] MEDS: THIAMINE HCL 100 MG TAB PO SCH (09:15)
[2022-03-01] MEDS: POTASSIUM CHLORIDE CRTAB 20 MEQ TABCR PO SCH ×2 (09:15→10:44)
[2022-03-01] MEDS: metroNIDAZOLE 500 MG TAB PO SCH ×3 (09:16→23:44)
[2022-03-01] MEDS: PANTOprazole 40 MG TAB PO SCH (09:16)
[2022-03-01] MEDS: predniSONE 10 MG TABLET PO SCH (09:16)
[2022-03-01] MEDS: TIMOLOL GFS 0.25% OPH SOLN 74 DROPS/5 ML BTL OPB SCH (09:17)
[2022-03-01] MEDS: BRINZOLAMIDE (AZOPT) OPS 10 ML BTL OPB SCH ×2 (09:18→15:59)
[2022-03-01] MEDS: ADVANCED PROBIOTIC 1250 MG CAPSULE PO SCH (09:18)
[2022-03-01] MEDS: NYSTATIN SUSP 500,000 U/5 ML UDC PO SCH ×5 (09:19→20:57)
[2022-03-01] MEDS: POLYETHYLENE (MIRALAX) 17 GM PACK PO SCH (10:05)
[2022-03-01 10:11] LABS: Hematocrit (blood only) 32.3 % (42-52); Hemoglobin 10.6 g/dL (14.0-18.0); Mean Corpuscular Hemoglobin 33.2 pg (25-34); Mean Corpuscular Hgb Conc 32.8 g/dL (32-36); Mean Corpuscular Volume 101.3 fL (80-100); Mean Platelet Volume 9.5 fL (7.4-10.4); Nucleated RBC # (auto) 0.05 K/uL (0-0); Nucleated RBC % (auto) 0.3 %; Platelet Count 509 K/uL (130-400); RDW Coefficient of Variation 15.1 % (11.5-14.5); RDW Standard Deviation 55.4 fL (36.4-46.3); Red Blood Count 3.19 M/uL (4.7-6.1); White Blood Count 13.91 K/uL (4.8-10.8)
[2022-03-01 10:23] LABS: BUN Creatinine Ratio 15.1 (10-20); Est GFR (African American) 72.3 ml/min; Est GFR (Non-African American) 62.4 ml/min; Potassium 3.3 mmol/L (3.5-5.1)
[2022-03-01] MEDS ORDERED: POTASSIUM CHLORIDE CRTAB 20 MEQ TABCR PO STA (10:39)
[2022-03-01] MEDS ORDERED: POTASSIUM CHLORIDE 10 MEQ / 100ML WTR IV STA (10:47)
[2022-03-01] MEDS ORDERED: MAGNESIUM SULFATE / D5W 1 GM/100 ML BAG IV ONE (10:47)
[2022-03-01] MEDS ORDERED: MoRPHine SULFATE 2 MG/ML CARP IV PRN (11:19)
[2022-03-01] MEDS: POTASSIUM CHLORIDE / WTR 10 MEQ/100 ML PLCT IV SCH ×3 (11:38→14:40)
[2022-03-01] MEDS: ACETAMINOPHEN 500 MG TAB PO SCH ×2 (14:11→20:56)
[2022-03-01] MEDS ORDERED: POTASSIUM CHLORIDE CRTAB 20 MEQ TABCR PO ONE (17:00)
--- NOTE | 2022-03-01 17:29 | Hospitalist Progress Note ---
Date of Service March 01, 2022 Assessment & Plan (1) Sepsis: Plan: Resolved. 2nd to LLE cellulitis with L great toe gangrene. Admission Blood cx's negative. Cont broad-spectrum IV abx mainly to cover the L great toe (cefepime/vanco/flagyl) until amputation is performed 03/02/2022. (2) Left leg cellulitis: Plan: resolved. had extended from just above the L knee down the entire mueller to the L foot. minimal residual infection over dorsum of L foot. Cont cefepime, flagyl and IV vancomycin to cover the left great toe gangrene. Doppler LLE neg for DVT. CT of the LLE without abscess, nec fasc, deeper infection or hematoma. Once toe is amputated can likely change IV to PO antibiotics; length of PO abx will depend on surgical margins, etc. (3) Acute metabolic encephalopathy: Plan: Persistent chronic from ongoing infection (4) Gangrene of toe of left foot: Plan: Left great toe. "dry" gangrene. Ortho consult by Dr Woodward appreciated. His team debrided the toe at bedside today. Amputation of b/l great toes planned for 03/02/22. Cont pain meds prn in meantime along with IV abx. (5) Crohn's disease: Plan: Stablechronically on prednisone 10 mg daily. s/p IV stress dose steroids early in stay. Completed stress dose steroid taper and is back to usual dose of 10mg/day. Follows with Fanny GALLEGOS for Crohn's. No issues at this time. (6) Coronary artery disease: Plan: s/p CABG in 2016. Continue statin, metoprolol, with nitroglycerin as needed. Currently on DAPT with aspirin and Plavix due to recent lower extremity angioplasty. (7) Peripheral arterial disease: Plan: Continue DAPT with aspirin, Plavix, statin. Pain control for ischemic L great toe - see above. Follows with Dr. Errol Bay. Unfortunately, based on last office encounter, very little if anything can be done to salvage the L great toe or improve his arterial circulation. CTA LLE findings noted from admission. (8) Hypertension: Plan: Uncontrolled Increased metoprolol to 50mg BID (9) CKD (chronic kidney disease), stage III: Plan: BMP remains stable today even following diuresis. (10) Skin tear: Plan: Wound care nurses and dietary supplementation (11) Candidiasis of mouth and esophagus: Plan: nystatin 5cc qid swish/spit (12) Glaucoma: Plan: Continue timolol drops, brinzolamide drops, PreserVision. Plan: DVT proph - lovenox PT, OT evals requested - likely to need rehab Admission and Anticipated Discharge Date Admission Date: February 22, 2022 Subjective pt was in foul mood today, refusing po medication c/o pain in feet, 7/10 mostly distally, no nausea or diaphoresis appetite was poor sleep was poor no BM today Review of Systems Review of Systems: 10 body systems reviewed in review of systems and are negative unless listed above Physical Exam Physical Exam: The patient appeared chronically ill mildly confused and covered in actinic keratoses and in moderate discomfort Vital signs as documented. Head exam is normocephalic atraumatic actinic keratoses on scalp Neck is without JVD, thyromegaly, or carotid bruits. Lungs are clear to auscultation, no focal loss of breath sounds Cardiac exam, Rhythm is regular.. Systolic ejection murmur Abdominal exam reveals normal bowel sounds, soft non tender, no masses Extremities are bilateral great toe gangrene is present the right toe is more dry gangrene left toe is drying out but there is some more erythema surrounding it. The left foot is more painful than the right Neurologic exam is alert and oriented x2 no focal loss able to move all extremities to command Skin is with bilateral gangrene to both great toes Psychologically is with concern for memory impairment Results & Data Results & [facility] ([facility]) Vital Signs (Past 12 Hours) Vital Signs Temp Pulse Resp BP Pulse Ox 03/01/22 15:37 98.6 F 95 H 16 113/68 96 03/01/22 09:09 99 H 152/79 H 95 03/01/22 07:33 98.2 F 90 16 152/75 H 95 PG Care Time/CCT Total # of Minutes Spent Total Time Spent with Patient: Total time spent is greater than 50% in coordination of care (as documented) at patient's floor/unit and/or counseling patient: Coding Level of Care Code 68463 Subseq Hosp Care Lvl 3 Diagnoses Sepsis A41.9 Left leg cellulitis L03.116 Gangrene of toe of left foot I96 Crohn's disease K50.90 Coronary artery disease I25.10 Coronary Disease-Associated Artery/Lesion type: [place] artery [place] vs. transplanted heart: [place] heart Associated angina: without angina Peripheral arterial disease I73.9 CKD (chronic kidney disease), stage III N18.3 Hypertension I10 Hypertension type: essential hypertension Glaucoma H40.9 Acute metabolic encephalopathy G93.41 Skin tear Candidiasis of mouth and esophagus B37.81; B37.0 (1) Coronary artery disease Coronary Disease-Associated Artery/Lesion type: [place] artery [place] vs. transplanted heart: [place] heart Associated angina: without angina Qualified Code(s): I25.10 - Atherosclerotic heart disease of [place] coronary artery without angina pectoris (2) Hypertension Hypertension type: essential hypertension Qualified Code(s): I10 - Essential (primary) hypertension
[2022-03-01] MEDS: LORazepam 0.5 MG TAB PO PRN (20:56)
[2022-03-01] MEDS: MELATONIN 3 MG TAB PO SCH (20:56)
[2022-03-01] MEDS: ATORVASTATIN 40 MG TAB PO SCH (20:56)
[2022-03-02 09:59] LABS: Hematocrit (blood only) 32.6 % (42-52); Hemoglobin 10.6 g/dL (14.0-18.0); Mean Corpuscular Hemoglobin 33.3 pg (25-34); Mean Corpuscular Hgb Conc 32.5 g/dL (32-36); Mean Corpuscular Volume 102.5 fL (80-100); Mean Platelet Volume 9.5 fL (7.4-10.4); Platelet Count 525 K/uL (130-400); RDW Coefficient of Variation 15.2 % (11.5-14.5); RDW Standard Deviation 56.7 fL (36.4-46.3); Red Blood Count 3.18 M/uL (4.7-6.1); White Blood Count 12.15 K/uL (4.8-10.8)
[2022-03-02] MEDS: ACETAMINOPHEN 500 MG TAB PO SCH ×3 (10:01→21:08)
[2022-03-02] MEDS: BRINZOLAMIDE (AZOPT) OPS 10 ML BTL OPB SCH ×2 (10:01→18:17)
[2022-03-02] MEDS: CALCIUM 600MG + VIT D 400 IU TAB PO SCH (10:01)
[2022-03-02] MEDS: ASPIRIN 81 MG ECTAB PO SCH (10:01)
[2022-03-02] MEDS: CLOPIDOGREL BISULFATE 75 MG TAB PO SCH (10:02)
[2022-03-02] MEDS: PANTOprazole 40 MG TAB PO SCH (10:02)
[2022-03-02] MEDS: ADVANCED PROBIOTIC 1250 MG CAPSULE PO SCH (10:02)
[2022-03-02] MEDS: NYSTATIN SUSP 500,000 U/5 ML UDC PO SCH ×4 (10:02→21:07)
[2022-03-02] MEDS: CEROVITE ADV FORMULA TAB PO SCH (10:02)
[2022-03-02] MEDS: FOLIC ACID 400 MCG TAB PO SCH (10:02)
[2022-03-02] MEDS: POLYETHYLENE (MIRALAX) 17 GM PACK PO SCH (10:03)
[2022-03-02] MEDS: SENNA 8.6 MG TAB PO SCH (10:03)
[2022-03-02] MEDS: TIMOLOL GFS 0.25% OPH SOLN 74 DROPS/5 ML BTL OPB SCH (10:03)
[2022-03-02] MEDS: THIAMINE HCL 100 MG TAB PO SCH (10:03)
[2022-03-02] MEDS: predniSONE 10 MG TABLET PO SCH (10:15)
[2022-03-02] MEDS: METOPROLOL TARTRATE 50 MG TAB PO SCH ×2 (10:15→21:06)
[2022-03-02 10:24] LABS: BUN Creatinine Ratio 13.3 (10-20); Calcium 8.2 mg/dl (8.5-10.1); Creatinine Clr Calc Pharmacy 46.5 ml/min; Est GFR (African American) 79.5 ml/min; Est GFR (Non-African American) 68.6 ml/min; Magnesium 2.2 mg/dl (1.7-2.4); Potassium 3.7 mmol/L (3.5-5.1)
[2022-03-02] MEDS ORDERED: PROPOFOL IV EMULSION 10 MG/ML 20 ML VIAL IV ONE (11:24)
[2022-03-02] MEDS ORDERED: ONDANSETRON INJ 2 MG/ML 2 ML VIAL ONE (11:24)
[2022-03-02] MEDS ORDERED: LIDOCAINE 2% 2 ML VIAL/AMP(20MG/ML) INFIL ONE (11:24)
[2022-03-02] MEDS ORDERED: fentaNYL citrate 100 MCG/2 ML VIAL ONE (11:24)
[2022-03-02] MEDS ORDERED: DEXAMETHASONE SOD INJ 4 MG/ML VIAL ONE (11:24)
--- NOTE | 2022-03-02 11:38 | Pharmacy Report ---
Pharmacy PK ABX Note - Date of Service March 02, 2022 - Assessment and Plan Assessment 87 year old M receiving vancomycin IV for LLE cellulitis with L great toe gangrene. Day # 9 of antimicrobial therapy. Previously on triple therapy with vanco, cefepime and metronidazole. Patient on OR schedule 03/02/22 for bilateral foot 1st ray resections. Will need to reassess treatment duration post surgery. Plan Vancomycin * Current regimen: 1000 mg IV every 18 hours * Random level obtained 03/02/22 resulted as 22.5 mcg/mL. * this correlates to AUC/MENA of 577mg/L.hr and trough of 18.4 mcg/mL * Due to patient age, will empirically decrease dose to avoid trough near 20 mcg/mL (especially with possible removal of osteo during today's procedure) * Change to 1000 mg IV every 24 hours * Vancomycin order set to discontinue 03/03/22 PM Pharmacy will continue to follow and will adjust dose/frequency as necessary. Thank you. Pharmacy has transitioned to AUC monitoring for vancomycin. AUC/MENA is the preferred PK/PD target and is associated with decreased risk of nephrotoxicity compared to traditional trough targets.
[2022-03-02] MEDS: VANCOMYCIN HCL 1,000 MG in SODIUM CHLORIDE 0.9% 250 ML IV SCH (13:00)
[2022-03-02] MEDS ORDERED: LIDOCAINE 1% LOCAL 20 ML VIAL ONE (14:02)
[2022-03-02] MEDS ORDERED: BUPIVACAINE 0.5 % 5 MG/1 ML MPF 30ML VIAL ONE (14:02)
[2022-03-02] MEDS ORDERED: EPINEPHrine INJ 1 MG/ML AMP ONE (14:02)
--- NOTE | 2022-03-02 14:18 | History & Physical Bridge Note ---
Date of Service March 02, 2022 History & Physical Bridge Note I have examined the patient, reviewed the History & Physical and in the interval since the performance of the History & Physical I have noted the following changes of clinical significance: no changes noted, more confusion today
--- NOTE | 2022-03-02 15:04 | Anesthesiology Consultation ---
Date of Service March 02, 2022 Assessment & Plan Chart Review Chart Review: Acceptable Risk for Surgery and Patient NOT seen in Pre Admission Testing Consults Requested none Proposed Anesthesia Risk / Benefits Reviewed With: PT / POA / Parent / Guardian, Accepts Plan and Informed Consent Obtained History Surgery Operation Date: 03/02/22 12:00 Proposed Procedures p Bilateral Foot Partial 1st Ray Resections - Darrin Woodward MD Height/Weight Height: 5 ft 6 in Weight: 63.1 kg Allergies Allergy/AdvReac Type Severity Reaction Status Date / Time Penicillins Allergy Unknown unknown Verified 02/22/22 14:32 Medications Home Medications Medication Instructions Recorded Confirmed Last Taken calcium carbonate 600 mg-vitamin 1 tab PO QAM 04/16/19 02/22/22 02/21/22 D3 20 mcg (800 unit) chewable tablet (Caltrate 600 plus D) vvctrgkv-yfo-smamx acid 0.4 1 tab PO QAM 04/16/19 02/22/22 02/21/22 mg-lycopene 300 mcg-lutein 250 mcg tablet (Centrum Silver) timolol maleate 0.25 % eye gel 1 drops OPB QAM ml 04/16/19 02/22/22 02/21/22 forming solution (Timoptic-XE) folic acid 400 mcg tablet 400 mcg PO QAM tab 05/12/19 02/22/22 02/21/22 nitroglycerin 0.4 mg sublingual 0.4 mg SL .COMPLEX tab 05/12/19 02/22/22 02/21/22 tablet (Nitrostat) diphenhydramine 25 1 tab PO HS 06/24/19 02/22/22 02/21/22 mg-acetaminophen 500 mg tablet (Tylenol PM Extra Strength) brinzolamide 1 % eye 1 drp OPB BID ml 06/23/20 02/22/22 02/21/22 drops,suspension (Azopt) aspirin 81 mg tablet,delayed 81 mg PO QAM 03/27/21 02/22/22 02/21/22 release ([place] Low Dose Aspirin) thiamine HCl (vitamin B1) 100 mg 100 mg PO QAM #30 tab 04/05/21 02/22/22 02/21/22 tablet (Vitamin B-1) atorvastatin 80 mg tablet (Lipitor) 80 mg PO HS #90 tab 10/03/21 02/22/22 02/21/22 metoprolol tartrate 25 mg tablet 25 mg PO BID #180 tab 10/17/21 02/22/22 02/21/22 prednisone 10 mg tablet 10 mg PO QAM 11/24/21 02/22/22 02/21/22 vit C 250 mg-vit E 90 mg-zinc 40 1 tab PO QAM 11/24/21 02/22/22 02/21/22 mg-copper 1 ui-kevbab-kpbudy capsule (PreserVision AREDS-2) lorazepam 0.5 mg tablet (Ativan) 0.5 mg PO HS #30 tab 02/02/22 02/22/22 02/21/22 tramadol 50 mg tablet 50 mg PO Q8H PRN #30 tab 02/20/22 02/22/22 02/21/22 11:00 acetaminophen 500 mg tablet 500 mg PO Q6H PRN 02/22/22 02/22/22 02/21/22 19:00 (Acetaminophen Extra Strength) 500 mg clopidogrel 75 mg tablet 75 mg PO QAM 02/22/22 02/22/22 02/21/22 hydrocodone 5 mg-acetaminophen 325 1 tab PO Q6H PRN #20 tab 02/22/22 02/22/22 Unknown mg tablet omeprazole 40 mg capsule,delayed 40 mg PO QAM 02/22/22 02/22/22 02/21/22 release Active Medications Generic Name Dose Route Start Last Admin Trade Name Freq PRN Reason Stop Dose Admin Acetaminophen 1,000 mg 03/01/22 14:00 03/02/22 13:04 Acetaminophen 500 Mg Tab PO 03/31/22 13:59 Not Given TID [facility] Aspirin 81 mg 02/23/22 09:00 03/02/22 10:01 Aspirin 81 Mg Ectab PO 03/25/22 08:59 Not Given QAM [facility] Atorvastatin Calcium 80 mg 02/22/22 21:00 03/01/22 20:56 Atorvastatin 40 Mg Tab PO 03/24/22 20:59 80 mg HS [facility] Administration Brinzolamide 1 drops 02/22/22 21:00 03/02/22 10:01 Brinzolamide (Azopt) Ops 10 Ml Btl OPB 03/24/22 20:59 Not Given BID@0900,1600 [facility] Clopidogrel Bisulfate 75 mg 02/23/22 09:00 03/02/22 10:02 Clopidogrel Bisulfate 75 Mg Tab PO 03/25/22 08:59 Not Given QAM [facility] Enoxaparin Sodium 40 mg 02/22/22 20:00 02/28/22 20:14 Enoxaparin Inj 40 Mg/0.4 Ml Syr SQ 03/24/22 19:59 40 mg Q24H [facility] Administration Folic Acid 400 mcg 02/23/22 09:00 03/02/22 10:02 Folic Acid 400 Mcg Tab PO 03/25/22 08:59 Not Given QAM [facility] Vancomycin HCl 1,000 mg/ 270 mls @ 200 mls/hr 02/24/22 13:00 03/02/22 14:22 Sodium Chloride IV 03/02/22 23:00 Infused Q18H [facility] Infusion Lactobacillus Acidophilus 2 cap 02/27/22 15:00 03/02/22 10:02 Advanced Probiotic 1250 Mg Capsule PO 03/29/22 14:59 Not Given DAILY [facility] Lorazepam 0.5 mg 02/22/22 18:40 03/01/22 20:56 Lorazepam 0.5 Mg Tab PO 03/24/22 18:39 0.5 mg HS PRN Administration Anxiety/Insomnia Melatonin 3 mg 02/27/22 21:00 03/01/22 20:56 Melatonin 3 Mg Tab PO 03/29/22 20:59 3 mg HS [facility] Administration Metoprolol Tartrate 50 mg 02/28/22 21:00 03/02/22 10:15 Metoprolol Tartrate 50 Mg Tab PO 03/30/22 20:59 50 mg BID [facility] Administration Morphine Sulfate 2 mg 03/01/22 11:19 03/01/22 19:33 Morphine Sulfate 2 Mg/Ml Carp IV 03/15/22 11:18 2 mg Q4 PRN Administration Pain Scale: 5-10/10 Multivitamins/Minerals 1 tab 02/23/22 09:00 03/02/22 10:01 Calcium 600mg + Vit D 400 Iu Tab PO 03/25/22 08:59 Not Given QAM [facility] Multivitamins/Minerals 1 tab 02/23/22 09:00 03/02/22 10:02 Cerovite Adv Formula Tab PO 03/25/22 08:59 Not Given QAM [facility] Nystatin 5 ml 02/28/22 17:00 03/02/22 13:03 Nystatin Susp 500,000 U/5 Ml Udc PO 03/10/22 16:59 5 ml QID [facility] Administration Pantoprazole Sodium 40 mg 02/23/22 09:00 03/02/22 10:02 Pantoprazole 40 Mg Tab PO 03/25/22 08:59 Not Given QAM [facility] Polyethylene Glycol 17 gm 02/24/22 09:00 03/02/22 10:03 Polyethylene (Miralax) 17 Gm Pack PO 03/26/22 08:59 Not Given DAILY [facility] Prednisone 10 mg 02/28/22 09:00 03/02/22 10:15 Prednisone 10 Mg Tablet PO 03/30/22 08:59 10 mg QAM [facility] Administration Sennosides 17.2 mg 02/24/22 09:00 03/02/22 10:03 Senna 8.6 Mg Tab PO 03/26/22 08:59 Not Given QAM [facility] Thiamine HCl 100 mg 02/23/22 09:00 03/02/22 10:03 Thiamine Hcl 100 Mg Tab PO 03/25/22 08:59 Not Given QAM [facility] Timolol Maleate 1 drops 02/23/22 09:00 03/02/22 10:03 Timolol Gfs 0.25% Oph Soln 74 Drops/5 Ml Btl OPB 03/25/22 08:59 Not Given QAM [facility] NPO Date Last Intake of Fluids: 03/01/22 Time Last Intake of Fluids: 23:00 Last Intake of Fluids Comment: nothing after midnight per report Date Last Intake of Solids: 03/01/22 Time Last Intake of Solids: 17:00 Last Intake of Solids Comment: dinner Past Medical History Medical History Antiplatelet or antithrombotic long-term use Anxiety Arteriosclerotic cardiovascular disease Asthma NO INHALERS > WELL CONTROLLED PER PT Benign neoplasm of colon CAD (coronary artery disease) FOLLOWS WITH DR. 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 DUE TO CROHNS Macular degeneration Myalgia Nausea and vomiting after administration of anesthetic agent Neutrophilic leukocytosis Osteomyelitis RIGHT BIG TOE> REASON FOR PROCEDURE ON 12/02/21 Osteopenia Pancreatitis MARCH 2021 > RESOLVED PER PT Pre-diabetes DIET CONTROL Past Family History Family History Father , age 81 of an [place] Diabetes Hyperlipidemia Hypertension Myocardial infarction Mother , age 83 of stomach cancer Cancer Denies family history of Ovarian cancer Prostate cancer Breast cancer Colorectal cancer Past Surgical History Surgical History H/O resection of small bowel History of cataract surgery BILAT History of colonoscopy 2007, 2008, 2009, 2010, 2012, 2013, 2014, 2016 - for surveillance of multiple adenomatous polyps. 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 GISELE > OVER 5 YRS AGO > UNSURE HOW MANY VESSELS Social History Smoking Status: Never smoker Hx Alcohol Use: No Hx Substance Use: No substance use type: does not use Physical Exam Vital Signs Last Vital Signs Temp 37.1 C 03/02/22 13:48 Pulse 81 03/02/22 13:48 Resp 20 03/02/22 13:48 BP 178/83 H 03/02/22 13:48 Pulse Ox 97 03/02/22 13:48 Testing Laboratory Results 03/02/22 09:34 03/02/22 09:34 PT 12.0 Seconds (9.0-12.0) 02/22/22 12:28 INR 1.1 (0.9-1.1) 02/22/22 12:28 APTT 26.9 Seconds (21.0-31.0) 02/22/22 12:28 Urine Color Yellow 02/22/22 13:52 Urine Appearance Clear (Clear) 02/22/22 13:52 Urine pH 5.0 (4.5-7.5) 02/22/22 13:52 Ur Specific [place] 1.030 (1.000-1.030) 02/22/22 13:52 Urine Protein Negative (Negative) 02/22/22 13:52 Urine Glucose (UA) Negative (Negative) 02/22/22 13:52 Urine Ketones Trace (Negative) H 02/22/22 13:52 Urine Nitrite Negative (Negative) 02/22/22 13:52 Ur Leukocyte Esterase Negative (Negative) 02/22/22 13:52 02/22/22 12:20 Aerobic Blood Culture - Final Blood No growth in Aerobic bottle after 5 days. Anaerobic Blood Culture - Final 02/22/22 12:18 Aerobic Blood Culture - Final Blood No growth in Aerobic bottle after 5 days. Anaerobic Blood Culture - Final
[2022-03-02] MEDS ORDERED: PROMETHAZINE HCL 12.5 MG in SODIUM CHLORIDE 0.9% 50 ML IV PRN (15:05)
[2022-03-02] MEDS ORDERED: fentaNYL citrate 100 MCG/2 ML VIAL IV PRN (15:05)
[2022-03-02] MEDS ORDERED: ONDANSETRON INJ 2 MG/ML 2 ML VIAL IV PRN (15:05)
[2022-03-02] MEDS ORDERED: ePHEDrine sulfate 50 MG/ML AMP ONE (15:05)
[2022-03-02] MEDS ORDERED: ePHEDrine sulfate 50 MG/ML AMP IV PRN (15:05)
[2022-03-02] MEDS ORDERED: ATROPINE SULFATE 0.1 MG/ML 10ML SYR IV PRN (15:05)
--- NOTE | 2022-03-02 15:40 | Hospitalist Progress Note ---
Date of Service March 02, 2022 Assessment & Plan (1) Sepsis: Plan: Resolved. 2nd to LLE cellulitis with Bilateral great toe gangrene. Admission Blood cx's negative. IV abx mainly to cover the L great toe as is the worse of the 2 and associated with cellulitis, until amputation is performed 03/02/2022. (2) Left leg cellulitis: Plan: resolved. had extended from just above the L knee down the entire mueller to the L foot. minimal residual infection over dorsum of L foot. initiated on cefepime, flagyl and IV vancomycin to cover the left great toe gangrene, to OR 03/02/22. Doppler LLE neg for DVT. CT of the LLE without abscess, nec fasc, deeper infection or hematoma. Once toe is amputated can likely change IV to PO antibiotics; length of PO abx will depend on surgical margins, etc. (3) Acute metabolic encephalopathy: Plan: Persistent chronic from ongoing infection (4) Gangrene of toe of left foot: Plan: Left great toe dry gangrene. Ortho consult by Dr Woodward appreciated. His team debrided the toe at bedside today. Amputation of b/l great toes planned for 03/02/22. Cont pain meds prn in meantime along with IV abx. (5) Crohn's disease: Plan: Stablechronically on prednisone 10 mg daily. s/p IV stress dose steroids early in stay. Completed stress dose steroid taper and is back to usual dose of 10mg/day. Follows with Fanny GALLEGOS for Crohn's. No issues at this time. (6) Coronary artery disease: Plan: s/p CABG in 2016. Continue statin, metoprolol, with nitroglycerin as needed. Currently on DAPT with aspirin and Plavix due to recent lower extremity angioplasty. (7) Peripheral arterial disease: Plan: Continue DAPT with aspirin, Plavix, statin. Pain control for ischemic L great toe - see above. Follows with Dr. Errol Bay. Unfortunately, based on last office encounter, very little if anything can be done to salvage the L great toe or improve his arterial circulation. CTA LLE findings noted from admission. (8) Hypertension: Plan: Uncontrolled Increased metoprolol to 50mg BID (9) CKD (chronic kidney disease), stage III: Plan: BMP remains stable today even following diuresis. (10) Skin tear: Plan: Wound care nurses and dietary supplementation (11) Candidiasis of mouth and esophagus: Plan: nystatin 5cc qid swish/spit (12) Glaucoma: Plan: Continue timolol drops, brinzolamide drops, PreserVision. Plan: DVT proph - lovenox PT, OT evals requested - likely to need rehab Admission and Anticipated Discharge Date Admission Date: February 22, 2022 Subjective pt is in a good mood today, still with some pain to legs. scheduled for surgery today Review of Systems Review of Systems: Mild distress and fatigue no headache, no visual changes no speech or swallowing issues no chest pain, pressure or palpitations no shortness of breath, cough or wheezes no abdominal pain, nausea or vomiting, diarrhea or constipation no dysuria, hematuria or frequency b/l foot pain from gangrene no back pain, CVA tenderness or radicular pain great toe gangrene bilaterally no focal signs of weakness or numbness or altered sensation no complaints of anxiety or depression.. Physical Exam Physical Exam: The patient appeared stated age and mild memory impairment Vital signs as documented. Head exam is normocephalic atraumatic multiple ak on scalp Neck is without JVD, thyromegaly, or carotid bruits. Lungs are clear to auscultation, no focal loss of breath sounds Cardiac exam, Rhythm is regular.. No murmurs, rubs or gallops. Abdominal exam reveals normal bowel sounds, soft non tender, no masses Extremities are b/l gangrene to great toes Neurologic exam is alert and orientedx2, no focal loss of strength or sensation Psychologically is with concerns for memory impairment Results & Data Results & Data ([facility]) Vital Signs (Past 12 Hours) Vital Signs Temp Pulse Resp BP BP Pulse Ox 03/02/22 13:48 98.8 F 81 20 178/83 H 97 03/02/22 09:57 88 152/80 H 03/02/22 07:43 97.9 F 88 16 169/74 H 96 PG Care Time/CCT Total # of Minutes Spent Total Time Spent with Patient: Total time spent is greater than 50% in coordination of care (as documented) at patient's floor/unit and/or counseling patient: Coding Level of Care Code 87857 Subseq Hosp Care Lvl 2 Diagnoses Sepsis A41.9 Left leg cellulitis L03.116 Acute metabolic encephalopathy G93.41 Gangrene of toe of left foot I96 Crohn's disease K50.90 Coronary artery disease I25.10 Coronary Disease-Associated Artery/Lesion type: [place] artery [place] vs. transplanted heart: [place] heart Associated angina: without angina Peripheral arterial disease I73.9 Hypertension I10 Hypertension type: essential hypertension CKD (chronic kidney disease), stage III N18.3 Skin tear Candidiasis of mouth and esophagus B37.81; B37.0 Glaucoma H40.9 (1) Coronary artery disease Coronary Disease-Associated Artery/Lesion type: [place] artery [place] vs. transplanted heart: [place] heart Associated angina: without angina Qualified Code(s): I25.10 - Atherosclerotic heart disease of [place] coronary artery without angina pectoris (2) Hypertension Hypertension type: essential hypertension Qualified Code(s): I10 - Essential (primary) hypertension
[2022-03-02] MEDS ORDERED: PHENYLEPHRINE HCL 10 MG/ML VIAL ONE (15:48)
--- NOTE | 2022-03-02 16:37 | Operative Report ---
Post Operative Report Pre & Post Diagnosis Operation Date: 03/02/22 12:00 Pre-Op Diagnosis: Bilateral ischemic big toes Post-Op Diagnosis: Bilateral ischemic big toes Nonhealing wound right second toe I identified the patient and participated in the time-out.: Yes Procedure Operation Date: 03/02/22 12:00 Actual Procedures p Bilateral Foot Partial 1st Ray Resections, Right second toe amputation(Bilateral) - Darrin Woodward MD Surgeon Darrin Woodward MD [employer] Product Development Manager Maria Luisa Mohan, physicians carpenter's assistant. Boo Espinosa, fellow. Estimated Blood Loss 3 Findings Consistent with Post-Op Diagnosis Specimens Culture of the left big toe. Left big toe. Right big toe. Right second toe. Anesthesia Type General Regional Complications none Disposition Accompanied Patient To Recovery: No Disposition: Recovery Room Indications Mr. Corona is 87 years old. He has peripheral vascular disease. He is status post a nail removal on the right big toe. That got infected and then he had a Syme amputation. That necrosis. He now has a necrotic soft tissue eschar over the proximal phalanx of the right big toe. There is a 5 mm wound on the medial portion of the right second toe because of pressure from the hard eschar. The real reason why he was admitted to the hospital was because he has developed recurrent progressive ischemia of the left big toe over the past month. He developed cellulitis about 10 days ago and was admitted to the hospital about 8 or 9 days ago. He had sepsis. The cellulitis and sepsis were treated with antibiotics. The left big toe was allowed to declare itself reasonably. At this point the entire dorsal part of the left big toe is black eschar. This goes back to probably the MP joint. His cellulitis is resolved with a little bit of erythema on the top of the foot. Vascular work-up and treatment has been done previously. He has had intervention on the right. There is nothing further that can be done on the left. Discussed with patient and family. Options risks and benefits reviewed. Plan for bilateral first ray resections. We did discuss possibility for wound healing problems in the face of his uncorrectable peripheral vascular disease which may result in wound problems and the need for further interventions including surgery. Description of Procedure At the conclusion of the procedure on the big toes I went ahead and debrided the wound on the second toe. 5 mm in diameter medial aspect overlying the PIP joint. On removing the eschar there was dried unhealthy capsular tissue present which 1 debrided a millimeter beneath that was the PIP joint. At that point I discussed the situation with the nurses and recommended that we contact the patient's daughter which we did and obtained informed consent over the phone to remove the right second toe I which I felt was medically necessary at this time. The incision from the first toe on the right side was extended laterally over the base of the proximal phalanx on the right second toe. [place] flaps were created full-thickness. The extensor and flexor tendons were amputated as far proximal as possible and allowed to retract. The MP joint was identified and the toe was amputated through the MP joint and resected. Bleeding was minimal. Informed consent obtained. Patient identified. The operative sites were identified as bilateral big toes. He received a preop dose of IV antibiotics. His vancomycin just completed. He was positioned supine on the OR table. No tourniquets were utilized. Legs were prescribed and prepped and draped in usual sterile fashion. There was a 1-1/2 cm hard black eschar at the tip of the right second toe covering the proximal phalanx. Ischemia as mentioned before with a thick black eschar was noted on the dorsal aspect of the left big toe. Timeout performed. DVT prophylaxis not indicated intraoperatively with postop he will be restarted on his Lovenox. Dr. Espinosa performed the procedure on the right big toe under my supervision. A medially based tennis racquet incision was made 2 to 4 mm proximal to the necrotic skin margin. This was carried sharply down to the bone and extraperiosteal and extracapsular exposure was performed. No purulence was noted. The proximal phalanx of the right big toe was released through the MP joint and sent as specimen. The tendons were brought into the wound and amputated and allowed to retract as far as possible. Soft tissue closure at this point was probably possible but under a little bit of tension due to the bulbous metatarsal head. We therefore elected to dissect a little bit more proximally and using fluoroscopic guidance amputated the big toe metatarsal that is the first metatarsal at its midportion angled proximal medial to distal lateral and dorsal to plantar. The edges were beveled and the metatarsal was removed and sent for specimen as well. The corresponding tendons were transected proximally. The wounds were irrigated with sterile saline and then closed side to side with horizontal mattress stitches. 4-0 nylon. This included the second toe amputation. A bulky soft sterile dressing was applied Xeroform 4 x 4's ABD fluffs between the toes and a postop shoe. On the left big toe I made similar incision down the medial side of the first ray coursing dorsally and creating a plantarly based larger flap because there is better tissue proximally than there was dorsally over the MP joint. This was carried sharply down to the bone and extraperiosteal and extracapsular dissection was performed. I amputated the toe through the MP joint and then went ahead and resected the metatarsal under fluoroscopic guidance in a likewise fashion. The bone edges were beveled. Irrigation was performed. There was no remaining on healthy tissue. No purulence was noted. On the back table I did take a culture after cutting through the dorsal eschar on the left big toe and sent for routine analysis. All of the removed toes were sent for specimen. All the skin flaps appear to be healthy. They were not ischemic and but blood loss was minimal. There is not a lot of profound bleeding. I then closed in a likewise fashion with interrupted horizontal mattress stitches and applied a similar type of dressing. Local anesthetic was injected into the skin and subcutaneous tissues of both feet. Patient waken from anesthesia without difficulty and taken to the recovery room in stable condition specimens were as mentioned above counts were correct blood loss was estimated to be 2 or 3 cc. At the conclusion the operation spoke the patient's daughter informed her of my findings. We discussed the right foot second toe. Postop plan is to admit to the hospital restart Lovenox and continue IV antibiotics and monitor wound healing. The resected metatarsal bones were of good quality. I attest to the content of the Intraoperative Record and any orders documented therein. Any exceptions are noted below.
--- NOTE | 2022-03-02 16:41 | Operative Report ---
Post Operative Report Pre & Post Diagnosis Operation Date: 03/02/22 12:00 Pre-Op Diagnosis: Bilateral ischemic big toes Post-Op Diagnosis: Bilateral ischemic big toes Wound right second toe I identified the patient and participated in the time-out.: Yes Procedure Operation Date: 03/02/22 12:00 Actual Procedures p Bilateral Foot Partial 1st Ray Resections, Right second toe amputation(Bilateral) - Darrin Woodward MD Surgeon Leslie Woodward MD Senior Network Architect Maria Luisa Mohan, physicians hotel assistant manager. Boo Espinosa, fellow. Estimated Blood Loss 3 Findings Consistent with Post-Op Diagnosis Consistent with post op diagnosis. Specimens No specimens. Description of Procedure I participated in prepping dressing and assisted dr. Woodward during the procedure. Please see Dr. Woodward note. I attest to the content of the Intraoperative Record and any orders documented therein. Any exceptions are noted below.
--- NOTE | 2022-03-02 16:50 | Fluoroscopy Report ---
FL foot RT 2V HISTORY: 87 years-old Male BIALTERAL FOOT 1ST RAY RESECTION COMPARISON: Radiographs of the right foot 02/28/2022 TECHNIQUE: 2 spot fluoroscopic images of the right foot were obtained utilizing 4.1 seconds fluorosco py time FINDINGS: Status post partial amputation of the first digit with amputation site at the level of the mid diaphy seal aspect of the first metatarsal. Expected postoperative soft tissue swelling with deep tissue air . No acute fracture or unexpected opaque foreign body. The last image demonstrates interval partial a mputation of the second digit at the level of the metatarsal-phalangeal joint. IMPRESSION: Fluoroscopic assistance as above. ACT 112: Negative or not required by law. The above report was generated using voice recognition software. It may contain grammatical, syntax o r spelling errors. Electronically signed by: Samm Metzger M.D. 03/02/2022 4:49 PM
--- NOTE | 2022-03-02 17:23 | Anesthesiology Progress Note ---
Date of Service March 02, 2022 Anesthesia Post Procedure Vital Signs Vital Signs: Temp Pulse Pulse Resp BP BP Pulse Ox 03/02/22 17:15 92 H 12 145/77 H 95 03/02/22 17:05 92 H 14 137/82 100 03/02/22 16:55 93 H 14 133/85 99 03/02/22 16:45 98 H 12 133/68 98 03/02/22 16:39 37.0 C 100 H 81 12 147/114 H 97 03/02/22 13:48 37.1 C 81 20 178/83 H 97 03/02/22 09:57 88 152/80 H 03/02/22 07:43 36.6 C 88 16 169/74 H 96 03/01/22 20:55 36.9 C 100 H 18 167/83 H 95 Pain Intensity Left Lower Leg: Pain Intensity: 3 Toe: Pain Intensity: 4 Transfer of Care Handoff Completed per policy Notes Mental Status: alert / awake / arousable Patient Amnestic to Procedure: Yes Nausea / Vomiting: adequately controlled Pain: adequately controlled Airway Patency, RR, SpO2: stable & adequate BP & HR: stable & adequate Hydration State: stable & adequate Anesthetic Complications: no major complications apparent
[2022-03-02] MEDS ORDERED: METOCLOPRAMIDE HCL INJ 5 MG/ML 2 ML VIAL IV PRN (17:44)
[2022-03-02] MEDS ORDERED: NALOXONE HCL 0.4 MG/1 ML VIAL/CARP IV PRN (17:44)
[2022-03-02] MEDS ORDERED: traMADol HCL 50 MG TABLET PO PRN (17:44)
[2022-03-02] MEDS: SODIUM CHLORIDE 0.9% 1000ML 1,000 ML IV SCH (18:13)
[2022-03-02] MEDS: LORazepam 0.5 MG TAB PO PRN (21:05)
[2022-03-02] MEDS: MELATONIN 3 MG TAB PO SCH (21:05)
[2022-03-02] MEDS: ATORVASTATIN 40 MG TAB PO SCH (21:06)
[2022-03-02] MEDS: DOCUSATE SODIUM 100 MG CAP PO SCH (21:06)
[2022-03-03] MEDS: SODIUM CHLORIDE 0.9% 1000ML 1,000 ML IV SCH (04:18)
[2022-03-03 08:28] LABS: Hematocrit (blood only) 27.1 % (42-52); Hemoglobin 8.7 g/dL (14.0-18.0); Mean Corpuscular Hemoglobin 32.6 pg (25-34); Mean Corpuscular Hgb Conc 32.1 g/dL (32-36); Mean Corpuscular Volume 101.5 fL (80-100); Mean Platelet Volume 9.3 fL (7.4-10.4); Platelet Count 485 K/uL (130-400); RDW Coefficient of Variation 15.3 % (11.5-14.5); RDW Standard Deviation 55.5 fL (36.4-46.3); Red Blood Count 2.67 M/uL (4.7-6.1); White Blood Count 10.45 K/uL (4.8-10.8)
[2022-03-03] MEDS: FOLIC ACID 400 MCG TAB PO SCH (08:33)
[2022-03-03] MEDS: predniSONE 10 MG TABLET PO SCH (08:33)
[2022-03-03] MEDS: ASPIRIN 81 MG ECTAB PO SCH (08:34)
[2022-03-03] MEDS: CLOPIDOGREL BISULFATE 75 MG TAB PO SCH (08:34)
[2022-03-03] MEDS: ADVANCED PROBIOTIC 1250 MG CAPSULE PO SCH (08:34)
[2022-03-03] MEDS: THIAMINE HCL 100 MG TAB PO SCH (08:35)
[2022-03-03] MEDS: METOPROLOL TARTRATE 50 MG TAB PO SCH ×2 (08:35→20:34)
[2022-03-03] MEDS: PANTOprazole 40 MG TAB PO SCH (08:35)
[2022-03-03] MEDS: DOCUSATE SODIUM 100 MG CAP PO SCH ×2 (08:35→20:33)
[2022-03-03] MEDS: NYSTATIN SUSP 500,000 U/5 ML UDC PO SCH ×2 (08:35→11:36)
[2022-03-03] MEDS: CALCIUM 600MG + VIT D 400 IU TAB PO SCH (08:35)
[2022-03-03] MEDS: CEROVITE ADV FORMULA TAB PO SCH (08:35)
[2022-03-03] MEDS: POLYETHYLENE (MIRALAX) 17 GM PACK PO SCH (08:38)
[2022-03-03] MEDS: SENNA 8.6 MG TAB PO SCH (08:38)
[2022-03-03] MEDS: TIMOLOL GFS 0.25% OPH SOLN 74 DROPS/5 ML BTL OPB SCH (08:42)
[2022-03-03] MEDS: ENOXAPARIN INJ 40 MG/0.4 ML SYR SQ SCH (08:43)
[2022-03-03] MEDS: BRINZOLAMIDE (AZOPT) OPS 10 ML BTL OPB SCH ×2 (08:43→15:14)
[2022-03-03] MEDS: ACETAMINOPHEN 500 MG TAB PO SCH ×3 (08:44→20:36)
[2022-03-03 08:45] LABS: BUN Creatinine Ratio 18.6 (10-20); Calcium 7.4 mg/dl (8.5-10.1); Est GFR (African American) 89.7 ml/min; Est GFR (Non-African American) 77.4 ml/min; Potassium 3.6 mmol/L (3.5-5.1)
--- NOTE | 2022-03-03 10:51 | Orthopedic Progress Note ---
Date of Service March 03, 2022 Assessment & Plan (1) Great toe amputee: Plan: Dressings were kept in place and cashews were reapplied PT/OT Weightbearing as tolerated with walker assistance Continue IV antibiotics for infection Pain control with p.o. medication Will continue to follow while inpatient Primary care provider the medicine service for sepsis DVT prophylaxis per medicine discretion (2) Osteomyelitis of second toe of right foot: Admission and Anticipated Discharge Date Admission Date: February 22, 2022 Subjective This 87-year-old male seen today day 1 status post Bilateral Foot Partial 1st Ray Resections, Right second toe amputation. Patient states he is doing well and has no pain. He is getting ready to do PT and OT this morning. Patient is slightly confused but is alert. He denies chest pain, shortness of breath, fever, chills, sweats, lethargy, nausea, vomiting or diarrhea. Review of Systems Review of Systems: All systems reviewed & are unremarkable except as noted in Subjective Physical Exam 2 Physical Exam: Bilateral feet: Dressings are kept in place. I did remove his postoperative shoes and examined visible digits on both feet. Patient was unable to detect light sensation to touch over the digits. However, he states that this is normal and there has been an issue for several years. He is able to easily extend both legs to 0 degrees and flex his knees to 90 degrees without pain or discomfort. He is able to perform an active straight leg raise test bilaterally. He is able to dorsi and plantarflex his feet actively. His calves are soft and supple nontender to palpation. Quad strength 3 out of 5 bilaterally. Results & Data ([facility]) Vital Signs (Past 12 Hours) Vital Signs Temp Pulse Resp BP Pulse Ox 03/03/22 07:46 36.8 C 84 16 121/59 L 97 03/03/22 03:45 36.5 C 89 18 153/68 H 97 Diagnostic Findings Laboratory Results WBC 10.45 K/uL (4.8-10.8) 03/03/22 07:46 RBC 2.67 M/uL (4.7-6.1) L 03/03/22 07:46 Hgb 8.7 g/dL (14.0-18.0) L 03/03/22 07:46 Hct 27.1 % (42-52) L 03/03/22 07:46 MCV 101.5 fL (80-100) H 03/03/22 07:46 MCH 32.6 pg (25-34) 03/03/22 07:46 MCHC 32.1 g/dL (32-36) 03/03/22 07:46 RDW Std Deviation 55.5 fL (36.4-46.3) H 03/03/22 07:46 RDW Coeff of [place] 15.3 % (11.5-14.5) H 03/03/22 07:46 Plt Count 485 K/uL (130-400) H 03/03/22 07:46 MPV 9.3 fL (7.4-10.4) 03/03/22 07:46 Immature Gran % (Auto) 0.5 % 02/26/22 10:52 Neut % (Auto) 85.4 % 02/26/22 10:52 Lymph % (Auto) 4.7 % 02/26/22 10:52 [place] % (Auto) 9.1 % 02/26/22 10:52 Eos % (Auto) 0.3 % 02/26/22 10:52 Baso % (Auto) 0.0 % 02/26/22 10:52 Neut # (Auto) 10.87 K/uL (1.4-6.5) H 02/26/22 10:52 Lymph # (Auto) 0.60 K/uL (1.2-3.4) L 02/26/22 10:52 [place] # (Auto) 1.16 K/uL (0.11-0.59) H 02/26/22 10:52 Eos # (Auto) 0.04 K/uL (0-0.5) 02/26/22 10:52 Baso # (Auto) 0.00 K/uL (0-0.2) 02/26/22 10:52 Immature Gran # (Auto) 0.06 K/uL (0.00-0.02) H 02/26/22 10:52 Absolute Nucleated RBC 0.05 K/uL (0-0) H 03/01/22 09:47 Nucleated RBC % (auto) 0.3 % 03/01/22 09:47 PT 12.0 Seconds (9.0-12.0) 02/22/22 12:28 INR 1.1 (0.9-1.1) 02/22/22 12:28 APTT 26.9 Seconds (21.0-31.0) 02/22/22 12:28 PTT Ratio 1.0 02/22/22 12:28 Sodium 139 mmol/L (136-145) 03/03/22 07:46 Potassium 3.6 mmol/L (3.5-5.1) 03/03/22 07:46 Chloride 108 mmol/L (98-107) H 03/03/22 07:46 Carbon Dioxide 22 mmol/L (21-32) 03/03/22 07:46 Anion Gap 9 (3-11) 03/03/22 07:46 BUN 16 mg/dl (6-23) 03/03/22 07:46 Creatinine 0.86 mg/dl (0.6-1.4) 03/03/22 07:46 Est Cr Clr Drug Dosing 53.0 ml/min 03/03/22 07:46 Est GFR ( Amer) 89.7 ml/min 03/03/22 07:46 Est GFR (Non-Af Amer) 77.4 ml/min 03/03/22 07:46 BUN/Creatinine Ratio 18.6 (10-20) 03/03/22 07:46 Glucose 91 mg/dl (70-99(Fasting)) 03/03/22 07:46 Lactate 0.9 mmol/L (0.4-2.0) 02/22/22 14:28 Calcium 7.4 mg/dl (8.5-10.1) L 03/03/22 07:46 Magnesium 2.2 mg/dl (1.7-2.4) 03/02/22 09:34 Iron 28 mcg/dl (35-175) L 02/25/22 08:25 TIBC 189 mcg/dl (250-450) L 02/25/22 08:25 Unsaturated IBC 161 mcg/dl (155-355) 02/25/22 08:25 Transferrin % Sat 15 % (20-50) L 02/25/22 08:25 Ferritin 179.4 ng/ml (8-388) 02/25/22 08:25 Total Bilirubin 0.7 mg/dl (0.2-1.0) 02/23/22 07:41 AST 33 U/L (13-39) 02/23/22 07:41 ALT 14 U/L (7-52) 02/23/22 07:41 Alkaline Phosphatase 71 U/L (34-104) 02/23/22 07:41 Total Protein 4.7 gm/dl (6.0-8.3) L D 02/23/22 07:41 Albumin 2.5 gm/dl (3.4-5.0) L 02/23/22 07:41 Globulin 2.2 gm/dl (2.5-4.0) L 02/23/22 07:41 Albumin/Globulin Ratio 1.1 (0.9-2) 02/23/22 07:41 Vitamin B12 438 pg/ml (180-914) 02/25/22 08:25 Folate > 22.30 ng/ml (>5.38) 02/25/22 08:25 Procalcitonin 0.10 ng/ml (0-0.5) 02/22/22 12:28 TSH 2.089 uIu/ml (0.300-4.500) 02/25/22 08:25 Urine Color Yellow 02/22/22 13:52 Urine Appearance Clear (Clear) 02/22/22 13:52 Urine pH 5.0 (4.5-7.5) 02/22/22 13:52 Ur Specific [place] 1.030 (1.000-1.030) 02/22/22 13:52 Urine Protein Negative (Negative) 02/22/22 13:52 Urine Glucose (UA) Negative (Negative) 02/22/22 13:52 Urine Ketones Trace (Negative) H 02/22/22 13:52 Urine Blood Negative (Negative) 02/22/22 13:52 Urine Nitrite Negative (Negative) 02/22/22 13:52 Urine Bilirubin Negative (Negative) 02/22/22 13:52 Urine Urobilinogen Negative (Negative) 02/22/22 13:52 Ur Leukocyte Esterase Negative (Negative) 02/22/22 13:52 Nasal Screen MRSA (PCR) Negative (Negative) 02/27/22 09:00 Random Vancomycin 22.5 mcg/ml (10-20) H 03/02/22 09:34 SARS-CoV-2, RNA, NAAT NEGATIVE (NEGATIVE) 02/22/22 14:44 Impressions Chest X-Ray 02/22/22 11:42 XR chest 1V portable CLINICAL HISTORY: SEPSIS TECHNIQUE: Single frontal radiograph of the chest was obtained. Comparison: Comparison is made to chest radiograph 02/22/2022 FINDINGS: Median sternotomy wires are unchanged. The cardiomediastinal silhouette is stable. Lungs are underinflated, however no airspace opacity is seen. No evidence of pleural effusion or pneumothorax. IMPRESSION: No acute chest disease. ACT 112: Negative or not required by law. Electronically signed by: Demarcus Parnell M.D. 02/22/2022 1:09 PM Lower Extremity CTA 02/22/22 11:58 CT angio LE LT w inc wo if don CLINICAL HISTORY: L LE pain/erythema, PVD hx, eval for gas formation COMPARISON STUDY: No previous studies for comparison. CT DOSE: 634.37 mGy.cm TECHNIQUE: Standard CT angoigram of the left lower extremity was performed with IV contrast followed by image post processing with coronal, and sagittal MIP reformats.. This CT exam was performed using one or more of the following dose reduction techniques: Automated exposure control, adjustment of the mA and/or kV according to patient size, or use of iterative reconstruction technique. CONTRAST: Optiray 320, 120 mL nonionic intravenous contrast. FINDINGS: VASCULAR FINDINGS: Left common iliac artery: patent without stenosis. Left internal iliac artery: patent without stenosis. Left external iliac artery: patent without stenosis. Left femoral artery: patent without stenosis. Left profunda femoris artery: patent without stenosis. Left superficial femoral artery: patent without stenosis. There is atherosclerotic calcification present along its course with at least 50% narrowing present. Left popliteal artery: patent without stenosis. There is atherosclerotic calcification present with approximately 50% narrowing. Left distal runoff: patent three vessel distal runoff noted. Atherosclerotic calcification is present with diffuse vessel narrowing seen. NONVASCULAR FINDINGS: Within the mid to lower thigh, there is subcutaneous fluid present posterolaterally. Diffuse subcutaneous edema and fluid are seen circumferentially throughout the calf. Diffuse edema extends into the foot as well. No focal fluid collections or enhancing abscess is are seen. No air is present within the soft tissues. IMPRESSION: 1. Atherosclerotic calcification involving the superficial femoral artery, popliteal artery and arteries of the calf with at least 50% stenosis present along their courses. 2. There is no evidence for focal occlusion or stenosis. 3. Diffuse subcutaneous edema and subcutaneous fluid involving the distal thigh and throughout the calf most characteristic of cellulitis. Diffuse edema extends into the foot as well. 4. There is no focal enhancing abscess or air seen within the soft tissues. ACT 112: Negative or not required by law. Electronically signed by: Tushar Farrell M.D. 02/22/2022 2:24 PM KUB X-Ray 02/22/22 16:48 XR KUB/Abdomen 1 view CLINICAL HISTORY: constipation, distention TECHNIQUE: 1 view of the abdomen was obtained. Comparison: Comparison is made to abdomen radiograph 09/25/2015 FINDINGS: Lung bases are unremarkable. The osseous structures are grossly unremarkable. Dilated loop of bowel in the left upper quadrant is again seen, favored to represent a dilated loops of small bowel similar to prior exams. Otherwise no gas is seen. A moderate amount of stool is noted within the large bowel. IMPRESSION: Redemonstration of a gas dilated loop of bowel, likely small bowel, in the left upper quadrant. Otherwise no evidence of obstruction. ACT 112: Negative or not required by law. Electronically signed by: Demarcus Parnell M.D. 02/22/2022 6:19 PM Ankle X-Ray 02/22/22 18:01 XR femur LT 2V routine, XR tibia fibula LT 2V, XR knee LT 1 or 2V routine, XR ankle LT min 3V routine CLINICAL HISTORY: pain TECHNIQUE: 2 radiographic views of the left femur, 2 views of the left knee, 2 views of the left tibia and fibula, and 3 views of the left ankle were obtained. Comparison: None available at the time of this dictation. FINDINGS: No acute fracture is seen. No focal erosions are seen to suggest osteomyelitis. Degenerative changes are seen in the hip and knee joints. There is normal bone mineralization. Vascular calcifications are seen. IMPRESSION: No radiographic evidence of osteomyelitis is seen. ACT 112: Negative or not required by law. Electronically signed by: Demarcus Parnell M.D. 02/22/2022 6:45 PM Femur X-Ray 02/22/22 18:01 XR femur LT 2V routine, XR tibia fibula LT 2V, XR knee LT 1 or 2V routine, XR ankle LT min 3V routine CLINICAL HISTORY: pain TECHNIQUE: 2 radiographic views of the left femur, 2 views of the left knee, 2 views of the left tibia and fibula, and 3 views of the left ankle were obtained. Comparison: None available at the time of this dictation. FINDINGS: No acute fracture is seen. No focal erosions are seen to suggest osteomyelitis. Degenerative changes are seen in the hip and knee joints. There is normal bone mineralization. Vascular calcifications are seen. IMPRESSION: No radiographic evidence of osteomyelitis is seen. ACT 112: Negative or not required by law. Electronically signed by: Demarcus Parnell M.D. 02/22/2022 6:45 PM Knee X-Ray 02/22/22 18:01 XR femur LT 2V routine, XR tibia fibula LT 2V, XR knee LT 1 or 2V routine, XR ankle LT min 3V routine CLINICAL HISTORY: pain TECHNIQUE: 2 radiographic views of the left femur, 2 views of the left knee, 2 views of the left tibia and fibula, and 3 views of the left ankle were obtained. Comparison: None available at the time of this dictation. FINDINGS: No acute fracture is seen. No focal erosions are seen to suggest osteomyelitis. Degenerative changes are seen in the hip and knee joints. There is normal bone mineralization. Vascular calcifications are seen. IMPRESSION: No radiographic evidence of osteomyelitis is seen. ACT 112: Negative or not required by law. Electronically signed by: Demarcus Parnell M.D. 02/22/2022 6:45 PM Tibia/Fibula X-Ray 02/22/22 18:01 XR femur LT 2V routine, XR tibia fibula LT 2V, XR knee LT 1 or 2V routine, XR ankle LT min 3V routine CLINICAL HISTORY: pain TECHNIQUE: 2 radiographic views of the left femur, 2 views of the left knee, 2 views of the left tibia and fibula, and 3 views of the left ankle were obtained. Comparison: None available at the time of this dictation. FINDINGS: No acute fracture is seen. No focal erosions are seen to suggest osteomyelitis. Degenerative changes are seen in the hip and knee joints. There is normal bone mineralization. Vascular calcifications are seen. IMPRESSION: No radiographic evidence of osteomyelitis is seen. ACT 112: Negative or not required by law. Electronically signed by: Demarcus Parnell M.D. 02/22/2022 6:45 PM Venous Doppler Study 02/23/22 15:40 LEFT LOWER EXTREMITY VENOUS DOPPLER HISTORY: posterior L thigh pain; eval DVT COMPARISON STUDY: None. FINDINGS: There is normal compressibility, flow, and augmentation within the left lower extremity deep venous system. There is a 2.3 cm popliteal cyst. There is a 19 x 3 x 2 cm subcutaneous fluid collection within the left medial calf. This could represent focal subcutaneous edema or an old hematoma. IMPRESSION: 1. No DVT within the left lower extremity. 2. An elongated 19 x 3 x 2 cm subcutaneous fluid collection within the left medial calf. This could represent ACT 112: Negative or not required by law. Electronically signed by: Jorge España M.D. 02/23/2022 7:[address] 02/24/22 10:52 LEFT TIBIA/FIBULA CT CT DOSE: HISTORY: Abnormal ultrasound. Evaluate left calf fluid collection. ?hematoma vs abscess L lower leg TECHNIQUE: Multiaxial CT images of the left lower leg were performed and reformatted in the sagittal and coronal plane without the use of contrast. A dose lowering technique was utilized adhering to the principles of ALARA. COMPARISON: Left leg venous Doppler 02/23/2022. Left leg CTA 02/22/2022. FINDINGS: No fracture or dislocation within the left tibia or fibula. Extensive calcified plaque seen throughout the left calf arteries. There is extensive subcutaneous edema again noted within the left lower leg most pronounced medially. This corresponds to the prior ultrasound abnormality. This is unchanged compared to the prior CT examination and favors chronic edema or possibly a cellulitis. No loculated fluid collections to suggest an abscess or hematoma. IMPRESSION: There is extensive subcutaneous edema again noted within the left lower leg most pronounced medially. This corresponds to the prior ultrasound abnormality. This is unchanged compared to the prior CT examination and favors chronic edema or possibly a cellulitis. ACT 112: Negative or not required by law. Electronically signed by: Jorge España M.D. 02/24/2022 12:19 PM Foot X-Ray 03/02/22 12:00 FL foot RT 2V HISTORY: 87 years-old Male BIALTERAL FOOT 1ST RAY RESECTION COMPARISON: Radiographs of the right foot 02/28/2022 TECHNIQUE: 2 spot fluoroscopic images of the right foot were obtained utilizing 4.1 seconds fluoroscopy time FINDINGS: Status post partial amputation of the first digit with amputation site at the level of the mid diaphyseal aspect of the first metatarsal. Expected postoperative soft tissue swelling with deep tissue air. No acute fracture or unexpected opaque foreign body. The last image demonstrates interval partial amputation of the second digit at the level of the metatarsal-phalangeal joint. IMPRESSION: Fluoroscopic assistance as above. ACT 112: Negative or not required by law. The above report was generated using voice recognition software. It may contain grammatical, syntax or spelling errors. Electronically signed by: Samm Metzger M.D. 03/02/2022 4:49 PM
[2022-03-03] MEDS ORDERED: VANCOMYCIN HCL 1,000 MG in SODIUM CHLORIDE 0.9% 250 ML IV SCH (12:00)
--- NOTE | 2022-03-03 15:42 | Progress Notes ---
DATE OF SERVICE: 03/03/2022 Postop day #1 status post bilateral toe amputations. Son-in-law is with him here today. Casey is back to more his normal baseline. Very talkative. Knows that he had surgery yesterday and is eager to g o home with his . White count 10, which is the first time it has been normal all admission. Hemoglobin 9, hematocrit 2 7, platelets are 485. His PRP is noted. He can wiggle the toes. Capillary refill 2 seconds. No discoloration, bruising or swelling. Dressi logan is clean, dry and intact. Toe culture growing out staphylococcus. That is the left big toe. Sen sitivities pending. He is status post bilateral big toe amputations for dry gangrene secondary to peripheral vascular dis ease. He also had a full thickness wound on the right second toe, which required amputation as well. I recommend continuation of intravenous antibiotics. I am confident that all of the unhealthy tissue that may have been infected has been removed. He may need some short course of IV or oral antibioti cs postoperatively to address any residual contamination. We will need to monitor wounds for healing . Continue Lovenox for DVT prophylaxis. Given the circumstances, I think Mr. Corona may be suitable for fpc facility upon discha rge prior to going home. The patient is seen in conjunction with Jimena Wood. For further details, refer to his dictation. Marcy dawn and I saw and evaluated, and I am in agreement with the plan. Job ID: [id number]
--- NOTE | 2022-03-03 16:12 | Hospitalist Progress Note ---
Date of Service March 03, 2022 Assessment & Plan (1) Sepsis: Plan: Resolved. 2nd to LLE cellulitis with Bilateral great toe gangrene. Admission Blood cx's negative. IV abx mainly to cover the L great toe as is the worse of the 2 and associated with cellulitis, until amputation is performed 03/02/2022, transtion to linezolid. (2) Left leg cellulitis: Plan: resolved. had extended from just above the L knee down the entire mueller to the L foot. minimal residual infection over dorsum of L foot. initiated on cefepime, flagyl and IV vancomycin to cover the left great toe gangrene, to OR 03/02/22. Doppler LLE neg for DVT. CT of the LLE without abscess, nec fasc, deeper infection or hematoma. now post op change IV to PO antibiotics; will use linezolid for one week pending eval of wound post care (3) Acute metabolic encephalopathy: Plan: Persistent chronic from ongoing infection (4) Gangrene of toe of left foot: Plan: Left great toe dry gangrene. Ortho consult by Dr Woodward appreciated. His team debrided the toe at bedside today. Amputation of b/l great toes planned for 03/02/22. pain is improved after surgery (5) Crohn's disease: Plan: Stablechronically on prednisone 10 mg daily. s/p IV stress dose steroids early in stay. Completed stress dose steroid taper and is back to usual dose of 10mg/day. Follows with Fanny GALLEGOS for Crohn's. No issues at this time. (6) Coronary artery disease: Plan: s/p CABG in 2016. Continue statin, metoprolol, with nitroglycerin as needed. Currently on DAPT with aspirin and Plavix due to recent lower extremity angioplasty. (7) Peripheral arterial disease: Plan: Continue DAPT with aspirin, Plavix, statin. Pain control for ischemic L great toe - see above. Follows with Dr. Errol Bay. Unfortunately, based on last office encounter, very little if anything can be done to salvage the L great toe or improve his arterial circulation. CTA LLE findings noted from admission. (8) Hypertension: Plan: Uncontrolled Increased metoprolol to 50mg BID (9) CKD (chronic kidney disease), stage III: Plan: stable (10) Skin tear: Plan: Wound care nurses and dietary supplementation, will benefit from post discharge wound care (11) Glaucoma: Plan: Continue timolol drops, brinzolamide drops, PreserVision. Plan: DVT proph - lovenox PT, OT evals requested - Admission and Anticipated Discharge Date Admission Date: February 22, 2022 Subjective status post Bilateral Foot Partial 1st Ray Resections, Right second toe amputation 03/02/22. Patient states he has no pain. He is more clear than in days past, will have transition to oral antibiotics . Review of Systems Review of Systems: Mild distress and fatigue no headache, no visual changes no speech or swallowing issues no chest pain, pressure or palpitations no shortness of breath, cough or wheezes no abdominal pain, nausea or vomiting, diarrhea or constipation no dysuria, hematuria or frequency b/l foot pain from gangrene no back pain, CVA tenderness or radicular pain great toe gangrene bilaterally no focal signs of weakness or numbness or altered sensation no complaints of anxiety or depression.. Physical Exam Physical Exam: The patient appeared stated age and mild memory impairment Vital signs as documented. Head exam is normocephalic atraumatic multiple ak on scalp Neck is without JVD, thyromegaly, or carotid bruits. Lungs are clear to auscultation, no focal loss of breath sounds Cardiac exam, Rhythm is regular.. No murmurs, rubs or gallops. Abdominal exam reveals normal bowel sounds, soft non tender, no masses Extremities are b/l gangrene to great toes Neurologic exam is alert and orientedx2, no focal loss of strength or sensation Psychologically is with concerns for memory impairment Results & Data Results & Data ([facility]) Vital Signs (Past 12 Hours) Vital Signs Temp Pulse Resp BP Pulse Ox 03/03/22 14:26 98.1 F 78 16 154/72 H 95 03/03/22 07:46 98.2 F 84 16 121/59 L 97 PG Care Time/CCT Total # of Minutes Spent Total Time Spent with Patient: Total time spent is greater than 50% in coordination of care (as documented) at patient's floor/unit and/or counseling patient: Coding Level of Care Code 11323 Subseq Hosp Care Lvl 2 Diagnoses Sepsis A41.9 Left leg cellulitis L03.116 Acute metabolic encephalopathy G93.41 Gangrene of toe of left foot I96 Crohn's disease K50.90 Coronary artery disease I25.10 Coronary Disease-Associated Artery/Lesion type: elem artery [place] vs. transplanted heart: elem heart Associated angina: without angina Peripheral arterial disease I73.9 Hypertension I10 Hypertension type: essential hypertension CKD (chronic kidney disease), stage III N18.3 Skin tear Glaucoma H40.9 (1) Coronary artery disease Coronary Disease-Associated Artery/Lesion type: elem artery [place] vs. transplanted heart: elem heart Associated angina: without angina Qualified Code(s): I25.10 - Atherosclerotic heart disease of elem coronary artery without angina pectoris (2) Hypertension Hypertension type: essential hypertension Qualified Code(s): I10 - Essential (primary) hypertension
[2022-03-03] MEDS: ATORVASTATIN 40 MG TAB PO SCH (20:32)
[2022-03-03] MEDS: MELATONIN 3 MG TAB PO SCH (20:33)
[2022-03-03] MEDS: LORazepam 0.5 MG TAB PO PRN (20:36)
[2022-03-03] MEDS: oxyCODONE HCL IR 5 MG TAB (IMMEDIATE RELEASE) PO PRN (20:59)
[2022-03-04] MEDS: THIAMINE HCL 100 MG TAB PO SCH (09:02)
[2022-03-04] MEDS: TIMOLOL GFS 0.25% OPH SOLN 74 DROPS/5 ML BTL OPB SCH (09:02)
[2022-03-04] MEDS: BRINZOLAMIDE (AZOPT) OPS 10 ML BTL OPB SCH ×2 (09:02→16:10)
[2022-03-04] MEDS: ASPIRIN 81 MG ECTAB PO SCH (09:03)
[2022-03-04] MEDS: PANTOprazole 40 MG TAB PO SCH (09:03)
[2022-03-04] MEDS: CLOPIDOGREL BISULFATE 75 MG TAB PO SCH (09:03)
[2022-03-04] MEDS: ADVANCED PROBIOTIC 1250 MG CAPSULE PO SCH (09:03)
[2022-03-04] MEDS: LINEZOLID 600 MG TAB PO SCH ×2 (09:03→20:49)
[2022-03-04] MEDS: SENNA 8.6 MG TAB PO SCH (09:03)
[2022-03-04] MEDS: predniSONE 10 MG TABLET PO SCH (09:03)
[2022-03-04] MEDS: DOCUSATE SODIUM 100 MG CAP PO SCH ×2 (09:03→20:48)
[2022-03-04] MEDS: FOLIC ACID 400 MCG TAB PO SCH (09:03)
[2022-03-04] MEDS: CEROVITE ADV FORMULA TAB PO SCH (09:03)
[2022-03-04] MEDS: METOPROLOL TARTRATE 50 MG TAB PO SCH ×2 (09:03→20:53)
[2022-03-04] MEDS: CALCIUM 600MG + VIT D 400 IU TAB PO SCH (09:03)
[2022-03-04] MEDS: ACETAMINOPHEN 500 MG TAB PO SCH ×4 (09:04→20:48)
[2022-03-04] MEDS: POLYETHYLENE (MIRALAX) 17 GM PACK PO SCH (09:04)
[2022-03-04] MEDS: ENOXAPARIN INJ 40 MG/0.4 ML SYR SQ SCH (09:04)
[2022-03-04] MEDS: oxyCODONE HCL IR 5 MG TAB (IMMEDIATE RELEASE) PO PRN (13:26)
--- NOTE | 2022-03-04 13:47 | Hospitalist Progress Note ---
Date of Service March 04, 2022 Assessment & Plan (1) Sepsis: Plan: Resolved. 2nd to LLE cellulitis with Bilateral great toe gangrene. Admission Blood cx's negative. IV abx mainly to cover the L great toe as is the worse of the 2 and associated with cellulitis, b/l amputation is performed 03/02/2022, transition to linezolid. (2) Left leg cellulitis: Plan: resolved. had extended from just above the L knee down the entire mueller to the L foot. minimal residual infection over dorsum of L foot. initiated on cefepime, flagyl and IV vancomycin to cover the left great toe gangrene, to OR 03/02/22. Doppler LLE neg for DVT. CT of the LLE without abscess, nec fasc, deeper infection or hematoma. now post op changed to PO antibiotics; will use linezolid for one week pending eval of wound post care (3) Acute metabolic encephalopathy: Plan: Persistent chronic from ongoing infection (4) Gangrene of toe of left foot: Plan: Left great toe dry gangrene. Ortho consult by Dr Woodward appreciated. His team debrided the toe at bedside today. Amputation of b/l great toes planned for 03/02/22. pain is improved after surgery (5) Crohn's disease: Plan: Stablechronically on prednisone 10 mg daily. s/p IV stress dose steroids early in stay. Completed stress dose steroid taper and is back to usual dose of 10mg/day. Follows with [facility] for Crohn's. No issues at this time. (6) Coronary artery disease: Plan: s/p CABG in 2016. Continue statin, metoprolol, with nitroglycerin as needed. Currently on DAPT with aspirin and Plavix due to recent lower extremity angioplasty. (7) Peripheral arterial disease: Plan: Continue DAPT with aspirin, Plavix, statin. Follows with Dr. Errol Bay. CTA LLE findings noted from admission. (8) Hypertension: Plan: Uncontrolled Increased metoprolol to 50mg BID (9) CKD (chronic kidney disease), stage III: Plan: stable (10) Skin tear: Plan: Wound care nurses and dietary supplementation, will benefit from post discharge wound care (11) Glaucoma: Plan: Continue timolol drops, brinzolamide drops, PreserVision. Plan: DVT proph - lovenox PT, OT evals requested - Admission and Anticipated Discharge Date Admission Date: February 22, 2022 Subjective status post Bilateral Foot Partial 1st Ray Resections, Right second toe amputation 03/02/22. Patient states he has no pain. He is more clear than in days past, will have transition to oral antibiotics . Review of Systems Review of Systems: Mild distress and fatigue no headache, no visual changes no speech or swallowing issues no chest pain, pressure or palpitations no shortness of breath, cough or wheezes no abdominal pain, nausea or vomiting, diarrhea or constipation no dysuria, hematuria or frequency b/l foot pain from gangrene no back pain, CVA tenderness or radicular pain great toe gangrene bilaterally no focal signs of weakness or numbness or altered sensation no complaints of anxiety or depression.. Physical Exam Physical Exam: The patient appeared stated age and mild memory impairment Vital signs as documented. Head exam is normocephalic atraumatic multiple ak on scalp Neck is without JVD, thyromegaly, or carotid bruits. Lungs are clear to auscultation, no focal loss of breath sounds Cardiac exam, Rhythm is regular.. No murmurs, rubs or gallops. Abdominal exam reveals normal bowel sounds, soft non tender, no masses Extremities are b/l gangrene to great toes Neurologic exam is alert and orientedx2, no focal loss of strength or sensation Psychologically is with concerns for memory impairment Results & Data Results & Data ([facility]) Vital Signs (Past 12 Hours) Vital Signs Temp Pulse Resp BP Pulse Ox 03/04/22 07:37 97.9 F 89 22 159/74 H 96 PG Care Time/CCT Total # of Minutes Spent Total Time Spent with Patient: Total time spent is greater than 50% in coordination of care (as documented) at patient's floor/unit and/or counseling patient: Coding Level of Care Code 81449 Subseq Hosp Care Lvl 2 Diagnoses Sepsis A41.9 Left leg cellulitis L03.116 Acute metabolic encephalopathy G93.41 Gangrene of toe of left foot I96 Crohn's disease K50.90 Coronary artery disease I25.10 Coronary Disease-Associated Artery/Lesion type: [place] artery [place] vs. transplanted heart: [place] heart Associated angina: without angina Peripheral arterial disease I73.9 Hypertension I10 Hypertension type: essential hypertension CKD (chronic kidney disease), stage III N18.3 Skin tear Glaucoma H40.9 (1) Coronary artery disease Coronary Disease-Associated Artery/Lesion type: [place] artery [place] vs. tr ansplanted heart: [place] heart Associated angina: without angina Qualified Code(s): I25.10 - Atherosclerotic heart disease of [place] coronary artery without angina pectoris (2) Hypertension Hypertension type: essential hypertension Qualified Code(s): I10 - Essential (primary) hypertension
--- NOTE | 2022-03-04 17:34 | Progress Notes ---
DATE OF SERVICE: 03/04/2022 Casey is resting comfortably in bed. He had PT and was up sitting for a while. He offers no complaint . He is afebrile. His vital signs are stable. There are no new labs today. Cultures growing out S taph species, sensitivities to follow, and Corynebacterium species. He is currently on linezolid. D ressings are changed and both feet are inspected. There is good capillary refill in the flaps bilate rally. There is no evidence of marginal wound necrosis or duskiness of the skin at this time. There is no hematoma formation or substantial swelling. There is a little bit of bruising on the dorsum o f the right foot. There is also a small darkish discoloration mid mueller right pretibial area. He can wiggle his toes and move his ankles. There is minimal, if any, swelling. Xeroform, 4 x 4, fluffs b etween the toes and a new dressing is applied. He is status post bilateral big toe and right second toe amputation secondary to peripheral artery di sease and dry gangrene. Follow up on cultures. He can weight bear as tolerated with postop shoes. I think a short course of IV antibiotics, transitioning to orals at some point would be reasonable. I think that he would need fpc facility upon discharge. Lovenox for DVT prophylaxis. Nu trition consult if one has not been completed already. Job ID: [id number]
[2022-03-04] MEDS: ATORVASTATIN 40 MG TAB PO SCH (20:46)
[2022-03-04] MEDS: MELATONIN 3 MG TAB PO SCH (20:49)
[2022-03-04] MEDS: LORazepam 0.5 MG TAB PO PRN (20:54)
--- NOTE | 2022-03-05 07:57 | Hospitalist Progress Note ---
Date of Service March 05, 2022 Assessment & Plan (1) Sepsis: Plan: Resolved. 2nd to LLE cellulitis with Bilateral great toe gangrene. Blood cx's negative. with cellulitis, b/l amputation is performed 03/02/2022, transition to linezolid po for one week LD 03/11/22 (2) Left leg cellulitis: Plan: resolved.initiated on cefepime, flagyl and IV vancomycin to cover the left great toe gangrene, to OR 03/02/22 now on linezolid LD 03/11/22. Doppler LLE neg for DVT. CT of the LLE without abscess, nec fasc, deeper infection or hematoma. intraoperative wound culture has grown MRSA which is covered with linezolid but also corynebacteria, this is not covered but with source control will not add additional agent unless clinically is worsened (3) Acute metabolic encephalopathy: Plan: resolved (4) Gangrene of toe of left foot: Plan: Left great toe dry gangrene. Ortho consult by Dr Woodward appreciated. S/P Amputation of b/l great toes 03/02/22. pain is improved after surgery (5) Crohn's disease: Plan: Stablechronically on prednisone 10 mg daily. s/p IV stress dose steroids early in stay. Completed stress dose steroid taper and is back to usual dose of 10mg/day. Follows with [facility] for Crohn's. (6) Coronary artery disease: Plan: s/p CABG in 2016. Continue statin, metoprolol, with nitroglycerin as needed. Currently on DAPT with aspirin and Plavix due to recent lower extremity angioplasty. (7) Peripheral arterial disease: Plan: Continue DAPT with aspirin, Plavix, statin. Follows with Dr. Errol Bay. CTA LLE findings noted from admission. (8) Hypertension: Plan: Increased metoprolol to 50mg BID (9) CKD (chronic kidney disease), stage III: Plan: stable (10) Skin tear: Plan: Wound care nurses and dietary supplementation, will benefit from post discharge wound care (11) Glaucoma: Plan: Continue timolol drops, brinzolamide drops, PreserVision. Plan: DVT proph - lovenox PT, OT evals requested - Admission and Anticipated Discharge Date Admission Date: February 22, 2022 Subjective status post Bilateral Foot Partial 1st Ray Resections, Right second toe amputation 03/02/22. Patient states he has no pain. He is more clear than in days past, will have transition to oral antibiotics, but since source control will hold on further antibiotics at this time. Review of Systems Review of Systems: Mild distress and fatigue no headache, no visual changes no speech or swallowing issues no chest pain, pressure or palpitations no shortness of breath, cough or wheezes no abdominal pain, nausea or vomiting, diarrhea or constipation no dysuria, hematuria or frequency b/l foot pain from gangrene no back pain, CVA tenderness or radicular pain great toe amputation bilaterally no focal signs of weakness or numbness or altered sensation no complaints of anxiety or depression.. Physical Exam Physical Exam: The patient appeared stated age and mild memory impairment Vital signs as documented. Head exam is normocephalic atraumatic multiple ak on scalp Neck is without JVD, thyromegaly, or carotid bruits. Lungs are clear to auscultation, no focal loss of breath sounds Cardiac exam, Rhythm is regular.. No murmurs, rubs or gallops. Abdominal exam reveals normal bowel sounds, soft non tender, no masses Extremities are b/l amputation of great toes Neurologic exam is alert and orientedx2, no focal loss of strength or sensation Psychologically is with concerns for memory impairment Results & Data Results & Data ([facility]) Vital Signs (Past 12 Hours) Vital Signs Temp Pulse Resp BP Pulse Ox 03/04/22 20:50 97.9 F 90 14 161/70 H 92 PG Care Time/CCT Total # of Minutes Spent Total Time Spent with Patient: Total time spent is greater than 50% in coordination of care (as documented) at patient's floor/unit and/or counseling patient: Coding Level of Care Code 32977 Subseq Hosp Care Lvl 2 Diagnoses Sepsis A41.9 Left leg cellulitis L03.116 Acute metabolic encephalopathy G93.41 Gangrene of toe of left foot I96 Crohn's disease K50.90 Coronary artery disease I25.10 Associated angina: without angina Coronary Disease-Associated Artery/Lesion type: [place] artery [place] vs. transplanted heart: [place] heart Peripheral arterial disease I73.9 Hypertension I10 Hypertension type: essential hypertension CKD (chronic kidney disease), stage III N18.3 Skin tear Glaucoma H40.9 (1) Coronary artery disease Associated angina: without angina Coronary Disease-Associated Artery/Lesion type: [place] artery [place] vs. transplanted heart: [place] heart Qualified Code(s): I25.10 - Atherosclerotic heart disease of [place] coronary artery without angina pectoris (2) Hypertension Hypertension type: essential hypertension Qualified Code(s): I10 - Essential (primary) hypertension
[2022-03-05] MEDS: CALCIUM 600MG + VIT D 400 IU TAB PO SCH (08:28)
[2022-03-05] MEDS: FOLIC ACID 400 MCG TAB PO SCH (08:28)
[2022-03-05] MEDS: CLOPIDOGREL BISULFATE 75 MG TAB PO SCH (08:28)
[2022-03-05] MEDS: predniSONE 10 MG TABLET PO SCH (08:28)
[2022-03-05] MEDS: CEROVITE ADV FORMULA TAB PO SCH (08:28)
[2022-03-05] MEDS: ASPIRIN 81 MG ECTAB PO SCH (08:28)
[2022-03-05] MEDS: ACETAMINOPHEN 500 MG TAB PO SCH ×3 (08:28→21:23)
[2022-03-05] MEDS: THIAMINE HCL 100 MG TAB PO SCH (08:28)
[2022-03-05] MEDS: LINEZOLID 600 MG TAB PO SCH ×2 (08:28→21:22)
[2022-03-05] MEDS: ADVANCED PROBIOTIC 1250 MG CAPSULE PO SCH (08:28)
[2022-03-05] MEDS: METOPROLOL TARTRATE 50 MG TAB PO SCH ×2 (08:28→21:21)
[2022-03-05] MEDS: BRINZOLAMIDE (AZOPT) OPS 10 ML BTL OPB SCH ×2 (08:29→15:03)
[2022-03-05] MEDS: POLYETHYLENE (MIRALAX) 17 GM PACK PO SCH (08:29)
[2022-03-05] MEDS: DOCUSATE SODIUM 100 MG CAP PO SCH ×2 (08:29→21:22)
[2022-03-05] MEDS: PANTOprazole 40 MG TAB PO SCH (08:29)
[2022-03-05] MEDS: SENNA 8.6 MG TAB PO SCH (08:29)
[2022-03-05] MEDS: TIMOLOL GFS 0.25% OPH SOLN 74 DROPS/5 ML BTL OPB SCH (08:29)
[2022-03-05] MEDS: ENOXAPARIN INJ 40 MG/0.4 ML SYR SQ SCH (08:30)
[2022-03-05] MEDS: oxyCODONE HCL IR 5 MG TAB (IMMEDIATE RELEASE) PO PRN (21:20)
[2022-03-05] MEDS: MELATONIN 3 MG TAB PO SCH (21:21)
[2022-03-05] MEDS: ATORVASTATIN 40 MG TAB PO SCH (21:21)
[2022-03-06 06:58] LABS: Hematocrit (blood only) 29.5 % (42-52); Hemoglobin 9.1 g/dL (14.0-18.0); Mean Corpuscular Hemoglobin 31.6 pg (25-34); Mean Corpuscular Hgb Conc 30.8 g/dL (32-36); Mean Corpuscular Volume 102.4 fL (80-100); Mean Platelet Volume 9.6 fL (7.4-10.4); Platelet Count 483 K/uL (130-400); RDW Coefficient of Variation 15.7 % (11.5-14.5); RDW Standard Deviation 59.1 fL (36.4-46.3); Red Blood Count 2.88 M/uL (4.7-6.1); White Blood Count 10.24 K/uL (4.8-10.8)
[2022-03-06 07:18] LABS: BUN Creatinine Ratio 13.8 (10-20); Calcium 7.5 mg/dl (8.5-10.1); Creatinine Clr Calc Pharmacy 48.5 ml/min; Est GFR (African American) 83.6 ml/min; Est GFR (Non-African American) 72.1 ml/min; Potassium 3.1 mmol/L (3.5-5.1)
[2022-03-06] MEDS: THIAMINE HCL 100 MG TAB PO SCH (09:16)
[2022-03-06] MEDS: METOPROLOL TARTRATE 50 MG TAB PO SCH ×2 (09:16→21:54)
[2022-03-06] MEDS: ASPIRIN 81 MG ECTAB PO SCH (09:16)
[2022-03-06] MEDS: PANTOprazole 40 MG TAB PO SCH (09:16)
[2022-03-06] MEDS: LINEZOLID 600 MG TAB PO SCH ×2 (09:16→21:53)
[2022-03-06] MEDS: CEROVITE ADV FORMULA TAB PO SCH (09:16)
[2022-03-06] MEDS: FOLIC ACID 400 MCG TAB PO SCH (09:16)
[2022-03-06] MEDS: ENOXAPARIN INJ 40 MG/0.4 ML SYR SQ SCH (09:17)
[2022-03-06] MEDS: TIMOLOL GFS 0.25% OPH SOLN 74 DROPS/5 ML BTL OPB SCH (09:17)
[2022-03-06] MEDS: ADVANCED PROBIOTIC 1250 MG CAPSULE PO SCH (09:17)
[2022-03-06] MEDS: CALCIUM 600MG + VIT D 400 IU TAB PO SCH (09:17)
[2022-03-06] MEDS: predniSONE 10 MG TABLET PO SCH (09:17)
[2022-03-06] MEDS: CLOPIDOGREL BISULFATE 75 MG TAB PO SCH (09:17)
[2022-03-06] MEDS: DOCUSATE SODIUM 100 MG CAP PO SCH ×2 (09:23→21:53)
[2022-03-06] MEDS: BRINZOLAMIDE (AZOPT) OPS 10 ML BTL OPB SCH ×2 (09:23→17:05)
[2022-03-06] MEDS: SENNA 8.6 MG TAB PO SCH (09:23)
[2022-03-06] MEDS: POLYETHYLENE (MIRALAX) 17 GM PACK PO SCH (09:23)
[2022-03-06] MEDS ORDERED: MAGNESIUM SULFATE / D5W 1 GM/100 ML BAG IV ONE (09:27)
--- NOTE | 2022-03-06 09:54 | Progress Notes ---
DATE OF SERVICE: 03/06/2022. Casey is resting comfortably in bed. Reports no problems. He is alert and oriented x3. We talked abo ut his disposition. I think shelter is a good option for him. If he had very good support a t home and was able to focus on resting, elevating, and have someone help him with wound care at home , going home might be an option; however, he would not really be able to help care for his as he would need to focus on his own needs. He is afebrile. His vital signs are stable. His labs are no mauri today. White count normal, hematocrit 30, platelets 483. PRP noted. Dressings changed bilaterally. There is a couple of millimeter area of duskiness on the right incisi on. Otherwise, no hematoma, healing well. No active bleeding. Swelling is minimal. Likewise on th e left foot, there is no hematoma. The wound edges are well approximated. There is no hematoma or s ignificant drainage or redness. Dressings are changed. Elevate heels off the bed. He can weightbear as tolerated with postop shoes for things like PT, etc. , but mainly focus on being off the feet, legs elevated. Looks like Dr. Healy has recommended a week of Zyvox. Stable orthopedically at this point. Will continue to monitor. If he does get disch arged, we would like to see him back next week for a wound check in the office and that appointment i s likely already set up. I have ordered some vitamin A to help with wound healing in the face of his chronic steroid use. Job ID: [id number]
[2022-03-06] MEDS: ACETAMINOPHEN 500 MG TAB PO SCH ×3 (10:13→21:57)
[2022-03-06] MEDS: VITAMIN A 25,000 UNIT CAP PO SCH (10:13)
[2022-03-06] MEDS: POTASSIUM CHLORIDE CRTAB 20 MEQ TABCR PO SCH ×2 (10:13→21:54)
--- NOTE | 2022-03-06 12:30 | Hospitalist Progress Note ---
Date of Service March 06, 2022 Assessment & Plan (1) Sepsis: Plan: Resolved. 2nd to LLE cellulitis with Bilateral great toe gangrene. Blood cx's negative. with cellulitis, b/l amputation is performed 03/02/2022, did have vancomycin and linezolid since 02/22 now 12 days, will stop but concern for wound culture intra operative with many corynebacterium, will have on oral cipro at this time (2) Left leg cellulitis: Plan: resolved.initiated on cefepime, flagyl and IV vancomycin to cover the left great toe gangrene, to OR 03/02/22 n Doppler LLE neg for DVT. CT of the LLE without abscess, nec fasc, deeper infection or hematoma. intraoperative wound culture has grown MRSA which was covered with vanco/linezolid but also corynebacteria, this is not covered since many seen will have one additional weel of Cipro clinically is stable with dressing change on 03/06/22 by surgery (3) Acute metabolic encephalopathy: Plan: resolved (4) Gangrene of toe of left foot: Plan: Left great toe dry gangrene. Ortho consult by Dr Woodward appreciated. S/P Amputation of b/l great toes 03/02/22. pain is improved after surgery (5) Crohn's disease: Plan: Stablechronically on prednisone 10 mg daily. s/p IV stress dose steroids early in stay. Completed stress dose steroid taper and is back to usual dose of 10mg/day. Follows with [facility] for Crohn's. (6) Coronary artery disease: Plan: s/p CABG in 2016. Continue statin, metoprolol, with nitroglycerin as needed. Currently on DAPT with aspirin and Plavix due to recent lower extremity angioplasty. (7) Peripheral arterial disease: Plan: Continue DAPT with aspirin, Plavix, statin. Follows with Dr. Errol Bay. CTA LLE findings noted from admission. (8) Hypertension: Plan: Increased metoprolol to 50mg BID (9) CKD (chronic kidney disease), stage III: Plan: stable (10) Skin tear: Plan: Wound care nurses and dietary supplementation, will benefit from post discharge wound care (11) Glaucoma: Plan: Continue timolol drops, brinzolamide drops, PreserVision. Plan: DVT proph - lovenox PT, OT evals requested - Admission and Anticipated Discharge Date Admission Date: February 22, 2022 Subjective status post Bilateral Foot Partial 1st Ray Resections, Right second toe amputation 03/02/22. Patient states he has no pain. He is more clear than in days past, did transition to oral antibiotics, but since wound cultures show freddie lyle corynebacterial will add short course of cipro and stop linezolid Review of Systems Review of Systems: Mild distress and fatigue no headache, no visual changes no speech or swallowing issues no chest pain, pressure or palpitations no shortness of breath, cough or wheezes no abdominal pain, nausea or vomiting, diarrhea or constipation no dysuria, hematuria or frequency b/l foot pain from gangrene no back pain, CVA tenderness or radicular pain great toe amputation bilaterally no focal signs of weakness or numbness or altered sensation no complaints of anxiety or depression.. Physical Exam Physical Exam: The patient appeared stated age and mild memory impairment Vital signs as documented. Head exam is normocephalic atraumatic multiple ak on scalp Neck is without JVD, thyromegaly, or carotid bruits. Lungs are clear to auscultation, no focal loss of breath sounds Cardiac exam, Rhythm is regular.. No murmurs, rubs or gallops. Abdominal exam reveals normal bowel sounds, soft non tender, no masses Extremities are b/l amputation of great toes Neurologic exam is alert and orientedx2, no focal loss of strength or sensation Psychologically is with concerns for memory impairment Results & Data Results & Data ([facility]) Vital Signs (Past 12 Hours) Vital Signs Temp Pulse Resp BP Pulse Ox 03/06/22 08:10 98.1 F 62 20 148/64 H 98 PG Care Time/CCT Total # of Minutes Spent Total Time Spent with Patient: Total time spent is greater than 50% in coordination of care (as documented) at patient's floor/unit and/or counseling patient: Coding Level of Care Code 68219 Subseq Hosp Care Lvl 2 Diagnoses Sepsis A41.9 Left leg cellulitis L03.116 Acute metabolic encephalopathy G93.41 Gangrene of toe of left foot I96 Crohn's disease K50.90 Coronary artery disease I25.10 Coronary Disease-Associated Artery/Lesion type: [place] artery [place] vs. transplanted heart: [place] heart Associated angina: without angina Peripheral arterial disease I73.9 Hypertension I10 Hypertension type: essential hypertension CKD (chronic kidney disease), stage III N18.3 Skin tear Glaucoma H40.9 (1) Coronary artery disease Coronary Disease-Associated Artery/Lesion type: [place] artery [place] vs. transplanted heart: [place] heart Associated angina: without angina Qualified Code(s): I25.10 - Atherosclerotic heart disease of [place] coronary artery without angina pectoris (2) Hypertension Hypertension type: essential hypertension Qualified Code(s): I10 - Essential (primary) hypertension
[2022-03-06] MEDS ORDERED: CIPROFLOXACIN 500 MG TAB PO SCH (21:00)
[2022-03-06] MEDS: oxyCODONE HCL IR 5 MG TAB (IMMEDIATE RELEASE) PO PRN (21:51)
[2022-03-06] MEDS: LORazepam 0.5 MG TAB PO PRN (21:51)
[2022-03-06] MEDS: ATORVASTATIN 40 MG TAB PO SCH (21:52)
[2022-03-06] MEDS: MELATONIN 3 MG TAB PO SCH (21:54)
[2022-03-07] MEDS: PANTOprazole 40 MG TAB PO SCH (08:01)
[2022-03-07] MEDS: CALCIUM 600MG + VIT D 400 IU TAB PO SCH (08:01)
[2022-03-07] MEDS: POTASSIUM CHLORIDE CRTAB 20 MEQ TABCR PO SCH (08:01)
[2022-03-07] MEDS: VITAMIN A 25,000 UNIT CAP PO SCH (08:02)
[2022-03-07] MEDS: THIAMINE HCL 100 MG TAB PO SCH (08:02)
[2022-03-07] MEDS: CLOPIDOGREL BISULFATE 75 MG TAB PO SCH (08:02)
[2022-03-07] MEDS: ADVANCED PROBIOTIC 1250 MG CAPSULE PO SCH (08:02)
[2022-03-07] MEDS: FOLIC ACID 400 MCG TAB PO SCH (08:02)
[2022-03-07] MEDS: LINEZOLID 600 MG TAB PO SCH ×2 (08:02→21:28)
[2022-03-07] MEDS: ASPIRIN 81 MG ECTAB PO SCH (08:03)
[2022-03-07] MEDS: predniSONE 10 MG TABLET PO SCH (08:03)
[2022-03-07] MEDS: SENNA 8.6 MG TAB PO SCH (08:03)
[2022-03-07] MEDS: CEROVITE ADV FORMULA TAB PO SCH (08:03)
[2022-03-07] MEDS: POLYETHYLENE (MIRALAX) 17 GM PACK PO SCH (08:04)
[2022-03-07] MEDS: ENOXAPARIN INJ 40 MG/0.4 ML SYR SQ SCH (08:05)
[2022-03-07] MEDS: TIMOLOL GFS 0.25% OPH SOLN 74 DROPS/5 ML BTL OPB SCH (08:05)
[2022-03-07] MEDS: DOCUSATE SODIUM 100 MG CAP PO SCH ×2 (08:05→21:27)
[2022-03-07] MEDS: BRINZOLAMIDE (AZOPT) OPS 10 ML BTL OPB SCH ×2 (08:06→16:03)
[2022-03-07] MEDS: METOPROLOL TARTRATE 50 MG TAB PO SCH ×2 (08:06→21:34)
[2022-03-07] MEDS: ACETAMINOPHEN 500 MG TAB PO SCH ×3 (08:37→21:26)
--- NOTE | 2022-03-07 17:25 | Hospitalist Progress Note ---
Date of Service March 07, 2022 Assessment & Plan (1) Sepsis: Plan: Resolved. 2nd to LLE cellulitis with Bilateral great toe gangrene. Blood cx's negative. with cellulitis, b/l amputation is performed 03/02/2022, did have vancomycin and linezolid since 02/22 complete 14 days LD 03/08/22 (2) Left leg cellulitis: Plan: resolved.initiated on cefepime, flagyl and IV vancomycin to cover the left great toe gangrene, to OR 03/02/22 n Doppler LLE neg for DVT. CT of the LLE without abscess, nec fasc, deeper infection or hematoma. intraoperative wound culture has grown MRSA which was covered with vanc o/linezolid, pharmacy feels corynebacterium also covered is stable with dressing change on 03/06/22 by surgery (3) Acute metabolic encephalopathy: Plan: resolved (4) Gangrene of toe of left foot: Plan: Left great toe dry gangrene. Ortho consult by Dr Woodward appreciated. S/P Amputation of b/l great toes 03/02/22. pain is improved after surgery (5) Crohn's disease: Plan: Stablechronically on prednisone 10 mg daily. s/p IV stress dose steroids early in stay. Completed stress dose steroid taper and is back to usual dose of 10mg/day. Follows with [facility] for Crohn's. (6) Coronary artery disease: Plan: s/p CABG in 2016. Continue statin, metoprolol, with nitroglycerin as needed. Currently on DAPT with aspirin and Plavix due to recent lower extremity angioplasty. (7) Peripheral arterial disease: Plan: Continue DAPT with aspirin, Plavix, statin. Follows with Dr. Errol Bay. CTA LLE findings noted from admission. (8) Hypertension: Plan: Increased metoprolol to 50mg BID (9) CKD (chronic kidney disease), stage III: Plan: stable (10) Skin tear: Plan: Wound care nurses and dietary supplementation, will benefit from post discharge wound care (11) Glaucoma: Plan: Continue timolol drops, brinzolamide drops, PreserVision. Plan: DVT proph - lovenox PT, OT evals requested - [facility] Admission and Anticipated Discharge Date Admission Date: February 22, 2022 Subjective status post Bilateral Foot Partial 1st Ray Resections, Right second toe amputation 03/02/22. Patient states he has no pain. He is more clear than in days past, did transition to oral antibiotics, linezolid Review of Systems Review of Systems: Mild distress and fatigue no headache, no visual changes no speech or swallowing issues no chest pain, pressure or palpitations no shortness of breath, cough or wheezes no abdominal pain, nausea or vomiting, diarrhea or constipation no dysuria, hematuria or frequency b/l foot pain from gangrene no back pain, CVA tenderness or radicular pain great toe amputation bilaterally no focal signs of weakness or numbness or altered sensation no complaints of anxiety or depression.. Physical Exam Physical Exam: The patient appeared stated age and mild memory impairment Vital signs as documented. Head exam is normocephalic atraumatic multiple ak on scalp Neck is without JVD, thyromegaly, or carotid bruits. Lungs are clear to auscultation, no focal loss of breath sounds Cardiac exam, Rhythm is regular.. No murmurs, rubs or gallops. Abdominal exam reveals normal bowel sounds, soft non tender, no masses Extremities are b/l amputation of great toes Neurologic exam is alert and orientedx2, no focal loss of strength or sensation Psychologically is with concerns for memory impairment Results & Data Results & Data ([facility]) Vital Signs (Past 12 Hours) Vital Signs Temp Pulse Resp BP Pulse Ox 03/07/22 15:47 97.9 F 72 16 154/82 H 97 03/07/22 08:07 98.1 F 73 18 169/76 H 99 PG Care Time/CCT Total # of Minutes Spent Total Time Spent with Patient: Total time spent is greater than 50% in coordination of care (as documented) at patient's floor/unit and/or counseling patient: Coding Level of Care Code 68202 Subseq Hosp Care Lvl 1 Diagnoses Sepsis A41.9 Left leg cellulitis L03.116 Acute metabolic encephalopathy G93.41 Gangrene of toe of left foot I96 Crohn's disease K50.90 Coronary artery disease I25.10 Coronary Disease-Associated Artery/Lesion type: [place] artery [place] vs. transplanted heart: [place] heart Associated angina: without angina Peripheral arterial disease I73.9 Hypertension I10 Hypertension type: essential hypertension CKD (chronic kidney disease), stage III N18.3 Skin tear Glaucoma H40.9 (1) Coronary artery disease Coronary Disease-Associated Artery/Lesion type: [place] artery [place] vs. transplanted heart: [place] heart Associated angina: without angina Qualified Code(s): I25.10 - Atherosclerotic heart disease of [place] coronary artery without angina pectoris (2) Hypertension Hypertension type: essential hypertension Qualified Code(s): I10 - Essential (primary) hypertension
[2022-03-07] MEDS: ATORVASTATIN 40 MG TAB PO SCH (21:27)
[2022-03-07] MEDS: MELATONIN 3 MG TAB PO SCH (21:28)
[2022-03-07] MEDS: oxyCODONE HCL IR 5 MG TAB (IMMEDIATE RELEASE) PO PRN (21:31)
[2022-03-07] MEDS: LORazepam 0.5 MG TAB PO PRN (21:32)
[2022-03-08] MEDS: CEROVITE ADV FORMULA TAB PO SCH (08:19)
[2022-03-08] MEDS: LINEZOLID 600 MG TAB PO SCH ×2 (08:19→22:22)
[2022-03-08] MEDS: SENNA 8.6 MG TAB PO SCH (08:19)
[2022-03-08] MEDS: METOPROLOL TARTRATE 50 MG TAB PO SCH ×2 (08:19→22:23)
[2022-03-08] MEDS: ASPIRIN 81 MG ECTAB PO SCH (08:20)
[2022-03-08] MEDS: predniSONE 10 MG TABLET PO SCH (08:20)
[2022-03-08] MEDS: VITAMIN A 25,000 UNIT CAP PO SCH (08:20)
[2022-03-08] MEDS: CALCIUM 600MG + VIT D 400 IU TAB PO SCH (08:20)
[2022-03-08] MEDS: FOLIC ACID 400 MCG TAB PO SCH (08:20)
[2022-03-08] MEDS: DOCUSATE SODIUM 100 MG CAP PO SCH ×2 (08:20→22:21)
[2022-03-08] MEDS: PANTOprazole 40 MG TAB PO SCH (08:20)
[2022-03-08] MEDS: ADVANCED PROBIOTIC 1250 MG CAPSULE PO SCH (08:20)
[2022-03-08] MEDS: CLOPIDOGREL BISULFATE 75 MG TAB PO SCH (08:20)
[2022-03-08] MEDS: ENOXAPARIN INJ 40 MG/0.4 ML SYR SQ SCH (08:21)
[2022-03-08] MEDS: THIAMINE HCL 100 MG TAB PO SCH (08:21)
[2022-03-08] MEDS: POLYETHYLENE (MIRALAX) 17 GM PACK PO SCH (08:21)
[2022-03-08] MEDS: ACETAMINOPHEN 500 MG TAB PO SCH ×3 (08:21→22:20)
[2022-03-08] MEDS: TIMOLOL GFS 0.25% OPH SOLN 74 DROPS/5 ML BTL OPB SCH (08:22)
[2022-03-08] MEDS: BRINZOLAMIDE (AZOPT) OPS 10 ML BTL OPB SCH ×2 (08:29→15:09)
--- NOTE | 2022-03-08 10:10 | Progress Notes ---
SUBJECTIVE: Mr. Corona is resting comfortably in bed. He reports he has been doing PT and getting out of bed. I encouraged him to move his arms and do some in-bed PT as well. No complaints were off ered. Looks like a halfway facility disposition is pending. OBJECTIVE: He is afebrile. His vital signs are stable. His white blood cell count most recently wa s normal. Cultures grew out MRSA and corynebacterium. He is on linezolid. Dressings changed on both feet. He has some bruises or area of ischemia along the anterior tibias bi laterally, which look like they are being addressed by wound care nurse. The right foot looks great. The wound edges are well approximated and healing well. There is no hematoma or erythema. The lef t looks good as well. Distally, there is a little bit of sluggish wound healing at present compared to other areas. Wound edges are well approximated. No erythema, drainage, or hematoma. Minimal swe lling. Fluffs were placed between the toes. Xeroform gauze dressing and Champ wrap. Heels elevated o ff the bed. IMPRESSION: Dry gangrene of both great toes and an ischemic ulcer of the right second toe. Status p ost multiple toe amputations, peripheral vascular disease, chronic steroid use. PLAN: Continue antibiotics per medicine. Continue PT and OT. [facility] He can weight bear as tolerated in postop shoes. He will need close wound monitoring. Will leave sutures in at least 3 weeks. Large doses of vitamin A to help counteract negative effects of chronic steroids on wound healing. Will continue to monitor. C[place]ar for DVT prophylaxis. Job ID: [id number]
[2022-03-08] MEDS: oxyCODONE HCL IR 5 MG TAB (IMMEDIATE RELEASE) PO PRN ×2 (10:36→22:23)
[2022-03-08] MEDS ORDERED: lisinopril 5 MG TAB PO ONE (12:48)
--- NOTE | 2022-03-08 12:48 | Hospitalist Progress Note ---
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 - Ortho consulted. Care by Dr Woodward appreciated. 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 - Pain improved postop (5) Crohn's disease: Plan: Stablechronically on prednisone 10 mg daily. s/p IV stress dose steroids early in stay. Completed stress dose steroid taper and is back to usual dose of 10mg/day. Follows with [facility] for Crohn's. (6) Coronary artery disease: Plan: s/p CABG in 2016. Continue statin, metoprolol, with nitroglycerin as needed. Currently on DAPT with aspirin and Plavix due to recent lower extremity a ngioplasty. (7) Peripheral arterial disease: Plan: Continue DAPT with aspirin, Plavix, statin. Follows with Dr. Errol Bay. CTA LLE findings noted from admission. (8) Hypertension: Plan: Metoprolol increased to 50 twice daily from home 25 twice daily Patient remains generally hypertensive Patient with history of CAD. Patient previously on lisinopril/hctz, this was discontinued as outpatient due to hypotension.? Contribution of sepsis/infecti on to the nose, given persistent hypertension will resume lisinopril alone at low-dose Hyperkalemic 03/06, repeat BMP pending (9) CKD (chronic kidney disease), stage III: Plan: stable (10) Skin tear: Plan: Wound care nurses and dietary supplementation, will benefit from post discharge wound care (11) Glaucoma: Plan: Continue timolol drops, brinzolamide drops, PreserVision. Plan: DVT proph - lovenox PT/OT: Recommending SNF. Alan Lopez referral placed 03/08, [facility] accept, [facility] available on Sunday. CM following Admission and Anticipated Discharge Date Admission Date: February 22, 2022 Subjective Seen at the bedside in the morning, ambulating with physical therapy. Seen again in the afternoon with daughter present. Patient feels he is doing well, is here to get out of the hospital. Denies pain in his feet. Does feel globally weak. Denies chest pain, chest pressure, shortness of breath, difficulty breathing. Daughter is grateful for his care, notes that patient is eager to get out of the hospital and closer to his . Per discussion with CM will likely have a bed available Sunday at the latest. Review of Systems Review of Systems: All systems reviewed & are unremarkable except as noted in Subjective Physical Exam Physical Exam: General: A&Ox3. NAD. Cooperative. HEENT: Atraumatic, normocephalic. Vision and hearing grossly intact. Pulm: CTAB A&P. -wheezes, -rales, -rhonchi. Symmetrical chest rise. No increase in work of breathing. No respiratory distress. Cardiac: RRR, -mrg. Radial pulses intact and symmetrical. Abdominal: Nontender, nondistended, soft. BS present. Extremities: Bilateral hallux amputation. Patient is soft touch intact in dorsal foot bilaterally cap refill less than 2 seconds on dorsal aspect of the feet. Results & Data Results & Data ([facility]) Vital Signs (Past 12 Hours) Vital Signs Temp Pulse Resp BP Pulse Ox 03/08/22 07:30 36.7 C 68 16 181/78 H 95 PG Care Time/CCT Total # of Minutes Spent Total Time Spent with Patient: Total time spent is greater than 50% in coordination of care (as documented) at patient's floor/unit and/or counseling patient: Coding Level of Care Code 72663 Subseq Hosp Care Lvl 2 Diagnoses Sepsis A41.9 Left leg cellulitis L03.116 Acute metabolic encephalopathy G93.41 Gangrene of toe of left foot I96 Crohn's disease K50.90 Coronary artery disease I25.10 Associated angina: without angina Coronary Disease-Associated Artery/Lesion type: [place] artery [place] vs. transplanted heart: [place] heart Peripheral arterial disease I73.9 Hypertension I10 Hypertension type: essential hypertension CKD (chronic kidney disease), stage III N18.3 Skin tear Glaucoma H40.9 (1) Coronary artery disease Associated angina: without angina Coronary Disease-Associated Artery/Lesion type: [place] artery [place] vs. transplanted heart: [place] heart Qualified Cod e(s): I25.10 - Atherosclerotic heart disease of [place] coronary artery without angina pectoris (2) Hypertension Hypertension type: essential hypertension Qualified Code(s): I10 - Essential (primary) hypertension
[2022-03-08 14:06] LABS: BUN Creatinine Ratio 15.6 (10-20); Calcium 8.1 mg/dl (8.5-10.1); Creatinine Clr Calc Pharmacy 47.5 ml/min; Est GFR (African American) 81.5 ml/min; Est GFR (Non-African American) 70.3 ml/min; Potassium 4.2 mmol/L (3.5-5.1)
[2022-03-08] MEDS: LORazepam 0.5 MG TAB PO PRN (18:03)
[2022-03-08] MEDS: ATORVASTATIN 40 MG TAB PO SCH (22:21)
[2022-03-08] MEDS: MELATONIN 3 MG TAB PO SCH (22:22)
[2022-03-08] MEDS ORDERED: LORazepam 0.5 MG TAB PO STA (23:24)
[2022-03-09 06:52] LABS: Basophils # (auto) 0.01 K/uL (0-0.2); Basophils % (auto) 0.1 %; Eosinophils # (auto) 0.03 K/uL (0-0.5); Eosinophils % (auto) 0.4 %; Hematocrit (blood only) 33.2 % (42-52); Hemoglobin 10.2 g/dL (14.0-18.0); Immature Granulocytes # (auto) 0.02 K/uL (0.00-0.02); Immature Granulocytes % (auto) 0.3 %; Lymphocytes # (auto) 1.82 K/uL (1.2-3.4); Lymphocytes % (auto) 24.7 %; Mean Corpuscular Hemoglobin 31.4 pg (25-34); Mean Corpuscular Hgb Conc 30.7 g/dL (32-36); Mean Corpuscular Volume 102.2 fL (80-100); Mean Platelet Volume 9.3 fL (7.4-10.4); Monocytes # (auto) 0.79 K/uL (0.11-0.59); Monocytes % (auto) 10.7 %; Neutrophils # (auto) 4.69 K/uL (1.4-6.5); Neutrophils % (auto) 63.8 %; Platelet Count 421 K/uL (130-400); RDW Coefficient of Variation 15.4 % (11.5-14.5); RDW Standard Deviation 56.8 fL (36.4-46.3); Red Blood Count 3.25 M/uL (4.7-6.1); White Blood Count 7.36 K/uL (4.8-10.8)
[2022-03-09 07:14] LABS: BUN Creatinine Ratio 14.7 (10-20); Est GFR (African American) 82.5 ml/min; Est GFR (Non-African American) 71.2 ml/min; Potassium 3.6 mmol/L (3.5-5.1)
[2022-03-09] MEDS: ENOXAPARIN INJ 40 MG/0.4 ML SYR SQ SCH (07:48)
[2022-03-09] MEDS: TIMOLOL GFS 0.25% OPH SOLN 74 DROPS/5 ML BTL OPB SCH (07:50)
[2022-03-09] MEDS: ACETAMINOPHEN 500 MG TAB PO SCH ×3 (07:50→20:32)
[2022-03-09] MEDS: BRINZOLAMIDE (AZOPT) OPS 10 ML BTL OPB SCH ×2 (07:50→16:22)
[2022-03-09] MEDS: PANTOprazole 40 MG TAB PO SCH (07:51)
[2022-03-09] MEDS: VITAMIN A 25,000 UNIT CAP PO SCH (07:51)
[2022-03-09] MEDS: CLOPIDOGREL BISULFATE 75 MG TAB PO SCH (07:51)
[2022-03-09] MEDS: METOPROLOL TARTRATE 50 MG TAB PO SCH ×2 (07:51→20:41)
[2022-03-09] MEDS: FOLIC ACID 400 MCG TAB PO SCH (07:51)
[2022-03-09] MEDS: LINEZOLID 600 MG TAB PO SCH ×2 (07:51→20:34)
[2022-03-09] MEDS: SENNA 8.6 MG TAB PO SCH (07:52)
[2022-03-09] MEDS: ADVANCED PROBIOTIC 1250 MG CAPSULE PO SCH (07:52)
[2022-03-09] MEDS: POLYETHYLENE (MIRALAX) 17 GM PACK PO SCH (07:52)
[2022-03-09] MEDS: THIAMINE HCL 100 MG TAB PO SCH (07:52)
[2022-03-09] MEDS: ASPIRIN 81 MG ECTAB PO SCH (07:52)
[2022-03-09] MEDS: DOCUSATE SODIUM 100 MG CAP PO SCH ×2 (07:52→20:33)
[2022-03-09] MEDS: CALCIUM 600MG + VIT D 400 IU TAB PO SCH (07:52)
[2022-03-09] MEDS: predniSONE 10 MG TABLET PO SCH (07:52)
[2022-03-09] MEDS: CEROVITE ADV FORMULA TAB PO SCH (07:52)
[2022-03-09] MEDS ORDERED: lisinopril 5 MG TAB PO SCH (09:00)
--- NOTE | 2022-03-09 15:11 | Hospitalist Progress Note ---
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 Initially treated with vancomycin and linezolid As of linezolid complete 03/09, did complete 15 days of treatment with a week for cellulitis following source control CBC/BMP without acute concerns (2) Left leg cellulitis: Plan: Initially treated with cefepime, Flagyl, IV vancomycin Left lower extremity Doppler negative for DVT CT of the left lower extremity: No abscess, necrotizing fasciitis, hematoma, deep infection Intraoperative wound culture grew MRSA which was treated with Vanco/linezolid as above, has had appropriate coverage for corynebacterium (3) Acute metabolic encephalopathy: Plan: Resolved (4) Gangrene of toe of left foot: Plan: - L great toe dry gangrene. - Ortho consulted. Care by Dr Woodward appreciated. 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 - Pain improved postop (5) Crohn's disease: Plan: Stablechronically on prednisone 10 mg daily. s/p IV stress dose steroids early in stay. Completed stress dose steroid taper and is back to usual dose of 10mg/day. Follows with [facility] for Crohn's. (6) Coronary artery disease: Plan: s/p CABG in 2015. Continue statin, metoprolol, with nitroglycerin as needed. Currently on DAPT with aspirin and Plavix due to recent lower extremity angioplasty. (7) Peripheral arterial disease: Plan: Continue DAPT with aspirin, Plavix, statin. Follows with Dr. Errol Bay. CTA LLE findings noted from admission. (8) Hypertension: Plan: Metoprolol increased to 50 twice daily from home 25 twice daily Patient remains generally hypertensive Patient with history of CAD. Patient previously on lisinopril/hctz, this was discontinued as outpatient due to hypotension.? Contribution of sepsis/infection to the nose, given persistent hypertension will resume lisinopril alone at low-dose. Tolerating well BP 130-170s. Dose adjusted, and will need outpt bp followup Hyperkalemic 03/06, repeat BMP wnl (9) CKD (chronic kidney disease), stage III: Plan: stable (10) Skin tear: Plan: Wound care nurses and dietary supplementation, will benefit from post discharge wound care (11) Glaucoma: Plan: Continue timolol drops, brinzolamide drops, PreserVision. Plan: DVT proph - lovenox PT/OT: Recommending SNF. [facility] referral placed 03/08, [facility] accept, [facility] bed available on Sunday. CM following Admission and Anticipated Discharge Date Admission Date: February 22, 2022 Subjective Doing well this morning. Reports he is eager to go to the hospital tomorrow, and otherwise feels well. Reports he does have a history of anxiety attacks for which she has been on benzodiazepines in the past although notes that various providers have counseled him to use this minimally and have attempted to wean this as an outpatient. Does use 0.5 mg nightly at home at baseline. Discussed for/benefits of these and that her generally poor anxiety medicines, patient understanding of this and that there are alternatives such as SSRIs that may be more appropriate but take several weeks to take effect. Patient did have an episode of anxiety last night with some feeling of shortness of breath which immediately resolved with his evening lorazepam. Otherwise feels well, denies fever/chills/sweats/chest pain/lightheadedness, foot pain. Has been able to ambulate easily with a walker. Pending insurance Auth no other questions Review of Systems Review of Systems: All systems reviewed & are unremarkable except as noted in Subjective Physical Exam Physical Exam: General: A&Ox3. NAD. Cooperative. HEENT: Atraumatic, normocephalic. Vision and hearing grossly intact. Pulm: CTAB A&P. -wheezes, -rales, -rhonchi. Symmetrical chest rise. No increase in work of breathing. No respiratory distress. Cardiac: RRR, -mrg. Radial pulses intact and symmetrical. Abdominal: Nontender, nondistended, soft. BS present. Extremities: Bilateral hallux amputation. Patient is soft touch intact in dorsal foot bilaterally cap refill less than 2 seconds on dorsal aspect of the feet. Results & Data Results & Data ([facility]) Vital Signs (Past 12 Hours) Vital Signs Temp Pulse Resp BP Pulse Ox 03/09/22 08:37 36.5 C 77 16 176/79 H 97 PG Care Time/CCT Total # of Minutes Spent Total Time Spent with Patient: Total time spent is greater than 50% in coordination of care (as documented) at patient's floor/unit and/or counseling patient: Coding Level of Care Code 75165 Subseq Hosp Care Lvl 2 Diagnoses Sepsis A41.9 Left leg cellulitis L03.116 Acute metabolic encephalopathy G93.41 Gangrene of toe of left foot I96 Crohn's disease K50.90 Coronary artery disease I25.10 Coronary Disease-Associated Artery/Lesion type: [place] artery [place] vs. transplanted heart: [place] heart Associated angina: without angina Peripheral arterial disease I73.9 Hypertension I10 Hypertension type: essential hypertension CKD (chronic kidney disease), stage III N18.3 Skin tear Glaucoma H40.9 (1) Coronary artery disease Coronary Disease-Associated Artery/Lesion type: [place] artery [place] vs. transplanted heart: [place] heart Associated angina: without angina Qualified Code(s): I25.10 - Atherosclerotic heart disease of [place] coronary artery without angina pectoris (2) Hypertension Hypertension type: essential hypertension Qualified Code(s): I10 - Essential (primary) hypertension
[2022-03-09] MEDS: ATORVASTATIN 40 MG TAB PO SCH (20:33)
[2022-03-09] MEDS: LORazepam 0.5 MG TAB PO PRN (20:34)
[2022-03-09] MEDS: MELATONIN 3 MG TAB PO SCH (20:34)
[2022-03-09] MEDS: oxyCODONE HCL IR 5 MG TAB (IMMEDIATE RELEASE) PO PRN (20:34)
[2022-03-10] MEDS: CLOPIDOGREL BISULFATE 75 MG TAB PO SCH (08:09)
[2022-03-10] MEDS: predniSONE 10 MG TABLET PO SCH (08:09)
[2022-03-10] MEDS: ADVANCED PROBIOTIC 1250 MG CAPSULE PO SCH (08:09)
[2022-03-10] MEDS: ASPIRIN 81 MG ECTAB PO SCH (08:09)
[2022-03-10] MEDS: CEROVITE ADV FORMULA TAB PO SCH (08:09)
[2022-03-10] MEDS: METOPROLOL TARTRATE 50 MG TAB PO SCH (08:09)
[2022-03-10] MEDS: CALCIUM 600MG + VIT D 400 IU TAB PO SCH (08:09)
[2022-03-10] MEDS: FOLIC ACID 400 MCG TAB PO SCH (08:09)
[2022-03-10] MEDS: ACETAMINOPHEN 500 MG TAB PO SCH (08:10)
[2022-03-10] MEDS: PANTOprazole 40 MG TAB PO SCH (08:10)
[2022-03-10] MEDS: TIMOLOL GFS 0.25% OPH SOLN 74 DROPS/5 ML BTL OPB SCH (08:10)
[2022-03-10] MEDS: THIAMINE HCL 100 MG TAB PO SCH (08:10)
[2022-03-10] MEDS: BRINZOLAMIDE (AZOPT) OPS 10 ML BTL OPB SCH (08:10)
[2022-03-10 08:11] LABS: Basophils # (auto) 0.02 K/uL (0-0.2); Basophils % (auto) 0.2 %; Eosinophils # (auto) 0.05 K/uL (0-0.5); Eosinophils % (auto) 0.5 %; Hematocrit (blood only) 32.5 % (42-52); Hemoglobin 10.3 g/dL (14.0-18.0); Immature Granulocytes # (auto) 0.03 K/uL (0.00-0.02); Immature Granulocytes % (auto) 0.3 %; Lymphocytes # (auto) 2.17 K/uL (1.2-3.4); Lymphocytes % (auto) 22.4 %; Mean Corpuscular Hemoglobin 32.7 pg (25-34); Mean Corpuscular Hgb Conc 31.7 g/dL (32-36); Mean Corpuscular Volume 103.2 fL (80-100); Mean Platelet Volume 9.4 fL (7.4-10.4); Monocytes # (auto) 0.85 K/uL (0.11-0.59); Monocytes % (auto) 8.8 %; Neutrophils # (auto) 6.55 K/uL (1.4-6.5); Neutrophils % (auto) 67.8 %; Platelet Count 439 K/uL (130-400); RDW Coefficient of Variation 15.1 % (11.5-14.5); RDW Standard Deviation 56.6 fL (36.4-46.3); Red Blood Count 3.15 M/uL (4.7-6.1); White Blood Count 9.67 K/uL (4.8-10.8)
[2022-03-10] MEDS: ENOXAPARIN INJ 40 MG/0.4 ML SYR SQ SCH (08:11)
[2022-03-10] MEDS: VITAMIN A 25,000 UNIT CAP PO SCH (08:12)
[2022-03-10] MEDS: DOCUSATE SODIUM 100 MG CAP PO SCH (08:18)
[2022-03-10] MEDS: SENNA 8.6 MG TAB PO SCH (08:19)
[2022-03-10 08:24] LABS: BUN Creatinine Ratio 14.1 (10-20); Creatinine Clr Calc Pharmacy 49.5 ml/min; Est GFR (African American) 85.8 ml/min; Potassium 3.4 mmol/L (3.5-5.1)
[2022-03-10] MEDS: POLYETHYLENE (MIRALAX) 17 GM PACK PO SCH (08:24)
[2022-03-10] MEDS ORDERED: lisinopril 10 MG TAB PO SCH (09:00)
--- NOTE | 2022-03-10 12:45 | Discharge Summary ---
Date of Service March 10, 2022 Admission HPI Per Admitting Provider Mr. Corona is an 86-year-old male with past medical history significant for CAD s/p CABG in 2016, PAD, CKD3, hypertension, dyslipidemia, anxiety, GERD, and Crohn's disease who presents today with left leg pain. Patient recently underwent a left angioplasty of left SFA to popliteal artery earlier this month with Dr. Bay due to left foot pain. He halso has an ischemic left great toe that has been poorly perfused. Since the procedure, he has continued to have significant left foot/leg pain and his left great toe has become more ischemic and painful. He was seen by vascular medicine on 02/16, where angiogram was r eviewed and was determined there are limited options for endovascular intervention. Over the past week, his leg pain has greatly increased, as did the redness and swelling that had previously been limited to the level of the foot, but now extends to the knee. He is unable to tolerate the pain any longer at home and comes to the ED for further evaluation. He has not moved bowels in several days, but no other acute issues. No fever/chills, SOB, chest pain, cough, abdominal pain, nausea, or vomiting at home. He is tachycardic and febrile in the emergency room, has a white count of 18.59 with left shift. Left leg CTA shows diffuse subcutaneous edema and fluid in the distal thigh and throughout calf characteristic of cellulitis, as well as diffuse edema into the foot. No focal enhancing abscess or air seen. Atherosclerotic calcification in SFA, popliteal artery and arteries of calf with at least 50% stenosis also noted. Principal Diagnosis Cellulitis Dry gangrene of the toe Discharge Exam General: A&Ox3. NAD. Cooperative. HEENT: Atraumatic, normocephalic. Vision and hearing grossly intact. Pulm: CTAB A&P. -wheezes, -rales, -rhonchi. Symmetrical chest rise. No increase in work of breathing. No respiratory distress. Cardiac: RRR, -mrg. Radial pulses intact and symmetrical. Abdominal: Nontender, nondistended, soft. BS present. Extremities: Bilateral hallux amputation. Second right toe amputation. Sensation to soft touch intact in dorsal foot. Surgical dressings and wrap int act C/C/I Discharge Data Allergies Allergy/AdvReac Type Severity Reaction Status Date / Time Penicillins Allergy Unknown unknown Verified 02/22/22 14:32 Consultations 02/22/22 14:50 ED Decision to Admit Stat 02/22/22 18:40 Consult Orthopedic Surgery Routine Procedures Performed Operation Date: 03/02/22 12:00 Actual Procedures p Bilateral Foot Partial 1st Ray Resections, Right second toe amputation(Bilateral) - Darrin Woodward MD Ordered Studies 02/22/22 11:58 CT angio LE LT w inc wo if don Stat 02/23/22 15:40 US venous doppler LE LT Routine 02/24/22 10:52 CT tib/fib LT wo con Urgent 03/02/22 12:00 FL foot LT 2V Routine FL foot RT 2V Routine Hospital Course (1) Sepsis: Charles is an 87-year-old male who presented with nonhealing right second toe injury and bilateral ischemic hallux. He underwent bilateral foot partial first ray resections, right second toe amputation. He completed a course of linezolid and was discharged to SNF for further care. He was clinically well with no signs of ongoing infection discharge. To do as outpatient: 1. Continue high-dose vitamin A for wound healing for 14 days postop, total duration per orthopedic at follow-up 2. Continue Lovenox DVT prophylaxis. Anticipate 2 to 4-week total course do not discontinue until reviewed and approved by orthopedic surgery. 3. Continue lisinopril 10 mg daily. Patient was recently stopped on HCTZ/lisinopril, was persistently hypertensive during admission, and improved and was normotensive with initiation of lisinopril without hydrochlorothiazide combination. BP follow-up at PCP ointment, adjust as needed 4. Routine PCP follow-up 5. Orthopedic follow-up. 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 Initially treated with vancomycin and linezolid Course of linezolid complete 03/09, did complete 15 days of treatment with a week for cellulitis following source control CBC/BMP without acute concerns (2) Left leg cellulitis: Initially treated with cefepime, Flagyl, IV vancomycin Left lower extremity Doppler negative for DVT CT of the left lower extremity: No abscess, necrotizing fasciitis, hematoma, deep infection Intraoperative wound culture grew MRSA which was treated with Vanco/linezolid as above, has had appropriate coverage for corynebacterium (3) Acute metabolic encephalopathy: Resolved (4) Gangrene of toe of left foot: - L great toe dry gangrene. - Ortho consulted. Care by Dr Woodward appreciated. 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 - Pain improved postop (5) Crohn's disease: Stablechronically on prednisone 10 mg daily. s/p IV stress dose steroids early in stay. Completed stress dose steroid taper and is back to usual dose of 10mg/day. Follows with Fanny GALLEGOS for Crohn's. (6) Coronary artery disease: s/p CABG in 2016. Continue statin, metoprolol, with nitroglycerin as needed. Currently on DAPT with aspirin and Plavix due to recent lower extremity angioplasty. (7) Peripheral arterial disease: Continue DAPT with aspirin, Plavix, statin. Follows with Dr. Errol Bay. CTA LLE findings noted from admission. (8) Hypertension: Metoprolol increased to 50 twice daily from home 25 twice daily Patient remains generally hypertensive Patient with history of CAD. Patient previously on lisinopril/hctz, this was discontinued as outpatient due to hypotension.? Contribution of sepsis/infection to the nose, given persistent hypertension will resume lisinopril alone at low-dose. Tolerating well BP 130-170s. Dose adjusted, and will need outpt bp followup Hyperkalemic 03/06, repeat BMP wnl (9) CKD (chronic kidney disease), stage III: stable (10) Skin tear: Wound care nurses and dietary supplementation, will benefit from post discharge wound care (11) Glaucoma: Continue timolol drops, brinzolamide drops, PreserVision. DVT proph - lovenox PT/OT: SNF Total Time Total Time Spent Total Time Spent (In Minutes): Time spend day of discharge 45 minutes including direct patient care, documentation, review of labs and images, and coordination of care. Discharge Plan Discharge Items Patient Disposition: Transfer [facility] Reason For Visit: SEPSIS 2/2 CELLULITIS, ISCHEMIC LEFT TOE Discharge Diagnosis: Cellulitis Hallux ischemia/cellulitis is post amputation Activity: Per Instructions section Weightbearing: Full weightbearing Weightbearing Comment: on heels with post op shoes and walker Non-emergency contact: Surgeon Call non-emergency contact if: you have any medication questions, your pain is not controlled, your temperature is above 101, your wound has increased redness and your wound has increased drainage Follow-up/Referrals: Darrin Bee MD [Primary Care Provider] - 03/14/22 8:15 am Darrin Woodward MD [Surgeon] - 03/17/22 10:30 am Diet: Heart Healthy [place] Attending Provider Instructions: You are seen in the hospital for poor blood flow to the foot and cellulitis. You had operative removal of the great toe from both feet and right second toe. You received antibiotics for treatment of your infection/cellulitis with good clinical improvement. You completed a course of antibiotics during hospitalization and additional antibiotics were not recommended at discharge. You are being discharged to further care at [facility] with rehab. You will have follow-up to orthopedics as an outpatient, their recommendations are noted below and include vitamin A for 14 days to help improve healing and Lovenox 40mg daily for 2 to 4 weeks, the course of this will be determined by your surgeon at your follow-up appointment and should be continued until okay to stop per orthopediatric evaluation at follow-up. Your lisinopril has been resumed due to high blood pressure. You are tolerating this well at time of discharge. Please set a follow-up appointment with your primary care physician within 1 week for reassessment of blood pressure, you should also have your kidney function checked at that time If you develop any new or worsening symptoms including fever, chills, sweats, chest pain, chest pressure, difficulty breathing, uncontrolled nausea/vomiting, rash, wheezing, passing out or nearly passing out, bleeding, black/bloody bowel movements, or other new or concerning symptoms please call your primary care physician, or call 911 for re-evaluation in the emergency department if you are very concerned. [employer] Provider Instructions: May weight bear as tolerated bilateral lower extremities on heels Keep post op shoes on at all times when out of bed Keep incisions covered, may change dressings daily and reinforce as needed. Elevate both feet above your heart to relieve pain/swelling. Ice as needed for pain/swelling. Follow up with DR. Woodward in 10-14 days. Vitamin A as prescribed x 14 days post op Lovenox daily as prescribed x 2-4 weeks after surgery. Do not discontinued until approved by Dr. Woodward Pending Studies at Discharge: No Stand-Alone Forms: My [facility] Skilled Items Patient informed of condition?: Yes DNR: No Discharge Level of Care: Skilled Communicable Disease: No Discharge Prognosis: Stable Lines: None Urinary Catheter: No Medications and DC Order Prescriptions: New beta carotene 25,000 unit Capsule 25,000 unit PO QAM 14 Days Qty: 14 RF: 0 lisinopril 10 mg Tablet 10 mg PO QAM 30 Days Qty: 30 RF: 0 enoxaparin [Lovenox] 40 mg/0.4 mL Syringe 40 mg subcut QAM 14 Days Qty: 5.6 RF: 0 Continued atorvastatin [Lipitor] 80 mg tablet 80 mg PO HS Qty: 90 RF: 3 metoprolol tartrate 25 mg tablet 25 mg PO BID Qty: 180 RF: 3 lorazepam [Ativan] 0.5 mg tablet 0.5 mg PO HS Qty: 30 RF: 0 tramadol 50 mg tablet 50 mg PO Q8H PRN (Reason: pain) Qty: 30 RF: 1 nitroglycerin [Nitrostat] 0.4 mg tablet, sublingual 0.4 mg SL .COMPLEX RF: 0 Azopt 1 % drops,suspension 1 drp OPB BID RF: 0 Centrum Silver 0.4-300-250 mg-mcg-mcg tablet 1 tab PO QAM RF: 0 Caltrate 600 plus D 600 mg (1,500 mg)-800 unit tablet,chewable 1 tab PO QAM RF: 0 timolol maleate [Timoptic-XE] 0.25 % gel forming solution 1 drops OPB QAM RF: 0 folic acid 400 mcg tablet 400 mcg PO QAM RF: 0 diphenhydramine-acetaminophen [Tylenol PM Extra Strength] 25-500 mg Tablet 1 tab PO HS RF: 0 aspirin [C[place]et Low Dose Aspirin] 81 mg Tablet,Delayed Release (Dr/Ec) 81 mg PO QAM RF: 0 thiamine HCl (vitamin B1) [Vitamin B-1] 100 mg Tablet 100 mg PO QAM Qty: 30 RF: 0 PreserVision AREDS-2 250-90-40-1 mg Capsule 1 tab PO QAM RF: 0 prednisone 10 mg tablet 10 mg PO QAM RF: 0 acetaminophen [Acetaminophen Extra Strength] 500 mg Tablet 500 mg PO Q6H PRN (Reason: Pain) RF: 0 clopidogrel 75 mg tablet 75 mg PO QAM RF: 0 omeprazole 40 mg capsule,delayed release(DR/EC) 40 mg PO QAM RF: 0 hydrocodone-acetaminophen 5-325 mg tablet 1 tab PO Q6H PRN (Reason: pain) Qty: 20 RF: 0 Discharge Orders: Discharge Order (Routine); Ordered 03/10/22 Ordered By: Darrin Cordoba Admission Data Admit Date/Time: 02/22/22 16:23 Attending Provider: Darrin Cordoba Admit Provider: Jovanni Babin Primary Care Provider: Darrin Bee Other Providers: Jovanni Babin ; Darrin Woodward ; Estella Rivero ; Estella Arango at [place] ; [facility] Other Interventions: Discharge Summary Assessment (RN) Last Done: 03/10/22 11:14 Coding Level of Care Code D/C DAY MANAGEMENT >30 MINS Diagnoses Sepsis A41.9 Left leg cellulitis L03.116 Acute metabolic encephalopathy G93.41 Gangrene of toe of left foot I96 Crohn's disease K50.90 Coronary artery disease I25.10 Associated angina: without angina Coronary Disease-Associated Artery/Lesion type: [place] artery [place] vs. transplanted heart: [place] heart Peripheral arterial disease I73.9 Hypertension I10 Hypertension type: essential hypertension CKD (chronic kidney disease), stage III N18.3 Skin tear Glaucoma H40.9
== END 2022-03-10 11:53 | DRG 853 ==
LOC: ED 11:35 → 2N 16:23 → SUATTDRO 16:23 → 2N 17:51 → 3E 02-26 22:46